=== PATIENT | male | born 1940 | race Caucasian/White ===

== ENCOUNTER → 2018-07-24 05:35 | Day surgery (SDC) | payer MEDICARE ==
[~2018-07-24 05:35] MED LIST: Atracurium* 10 MG/ML 10 ML VIAL ONE; Buffered Lidocaine 0.9% SYRIN* 5 ML/SYR SYRINGE INTRADERM ONE; Midazolam* 1 MG/ML 5 ML VIAL (5 MG) ONE; Morphine PCA ADULT* 5 MG/ML 30 ML ONE; Naloxone* 0.4 MG/ML 1 ML VIAL IV PRN; Succinylcholine* 20 MG/ML 10 ML VIAL ONE; fentaNYL* 50 MCG/ML 2 ML VIAL (100 MCG VIAL) ONE
[2018-07-24 08:17] VITALS: BP 107/61
== END | disposition home or self-care (01) ==
LOC: OR 05:35
PROVIDERS: ATTEND Family Medicine
DX: M48.07 Spinal stenosis, lumbosacral region (principal); M54.5 Low back pain; E11.9 Type 2 diabetes mellitus without complications; Z79.84 Long term (current) use of oral hypoglycemic drugs; I10 Essential (primary) hypertension; I25.10 Atherosclerotic heart disease of native coronary artery without angina pectoris; Z95.5 Presence of coronary angioplasty implant and graft; I35.0 Nonrheumatic aortic (valve) stenosis; F17.210 Nicotine dependence, cigarettes, uncomplicated
CPT/HCPCS: 72148; J0330; J2250; J2270; J3010

== ENCOUNTER 2019-02-11 20:49 | Inpatient (IN) | payer MEDICARE ==
--- OUTSIDE RECORDS SUMMARY | 2019-02-11 20:56 | XMS REPORT | Continuity of Care Document ---
:1940 External Reference #:[id number] Author Name Wesley Abdalla, DO Address [address] [place] [address] Care Team Providers Name Role Phone Amber Durham NP Care Team Information Tub Attendant Unavailable Delmar Boston MD Primary Care Physician Unavailable Payers Date Identification Numbers Payment Provider Subscriber Policy Number: [id number] Medicare Jalen Richey PayID: [id number] [facility] [address] [facility] [place] [address] Policy Number: [id number] [facility] Option Jalen Richey PayID: [id number] Claims, [address] [place] [address] Expires: 2018 Policy Number: [id number] [employer] Jalen Richey PayID: [id number] [address] [place] [address] Problems Active Problems Provider Date Cough Hallie Dalal PA-C Onset: 09/01/2018 Flatulence, eructation and gas pain Hallie Dalal PA-C Onset: 2018 Nausea Hallie Dalal PA-C Onset: 09/01/2018 Social History Type Date Description Comments Sex Unknown Tobacco Use Start: Unknown End: Unknown Patient is a former smoker Smoking Status Reviewed: 02/08/19 Patient is a former smoker Allergies, Adverse Reactions, Alerts Active Allergies Reaction Severity Comments Date Aripiprazole Lauroxil Free Text 08/19/2018 Medications Active Medications SIG Qnty Indications Ordering Provider Date Famotidine 60tabs K21.9 Amber Durham NP 08/17/2018 20mg Tablets Ipratropium [place] 90units R05 Delmar Boston MD 06/04/2016 0.03% Solution Gabapentin 90caps G89.4 Delmar Boston MD 06/04/2016 100mg Capsules Azelastine HCL (Nasal) 90units J30.89 Delmar Boston MD 03/18/2016 0.1% Solution Atorvastatin Calcium 90tabs Amber Durham,VALIDATION SOFTWARE FACILITATOR 12/01/2015 40mg Tablets Trazodone HCL 60tabs Delmar Boston MD 01/18/2015 50mg Tablets Nitroglycerin 1tabs Delmar Boston MD 09/23/2012 0.4mg Tablets Sub Omeprazole 180caps R11.0 Delmar Boston MD 06/10/[address] Losartan Potassium 90tabs Delmar Boston MD 11/15/2010 100mg Tablets Metoprolol Tartrate 180tabs Delmar Boston MD 12/18/2009 25mg Tablets Dapsone 60tabs Unknown 100mg Tablets Metformin HCL Unknown 1000mg Tablets Humulin R Unknown 100Unit/ML Solution Humulin N Unknown 100Unit/ML Suspension Lumigan Unknown 0.01% Solution Hydrochlorothiazide 90tabs Delmar Boston MD 25mg Tablets Doxycycline Hyclate Unknown 100mg Capsules History Medications Azathioprine 50mg Tablets Unknown - Vital Signs Date Vital Result Comment 02/08/2019 11:03am Height 70 inches 5'10" Weight 214.00 lb BP Systolic 103 mmHg BP Diastolic 65 mmHg Heart Rate 77 /min BMI (Body Mass Index) 30.7 kg/m2 09/01/2018 1:22pm Weight 224.00 lb BP Systolic 133 mmHg BP Diastolic 74 mmHg Heart Rate 64 /min Results Test Date Facility Test Result H/L Range Note Laboratory test finding 01/27/2018 N2N/[facility]D Import LDL, Direct 77 mg/dL 0 -130 Uric Acid 7.3 mg/dL 2.5-9.2 Vitamin B-12 433 pg/mL 230-1050 Comprehensive Metabolic Prof 01/27/2018 N2N/CCD Import A/G Ratio 1.9 CALC 0.6-2.3 Albumin 4.2 g/dL 3.8-5.5 Alk. Phosphatase 53 U/L 22-95 Alt (SGPT) 16 U/L 7-35 Ast (Sgot) 18 U/L 5-34 BUN 22 mg/dL 6-26 BUN/Creat Ratio 20.0 CALC 8.0-36.0 Calcium 8.7 mg/dL 8.6-10.2 Carbon Dioxide 27 mEq/L 21-32 Chloride 98 mEq/L 94-112 Creatinine 1.1 mg/dL 0.6-1.4 GFR >60 ml/min/1.73m^ >=60 GFR Non- >60 ml/min/1.73m^ >=60 Globulin 2.2 g/dL 2.0-4.8 Glucose 201 mg/dL High 70-105 Potassium 4.1 mEq/L 3.6-5.5 Sodium 140 mEq/L 134-149 Total Bilirubin 0.9 mg/dL 0.2-1.3 Total Protein 6.4 g/dL 6.4-8.3 Lipid Profile 01/27/2018 [facility] Import Cholesterol 163 mg/dL 120-200 HDL Cholesterol 37 mg/dL 30-70 HDL Risk Factor 4.4 CALC 0.0-4.4 LDL (Calculated) 62 CALC 0-129 Triglycerides 322 mg/dL High 30-200 VLDL Cholesterol 64 mg/dL High 0-50 Laboratory test 05/15/2017 [email or web address] Import Erythrocyte Sed Rate 25 mm/Hr 0-40 finding Erythropoietin 16.5 mIU/mL 2.6 - 18.5 1 Ferritin 64.1 ng/mL 24-336 Haptoglobin 161 mg/dL 30 - 200 2 LDH 216 U/L 140-271 Vitamin B12 381 pg/mL 180-914 3 CBC Auto Diff 05/15/2017 [email or web address] Import Abs Basophils 0 10^3/uL 0-0.2 Abs Eosinophils 0.2 10^3/uL 0-0.6 Abs Lymphocytes 0.9 10^3/uL Low 1.0-4.8 Abs Monocytes 0.8 10^3/uL 0-0.8 Abs Neutrophils 5.6 10^3/uL 1.5-7.7 Abs Nucleated RBC 0 10^3/uL Basophil % 0.6 % 0-2 Eosinophil % 2.6 % 0-6 Granulocyte % 74.3 % 38-83 Hematocrit 34 % Low 42-52 Hemoglobin 10.9 g/dL Low 14.0-18.0 Lymphocyte % 11.5 % Low 25-47 Mean Corpuscular HGB Conc 33 g/dL 31-36 Mean Corpuscular Hemoglobin 29 pg 27-31 Mean Corpuscular Volume 87 fL 80-94 Mean Platelet Volume 9 um3 7.4-10.4 Monocyte % 11.0 % High 1-9 Nucleated Red Blood Cells % 0 1 Platelet Count 167 10^3/uL 150-450 Red Blood Count 3.83 10^6/uL Low 4.0-5.4 Red Cell Distribution Width 16 % High 10.5-15 White Blood Count 7.6 10^3/uL 3.5-10.8 Comp Metabolic Panel 05/15/2017 N2N/CCD Import Albumin 4.0 g/dL 3.2-5.2 Albumin/Globulin Ratio 1.3 1 1-3 Alkaline Phosphatase 47 U/L 34-104 Alt 17 U/L 7-52 Anion Gap 12 mmol/L High 2-11 Ast 19 U/L 13-39 BUN/Creatinine Ratio 19.1 1 8-20 Blood Urea Nitrogen 29 mg/dL High 6-24 Calcium 8.8 mg/dL 8.6-10.3 Chloride 103 mmol/L 101-111 Co2 Carbon Dioxide 23 mmol/L 22-32 Creatinine 1.52 mg/dL High 0.67-1.17 Egfr 57.9 1 >60 4 Egfr Non- 45.1 1 >60 Globulin 3.0 g/dL 2-4 Glucose 144 mg/dL High 70-100 Potassium 3.8 mmol/L 3.5-5.0 Sodium 138 mmol/L 133-145 Total Bilirubin 0.60 mg/dL 0.2-1.0 Total Protein 7.0 g/dL 6.4-8.9 Iron & Iron Binding 05/15/2017 N2N/CCD Import % Iron Saturation 21 % 15- 55 Capacity Iron 68 g/dL 50-212 Total Iron Binding Capacity 323 g/dL 250-450 Unsaturated Iron Binding 255 g/dL Protein Electrophoresis 05/15/2017 N2N/CCD Import Albumin 3.4 g/dL 3.4- 4.7 Albumin/Globulin Ratio 0.97 1 Alpha-1 Globulin 0.3 g/dL 0.1-0.3 Alpha-2 Globulin 1.0 g/dL 0.6-1.0 Beta Globulin 1.0 g/dL 0.7-1.2 Gamma Globulin 1.3 g/dL 0.6-1.6 Impression See Comment 5 Total Protein(Pep) 7.0 g/dL 6.3 - 7.9 1 Test Performed by: [facility] [address] [place] [address] 2 Test Performed by: [facility] [address] [place] [address] 3 Normal Range 180 to 914 Indeterminate Range 145 to 180 Deficient Range <145 4 Because ethnic data is not always readily available, this report includes an eGFR for both -Americans and non- Americans. The National Kidney Disease Education Program (NKDEP) does not endorse the use of the MDRD equation for patients that are not between the ages of 18 and 70, are , have extremes of body size, muscle mass, or nutritional status, or are non- or non-. According to the National Kidney Foundation, irrespective of diagnosis, the stage of the disease is based on the level of kidney function: Stage Description GFR(mL/min/1.73 m(2)) 1 Kidney damage with normal or decreased GFR 90 2 Kidney damage with mild decrease in GFR 60-89 3 Moderate decrease in GFR 30-59 4 Severe decrease in GFR 15-29 5 Kidney failure <15 (or dialysis) 5 RESULT: No apparent monoclonal protein on serum electrophoresis. Test Performed by: [address] [address] Procedures Date Code Description Status 04/29/2006 47892 Colonoscopy Completed Encounters Type Date Location Provider Dx Diagnosis Office Visit 09/01/2018 Gastroenterology Hallie Logan R11.0 Nausea 1:[facility]p [facility] PA-C R14.0 Abdominal distension (gaseous) R05 Cough R14.2 Eructation Plan of Treatment Future Appointment(s):03/18/2019 12:15 pm - Wesley Abdalla DO at [facility]02/08/2019 - CRISTIN Lim14.0 Abdominal distension (gaseous)R13.14 Dysphagia, pharyngoesophageal nsklsK42.03 Drug induced awzdclpdyvgjI02.11 Encounter for screening for malignant neoplasm of cvwmbX84.9 Type 2 diabetes mellitus without pgbsqlngrsynlD61.81 Dependence on supplemental oxygen
[2019-02-11] MEDS ORDERED: NS 0.9% 1000 ML** 3,000 ML IV ONE (21:05)
--- NOTE | 2019-02-11 21:07 | ED ---
HPI Febrile Illness - HPI Summary HPI Summary: This pt is a 78 y/o male presenting to [facility] via EMS c/o fevers for the past 3 days. reports the pt was diagnosed by Dr. Boston with shingles 10 days ago and was given Valtrex. Per , over the past few days pt has been spiking a fever, sleeping more than usual, and has been getting disoriented. Pt also still has pain from shingles on his left lower back radiating down his left leg. Additionally pt reports headaches in the morning, some abd pain, dysuria. He notes he has had dysuria for the past 3 weeks. Denies chest pain, cough, nausea, vomiting. Pt was given Tylenol x2 TECHNICAL COORDINATOR, per . - History of Current Complaint Time Seen by Provider: 02/11/19 20:56 Hx Obtained From: Patient, Family/Residential Treatment Counselor Onset/Duration: Started Days Ago, Still Present Timing: Lasting Days Current Severity: Moderate Pain Intensity: 5 Pain Scale Used: 0-10 Numeric Aggravating Factors: Nothing Alleviating Factors: Nothing Associated Signs and Symptoms: Dysuria, Headache, Rash - diagnosed as shingles, Other: - POSITIVE: disorientation, sleeping more than usual, abd pain. NEGATIVE : chest pain, nausea, vomiting - Allergy/Home Medications Allergies/Adverse Reactions: Allergies Allergy/AdvReac Type Severity Reaction Status Date / Time aripiprazole [From Abilify] Allergy Shakes Verified 12/28/18 10:15 lisinopril [From Zestril] Allergy See Comment Verified 12/28/18 10:15 Home Medications: Home Medications Acetaminophen with Codeine [Acetaminophen/Codeine Jessica 300-30 mg] 1 - 2 tab PO Q6HR 02/12/19 [History Confirmed 02/12/19] Atorvastatin* [Lipitor*] 40 mg PO DAILY 02/12/19 [History Confirmed 02/12/19] Trazodone HCl 50 mg PO BEDTIME 02/12/19 [History Confirmed 02/12/19] ValACYclovir (*) [Valtrex 1 GM(*)] 1 gm PO TID 02/12/19 [History Confirmed 02/12] PMH/Surg Hx/FS Hx/Imm Hx Endocrine/Hematology History: Reports: Hx Anticoagulant Therapy - on Coumadin, Hx Diabetes - TYPE II- ORAL MEDICATION AND INSULIN FOR Cardiovascular History: Reports: Hx Coronary Artery Disease - STENT, Hx Deep Vein Thrombosis, Hx Hypercholesterolemia, Hx Hypertension - ON MEDICATION FOR, Other Cardiovascular Problems/Disorders - 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 Comment Only: Hx Asthma - interstital lung disease GI History: Reports: Hx Gastroesophageal Reflux Disease - ON MEDICATION FOR, Hx Hiatal Hernia History: Reports: Hx Kidney Stones Denies: Hx Renal Disease Musculoskeletal History: Reports: Hx Arthritis - "ALL OVER", Hx Back Problems - spinal stenosis, Hx Bursitis - right shoulder, Other Musculoskeletal History - gouty arthropathy Denies: Hx Rheumatoid Arthritis, Hx Osteoporosis Sensory History: Reports: Hx Cataracts, Hx Contacts or Glasses - GLASSES Denies: Hx Hearing Aid Opthamlomology History: Reports: Hx Cataracts, Hx Contacts or Glasses - GLASSES Neurological History: Reports: Hx Spinal Cord Injury - lumbar stenosis Denies: Hx Dementia, Hx Developmental Delay, Hx Headaches, Hx Migraine, Hx Seizures, Hx Transient Ischemic Attacks (TIA), Other Neuro Impairments/Disorders Comment Only: Hx Nerve Disease - diebetic neuropathy Psychiatric History: Reports: Hx Anxiety, Hx Depression - ON MEDICATION FOR Denies: Hx Panic Disorder - Surgical History Surgery Procedure, Year, and Place: cardiac Stent ( ENDEAVOR-ZOTAROLIMUS ELUTING - COND 5-PT HAS CARD- 1.5T MAX SPT 525 GAUSS) placed 2008 [place]. right knee meniscus repair. CATARACT W/ LENS - @ [facility] [place]. A TEEN- PROCEDURE FOR GINGIVITIS Hx Anesthesia Reactions: Yes - DIFFICULTY WITH INTUBATION IN YEARS PAST-NO PROBLEMS IN RECENT SURG. Infectious Disease History: Denies: Traveled Outside the [place] in Last 30 Days - Family History Known Family History: Positive: Cardiac Disease, Diabetes - Social History Alcohol Use: Occasionally Alcohol Amount: 2 per week Substance Use Type: Reports: None Substance Use Comment - Amount & Last Used: MEDICAL USE OF MARIJUANA Smoking Status (MU): Former Smoker Amount Used/How Often: 1 1/2 PPD+ X 40-50 YEARS Length of Time of Smoking/Using Tobacco: 40 YRS Have You Smoked in the Last Year: No Review of Systems Constitutional: Other - POSITIVE: sleeping more than usual Positive: Fever Negative: Chest Pain Negative: Cough Positive: Abdominal Pain. Negative: Vomiting, Nausea Positive: dysuria Positive: Rash Neurological: Other - POSITIVE: disorientation Positive: Headache All Other Systems Reviewed And Are Negative: Yes Physical Exam - Summary Physical Exam Summary: Appearance: Well-appearing, Well-nourished, Elderly male lying comfortably in the stretcher in no acute distress, Does not appear toxic Skin: Warm, dry, Skin lesions in dermatome pattern from the left side of the lower back across his buttocks and into the thigh. Does not appear to have a secondary infection. Eyes: sclera anicteric, no conjunctival pallor ENT: mucous membranes moist, pharynx appears normal Neck: Supple, nontender Respiratory: Clear to auscultation, no signs of respiratory distress Cardiovascular: Normal S1, S2. No murmurs. Normal distal pulses in tibial and radial bilaterally. Abdomen: abdomen is obese, umbilical hernia is soft and nontender, otherwise abdomen is soft, normal active bowel sounds present Musculoskeletal: Normal, Strength/ROM Intact. Extremities without swelling, no edema. Neurological: A&Ox3, awake and alert, mentation is normal, speech is fluent and appropriate Psychiatric: affect is normal, does not appear anxious or depressed Triage Information Reviewed: Yes Vital Signs Reviewed: Yes Diagnostics - Laboratory Result Diagrams: 02/11/19 21:31 02/11/19 21:31 Lab Statement: Any lab studies that have been ordered have been reviewed, and results considered in the medical decision making process. - Radiology Chest XR Radiology Interpretation Completed By: ED Physician Summary of Radiographic Findings: Patchy areas of atelectasis in the right lung , no focal consolidation. - EKG 21:24 Cardiac Rate: Tachycardia - at 97 bpm EKG Rhythm: Sinus Tachycardia Summary of EKG Findings: ST, unifocal PVCs Course/Dx - Course Assessment/Plan: Pt is a 78 y/o male presenting to [facility] via EMS c/o fevers for the past 3 days. reports the pt was diagnosed by Dr. Boston with shingles 10 days ago and was given Valtrex. Pt reports headaches in the morning, some abd pain, and dysuria. notes pt has been sleeping more than usual and has been getting disoriented. Test results remarkable for WBC of 1.9, hgb of 8.4, hct of 26, platelet count of 72, lactic acid of 3, AST of 62, troponin of 0.04. Chest XR shows patchy areas of atelectasis in the right lung, no focal consolidation. In the ED course the pt was given IV fluids, vancomycin, zosyn. Discussed the case with Dr. Bhakta, hospitalist, who accepted the pt for admission. - Diagnoses Provider Diagnoses: Fever, Sepsis, UTI (urinary tract infection) - Provider Notifications Discussed Care Of Patient With: Ted Bhakta - hospitalist Time Discussed With Above Provider: 23:42 Instructed by Provider To: Admit As Inpatient Discharge - Sign-Out/Discharge Documenting (check all that apply): Patient Departure - Admit to [facility] Patient Received Moderate/Deep Sedation with Procedure: No - Discharge Plan Condition: Stable Disposition: ADMITTED TO [facility] - Billing Disposition and Condition Condition: STABLE Disposition: Admitted to [facility] - Attestation Statements Document Initiated by Patricio: Yes Documenting Scribe: Padmini Flores Provider For Whom Shalae is Documenting (Include Credential): Chralie Leal MD Scribe Attestation: Padmini Hamlin scribed for Charlie Leal MD on 02/12/19 at 0640. Scribe Documentation Reviewed: Yes Provider Attestation: The documentation as recorded by the Padmini neumann accurately reflects the service I personally performed and the decisions made by me, Charlie Leal MD Status of Scribe Document: Viewed
[2019-02-11 21:56] LABS: ALT 37 U/L (7-52); AST 62 U/L (13-39); Albumin 3.1 g/dL (3.2-5.2); Alkaline Phosphatase 61 U/L (34-104); Anion Gap 11 mmol/L (2-11); BUN/Creatinine Ratio 19.3 (8-20); Blood Urea Nitrogen 32 mg/dL (6-24); CO2 Carbon Dioxide 21 mmol/L (22-32); Calcium 7.9 mg/dL (8.6-10.3); Chloride 104 mmol/L (101-111); EGFR Non-African American 40.5 (>60); Glucose 166 mg/dL (70-100); Potassium 4.3 mmol/L (3.5-5.0); Sodium 136 mmol/L (135-145); Total Protein 6.1 g/dL (6.4-8.9)
[2019-02-11 21:58] LABS: Activated Partial Thrombo Time 52.1 seconds (26.0-38.0); INR 1.21 (0.82-1.09)
[2019-02-11 22:04] LABS: Troponin I 0.04 ng/mL (<0.04)
[2019-02-11 22:11] LABS: ABS Lymphocytes 0.5 10^3/ul (1.0-4.8); ABS Monocytes 0.4 10^3/ul (0-0.8); Eosinophil % 0.3 %; Hematocrit 26 % (42-52); Hemoglobin 8.4 g/dL (14.0-18.0); Lymphocyte % 26.8 %; Mean Corpuscular HGB Conc 33 g/dL (31-36); Mean Corpuscular Hemoglobin 29 pg (27-31); Mean Corpuscular Volume 87 fL (80-94); Nucleated Red Blood Cells % 0.3; Red Blood Count 2.93 10^6 /uL (4.18-5.48); Red Cell Distribution Width 19 % (10-15); White Blood Count 1.9 10^3/uL (3.5-10.8)
[2019-02-11 22:40] LABS: Mean Platelet Volume 9.5 fL (7.4-10.4); Platelet Count 72 10^3/uL (150-450)
[2019-02-11 22:41] LABS: Polychromasia 1+
[2019-02-11] MEDS ORDERED: Vancomycin 1500 MG IV - x ONCE IVPB ONE ×2 (23:00)
[2019-02-11] MEDS ORDERED: Piperacillin/Tazobac ADVAN(*) 3.375 GM in NS 0.9% 100 ML* 100 ML IVPB ONE (23:24)
[2019-02-11] MEDS ORDERED: Vancomycin(*) 1,000 MG VIAL IVPB SCH (23:45)
[2019-02-11 23:57] LABS: Urine Appearance Cloudy; Urine Bacteria Absent (Absent); Urine Bilirubin Negative (Negative); Urine Blood 3+ (Negative); Urine Color Amber; Urine Glucose Negative (Negative); Urine Ketones Trace (Negative); Urine Nitrite Negative (Negative); Urine Protein 1+(30 mg/dL) (Negative); Urine Red Blood Cell 3+(>10/hpf) (Absent); Urine Specific Gravity 1.015 (1.010-1.030); Urine Urobilinogen Negative (Negative); Urine White Blood Cell 3+(>20/hpf) (Absent)
[2019-02-12] MEDS ORDERED: NS 0.9% 250 ML* 250 ML ONE (00:50)
[2019-02-12] MEDS ORDERED: Dextrose 50% Syringe 50 ML* 25 GM/50 ML SYRINGE IV PUSH PRN (01:07)
[2019-02-12] MEDS ORDERED: Morphine INJ* 2 MG/ML 1 ML SYRINGE (TWO MG - NEW SYRINGE VERSION) IV PRN (01:24)
[2019-02-12] MEDS ORDERED: Nitroglycerin TAB 0.4 MG* 0.4 MG TAB SL PRN (01:27)
[2019-02-12] MEDS ORDERED: Zosyn per Pharmacy* NOTE FOLLOW UP SCH (02:00)
--- NOTE | 2019-02-12 02:54 | HP ---
History of Present Illness - History of Present Illness Reason for Visit: fever, weakness History of Present Illness: PCP: Dr. Boston HPI: Patient is a 78 year old man with spinal stenosis and multiple medical problems who presented to the ER today with increasing overall weakness and a temperature of 100.9-101.2 at home. He was so weak he barely could get to bathroom, and his had difficulty supporting him. He denies any focal infectious symptoms, such as dysuria, frequency, sore throat, nausea, diarrhea, cough, or dyspnea. He has chronic low back pain that radiates to his legs. His became particularly concerned when his BP at home read 88/42, so she convinced him to come to ER and called an ambulance. Recent medical history includes a visit to urology about 10 days ago. There was discussion of urinary retention, BPH, but a UA was reported as negative for infection. He has seen Dr. Crisostomo many times regarding nephrolithiasis. He also has had low blood counts noted by his primary care office, and a referral to Dr. Ralph was canceled twice by the hematology office. About 12 days ago he was diagnosed with shingles on his LT low back and leg, and has been on 1 week of Valtrex since then. 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 Cueto, pulmonology, at [facility]. 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 Abdalla recently, EGD and colonoscopy planned in March Genital - Urinary: Negative: Hematuria Genitourinary - Male: Positive: Prostatism Musculoskeletal: Positive: Joint Pain, Low Back Pain Endocrinology: Positive: Diabetes Mellitus Hematologic/Lymphatic: Positive: Anemia Negative: Hx Leukemia, Use of Antiplatelet Drugs Neurology: Positive: Normal Psychiatry: Positive: Normal Objective Active Medications: Home Medications: Atorvastatin Calcium (Lipitor*) 40 mg PO 2100 [facility] Betaxolol HCl (Betoptic 0.05%*) 1 drop BOTH EYES BID FAYE Dapsone (Dapsone Tab*) 100 mg PO QAM [facility] Doxycycline Hyclate (Vibramycin Cap(*)) 100 mg PO BEDTIME [facility] Insulin NPH 30 units SUBCUT Q24H FAYE Insulin Regular 15-30 units SC pre-meal Latanoprost (Xalatan 0.005%*) 1 drop BOTH EYES BEDTIME [facility]; Protocol Nitroglycerin (Nitroglycerin Tab 0.4 Mg*) 0.4 mg SL Q5M PRN PRN Reason: CHEST PAIN Pantoprazole Sodium (Protonix Tab*) 40 mg PO BID FAYE Prednisone (Deltasone Tab*) 5 mg PO QAM FAYE Trazodone HCl (Desyrel Tab*) 100 mg PO BEDTIME [facility] Vital Signs - 8 hr 02/11/19 02/11/19 02/11/19 20:57 21:08 22:05 Temperature 38.2 C Pulse Rate 102 104 86 Respiratory 18 Rate Blood Pressure 91/55 91/55 (mmHg) O2 Sat by Pulse 91 91 95 Oximetry 02/12/19 02/12/19 02/12/19 02:00 02:15 02:42 Temperature 37.4 C Pulse Rate 87 87 Respiratory 22 20 26 Rate Blood Pressure 108/62 (mmHg) O2 Sat by Pulse 100 100 Oximetry Oxygen Devices in Use Now: Nasal Cannula Appearance: alert, no distress Eyes: No Scleral Icterus Ears/Nose/Mouth/Throat: NL Teeth, Lips, Gums, Clear Oropharnyx Neck: NL Appearance and Movements; NL JVP Respiratory: Symmetrical Chest Expansion and Respiratory Effort, Clear to Auscultation Cardiovascular: NL Sounds; No Murmurs; No JVD, RRR Abdominal: NL Sounds; No Tenderness; No Distention, No Hepatosplenomegaly Lymphatic: No Cervical Adenopathy Extremities: No Edema Skin: - - healing dermatomal vesicular rash LT L2 distribution Neurological: Alert and Oriented x 3 Lines/Tubes/Other Access: Clean, Dry and Intact Peripheral IV Nutrition: Taking PO's Result Diagrams: 02/11/19 21:31 02/11/19 21:31 Additional Lab and Data: Laboratory Tests 02/11/19 02/11/19 02/11/19 21:31 21:31 21:31 Absolute Neuts (auto) 1.0 L Absolute Lymphs (auto) 0.5 L INR (Anticoag Therapy) 1.21 H APTT 52.1 H Glucose 166 H Lactic Acid Calcium 7.9 L Total Bilirubin 1.10 H AST 62 H Troponin I 0.04 H* 02/11/19 21:31 Absolute Neuts (auto) Absolute Lymphs (auto) INR (Anticoag Therapy) APTT Glucose Lactic Acid 3.0 H* Calcium Total Bilirubin AST Troponin I Laboratory Tests 02/11/19 23:43 Urine pH 5.0 Ur Specific [place] 1.015 Urine Protein 1+(30 mg/dl) A Urine Ketones Trace A Urine Blood 3+ A Urine Nitrate Negative Ur Leukocyte Esterase 1+ A Urine WBC (Auto) 3+(>20/hpf) A Urine RBC (Auto) 3+(>10/hpf) A Diagnostic Imaging: CXR: PA/lat, no focal infiltrates, poor penetration EKG Data: sinus tachycardia, frequent PACs, PVCs. Assess/Plan/Problems-Billing Assessment: 78 year old man with sepsis, pancytopenia, source likely UTI - Patient Problems (1) Sepsis Current Visit: Yes Status: Acute Priority: High Comment: -Patient will be admitted to telemetry for monitoring -Source unclear, may have endocarditis, UTI, liver abscess, pneumonia -Has received 3000 ml IV saline in ER -Will continue Zosyn empirically, follow blood, urine cultures (2) Immunosuppression due to drug therapy Current Visit: Yes Status: Acute Priority: Medium Code(s): Z79.899 - OTHER MCC (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 THERAPY SNOMED Code(s): 58143586 Comment: -Immune suppression raises risk of severe infection -Will hold azothiaprine for now -Will continue dapsone and doxycycline, presumably for prophylaxis (3) Pancytopenia Current Visit: Yes Status: Acute Priority: Medium Code(s): D61.818 - OTHER PANCYTOPENIA SNOMED Code(s): 234794710 Comment: -Pancytopenia may be due to sepsis, azothioprine, or primary bone marrow process -Will discuss with hematology in the morning (4) Acute kidney injury Current Visit: Yes Status: Acute Priority: Medium Code(s): N17.9 - ACUTE KIDNEY FAILURE, UNSPECIFIED SNOMED Code(s): 28363622 Comment: -Creatinine is above baseline -Suspect pre-renal azotemia -Will continue aggressive rehydration and recheck in AM (5) Shingles Current Visit: Yes Status: Acute Priority: Medium Code(s): B02.9 - ZOSTER WITHOUT COMPLICATIONS SNOMED Code(s): 1139068 Comment: -Viremia can also cause sepsis syndrome -Will treat with acyclovir IV, IBW calculated at 73 kg -may need ID consultation. (6) DVT prophylaxis Current Visit: Yes Status: Acute Priority: Low Code(s): Z29.9 - ENCOUNTER FOR PROPHYLACTIC MEASURES, UNSPECIFIED SNOMED Code(s): 222661788 Comment: -Due to low platelets, risk of bleeding, will use SCDs only. (7) Type 2 diabetes mellitus Current Visit: Yes Status: Acute Priority: Medium Comment: -Patient may have poor PO intake in hospital -Will decrease long-acting insulin to 15 units/day -Use sliding scale Humalog pre-meal Status and Disposition: inpatient
[2019-02-12 03:20] LABS: Troponin I 0.05 ng/mL (<0.04)
[2019-02-12] MEDS: NS 0.9% IVPB SCH ×2 (03:53→16:07)
[2019-02-12] MEDS: ACYCLOVIR IVPB SCH ×2 (03:53→16:07)
[2019-02-12] MEDS ORDERED: ZOSYN 3.375 GM Q8H per EXTENDED INFUSION IVPB SCH ×2 (04:00)
[2019-02-12] MEDS: Morphine 4 MG/ML VIAL (1 ml) 4 MG/ML VIAL IV PRN ×4 (05:32→18:00)
[2019-02-12 07:05] LABS: Hematocrit 23 % (42-52); Hemoglobin 7.6 g/dL (14.0-18.0); Mean Corpuscular HGB Conc 34 g/dL (31-36); Mean Corpuscular Hemoglobin 29 pg (27-31); Mean Corpuscular Volume 87 fL (80-94); Red Blood Count 2.58 10^6 /uL (4.18-5.48); Red Cell Distribution Width 20 % (10-15); White Blood Count 2.1 10^3/uL (3.5-10.8)
[2019-02-12 07:15] LABS: BUN/Creatinine Ratio 19.6 (8-20); Calcium 7.3 mg/dL (8.6-10.3); EGFR African American 60.6 (>60); EGFR Non-African American 50.1 (>60); Potassium 4.2 mmol/L (3.5-5.0)
[2019-02-12 07:23] LABS: Troponin I 0.06 ng/mL (<0.04)
[2019-02-12] MEDS: ZOSYN 3.375 GM Q6H - Intermittant 30 min Infusion IVPB SCH ×8 (07:48→23:16)
[2019-02-12 07:50] LABS: ABS Lymphocytes 0.7 10^3/ul (1.0-4.8); ABS Monocytes 0.4 10^3/ul (0-0.8); ABS Neutrophils 1.1 10^3/ul (1.5-7.7); Eosinophil % 0.2 %; Large Platelets Present; Lymphocyte % 31.2 %; Mean Platelet Volume 8.6 fL (7.4-10.4); Nucleated Red Blood Cells % 0.5; Platelet Count 62 10^3/uL (150-450)
--- NOTE | 2019-02-12 07:57 | PN ---
Subjective Date of Service: 02/12/19 Interval History: Moaning in pain Difficult historian - reports pain in eyes which is long standing unchanged form baseline, cannot say what he uses at home for pain Also pain when moving leg (right) - indicates also long standing and unchanged. Denies headache Denies CP, SOB, LH, N/V Reports cough that is unchanged Reports dysuria x 1 month Objective Active Medications: Atorvastatin Calcium (Lipitor*) 40 mg PO 2100 [facility] Betaxolol HCl (Betoptic 0.05%*) 1 drop BOTH EYES BID [facility] Dapsone (Dapsone Tab*) 100 mg PO QAM [facility] Dextrose (D50w Syringe 50 Ml*) 12.5 gm IV PUSH .FOR FS < 60 - SS PRN PRN Reason: FS < 60 Doxycycline Hyclate (Vibramycin Cap(*)) 100 mg PO BEDTIME [facility] Sodium Chloride (Ns 0.9% 1000 Ml) 1,000 mls @ 150 mls/hr IV PER RATE [facility] Acyclovir Sodium 730 mg/ (Sodium Chloride) 264.6 mls @ 100 mls/hr IVPB Q12H [facility] Last Admin: 02/12/19 03:53 Dose: 100 mls/hr Piperacillin Sod/Tazobactam (Sod 3.375 gm/ Sodium Chloride) 100 mls @ 200 mls/ hr IVPB Q6H [facility] Insulin Glargine (Lantus(*)) 15 units SUBCUT Q24H [facility] Insulin Human Lispro (Humalog*) 0 units SUBCUT ACHS [facility]; Protocol Latanoprost (Xalatan 0.005%*) 1 drop BOTH EYES BEDTIME [facility]; Protocol Morphine Sulfate (Morphine 4 Mg/Ml Vial (1 Ml)) 4 mg IV Q3H PRN PRN Reason: PAIN - MODERATE TO SEVERE Last Admin: 02/12/19 05:32 Dose: 4 mg Nitroglycerin (Nitroglycerin Tab 0.4 Mg*) 0.4 mg SL Q5M PRN PRN Reason: CHEST PAIN Pantoprazole Sodium (Protonix Tab*) 40 mg PO BID [facility] Pharmacy Consult (Zosyn Per Pharmacy*) 1 note FOLLOW UP .ZOSYN PER PHARMACY [facility] Prednisone (Deltasone Tab*) 5 mg PO QAM [facility] Tamsulosin HCl (Flomax Cap*) 0.4 mg PO DAILY [facility] Trazodone HCl (Desyrel Tab*) 100 mg PO BEDTIME [facility] Vital Signs - 8 hr 02/12/19 02/12/19 02/12/19 00:00 00:05 00:08 Temperature Pulse Rate 80 81 83 Respiratory Rate Blood Pressure 93/52 95/51 (mmHg) O2 Sat by Pulse 97 97 96 Oximetry 02/12/19 02/12/19 02/12/19 00:38 01:00 01:17 Temperature Pulse Rate 86 83 85 Respiratory Rate Blood Pressure 95/53 97/58 (mmHg) O2 Sat by Pulse 96 96 99 Oximetry 02/12/19 02/12/19 02/12/19 01:38 01:52 02:00 Temperature Pulse Rate 117 87 Respiratory 22 Rate Blood Pressure 106/63 121/52 (mmHg) O2 Sat by Pulse 97 100 Oximetry 02/12/19 02/12/19 02/12/19 02:15 02:42 05:31 Temperature 99.4 F Pulse Rate 87 Respiratory 20 26 20 Rate Blood Pressure 108/62 (mmHg) O2 Sat by Pulse 100 Oximetry 02/12/19 05:32 Temperature Pulse Rate Respiratory 20 Rate Blood Pressure (mmHg) O2 Sat by Pulse Oximetry Oxygen Devices in Use Now: Nasal Cannula Appearance: older than stated age, agitated moving around in bed but not in CV distress, interactive Eyes: No Scleral Icterus, PERRLA Ears/Nose/Mouth/Throat: - - dry MM Neck: NL Appearance and Movements; NL JVP, Trachea Midline Respiratory: Symmetrical Chest Expansion and Respiratory Effort, Clear to Auscultation, - - limited by talking and moaning Cardiovascular: RRR, - - 2/6 ADORE Abdominal: NL Sounds; No Tenderness; No Distention, No Hepatosplenomegaly Lymphatic: No Cervical Adenopathy Extremities: No Edema, No Clubbing, Cyanosis Skin: - - faint macular rash on left upper thigh no vesicles Neurological: Alert and Oriented x 3 Result Diagrams: 02/12/19 06:46 02/12/19 06:46 Additional Lab and Data: Laboratory Tests 02/11/19 02/11/19 02/11/19 21:31 21:31 21:31 Absolute Neuts (auto) 1.0 L Absolute Lymphs (auto) 0.5 L INR (Anticoag Therapy) 1.21 H APTT 52.1 H Glucose 166 H Lactic Acid Calcium 7.9 L Total Bilirubin 1.10 H AST 62 H Troponin I 0.04 H* 02/11/19 21:31 Absolute Neuts (auto) Absolute Lymphs (auto) INR (Anticoag Therapy) APTT Glucose Lactic Acid 3.0 H* Calcium Total Bilirubin AST Troponin I Laboratory Tests 02/11/19 23:43 Urine pH 5.0 Ur Specific [place] 1.015 Urine Protein 1+(30 mg/dl) A Urine Ketones Trace A Urine Blood 3+ A Urine Nitrate Negative Ur Leukocyte Esterase 1+ A Urine WBC (Auto) 3+(>20/hpf) A Urine RBC (Auto) 3+(>10/hpf) A Diagnostic Imaging: CXR: PA/lat, no focal infiltrates, poor penetration EKG Data: sinus tachycardia, frequent PACs, PVCs. Assess/Plan/Problems-Billing Assessment: 78 year old man h/o reported idiopathic pulmonary fibrosis in azathioprine/ prednisone, recently diagnosed shingles per report p/w dysuria found with pancytopenia and sepsis - Patient Problems (1) Neutropenic fever Comment: ANC 1000 zosyn (2) Acute kidney injury Comment: -Suspect pre-renal azotemia -improved s/p 6L on admission (3) Pancytopenia Comment: -reportedly identified before this admission by PCP -requesting records from Dr. Boston -heme consult -without baseline unclear if worse from new baseline -smear review pending (4) Sepsis Comment: - urine vs lung vs other -underlying fibrosis may be hiding infection -zosyn -s/p 6 L IVF -cultures pending (5) Shingles Comment: -Viremia can also cause sepsis syndrome -Will treat with acyclovir IV, IBW calculated at 73 kg -may need ID consultation based on clinical course (6) Type 2 diabetes mellitus Comment: -currently poor intake -Will decrease long-acting insulin to 15 units/day -Use sliding scale Humalog pre-meal (7) DVT prophylaxis Current Visit: Yes Status: Acute Priority: Low Code(s): Z29.9 - ENCOUNTER FOR PROPHYLACTIC MEASURES, UNSPECIFIED SNOMED Code(s): 142652498 Comment: -Due to low platelets, risk of bleeding, will use SCDs only. -consider HSQ if plts increased today (labs are pending) Status and Disposition: inpatient
[2019-02-12] MEDS: NS 0.9% 1000 ML** 1,000 ML IV SCH ×2 (08:49→16:07)
[2019-02-12] MEDS: Insulin GLARGINE(*) 1 UNITS UNIT SUBCUT SCH (08:52)
[2019-02-12] MEDS: Insulin LISPRO* 1 UNITS UNIT SUBCUT SCH ×4 (08:53→23:43)
[2019-02-12] MEDS: methylPREDNISolone SOD 40 MG* 1 ML VIAL IV SCH ×4 (08:54→23:16)
[2019-02-12] MEDS: Dapsone TAB* 100 MG PO SCH (08:57)
[2019-02-12] MEDS: Tamsulosin CAP* 0.4 MG PO SCH (08:57)
[2019-02-12] MEDS: Pantoprazole TAB * 40 MG TAB PO SCH ×2 (08:57→23:15)
[2019-02-12] MEDS ORDERED: predniSONE TAB* 5 MG PO SCH (09:00)
[2019-02-12] MEDS: Betaxolol 0.5 %* OPHTH.SOLN 5 ML BOTH EYES SCH ×2 (09:01→23:14)
[2019-02-12] MEDS ORDERED: Lidocaine 2% PF * 5 ML VIAL INJ ONE (12:13)
[2019-02-12 12:33] LABS: Urine Appearance Cloudy; Urine Bacteria Absent (Absent); Urine Bilirubin Negative (Negative); Urine Blood 3+ (Negative); Urine Color Yellow; Urine Glucose Negative (Negative); Urine Ketones Trace (Negative); Urine Nitrite Negative (Negative); Urine Protein 1+(30 mg/dL) (Negative); Urine Red Blood Cell 3+(>10/hpf) (Absent); Urine Specific Gravity 1.012 (1.010-1.030); Urine Uric Acid Crystals Present (Absent); Urine Urobilinogen Negative (Negative); Urine White Blood Cell 1+(6-10/hpf) (Absent)
[2019-02-12 12:59] LABS: Troponin I 0.07 ng/mL (<0.04)
[2019-02-12 16:57] LABS: Troponin I 0.07 ng/mL (<0.04)
[2019-02-12] MEDS: Acetaminophen TAB* 325 MG PO PRN ×2 (17:59→23:16)
--- NOTE | 2019-02-12 21:19 | PROCNOTE ---
Hematology/Oncology Procedure Hematology/Oncology Procedure Note: Date of procedure: February 12, 2019 Procedure: Written, informed consent obtained. Time out completed. Patient place in R side lying position. L PSIS identified, prepped and draped in a sterile fashion. Local anesthesia with 2% lidocaine. Bone marrow aspiration was successfully completed. Bone marrow was very soft and brittle, a suboptimal sample was collected despite 2 passes. Patient tolerated procedure well.
[2019-02-12] MEDS: Atorvastatin* 40 MG TAB PO SCH (23:14)
[2019-02-12] MEDS: traZODone TAB* 100 MG PO SCH (23:15)
[2019-02-12] MEDS: DOXYcycline CAP(*) 100 MG PO SCH (23:15)
[2019-02-12] MEDS: Latanoprost 0.005%* 2.5 ml BTL BOTH EYES SCH (23:15)
[2019-02-13] MEDS: NS 0.9% IVPB SCH ×2 (03:37→14:58)
[2019-02-13] MEDS: ACYCLOVIR IVPB SCH ×2 (03:37→14:58)
[2019-02-13 05:30] LABS: Hematocrit 22 % (42-52); Hemoglobin 7.2 g/dL (14.0-18.0); Mean Corpuscular HGB Conc 33 g/dL (31-36); Mean Corpuscular Hemoglobin 29 pg (27-31); Mean Corpuscular Volume 87 fL (80-94); Mean Platelet Volume 9.3 fL (7.4-10.4); Platelet Count 45 10^3/uL (150-450); Red Cell Distribution Width 19 % (10-15); White Blood Count 2.3 10^3/uL (3.5-10.8)
[2019-02-13 05:46] LABS: BUN/Creatinine Ratio 19.7 (8-20); Calcium 7.2 mg/dL (8.6-10.3); EGFR African American 73.3 (>60); EGFR Non-African American 60.6 (>60); Magnesium 1.2 mg/dL (1.9-2.7); Potassium 4.4 mmol/L (3.5-5.0)
[2019-02-13] MEDS: Acetaminophen TAB* 325 MG PO PRN (05:49)
[2019-02-13] MEDS: ZOSYN 3.375 GM Q6H - Intermittant 30 min Infusion IVPB SCH ×6 (05:51→17:51)
[2019-02-13 06:36] LABS: ABS Lymphocytes 0.1 10^3/ul (1.0-4.8); ABS Monocytes 0.6 10^3/ul (0-0.8); ABS Neutrophils 1.6 10^3/ul (1.5-7.7); Lymphocyte % 3.6 %
[2019-02-13] MEDS: Insulin GLARGINE(*) 1 UNITS UNIT SUBCUT SCH (08:24)
[2019-02-13] MEDS: Insulin LISPRO* 1 UNITS UNIT SUBCUT SCH ×4 (08:25→21:10)
[2019-02-13] MEDS: Betaxolol 0.5 %* OPHTH.SOLN 5 ML BOTH EYES SCH ×2 (08:27→21:08)
[2019-02-13] MEDS: methylPREDNISolone SOD 40 MG* 1 ML VIAL IV SCH (08:27)
[2019-02-13] MEDS: Pantoprazole TAB * 40 MG TAB PO SCH ×2 (08:27→21:09)
[2019-02-13] MEDS: Tamsulosin CAP* 0.4 MG PO SCH (08:28)
[2019-02-13] MEDS: Dapsone TAB* 100 MG PO SCH (08:28)
--- NOTE | 2019-02-13 13:59 | PN ---
Subjective Date of Service: 02/13/19 Interval History: Reports that he does not like the food in the hospital.Anxious to go home however very weak.Unable to transfer. Objective Active Medications: Acetaminophen (Tylenol Tab*) 650 mg PO Q6H PRN PRN Reason: FEVER Last Admin: 02/13/19 05:49 Dose: 650 mg Atorvastatin Calcium (Lipitor*) 40 mg PO 2100 [facility] Last Admin: 02/12/19 23:14 Dose: 40 mg Betaxolol HCl (Betoptic 0.05%*) 1 drop BOTH EYES BID [facility] Last Admin: 02/13/19 08:27 Dose: 1 drop Dapsone (Dapsone Tab*) 100 mg PO QAM [facility] Last Admin: 02/13/19 08:28 Dose: 100 mg Dextrose (D50w Syringe 50 Ml*) 12.5 gm IV PUSH .FOR FS < 60 - SS PRN PRN Reason: FS < 60 Doxycycline Hyclate (Vibramycin Cap(*)) 100 mg PO BEDTIME [facility] Last Admin: 02/12/19 23:15 Dose: 100 mg Acyclovir Sodium 730 mg/ (Sodium Chloride) 264.6 mls @ 264.6 mls/hr IVPB Q12H [facility] Last Admin: 02/13/19 03:37 Dose: 100 mls/hr Piperacillin Sod/Tazobactam (Sod 3.375 gm/ Sodium Chloride) 100 mls @ 200 mls/ hr IVPB Q6H [facility] Last Admin: 02/13/19 12:12 Dose: 200 mls/hr Insulin Glargine (Lantus(*)) 15 units SUBCUT Q24H [facility] Last Admin: 02/13/19 08:24 Dose: 15 unit Insulin Human Lispro (Humalog*) 0 units SUBCUT ACHS [facility]; Protocol Last Admin: 02/13/19 12:10 Dose: 6 units Latanoprost (Xalatan 0.005%*) 1 drop BOTH EYES BEDTIME [facility]; Protocol Last Admin: 02/12/19 23:15 Dose: 1 drop Morphine Sulfate (Morphine 4 Mg/Ml Vial (1 Ml)) 4 mg IV Q3H PRN PRN Reason: PAIN - MODERATE TO SEVERE Last Admin: 02/12/19 18:00 Dose: 4 mg Nitroglycerin (Nitroglycerin Tab 0.4 Mg*) 0.4 mg SL Q5M PRN PRN Reason: CHEST PAIN Pantoprazole Sodium (Protonix Tab*) 40 mg PO BID [facility] Last Admin: 02/13/19 08:27 Dose: 40 mg Pharmacy Consult (Zosyn Per Pharmacy*) 1 note FOLLOW UP .ZOSYN PER PHARMACY [facility] Prednisone (Deltasone Tab*) 5 mg PO DAILY [facility] Tamsulosin HCl (Flomax Cap*) 0.4 mg PO DAILY [facility] Last Admin: 02/13/19 08:28 Dose: 0.4 mg Trazodone HCl (Desyrel Tab*) 100 mg PO BEDTIME [facility] Last Admin: 02/12/19 23:15 Dose: 100 mg Vital Signs - 8 hr 02/13/19 02/13/19 02/13/19 07:22 08:00 12:00 Temperature 97.6 F 97.9 F Pulse Rate 92 93 Respiratory 18 20 20 Rate Blood Pressure 115/49 111/58 (mmHg) O2 Sat by Pulse 99 97 Oximetry Oxygen Devices in Use Now: Nasal Cannula Eyes: No Scleral Icterus Ears/Nose/Mouth/Throat: NL Teeth, Lips, Gums Neck: NL Appearance and Movements; NL JVP Respiratory: Symmetrical Chest Expansion and Respiratory Effort Cardiovascular: NL Sounds; No Murmurs; No JVD Abdominal: NL Sounds; No Tenderness; No Distention Extremities: No Edema Neurological: Alert and Oriented x 3 Result Diagrams: 02/13/19 04:45 02/13/19 04:45 Additional Lab and Data: Laboratory Tests 02/11/19 02/11/19 02/11/19 21:31 21:31 21:31 Absolute Neuts (auto) 1.0 L Absolute Lymphs (auto) 0.5 L INR (Anticoag Therapy) 1.21 H APTT 52.1 H Glucose 166 H Lactic Acid Calcium 7.9 L Total Bilirubin 1.10 H AST 62 H Troponin I 0.04 H* 02/11/19 21:31 Absolute Neuts (auto) Absolute Lymphs (auto) INR (Anticoag Therapy) APTT Glucose Lactic Acid 3.0 H* Calcium Total Bilirubin AST Troponin I Laboratory Tests 02/11/19 23:43 Urine pH 5.0 Ur Specific [place] 1.015 Urine Protein 1+(30 mg/dl) A Urine Ketones Trace A Urine Blood 3+ A Urine Nitrate Negative Ur Leukocyte Esterase 1+ A Urine WBC (Auto) 3+(>20/hpf) A Urine RBC (Auto) 3+(>10/hpf) A Microbiology and Other Data: Microbiology 02/11/19 23:43 Urine Culture - Preliminary Urine Enterococcus Faecalis 02/11/19 21:31 Aerobic Blood Culture - Preliminary Blood Venous No Growth Day 1 Anaerobic Blood Culture - Preliminary No Growth Day 1 02/11/19 21:29 Aerobic Blood Culture - Preliminary Blood Venous No Growth Day 1 Anaerobic Blood Culture - Preliminary No Growth Day 1 Diagnostic Imaging: CXR: PA/lat, no focal infiltrates, poor penetration EKG Data: sinus tachycardia, frequent PACs, PVCs. Assess/Plan/Problems-Billing Assessment: 78 year old man h/o reported idiopathic pulmonary fibrosis in azathioprine/ prednisone, recently diagnosed shingles per report p/w dysuria found with pancytopenia and sepsis - Patient Problems (1) Neutropenic fever Current Visit: Yes Status: Acute Code(s): D70.9 - NEUTROPENIA, UNSPECIFIED; R50.81 - FEVER PRESENTING WITH CONDITIONS CLASSIFIED ELSEWHERE SNOMED Code(s) : 309459870 Comment: ANC 1000 zosyn likely from uti source (2) Pancytopenia Current Visit: Yes Status: Acute Priority: Medium Code(s): D61.818 - OTHER PANCYTOPENIA SNOMED Code(s): 328551977 Comment: -reportedly identified before this admission by PCP -requesting records from Dr. 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 Current Visit: Yes Status: Acute Priority: Medium Code(s): Z79.899 - 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 Reports sig nephrolithiasis and has been seeing urology.Had hematuria (5) Sepsis Current Visit: Yes Status: Acute Priority: High Comment: - urine cx enterococcus -underlying fibrosis may be hiding infection -zosyn -s/p 6 L IVF -sensitivity pending -if enterococcus amp resistant, then vanco if vre then linozolid -as pt cliniclaly improving and afebrile will continue zosyn and f/u sensitivity -will also watch for any zosyn induced thrombocytopenia which can be rarely seen (6) Shingles Current Visit: Yes Status: Acute Priority: Medium Code(s): B02.9 - ZOSTER WITHOUT COMPLICATIONS SNOMED Code(s): 7954273 Comment: -Viremia can also cause sepsis syndrome -Will treat with acyclovir IV, IBW calculated at 73 kg -may need ID consultation based on clinical course (7) Acute kidney injury Current Visit: Yes Status: Acute Priority: Medium Code(s): N17.9 - ACUTE KIDNEY FAILURE, UNSPECIFIED SNOMED Code(s): 99262417 Comment: -Sec pre-renal azotemia -improved s/p 6L on admission (8) Type 2 diabetes mellitus Current Visit: Yes Status: Acute Priority: Medium Comment: -currently poor intake -Will decrease long-acting insulin to 15 units/day -Use sliding scale Humalog pre-meal (9) DVT prophylaxis Current Visit: Yes Status: Acute Priority: Low Code(s): Z29.9 - ENCOUNTER FOR PROPHYLACTIC MEASURES, UNSPECIFIED SNOMED Code(s): 148404819 Comment: -Due to low platelets, risk of bleeding, will use SCDs only. -consider HSQ if plts increased today (labs are pending) Status and Disposition: inpatient
[2019-02-13 15:30] LABS: % Iron Saturation 39 % (15-55); Iron 71 ug/dL (50-212); LDH 476 U/L (140-271); Total Iron Binding Capacity 181 mcg/dL (250-450); Transferrin 129 mg/dL (203-362)
[2019-02-13 15:54] LABS: Ferritin 1332.6 ng/mL (24-336)
[2019-02-13 15:56] LABS: Folate 13.18 ng/mL (>3.99)
[2019-02-13 16:21] LABS: Uric Acid 6.7 mg/dL (4.4-7.6)
[2019-02-13] MEDS: Acetaminophen / Codeine* #3 (300 MG/30 MG) TAB PO PRN (17:56)
[2019-02-13] MEDS: traZODone TAB* 100 MG PO SCH (21:09)
[2019-02-13] MEDS: DOXYcycline CAP(*) 100 MG PO SCH (21:09)
[2019-02-13] MEDS: Atorvastatin* 40 MG TAB PO SCH (21:09)
[2019-02-13] MEDS: Latanoprost 0.005%* 2.5 ml BTL BOTH EYES SCH (21:10)
[2019-02-14] MEDS: ZOSYN 3.375 GM Q6H - Intermittant 30 min Infusion IVPB SCH ×8 (00:37→19:43)
[2019-02-14] MEDS: Acetaminophen / Codeine* #3 (300 MG/30 MG) TAB PO PRN ×2 (00:43→16:57)
[2019-02-14] MEDS: NS 0.9% IVPB SCH ×2 (03:49→16:51)
[2019-02-14] MEDS: ACYCLOVIR IVPB SCH ×2 (03:49→16:51)
[2019-02-14 07:32] LABS: ABS Lymphocytes 0.6 10^3/ul (1.0-4.8); ABS Monocytes 0.5 10^3/ul (0-0.8); Hematocrit 22 % (42-52); Hemoglobin 7.4 g/dL (14.0-18.0); Lymphocyte % 12.3 %; Mean Corpuscular HGB Conc 34 g/dL (31-36); Mean Corpuscular Hemoglobin 29 pg (27-31); Mean Corpuscular Volume 86 fL (80-94); Platelet Count 71 10^3/uL (150-450); Red Blood Count 2.56 10^6 /uL (4.18-5.48); Red Cell Distribution Width 20 % (10-15); White Blood Count 5.1 10^3/uL (3.5-10.8)
[2019-02-14 07:49] LABS: BUN/Creatinine Ratio 22.7 (8-20); Calcium 7.4 mg/dL (8.6-10.3); EGFR African American 91.1 (>60); EGFR Non-African American 75.2 (>60); Potassium 3.6 mmol/L (3.5-5.0)
[2019-02-14] MEDS: Tamsulosin CAP* 0.4 MG PO SCH (10:26)
[2019-02-14] MEDS: Acetaminophen TAB* 325 MG PO PRN ×2 (10:26→21:54)
[2019-02-14] MEDS: Pantoprazole TAB * 40 MG TAB PO SCH ×2 (10:26→19:58)
[2019-02-14] MEDS: Dapsone TAB* 100 MG PO SCH (10:26)
[2019-02-14] MEDS: predniSONE TAB* 5 MG PO SCH (10:26)
[2019-02-14] MEDS: Insulin LISPRO* 1 UNITS UNIT SUBCUT SCH ×4 (10:28→21:56)
[2019-02-14] MEDS: Insulin GLARGINE(*) 1 UNITS UNIT SUBCUT SCH (10:29)
[2019-02-14] MEDS: Betaxolol 0.5 %* OPHTH.SOLN 5 ML BOTH EYES SCH ×2 (10:31→19:57)
[2019-02-14] MEDS: LORazepam TAB(*) 0.5 MG PO PRN (11:43)
--- NOTE | 2019-02-14 12:51 | PN ---
Subjective Date of Service: 02/14/19 Interval History: Reports feeling significantly better than yesterday. Wants to go home.Reports that he is not able to sleep and hates the hospital food. Objective Active Medications: Acetaminophen (Tylenol Tab*) 650 mg PO Q6H PRN PRN Reason: FEVER Last Admin: 02/14/19 10:26 Dose: 650 mg Acetaminophen/Codeine Phosphate (Tylenol/Codeine 30 Mg Tab*) 1 tab PO Q6H PRN PRN Reason: cough/discomfort Last Admin: 02/14/19 00:43 Dose: 1 tab Atorvastatin Calcium (Lipitor*) 40 mg PO 2100 [facility] Last Admin: 02/13/19 21:09 Dose: 40 mg Betaxolol HCl (Betoptic 0.05%*) 1 drop BOTH EYES BID [facility] Last Admin: 02/14/19 10:31 Dose: 1 drop Dapsone (Dapsone Tab*) 100 mg PO QAM [facility] Last Admin: 02/14/19 10:26 Dose: 100 mg Dextrose (D50w Syringe 50 Ml*) 12.5 gm IV PUSH .FOR FS < 60 - SS PRN PRN Reason: FS < 60 Doxycycline Hyclate (Vibramycin Cap(*)) 100 mg PO BEDTIME [facility] Last Admin: 02/13/19 21:09 Dose: 100 mg Acyclovir Sodium 730 mg/ (Sodium Chloride) 264.6 mls @ 264.6 mls/hr IVPB Q12H [facility] Last Admin: 02/14/19 03:49 Dose: 264.6 mls/hr Piperacillin Sod/Tazobactam (Sod 3.375 gm/ Sodium Chloride) 100 mls @ 200 mls/ hr IVPB Q6H [facility] Last Admin: 02/14/19 12:21 Dose: 200 mls/hr Insulin Glargine (Lantus(*)) 15 units SUBCUT Q24H [facility] Last Admin: 02/14/19 10:29 Dose: 5 unit Insulin Human Lispro (Humalog*) 0 units SUBCUT ACHS [facility]; Protocol Last Admin: 02/14/19 10:28 Dose: 2 units Latanoprost (Xalatan 0.005%*) 1 drop BOTH EYES BEDTIME [facility]; Protocol Last Admin: 02/13/19 21:10 Dose: 1 drop Lorazepam (Ativan Tab(*)) 0.5 mg PO Q6H PRN PRN Reason: ANXIETY Last Admin: 02/14/19 11:43 Dose: 0.5 mg Morphine Sulfate (Morphine 4 Mg/Ml Vial (1 Ml)) 4 mg IV Q3H PRN PRN Reason: PAIN - MODERATE TO SEVERE Last Admin: 02/12/19 18:00 Dose: 4 mg Nitroglycerin (Nitroglycerin Tab 0.4 Mg*) 0.4 mg SL Q5M PRN PRN Reason: CHEST PAIN Pantoprazole Sodium (Protonix Tab*) 40 mg PO BID [facility] Last Admin: 02/14/19 10:26 Dose: 40 mg Pharmacy Consult (Zosyn Per Pharmacy*) 1 note FOLLOW UP .ZOSYN PER PHARMACY [facility] Prednisone (Deltasone Tab*) 5 mg PO DAILY [facility] Last Admin: 02/14/19 10:26 Dose: 5 mg Tamsulosin HCl (Flomax Cap*) 0.4 mg PO DAILY [facility] Last Admin: 02/14/19 10:26 Dose: 0.4 mg Trazodone HCl (Desyrel Tab*) 100 mg PO BEDTIME [facility] Last Admin: 02/13/19 21:09 Dose: 100 mg Vital Signs - 8 hr 02/14/19 02/14/19 02/14/19 07:00 08:00 11:20 Temperature 98.6 F 100.9 F Pulse Rate 94 95 Respiratory 20 20 20 Rate Blood Pressure 128/54 110/52 (mmHg) O2 Sat by Pulse 96 97 Oximetry 02/14/19 11:43 Temperature Pulse Rate Respiratory 18 Rate Blood Pressure (mmHg) O2 Sat by Pulse Oximetry Oxygen Devices in Use Now: Nasal Cannula Eyes: No Scleral Icterus Neck: NL Appearance and Movements; NL JVP Respiratory: Symmetrical Chest Expansion and Respiratory Effort, Clear to Auscultation Cardiovascular: NL Sounds; No Murmurs; No JVD Abdominal: NL Sounds; No Tenderness; No Distention Extremities: No Edema Neurological: Alert and Oriented x 3 Result Diagrams: 02/14/19 06:54 02/14/19 06:54 Additional Lab and Data: Laboratory Tests 02/11/19 02/11/19 02/11/19 21:31 21:31 21:31 Absolute Neuts (auto) 1.0 L Absolute Lymphs (auto) 0.5 L INR (Anticoag Therapy) 1.21 H APTT 52.1 H Glucose 166 H Lactic Acid Calcium 7.9 L Total Bilirubin 1.10 H AST 62 H Troponin I 0.04 H* 02/11/19 21:31 Absolute Neuts (auto) Absolute Lymphs (auto) INR (Anticoag Therapy) APTT Glucose Lactic Acid 3.0 H* Calcium Total Bilirubin AST Troponin I Laboratory Tests 02/11/19 23:43 Urine pH 5.0 Ur Specific [place] 1.015 Urine Protein 1+(30 mg/dl) A Urine Ketones Trace A Urine Blood 3+ A Urine Nitrate Negative Ur Leukocyte Esterase 1+ A Urine WBC (Auto) 3+(>20/hpf) A Urine RBC (Auto) 3+(>10/hpf) A Microbiology and Other Data: Microbiology 02/11/19 23:43 Urine Culture - Preliminary Urine Enterococcus Faecalis 02/11/19 21:31 Aerobic Blood Culture - Preliminary Blood Venous No Growth Day 1 Anaerobic Blood Culture - Preliminary No Growth Day 1 02/11/19 21:29 Aerobic Blood Culture - Preliminary Blood Venous No Growth Day 1 Anaerobic Blood Culture - Preliminary No Growth Day 1 Diagnostic Imaging: CXR: PA/lat, no focal infiltrates, poor penetration EKG Data: sinus tachycardia, frequent PACs, PVCs. Assess/Plan/Problems-Billing Assessment: 78 year old man h/o reported idiopathic pulmonary fibrosis in azathioprine/ prednisone, recently diagnosed shingles per report p/w dysuria found with pancytopenia and sepsis - Patient Problems (1) Neutropenic fever Current Visit: Yes Status: Acute Code(s): D70.9 - NEUTROPENIA, UNSPECIFIED; R50.81 - FEVER PRESENTING WITH CONDITIONS CLASSIFIED ELSEWHERE SNOMED Code(s) : 670145205 Comment: ANC 1000 initally zosyn likely from uti source ANC and counts improved Azathioprine held (2) Pancytopenia Current Visit: Yes Status: Acute Priority: Medium Code(s): D61.818 - OTHER PANCYTOPENIA SNOMED Code(s): 682271124 Comment: -reportedly identified before this admission by PCP -requesting records from Dr. Boston -heme consult and s/p bone marrow biopsy Friday.pending -Likely in setting of marrow suppression from azothioprine and evaluation for possible MDS -Will also check B12 level,parvo virus b19,folate ( pending) -Basophillic stiplinig on smear can be be megaloblastic anemia from azothioprine / b12 def.Can also be lead toxicity and other etiology.Will check Lead level.Will hold off on further testing as bone marrow already performed and will await results -Will hold Azathioprine for now -Will continue home dose Prednisone and stopped Solumedrol; -Continue dapsone and doxy propylaxis he gets at home (3) Immunosuppression due to drug therapy Current Visit: Yes Status: Acute Priority: Medium Code(s): Z79.899 - 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Follows with urology as outpatient. (5) Sepsis Current Visit: Yes Status: Acute Priority: High Comment: - urine cx enterococcus -zosyn -s/p 6 L IVF -sensitivity pending -if enterococcus amp resistant, then vanco if vre then linozolid -as pt cliniclaly improving and afebrile will continue zosyn and f/u sensitivity -will also watch for any zosyn induced thrombocytopenia which can be rarely seen (6) Shingles Current Visit: Yes Status: Acute Priority: Medium Code(s): B02.9 - ZOSTER WITHOUT COMPLICATIONS SNOMED Code(s): 1417035 Comment: -Viremia can also cause sepsis syndrome -Will treat with acyclovir IV, IBW calculated at 73 kg -may need ID consultation based on clinical course (7) Acute kidney injury Current Visit: Yes Status: Acute Priority: Medium Code(s): N17.9 - ACUTE KIDNEY FAILURE, UNSPECIFIED SNOMED Code(s): 92575064 Comment: -Sec pre-renal azotemia -improved s/p 6L on admission (8) Interstitial lung disease Current Visit: Yes Status: Acute Code(s): J84.9 - INTERSTITIAL PULMONARY DISEASE, UNSPECIFIED SNOMED Code(s): 178066816 Comment: follows with dr hess in [place] azathioprine on hold if marrow suppression sec to above as improving and biopsy does not show other pathology, will need to check if Aza can be stopped or other alternate agents need to be considered (9) Type 2 diabetes mellitus Current Visit: Yes Status: Acute Priority: Medium Comment: -currently poor intake -Will decrease long-acting insulin to 15 units/day -Use sliding scale Humalog pre-meal (10) DVT prophylaxis Current Visit: Yes Status: Acute Priority: Low Code(s): Z29.9 - ENCOUNTER FOR PROPHYLACTIC MEASURES, UNSPECIFIED SNOMED Code(s): 280833786 Comment: -Due to low platelets, risk of bleeding, will use SCDs only. -consider HSQ if plts increased today (labs are pending) Status and Disposition: inpatient
[2019-02-14] MEDS: Atorvastatin* 40 MG TAB PO SCH (19:57)
[2019-02-14] MEDS: DOXYcycline CAP(*) 100 MG PO SCH (19:58)
[2019-02-14] MEDS: traZODone TAB* 100 MG PO SCH (19:58)
[2019-02-14] MEDS: Latanoprost 0.005%* 2.5 ml BTL BOTH EYES SCH (19:59)
--- NOTE | 2019-02-14 22:31 | CONS ---
CC: Dr. Boston; Dr. Cueto, Pulmonary, [facility] * MEDICAL ONCOLOGY/HEMATOLOGY CONSULTATION NOTE: DATE OF CONSULT: 02/12/19 REASON FOR CONSULT: Anemia and thrombocytopenia. HISTORY OF PRESENT ILLNESS: Mr. Richey is a 78-year-old male, who developed a fever at home along with increasing weakness. His had difficulty getting him to stand and to move about at home and called regulatory law specialist to bring him to the hospital. About 2 weeks ago, the patient did have an episode of herpes zoster on his lower left back radiating down the left leg in a dermatomal pattern. He was treated with 1 week of Valtrex, was off for 2 days, and resumed Valtrex 2 days ago. The lesions at this time appeared better. None of these lesions are open. He has had some pain in the leg as well as some slight warmth without redness or swelling in that leg. He has been having low-grade fevers for 3 to 4 days per his at 99 to 100.8 at home intermittently, although he did have a fever to 101 three days ago. He was seen by Urology approximately 10 days ago and he has been seeing Dr. Crisostomo on a regular basis. He is known to have kidney stones, known to have them presently bilaterally, but they are not apparently blocking the urinary flow. He has been seen in the past in our office by Dr. Ralph. This was back in the fall of 2017 and he did have a referral for return recently, although has not been seen since 2017. When seen in the past, it was for anemia. At that point, his anemia was much less severe. It was felt that most likely the underlying pulmonary fibrosis along with his medications of azathioprine and dapsone along with his underlying kidney disease were the most likely reasons for his anemia. His hemoglobin at that point was over 10 and no further workup was recommended. His hemoglobin fell below 10 and Epogen level was less than 500 and there was consideration for erythropoietin. The was able to bring in laboratory studies for review. On 12/21/18, the patient had a white count of 8800, H and H of 32/10.2, and a platelet count of 211,000 with normal differential and a neutrophil count of 6300. At that time, renal function revealed a creatinine of 1.3. The patient has been chronically immunosuppressed and has been on azathioprine at a dose of 100 mg, dapsone 100 mg, and prednisone 5 mg for long periods of time for his underlying idiopathic inflammatory lung disease. He was seen for this by Dr. Cueto at Pulmonary at [facility]. There has been no change in the dose of azathioprine or the dapsone for at least 5 years and as noted above, his CBC had been relatively unremarkable other than mild anemia as recently as 6 or 7 weeks ago. At the present time, CBC on admission, white count was 1900, H and H of 26/8.4, a platelet count of 72,000, ANC of 1000. The following day, the day of his consultation, white count 2100, H and H 23/7.6, and a platelet count of 62,000 with an ANC of 1100. PAST MEDICAL HISTORY: Otherwise significant for idiopathic inflammatory lung disease as discussed above, reporting use of 3 L of oxygen at night and p.r.n. during the day; this has been increased recently. Coronary artery disease, status post LAD stent, 2008; history of hypertension; history of hyperlipidemia ; spinal stenosis with chronic low back pain; history of nephrolithiasis; type 2 diabetes; status post right knee arthroplasty; status post umbilical herniorrhaphy in 1996. Diabetes has been more controlled since 1999. Lithotripsy, 1999, unsuccessful, then requiring basketing of kidney stones. MEDICATIONS: Prior to admission: 1. Atorvastatin 40 mg daily. 2. Dapsone 100 mg daily. 3. Azathioprine 100 mg daily. 4. Prednisone 5 mg daily. 5. Insulin 30 units of NPH along with subcutaneous regular insulin a.c. 6. Protonix 40 mg daily. 7. Trazodone 100 mg h.s. FAMILY HISTORY: No family history of malignancy. SOCIAL HISTORY: Nonsmoker. Occasional alcohol in the past. 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 REVIEW OF SYSTEMS: Weight loss of approximately 8 pounds in the past month, none previously. No history of nausea or vomiting. No changes in bowel habits. Urinary symptoms as discussed above with some recent urinary urgency and frequency. He has had fevers without sweats or chills. Breathing has been requiring supplemental oxygen, but no major changes. No significant chest pain. Pain in the left leg and back, but may very well be related to recent herpes zoster. Recent increased heartburn and reflux, has seen GI and is scheduled for EGD in March along with colonoscopy. PHYSICAL EXAM: A 78-year-old male, in no acute distress. Vital Signs: Blood pressure 109/37, pulse 93, temperature 100.7. HEENT: PERRL, EOMI. No erythema or exudates. No palpable cervical, supraclavicular, or axillary adenopathy. Lungs: Clear. Heart: Regular rate and rhythm without murmurs, rubs, or gallops. Abdomen: Soft and nontender without masses or organomegaly. Extremities: No clubbing, cyanosis, or edema. Back: No CVA or spinal tenderness. He has a dermatomal rash in the left L2 distribution. No open areas. Neurologic Exam: Alert and oriented x3. Motor is at least 4+/5 throughout. IMPRESSION: Pancytopenia with an ANC of 1000. H and H markedly lower than previously with hemoglobin of 8.4, which is his baseline of over 10 and platelet count of 60 to 70. This is all occurring in the setting of a recent herpes zoster infection and likely urinary tract infection. He is immunocompromised being on azathioprine and prednisone long-term for at least a 6-year period. His doses have not changed; it is unlikely the azathioprine in suppressing his bone marrow significantly. Long-term complications of azathioprine and/or development of new underlying bone marrow process are possible. Because of these possibilities, bone marrow aspirate and biopsy will be obtained today. The patient and are both in agreement with proceeding with this plan. Given his pancytopenia, he certainly needs to be covered with broad-spectrum antibiotics until ANC rises or a source can be identified. There is no role for any platelet transfusions or red cell transfusions given these levels. As long as his platelets remain over 50,000, it is safe for him to remain on anticoagulation as required for his underlying medical problem and/or prophylactically. We will continue to follow his blood counts while in the hospital. Results of the bone marrow aspirate and biopsy should be available preliminarily on either 02/15/19 or 02/16/19. We will see him in the interim if his blood counts continue to rise or continue to fall. He has had significantly different blood counts from 6 to 7 weeks ago and could be related as noted above to underlying infection suppressing the bone marrow versus underlying marrow process. [id number]/[facility] #: [id number] [facility]
[2019-02-14] MEDS ORDERED: NS 0.9% 1000 ML** 1,000 ML IV ONE (23:24)
[2019-02-15] MEDS: ZOSYN 3.375 GM Q6H - Intermittant 30 min Infusion IVPB SCH ×6 (01:03→12:12)
[2019-02-15] MEDS: Morphine 4 MG/ML VIAL (1 ml) 4 MG/ML VIAL IV PRN (02:08)
[2019-02-15] MEDS ORDERED: NS 0.9% 1000 ML** 1,000 ML IV SCH (02:15)
[2019-02-15] MEDS: ACYCLOVIR IVPB SCH (03:39)
[2019-02-15] MEDS: NS 0.9% IVPB SCH (03:39)
--- NOTE | 2019-02-15 04:54 | PN ---
Sepsis Event Evaluation Date of Evaluation: 02/14/19 Time of Evaluation: 11:00 Current Stage of Sepsis: Sepsis Vital Signs - Last 12 Hours: Vital Signs - 12 hr Temp Pulse Resp BP Pulse Ox 02/15/19 03:44 38 02/15/19 02:08 36 02/15/19 00:00 90 02/14/19 23:00 101.9 F 115 23 110/60 90 02/14/19 20:00 23 90 02/14/19 19:34 99.8 F 98 20 112/58 94 02/14/19 19:30 18 02/14/19 19:24 19 02/14/19 16:57 20 Lactic Acid: 02/11/19 02/12/19 02/12/19 21:31 01:10 06:46 Lactic Acid 3.0 H* 1.7 1.3 - Cardiopulmonary Exam Capillary Refill: < or = to 5 seconds Respiratory: - - wet crackles b/l Cardiovascular: RRR - Peripheral Pulse Exam Radial Pulses: Bilateral Normal - Skin Exam Skin Exam: [place] Coma Scale Best Eye Response: 4 - Spontaneous Best Motor Response: 6 - Obeys Commands Best Verbal Response: 4 - Confused Coma Scale Total: 14 Assess/Plan/Problems-Billing Assessment: 78 year old man h/o reported idiopathic pulmonary fibrosis in azathioprine/ prednisone, recently diagnosed shingles per report p/w dysuria found with pancytopenia and sepsis Status and Disposition: inpatient
--- NOTE | 2019-02-15 04:56 | PN ---
Hospitalist Progress Note Date of Service: 02/15/19 I rounded on Mr. Richey early this evening and he was febrile, tachycardic, and confused. We bolused a liter of IVF, repeat blood cultures, and treated his pain. His HR, temperature, and confusion improved and he has been sleeping. I came back to see him now due to report of tachypnea. A stat CXR shows pulmonary edema. He is sleeping comfortably, but tachypneic. I am discontinuing his IVF. He is not in respiratory distress and is septic so I am not giving lasix but will need to follow closely. May require bipap if becomes hypoxic or work of breathing increases.
[2019-02-15] MEDS: Pantoprazole TAB * 40 MG TAB PO SCH ×2 (07:46→22:15)
[2019-02-15] MEDS: Acetaminophen TAB* 325 MG PO PRN ×2 (07:46→20:39)
[2019-02-15] MEDS: Tamsulosin CAP* 0.4 MG PO SCH (07:46)
[2019-02-15] MEDS: Dapsone TAB* 100 MG PO SCH (07:47)
[2019-02-15] MEDS: predniSONE TAB* 5 MG PO SCH (07:47)
[2019-02-15] MEDS: Betaxolol 0.5 %* OPHTH.SOLN 5 ML BOTH EYES SCH ×2 (07:48→23:08)
[2019-02-15] MEDS: Insulin LISPRO* 1 UNITS UNIT SUBCUT SCH ×4 (08:19→22:15)
[2019-02-15] MEDS: Insulin GLARGINE(*) 1 UNITS UNIT SUBCUT SCH (08:19)
--- NOTE | 2019-02-15 09:01 | PN ---
Subjective Date of Service: 02/15/19 Interval History: HOSPITALIST PROGRESS NOTE Patient seen and examined at bedside. Care reviewed and d/w Nehemias Diana RN. Last night events noted - had fever 103, more dyspnea. States his feeling better today, wants to go home. Family History: Unchanged from Admission Social History: Unchanged from Admission Past Medical History: Unchanged from Admission Objective Active Medications: Acetaminophen (Tylenol Tab*) 650 mg PO Q6H PRN PRN Reason: FEVER Last Admin: 02/15/19 07:46 Dose: 650 mg Acetaminophen/Codeine Phosphate (Tylenol/Codeine 30 Mg Tab*) 1 tab PO Q6H PRN PRN Reason: cough/discomfort Last Admin: 02/14/19 16:57 Dose: 1 tab Atorvastatin Calcium (Lipitor*) 40 mg PO 2100 [facility] Last Admin: 02/14/19 19:57 Dose: 40 mg Betaxolol HCl (Betoptic 0.05%*) 1 drop BOTH EYES BID [facility] Last Admin: 02/15/19 07:48 Dose: 1 drop Dapsone (Dapsone Tab*) 100 mg PO QAM [facility] Last Admin: 02/15/19 07:47 Dose: 100 mg Dextrose (D50w Syringe 50 Ml*) 12.5 gm IV PUSH .FOR FS < 60 - SS PRN PRN Reason: FS < 60 Doxycycline Hyclate (Vibramycin Cap(*)) 100 mg PO BEDTIME [facility] Last Admin: 02/14/19 19:58 Dose: 100 mg Acyclovir Sodium 730 mg/ (Sodium Chloride) 264.6 mls @ 264.6 mls/hr IVPB Q12H [facility] Last Admin: 02/15/19 03:39 Dose: 264.6 mls/hr Piperacillin Sod/Tazobactam (Sod 3.375 gm/ Sodium Chloride) 100 mls @ 200 mls/ hr IVPB Q6H [facility] Last Admin: 02/15/19 05:50 Dose: 200 mls/hr Sodium Chloride (Ns 0.9% 1000 Ml) 1,000 mls @ 100 mls/hr IV PER RATE [facility] Last Admin: 02/15/19 02:10 Dose: 100 mls/hr Insulin Glargine (Lantus(*)) 15 units SUBCUT Q24H [facility] Last Admin: 02/15/19 08:19 Dose: 15 unit Insulin Human Lispro (Humalog*) 0 units SUBCUT ACHS [facility]; Protocol Last Admin: 02/15/19 08:19 Dose: 1 units Latanoprost (Xalatan 0.005%*) 1 drop BOTH EYES BEDTIME [facility]; Protocol Last Admin: 02/14/19 19:59 Dose: 1 drop Lorazepam (Ativan Tab(*)) 0.5 mg PO Q6H PRN PRN Reason: ANXIETY Last Admin: 02/14/19 11:43 Dose: 0.5 mg Morphine Sulfate (Morphine 4 Mg/Ml Vial (1 Ml)) 4 mg IV Q3H PRN PRN Reason: PAIN - MODERATE TO SEVERE Last Admin: 02/15/19 02:08 Dose: 4 mg Nitroglycerin (Nitroglycerin Tab 0.4 Mg*) 0.4 mg SL Q5M PRN PRN Reason: CHEST PAIN Pantoprazole Sodium (Protonix Tab*) 40 mg PO BID [facility] Last Admin: 02/15/19 07:46 Dose: 40 mg Pharmacy Consult (Zosyn Per Pharmacy*) 1 note FOLLOW UP .ZOSYN PER PHARMACY [facility] Prednisone (Deltasone Tab*) 5 mg PO DAILY [facility] Last Admin: 02/15/19 07:47 Dose: 5 mg Tamsulosin HCl (Flomax Cap*) 0.4 mg PO DAILY [facility] Last Admin: 02/15/19 07:46 Dose: 0.4 mg Trazodone HCl (Desyrel Tab*) 100 mg PO BEDTIME [facility] Last Admin: 02/14/19 19:58 Dose: 100 mg Vital Signs - 8 hr 02/15/19 02/15/19 02/15/19 02:02 02:08 03:00 Temperature 99.6 F 99.5 F Pulse Rate 90 Respiratory 21 36 38 Rate Blood Pressure 137/75 92/60 (mmHg) O2 Sat by Pulse 91 93 Oximetry 02/15/19 02/15/19 02/15/19 03:44 07:42 07:55 Temperature 102.9 F Pulse Rate 94 Respiratory 38 24 24 Rate Blood Pressure 116/59 (mmHg) O2 Sat by Pulse 91 91 Oximetry Oxygen Devices in Use Now: Nasal Cannula Appearance: Pleasant elderly gentleman sitting up in a recliner in NAD. Eyes: No Scleral Icterus Ears/Nose/Mouth/Throat: Mucous Membranes Moist Neck: Trachea Midline Respiratory: Symmetrical Chest Expansion and Respiratory Effort, - - BS+ bilaterally coarse, diminished on the right Cardiovascular: RRR - Normal S1 and S2 Abdominal: NL Sounds; No Tenderness; No Distention Neurological: Alert and Oriented x 3, NL Muscle Strength and Tone Result Diagrams: 02/15/19 09:35 02/15/19 09:35 Assess/Plan/Problems-Billing Assessment: Mr Richey is a 78 year old man h/o reported idiopathic pulmonary fibrosis on azathioprine/prednisone, type 2 DM, CAD s/p PCI, HTN, HLD, spinal stenosis, nephrolithiasis, recently diagnosed shingles per report who presented with c/o dysuria found to be septice (likely urinary source) and pancytopenic. - Patient Problems (1) Sepsis Comment: - Presentation compatible with sepsis, with fever, tachycardia, and leukopenia. - Source seems to be urinary, but also respiratory symptoms and zoster. - Improving. (2) UTI (urinary tract infection) due to Enterococcus Comment: - CT abd pelvis showed Staghorn calculus, no obstruction. - Will continue Zosyn. (3) Mucus plugging of bronchi Comment: - Suspect worsening of respiratory status and fever last night is likely associated with pneumonia/mucus plugging. - Guaifenesin, Albuterol metanebs. - Pulm consult requested. - Continue Zosyn. (4) Pancytopenia Comment: - Could be secondary to infection, or bone marrow suppression from azathioprine. Hematology consult appreciated - awaiting BM biopsy result. - B12 and folate WNL. - Parvovirus B19 pending. - Basophillic stiplinig on smear can be be megaloblastic anemia from azothioprine, can also be lead toxicity and other etiology. - ID input appreciated - check malaria smear/PCR for babesiosis. - WBC and platelets trending up, but H/H trending down - d/w Hematology - will transfuse 1 PRBC. (5) Shingles Comment: - Continue acylovir. (6) Type 2 diabetes mellitus Current Visit: Yes Status: Acute Priority: Medium Comment: - Controlled. - Continue Lantus and Lispro SS. (7) DVT prophylaxis Comment: - As per Hematology, will start SQ heparin for DVT prophylaxis. (8) Full code status Status and Disposition: Inpatient. updated at bedside.
[2019-02-15 09:45] LABS: Hematocrit 20 % (42-52); Hemoglobin 6.7 g/dL (14.0-18.0); Mean Corpuscular HGB Conc 34 g/dL (31-36); Mean Corpuscular Hemoglobin 29 pg (27-31); Mean Corpuscular Volume 85 fL (80-94); Mean Platelet Volume 9.6 fL (7.4-10.4); Platelet Count 71 10^3/uL (150-450); Red Blood Count 2.34 10^6 /uL (4.18-5.48); Red Cell Distribution Width 20 % (10-15); White Blood Count 3.6 10^3/uL (3.5-10.8)
[2019-02-15] MEDS: Acetaminophen / Codeine* #3 (300 MG/30 MG) TAB PO PRN ×2 (09:46→16:58)
[2019-02-15 10:05] LABS: BUN/Creatinine Ratio 15.3 (8-20); Calcium 7.2 mg/dL (8.6-10.3); EGFR African American 77.9 (>60); EGFR Non-African American 64.4 (>60); Potassium 3.4 mmol/L (3.5-5.0)
[2019-02-15 10:18] LABS: ABS Lymphocytes 1.1 10^3/ul (1.0-4.8); ABS Monocytes 0.3 10^3/ul (0-0.8); ABS Neutrophils 2.2 10^3/ul (1.5-7.7)
[2019-02-15 10:23] LABS: Lymphocyte % 29.6 %
[2019-02-15] MEDS: Albuterol 2.5 MG/3 ML NEB.SOL* (0.083%) INH SCH ×4 (10:43→19:01)
[2019-02-15] MEDS: GuaiFENesin DM* 5 ML UDC PO SCH ×3 (11:24→22:42)
--- NOTE | 2019-02-15 13:13 | CONS ---
CONSULTATION REPORT: DATE OF CONSULT: 02/15/19 REQUESTING PHYSICIAN: Dr. Austin. CONSULTING SERVICE: Infectious Disease. REASON FOR CONSULT: Fever. IMPRESSION: 1. Fever since admission on 02/11/19 and for a couple of days beforehand with malaise, dysuria, recent left flank shingles and therapy for same. Pancytopenia here in the setting of sepsis, which is improving except for his hemoglobin, which is trending down. His platelets are stable. White count is back up little. He has barely had longstanding pancytopenia and had a bone marrow biopsy here. He does have enterococcus on a urine culture, which is also in the setting of urinalysis showing blood, leukocyte esterase, and white cells. I think he most likely does have urinary tract infection. 2. Pulmonary fibrosis, on azathioprine and low-dose corticosteroids. He does have worsening dyspnea. I think pneumocystis is less likely and is more likely due to mucous plugging seen on the chest x-ray with some volume loss on the right. 3. Nephrolithiasis with a staghorn calculi. 4. Coronary artery disease and PCI. 5. Low back pain, spinal stenosis and recent corticosteroid injection. No spine tenderness on exam. 6. Insulin dependent diabetes. RECOMMENDATION: Continue Zosyn, will have a malaria smear and PCR for babesia. He does spend a lot of time outdoors. He has a parvovirus serology pending and has had a bone marrow biopsy. HISTORY OF PRESENT ILLNESS: This is a 78-year-old man with pulmonary fibrosis, on azathioprine and 5 mg of prednisone a day, admitted with fevers, chills, malaise, worsening shortness of breath, and dysuria and about a week ago had been treated for shingles in the left flank. Here he has a positive urine culture, negative blood cultures, persistent fever, ongoing shortness of breath , longstanding back pain, which is a little bit worse. He has no other joint pain, not much in the way of productive cough. No abdominal pain or diarrhea. PAST MEDICAL HISTORY: 1. Pulmonary fibrosis. 2. Insulin-dependent diabetes. 3. Coronary artery disease and PCI in 2008. 4. Hypertension. 5. Hyperlipidemia. 6. Spinal stenosis. 7. Nephrolithiasis. 8. Status post right knee arthroscopy. 9. Status post umbilical hernia repair. MEDICATIONS: 1. Tylenol. 2. Lipitor. 3. Dapsone. 4. Doxycycline. 5. Guaifenesin. 6. Insulin glargine. 7. Lorazepam. 8. Morphine as needed. 9. Pantoprazole twice a day. 10. Zosyn 3.375 g every 6 hours. 11. Prednisone 5 mg a day. 12. Tamsulosin. 13. Trazodone. ALLERGIES: ARIPIPRAZOLE and LISINOPRIL. FAMILY HISTORY: No recurrent infections or TB. SOCIAL HISTORY: Lives in [place] with his . He does spend a lot of time outdoors where there are deer in the yard. He has lived in the [facility]. He is retired from the [employer] business. REVIEW OF SYSTEMS: All negative except as noted above to a 12-point review. PHYSICAL EXAM: Vital Signs: Temperature 39.4, heart rate 100, respiratory rate 20, blood pressure 116/59, oxygen saturation 91% on 3 L by nasal cannula. In general, he is awake, not in distress. Neurologic: He is oriented x3. Follows all commands. Moves all her extremities. HEENT: There is no conjunctival hemorrhage. Oropharynx without lesions. Neck: Supple without mass. Heart is regular and tachycardic without murmurs. Lungs with coarse rales at the base bilaterally without wheezes or rhonchi. Abdomen: Soft, mildly distended. There is an umbilical hernia, which is decompressible. There are bowel sounds present. There is no rebound tenderness. Skin: There is no rash or splinter hemorrhages. Musculoskeletal: There is no spine tenderness to palpation or joint synovitis. DIAGNOSTIC STUDIES/LAB DATA: White blood cell count 3.6, hemoglobin 6, MCV 85, platelets 71. Creatinine is 1.1. Urinalysis shows blood, ketones, white cells , red cells. Please see impressions and recommendations outlined above, which I discussed with Dr. Austin. Thank you for asking me to see Mr. Richey in consultation. [id number]/[facility] #: [id number] [place]
[2019-02-15] MEDS: ZOSYN 3.375 GM Q8H per EXTENDED INFUSION IVPB SCH ×2 (16:31)
[2019-02-15] MEDS ORDERED: Potassium Chlor TAB* 20 MEQ TAB.ER PO ONE (17:38)
--- NOTE | 2019-02-15 19:30 | CONS ---
PULMONARY CONSULTATION REPORT: DATE OF CONSULT: 02/15/19 CONSULTATION REQUESTED BY: Dr. Austin. REASON FOR CONSULT: Evaluation of abnormal chest x-ray and respiratory failure. HISTORY OF PRESENT ILLNESS: The patient is a 78-year-old obese male with a history of spinal stenosis and multiple other medical problems including pulmonary fibrosis, on chronic O2 at 3 L per minute. The patient presents for evaluation of worsening generalized malaise, altered mental status, and fevers with T-max of 101.2. The patient reports gradually increasing weakness over the past 2 to 3 days. He was recently treated for herpes zoster infection. He has been on azathioprine and 5 mg of prednisone chronically. He has been following up with Dr. Cueto, payroll administrator at [facility]. The patient and his were unable to tell me the actual diagnosis he has. They have been treated for idiopathic pulmonary fibrosis. I do not see any of those records from before. The patient was noted to have low blood pressure on arrival. He was also found to be febrile. His UA was positive for enterococcus. He has a history of urinary retention and BPH and has seen Urology 10 days prior, at which time the UA was negative. He has a history of nephrolithiasis that he follows up with Urology. He also has a history of anemia and follows up with Dr. Ralph whom he has not seen for about a month. He has been on Valtrex for zoster infection involving the left lower back and leg. The patient had an episode of altered mental status again this morning. He was also found to be significantly tachypneic at that time. He has chronic hypoxemic respiratory failure secondary to underlying pulmonary fibrosis and has been on O2 at 3 L at home, currently requiring O2 at 4 L. He was started on antibiotics. He has also been started on dapsone and prednisone is being continued. The patient reports feeling slightly better. He appears to be in no distress at this time. He has been satting 96% on 4 L O2. He was noted to have significant pancytopenia on admission. He underwent bone marrow biopsy for further evaluation. His leukopenia has improved; however, his hemoglobin has been trending down. His lactic acid levels were within normal limits. His CO2 levels are low on BMP; however, with normal anion gap. LDH was mildly elevated. Further evaluation included chest x-ray, abdominal/pelvic CT. I personally reviewed his chest x-ray. He is noted to have acute airspace opacities interspersed over chronic changes. He had followup CT given continued fevers this morning, which revealed slight progression of airspace opacities also with evidence of atelectatic changes. The patient had CT scan of the chest in September of 2018, which revealed evidence of basal fibrosis bilaterally, which has been stable in comparison with prior testing. The patient 's abdominal and pelvic CT scan showed no significant progression of the fibrotic changes. In the base, there is evidence of emphysematous changes. The patient was also seen by Infectious Disease today. PAST MEDICAL HISTORY: 1. CAD, status post stent. 2. Hypertension. 3. Dyslipidemia. 4. Idiopathic interstitial lung disease. 5. Chronic low back pain. 6. Spinal stenosis. 7. Nephrolithiasis. 8. Type 2 diabetes. PAST SURGICAL HISTORY: Arthroscopy of right knee, hernia repair in 1996. FAMILY HISTORY: Father of CAD, [place]. Mother of natural causes. SOCIAL HISTORY: Nonsmoker. 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 Denies alcohol or drug abuse. REVIEW OF SYSTEMS: All 14 systems reviewed and as per HPI. Other pertinent positives include history of snoring, gasping, also daytime fatigue, GERD. The patient also with a report of generalized weakness, facet hypertrophy, chronic joint pain, and low back pain. PHYSICAL EXAM: The patient is sitting up in chair, in no apparent distress. Vital Signs: Temperature 99.3 with a fever spike this morning of 102.9, heart rate 104 beats per minute, respiratory rate 18 per minute, O2 sat 96% on 4 L, blood pressure 125/67. HEENT: Pupils equal, reactive to light. Mucous membranes moist. Lungs: Diminished air entry bilaterally. No crackles or wheezes. Abdomen: Obese. Bowel sounds present. Extremities: Normal range of motion, mild 1+ pitting edema in the right lower extremity. Neuro: Alert, awake, oriented x3. No focal deficits. Skin: No rash or bruise. DIAGNOSTIC STUDIES/LAB DATA: WBC count 3.6, hemoglobin 6.7, hematocrit 20, platelet count 71. Sodium 139, potassium 3.4, chloride 113, bicarb 19, BUN 17, creatinine 1.19. LDH elevated at 476. Bone marrow biopsy results pending. Urine cultures: E. faecalis. Blood cultures: Negative to date. Chest x-ray and prior CT as described above in HPI. IMPRESSION AND RECOMMENDATIONS: 78-year-old male with a history of pulmonary fibrosis of unknown etiology, being treated with azathioprine and prednisone 5 mg with recent herpes zoster infection, admitted with signs of sepsis. The patient with high fevers, tachycardia, tachypnea, worsening hypoxemic respiratory failure. The patient with evidence of worsening airspace opacities and concern with possible mucus plugging of the right lung. Chest x-ray findings most likely secondary to infectious etiology. He is currently on broad-spectrum antibiotics. Bacterial infection more likely given his immunosuppressive status. Given recent herpes zoster, viral pneumonia is also in the differential. Less likely to be caused by pneumocystis as he is also on dapsone prophylaxis. His LDH is elevated; however, he is not significantly hypoxemic. Would continue with bronchodilators, MetaNeb to help mobilize the secretions. His hypoxemia is improving. If he continues to have chest x-ray findings which will be repeated tomorrow, then obtain CT scan for further evaluation. Will need to obtain records from prior payroll administrator about his pulmonary fibrosis. Thank you for allowing me to participate in the care of your patient. Will follow up with you. [id number]/[facility] #: [id number] [place]
[2019-02-15 21:45] LABS: Urine Creatinine Concentration 101.68 mg/dL
[2019-02-15] MEDS: traZODone TAB* 100 MG PO SCH (22:14)
[2019-02-15] MEDS: Atorvastatin* 40 MG TAB PO SCH (22:14)
[2019-02-15] MEDS: DOXYcycline CAP(*) 100 MG PO SCH (22:15)
[2019-02-15] MEDS: Heparin VIAL(*) 5000 UNITS/ML VIAL (FIVE THOUSAND) SUBCUT SCH (22:17)
[2019-02-15] MEDS: Latanoprost 0.005%* 2.5 ml BTL BOTH EYES SCH (22:42)
[2019-02-16] MEDS: ZOSYN 3.375 GM Q8H per EXTENDED INFUSION IVPB SCH ×6 (00:11→17:24)
[2019-02-16] MEDS: Albuterol 2.5 MG/3 ML NEB.SOL* (0.083%) INH SCH ×5 (00:36→19:33)
[2019-02-16] MEDS: Acetaminophen TAB* 325 MG PO PRN ×3 (01:47→20:03)
[2019-02-16] MEDS: GuaiFENesin DM* 5 ML UDC PO SCH ×4 (03:19→21:49)
[2019-02-16] MEDS: Heparin VIAL(*) 5000 UNITS/ML VIAL (FIVE THOUSAND) SUBCUT SCH ×3 (05:30→21:41)
[2019-02-16 06:17] LABS: Hematocrit 22 % (42-52); Hemoglobin 7.3 g/dL (14.0-18.0); Mean Corpuscular HGB Conc 33 g/dL (31-36); Mean Corpuscular Hemoglobin 28 pg (27-31); Mean Corpuscular Volume 85 fL (80-94); Mean Platelet Volume 9.2 fL (7.4-10.4); Platelet Count 56 10^3/uL (150-450); Red Blood Count 2.62 10^6 /uL (4.18-5.48); Red Cell Distribution Width 19 % (10-15); White Blood Count 3.2 10^3/uL (3.5-10.8)
[2019-02-16 06:30] LABS: Calcium 7.2 mg/dL (8.6-10.3); EGFR African American 94.4 (>60); Potassium 3.9 mmol/L (3.5-5.0)
[2019-02-16 06:44] LABS: ABS Lymphocytes 1.2 10^3/ul (1.0-4.8); ABS Monocytes 0.3 10^3/ul (0-0.8); ABS Neutrophils 1.7 10^3/ul (1.5-7.7); Eosinophil % 0.3 %; Lymphocyte % 38.1 %; Nucleated Red Blood Cells % 0.1
[2019-02-16] MEDS: Betaxolol 0.5 %* OPHTH.SOLN 5 ML BOTH EYES SCH ×2 (08:16→21:40)
[2019-02-16] MEDS: predniSONE TAB* 5 MG PO SCH (08:17)
[2019-02-16] MEDS: Dapsone TAB* 100 MG PO SCH (08:17)
[2019-02-16] MEDS: Acetaminophen / Codeine* #3 (300 MG/30 MG) TAB PO PRN ×2 (08:17→15:37)
[2019-02-16] MEDS: Tamsulosin CAP* 0.4 MG PO SCH (08:17)
[2019-02-16] MEDS: Pantoprazole TAB * 40 MG TAB PO SCH ×2 (08:17→21:38)
[2019-02-16] MEDS: Insulin LISPRO* 1 UNITS UNIT SUBCUT SCH ×4 (08:55→21:38)
[2019-02-16] MEDS: Insulin GLARGINE(*) 1 UNITS UNIT SUBCUT SCH (08:56)
[2019-02-16 11:49] LABS: FMDS Result Summary Normal; FMDS Source Left PIC
[2019-02-16 15:27] LABS: Submitting Laboratory Phone 6072744474; Venous/Capillary Venous
--- NOTE | 2019-02-16 16:28 | PN ---
Subjective Date of Service: 02/16/19 Interval History: HOSPITALIST PROGRESS NOTE Patient seen and examined at bedside. Care reviewed and d/w Nehemias Diana RN. He is anxious to be discharged. States his breathing is better and he doesn't want to be here anymore. Family History: Unchanged from Admission Social History: Unchanged from Admission Past Medical History: Unchanged from Admission Objective Active Medications: Acetaminophen (Tylenol Tab*) 650 mg PO Q4H PRN PRN Reason: FEVER Last Admin: 02/16/19 12:16 Dose: 650 mg Acetaminophen/Codeine Phosphate (Tylenol/Codeine 30 Mg Tab*) 1 tab PO Q5H PRN PRN Reason: cough/discomfort Last Admin: 02/16/19 15:37 Dose: 1 tab Albuterol (Ventolin 2.5 Mg/3 Ml Neb.Marlen*) 2.5 mg INH [id number] AWAKE [facility] Last Admin: 02/16/19 14:46 Dose: Not Given Atorvastatin Calcium (Lipitor*) 40 mg PO 2100 [facility] Last Admin: 02/15/19 22:14 Dose: 40 mg Betaxolol HCl (Betoptic 0.05%*) 1 drop BOTH EYES BID [facility] Last Admin: 02/16/19 08:16 Dose: 1 drop Dapsone (Dapsone Tab*) 100 mg PO QAM [facility] Last Admin: 02/16/19 08:17 Dose: 100 mg Dextrose (D50w Syringe 50 Ml*) 12.5 gm IV PUSH .FOR FS < 60 - SS PRN PRN Reason: FS < 60 Doxycycline Hyclate (Vibramycin Cap(*)) 100 mg PO BEDTIME [facility] Last Admin: 02/15/19 22:15 Dose: 100 mg Guaifenesin/Dextromethorphan (Robitussin Dm*) 10 ml PO Q6H [facility] Last Admin: 02/16/19 15:37 Dose: 10 ml Heparin Sodium (Porcine) (Heparin Vial(*)) 5,000 units SUBCUT Q8HR [facility] Last Admin: 02/16/19 13:35 Dose: 5,000 units Piperacillin Sod/Tazobactam (Sod 3.375 gm/ Sodium Chloride) 100 mls @ 25 mls/ hr IVPB Q8H [facility] Last Admin: 02/16/19 08:55 Dose: 25 mls/hr Insulin Glargine (Lantus(*)) 15 units SUBCUT Q24H [facility] Last Admin: 02/16/19 08:56 Dose: 15 unit Insulin Human Lispro (Humalog*) 0 units SUBCUT ACHS [facility]; Protocol Last Admin: 02/16/19 12:12 Dose: 2 units Latanoprost (Xalatan 0.005%*) 1 drop BOTH EYES BEDTIME [facility]; Protocol Last Admin: 02/15/19 22:42 Dose: 1 drop Lorazepam (Ativan Tab(*)) 0.5 mg PO Q6H PRN PRN Reason: ANXIETY Last Admin: 02/14/19 11:43 Dose: 0.5 mg Morphine Sulfate (Morphine 4 Mg/Ml Vial (1 Ml)) 4 mg IV Q3H PRN PRN Reason: PAIN - MODERATE TO SEVERE Last Admin: 02/15/19 02:08 Dose: 4 mg Nitroglycerin (Nitroglycerin Tab 0.4 Mg*) 0.4 mg SL Q5M PRN PRN Reason: CHEST PAIN Pantoprazole Sodium (Protonix Tab*) 40 mg PO BID [facility] Last Admin: 02/16/19 08:17 Dose: 40 mg Pharmacy Consult (Zosyn Per Pharmacy*) 1 note FOLLOW UP .ZOSYN PER PHARMACY [facility] Prednisone (Deltasone Tab*) 5 mg PO DAILY [facility] Last Admin: 02/16/19 08:17 Dose: 5 mg Tamsulosin HCl (Flomax Cap*) 0.4 mg PO DAILY [facility] Last Admin: 02/16/19 08:17 Dose: 0.4 mg Trazodone HCl (Desyrel Tab*) 100 mg PO BEDTIME [facility] Last Admin: 02/15/19 22:14 Dose: 100 mg Vital Signs - 8 hr 02/16/19 02/16/19 02/16/19 10:20 10:30 11:16 Temperature 99.6 F Pulse Rate 92 Respiratory 18 18 20 Rate Blood Pressure 125/57 (mmHg) O2 Sat by Pulse 97 Oximetry 02/16/19 15:37 Temperature Pulse Rate Respiratory 18 Rate Blood Pressure (mmHg) O2 Sat by Pulse Oximetry Oxygen Devices in Use Now: Nasal Cannula Appearance: Elderly gentleman sitting up in a chair in NAD. Eyes: No Scleral Icterus Ears/Nose/Mouth/Throat: Mucous Membranes Moist Neck: Trachea Midline Respiratory: Symmetrical Chest Expansion and Respiratory Effort, - - BS+ bilaterally, diminished on the right Cardiovascular: RRR - Normal S1 and S2 Neurological: Alert and Oriented x 3, NL Muscle Strength and Tone Result Diagrams: 02/16/19 05:40 02/16/19 05:40 Assess/Plan/Problems-Billing Assessment: Mr Richey is a 78 year old man h/o reported idiopathic pulmonary fibrosis on azathioprine/prednisone, type 2 DM, CAD s/p PCI, HTN, HLD, spinal stenosis, nephrolithiasis, recently diagnosed shingles per report who presented with c/o dysuria found to be septice (likely urinary source) and pancytopenic. - Patient Problems (1) Sepsis Comment: - Presentation compatible with sepsis, with fever, tachycardia, and leukopenia. - Source seems to be urinary, but also has respiratory symptoms and zoster. - Improving. (2) UTI (urinary tract infection) due to Enterococcus Comment: - CT abd pelvis showed Staghorn calculus, no obstruction. - Will continue Zosyn. (3) Mucus plugging of bronchi Comment: - Suspect worsening of respiratory status and fever last night is likely associated with pneumonia/mucus plugging. - Guaifenesin, Albuterol metanebs. - Pulm consult appreciated. - Continue Zosyn. - CxR shows persistent right atelectasis/mucus plugging - check CT chest. (4) Pancytopenia Comment: - Could be secondary to infection, or bone marrow suppression from azathioprine. Hematology consult appreciated - awaiting BM biopsy result. - B12 and folate WNL. - Parvovirus B19 pending. - Basophillic stiplinig on smear can be be megaloblastic anemia from azothioprine, can also be lead toxicity or other etiology. - ID input appreciated - check malaria smear/PCR for babesiosis. (5) Shingles Comment: - Continue acylovir. (6) Type 2 diabetes mellitus Current Visit: Yes Status: Acute Priority: Medium Comment: - Controlled. - Continue Lantus and Lispro SS. (7) DVT prophylaxis Comment: - As per Hematology, will start SQ heparin for DVT prophylaxis. (8) Full code status Status and Disposition: Inpatient. updated over the phone.
[2019-02-16] MEDS ORDERED: NS 0.9% 1000 ML** 1,000 ML IV ONE (19:53)
[2019-02-16] MEDS: Atorvastatin* 40 MG TAB PO SCH (21:38)
[2019-02-16] MEDS: DOXYcycline CAP(*) 100 MG PO SCH (21:38)
[2019-02-16] MEDS: traZODone TAB* 100 MG PO SCH (21:39)
[2019-02-16] MEDS: Latanoprost 0.005%* 2.5 ml BTL BOTH EYES SCH (21:40)
[2019-02-17] MEDS: ZOSYN 3.375 GM Q8H per EXTENDED INFUSION IVPB SCH ×4 (00:02→08:43)
[2019-02-17] MEDS: Albuterol 2.5 MG/3 ML NEB.SOL* (0.083%) INH SCH ×2 (01:13→07:10)
[2019-02-17] MEDS: Acetaminophen / Codeine* #3 (300 MG/30 MG) TAB PO PRN ×4 (04:28→22:05)
[2019-02-17] MEDS: GuaiFENesin DM* 5 ML UDC PO SCH ×4 (04:29→23:15)
[2019-02-17 06:38] LABS: Hematocrit 21 % (42-52); Hemoglobin 7.2 g/dL (14.0-18.0); Mean Corpuscular HGB Conc 34 g/dL (31-36); Mean Corpuscular Hemoglobin 29 pg (27-31); Mean Corpuscular Volume 85 fL (80-94); Mean Platelet Volume 9.8 fL (7.4-10.4); Platelet Count 66 10^3/uL (150-450); Red Blood Count 2.51 10^6 /uL (4.18-5.48); Red Cell Distribution Width 19 % (10-15); White Blood Count 2.8 10^3/uL (3.5-10.8)
[2019-02-17] MEDS ORDERED: Albuterol 2.5 MG/3 ML NEB.SOL* (0.083%) INH PRN (07:05)
[2019-02-17] MEDS: Heparin VIAL(*) 5000 UNITS/ML VIAL (FIVE THOUSAND) SUBCUT SCH ×3 (07:08→23:17)
[2019-02-17 07:23] LABS: ABS Lymphocytes 1.3 10^3/ul (1.0-4.8); ABS Monocytes 0.3 10^3/ul (0-0.8); ABS Neutrophils 1.3 10^3/ul (1.5-7.7); Eosinophil % 0.2 %; Lymphocyte % 44.6 %; Nucleated Red Blood Cells % 0.3
[2019-02-17] MEDS: Acetaminophen TAB* 325 MG PO PRN (07:50)
[2019-02-17] MEDS: predniSONE TAB* 5 MG PO SCH (07:50)
[2019-02-17] MEDS: Pantoprazole TAB * 40 MG TAB PO SCH ×2 (07:50→23:15)
[2019-02-17] MEDS: Tamsulosin CAP* 0.4 MG PO SCH (07:50)
[2019-02-17] MEDS: Insulin GLARGINE(*) 1 UNITS UNIT SUBCUT SCH (08:43)
[2019-02-17] MEDS: Azithromycin 500 mg/250 ml NS 500 MG/250 ML BAG IVPB SCH (08:43)
[2019-02-17] MEDS: Insulin LISPRO* 1 UNITS UNIT SUBCUT SCH ×4 (08:43→23:17)
--- NOTE | 2019-02-17 08:43 | PN ---
Subjective Date of Service: 02/17/19 Interval History: HOSPITALIST PROGRESS NOTE Patient seen and examined at bedside. Care reviewed and d/w Nehemias Diana RN. He is upset today because he knows he's not going to be discharged. Last night events noted - spike fever 102.3, desaturated to high 80s and required 5 liters of O2. He does not think his breathing is any different from usual, although his disagrees. Dry cough with no sputum. 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 Family History: Unchanged from Admission Social History: Unchanged from Admission Past Medical History: Unchanged from Admission Objective Active Medications: Acetaminophen (Tylenol Tab*) 650 mg PO Q4H PRN PRN Reason: FEVER Last Admin: 02/17/19 07:50 Dose: 650 mg Acetaminophen/Codeine Phosphate (Tylenol/Codeine 30 Mg Tab*) 1 tab PO Q5H PRN PRN Reason: cough/discomfort Last Admin: 02/17/19 04:28 Dose: 1 tab Albuterol (Ventolin 2.5 Mg/3 Ml Neb.Marlen*) 2.5 mg INH [id number] AWAKE PRN PRN Reason: SOB/WHEEZING Atorvastatin Calcium (Lipitor*) 40 mg PO 2100 [facility] Last Admin: 02/16/19 21:38 Dose: 40 mg Betaxolol HCl (Betoptic 0.05%*) 1 drop BOTH EYES BID [facility] Last Admin: 02/16/19 21:40 Dose: 1 drop Dextrose (D50w Syringe 50 Ml*) 12.5 gm IV PUSH .FOR FS < 60 - SS PRN PRN Reason: FS < 60 Guaifenesin/Dextromethorphan (Robitussin Dm*) 10 ml PO Q6H [facility] Last Admin: 02/17/19 07:49 Dose: 10 ml Heparin Sodium (Porcine) (Heparin Vial(*)) 5,000 units SUBCUT Q8HR [facility] Last Admin: 02/17/19 07:08 Dose: Not Given Piperacillin Sod/Tazobactam (Sod 3.375 gm/ Sodium Chloride) 100 mls @ 25 mls/ hr IVPB Q8H [facility] Last Admin: 02/17/19 00:02 Dose: 25 mls/hr Azithromycin (Zithromax 500 Mg/250 Ml) 500 mg in 250 mls @ 250 mls/hr IVPB Q24H [facility] Fluconazole/Sodium Chloride (Diflucan 400 Mg Ivpremix(*)) 400 mg in 200 mls @ 100 mls/hr IVPB Q24H [facility] Insulin Glargine (Lantus(*)) 15 units SUBCUT Q24H [facility] Last Admin: 02/16/19 08:56 Dose: 15 unit Insulin Human Lispro (Humalog*) 0 units SUBCUT ACHS [facility]; Protocol Last Admin: 02/16/19 21:38 Dose: 2 units Latanoprost (Xalatan 0.005%*) 1 drop BOTH EYES BEDTIME [facility]; Protocol Last Admin: 02/16/19 21:40 Dose: 1 drop Lorazepam (Ativan Tab(*)) 0.5 mg PO Q6H PRN PRN Reason: ANXIETY Last Admin: 02/14/19 11:43 Dose: 0.5 mg Morphine Sulfate (Morphine 4 Mg/Ml Vial (1 Ml)) 4 mg IV Q3H PRN PRN Reason: PAIN - MODERATE TO SEVERE Last Admin: 02/15/19 02:08 Dose: 4 mg Nitroglycerin (Nitroglycerin Tab 0.4 Mg*) 0.4 mg SL Q5M PRN PRN Reason: CHEST PAIN Pantoprazole Sodium (Protonix Tab*) 40 mg PO BID [facility] Last Admin: 02/17/19 07:50 Dose: 40 mg Pharmacy Consult (Zosyn Per Pharmacy*) 1 note FOLLOW UP .ZOSYN PER PHARMACY [facility] Prednisone (Deltasone Tab*) 5 mg PO DAILY [facility] Last Admin: 02/17/19 07:50 Dose: 5 mg Tamsulosin HCl (Flomax Cap*) 0.4 mg PO DAILY [facility] Last Admin: 02/17/19 07:50 Dose: 0.4 mg Trazodone HCl (Desyrel Tab*) 100 mg PO BEDTIME [facility] Last Admin: 02/16/19 21:39 Dose: 100 mg Vital Signs - 8 hr 02/17/19 02/17/19 02/17/19 03:26 04:28 04:35 Temperature 102.3 F 100.1 F Pulse Rate 104 Respiratory 20 20 Rate Blood Pressure 119/69 (mmHg) O2 Sat by Pulse 90 95 Oximetry 02/17/19 06:09 Temperature Pulse Rate Respiratory 20 Rate Blood Pressure (mmHg) O2 Sat by Pulse Oximetry Oxygen Devices in Use Now: OxyMask - 4 liters Appearance: Pleasant elderly gentleman sitting up in a chair in NAD. 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 Hospital course complicated by pneumonia and mucus plugging. - Patient Problems (1) Sepsis Comment: - Presentation compatible with sepsis, with fever, tachycardia, and leukopenia. - Source seems to be urinary, but also has respiratory symptoms and zoster. - Had fever again last night. (2) UTI (urinary tract infection) due to Enterococcus Comment: - CT abd pelvis showed Staghorn calculus, no obstruction. - Continue Zosyn. (3) Mucus plugging of bronchi Comment: - Suspect worsening of respiratory status and fever last night is likely associated with pneumonia/mucus plugging. - CxR didn't show significant improvement; CT chest shows ground glass opacification. D/w Pulm (Dr Evangelista) recommended continuation of guaifenesin, Albuterol metanebs; but if no significant improvement, plan for bronchoscopy 01/03. - Flutter valve. - Also d/w ID - recommended adding Azithromycin, Fluconazole, and check fungal cultures on the Bone marrow (called lab and ordered) as well sputum cultures if available. - As he'll be on Azithromycin, Fluconazole, and Trazodone, will need to monitor QT closely - RN aware and adjustments made to Tele; will order daily EKG as well. (4) Pancytopenia Comment: - Could be secondary to infection, or bone marrow process. Hematology consult appreciated - still awaiting BM biopsy result. - B12 and folate WNL. - Parvovirus B19 pending. - Basophillic stiplinig on smear can be be megaloblastic anemia from azathioprine; Lead was negative. - ID input appreciated - check malaria smear/PCR for babesiosis. (5) Shingles Comment: - Continue acylovir. (6) Type 2 diabetes mellitus Current Visit: Yes Status: Acute Priority: Medium Comment: - Controlled. - Continue Lantus and Lispro SS. (7) DVT prophylaxis Comment: - SQ heparin. (8) Full code status Status and Disposition: Inpatient. updated at bedside.
[2019-02-17] MEDS: Betaxolol 0.5 %* OPHTH.SOLN 5 ML BOTH EYES SCH ×2 (10:05→23:15)
[2019-02-17] MEDS: Fluconazole 400 MG IVPREMIX(*) 400 MG/200 ML BAG IVPB SCH (10:29)
[2019-02-17] MEDS: Lactated Ringers 1000 ML Bag* 1,000 ML IV SCH ×2 (15:56→21:57)
[2019-02-17] MEDS: ZOSYN 3.375 GM Q6H IVPB SCH ×4 (16:04→22:01)
[2019-02-17 16:08] LABS: BUN/Creatinine Ratio 16.1 (8-20); Calcium 7.8 mg/dL (8.6-10.3); EGFR African American 72.6 (>60); Potassium 4.1 mmol/L (3.5-5.0)
[2019-02-17 18:37] LABS: RBC Parasite Smear No Parasites Seen (No Parasite)
[2019-02-17] MEDS: Atorvastatin* 40 MG TAB PO SCH (23:15)
[2019-02-17] MEDS: traZODone TAB* 100 MG PO SCH (23:15)
[2019-02-17] MEDS: Latanoprost 0.005%* 2.5 ml BTL BOTH EYES SCH (23:16)
[2019-02-18] MEDS: ZOSYN 3.375 GM Q6H IVPB SCH ×8 (04:02→21:56)
[2019-02-18] MEDS: GuaiFENesin DM* 5 ML UDC PO SCH ×4 (04:03→20:45)
[2019-02-18] MEDS: Acetaminophen / Codeine* #3 (300 MG/30 MG) TAB PO PRN ×2 (04:04→20:57)
[2019-02-18] MEDS: Heparin VIAL(*) 5000 UNITS/ML VIAL (FIVE THOUSAND) SUBCUT SCH ×3 (05:51→20:50)
[2019-02-18 06:45] LABS: Hematocrit 21 % (42-52); Hemoglobin 7.1 g/dL (14.0-18.0); Mean Corpuscular HGB Conc 34 g/dL (31-36); Mean Corpuscular Hemoglobin 28 pg (27-31); Mean Corpuscular Volume 84 fL (80-94); Mean Platelet Volume 10.9 fL (7.4-10.4); Platelet Count 75 10^3/uL (150-450); Red Cell Distribution Width 19 % (10-15); White Blood Count 2.4 10^3/uL (3.5-10.8)
[2019-02-18 06:52] LABS: Albumin 2.4 g/dL (3.2-5.2); Albumin/Globulin Ratio 0.9 (1-3); BUN/Creatinine Ratio 17.1 (8-20); C Reactive Protein 210.42 mg/L (<8.01); Calcium 7.6 mg/dL (8.6-10.3); EGFR African American 73.3 (>60); EGFR Non-African American 60.6 (>60); Globulin 2.6 g/dL (2-4); Potassium 3.7 mmol/L (3.5-5.0)
[2019-02-18 07:40] LABS: ABS Monocytes 0.3 10^3/ul (0-0.8); ABS Neutrophils 1.1 10^3/ul (1.5-7.7); Eosinophil % 0.8 %; Lymphocyte % 40.3 %; Nucleated Red Blood Cells % 0.1
[2019-02-18] MEDS: Insulin GLARGINE(*) 1 UNITS UNIT SUBCUT SCH (08:34)
[2019-02-18] MEDS: Insulin LISPRO* 1 UNITS UNIT SUBCUT SCH ×4 (08:34→20:46)
[2019-02-18] MEDS: Pantoprazole TAB * 40 MG TAB PO SCH ×2 (08:35→20:50)
[2019-02-18] MEDS: predniSONE TAB* 5 MG PO SCH (08:35)
[2019-02-18] MEDS: Acetaminophen TAB* 325 MG PO PRN (08:35)
[2019-02-18] MEDS: Azithromycin 500 mg/250 ml NS 500 MG/250 ML BAG IVPB SCH (08:35)
[2019-02-18] MEDS: Fluconazole 400 MG IVPREMIX(*) 400 MG/200 ML BAG IVPB SCH (08:35)
[2019-02-18] MEDS: Betaxolol 0.5 %* OPHTH.SOLN 5 ML BOTH EYES SCH ×2 (08:35→20:46)
[2019-02-18] MEDS: Tamsulosin CAP* 0.4 MG PO SCH (08:35)
[2019-02-18] MEDS: Lactated Ringers 1000 ML Bag* 1,000 ML IV SCH ×2 (08:40→14:32)
--- NOTE | 2019-02-18 14:31 | PN ---
Subjective Date of Service: 02/18/19 Interval History: ? stronger today, still needs assist of 1 to walk. Appetite poor, everything smells bad. Denies SOB. No sputum. Family History: Unchanged from Admission Social History: Unchanged from Admission Past Medical History: Unchanged from Admission Objective Active Medications: Acetaminophen (Tylenol Tab*) 650 mg PO Q4H PRN PRN Reason: FEVER Last Admin: 02/18/19 08:35 Dose: 650 mg Acetaminophen/Codeine Phosphate (Tylenol/Codeine 30 Mg Tab*) 1 tab PO Q5H PRN PRN Reason: cough/discomfort Last Admin: 02/18/19 04:04 Dose: 1 tab Albuterol (Ventolin 2.5 Mg/3 Ml Neb.Marlen*) 2.5 mg INH [id number] AWAKE PRN PRN Reason: SOB/WHEEZING Atorvastatin Calcium (Lipitor*) 40 mg PO 2100 [facility] Last Admin: 02/17/19 23:15 Dose: 40 mg Betaxolol HCl (Betoptic 0.05%*) 1 drop BOTH EYES BID [facility] Last Admin: 02/18/19 08:35 Dose: 1 drop Dextrose (D50w Syringe 50 Ml*) 12.5 gm IV PUSH .FOR FS < 60 - SS PRN PRN Reason: FS < 60 Guaifenesin/Dextromethorphan (Robitussin Dm*) 10 ml PO Q6H [facility] Last Admin: 02/18/19 08:34 Dose: 10 ml Heparin Sodium (Porcine) (Heparin Vial(*)) 5,000 units SUBCUT Q8HR [facility] Last Admin: 02/18/19 13:45 Dose: Not Given Azithromycin (Zithromax 500 Mg/250 Ml) 500 mg in 250 mls @ 250 mls/hr IVPB Q24H [facility] Last Admin: 02/18/19 08:35 Dose: 250 mls/hr Fluconazole/Sodium Chloride (Diflucan 400 Mg Ivpremix(*)) 400 mg in 200 mls @ 100 mls/hr IVPB Q24H [facility] Last Admin: 02/18/19 08:35 Dose: 100 mls/hr Piperacillin Sod/Tazobactam (Sod 3.375 gm/ Sodium Chloride) 100 mls @ 200 mls/ hr IVPB 0400,1000,1600,2200 [facility] Last Admin: 07/04/19 10:18 Dose: 25 mls/hr Lactated Ringer's (Lactated Ringers 1000 Ml Bag*) 1,000 mls @ 60 mls/hr IV PER RATE [facility] Insulin Glargine (Lantus(*)) 15 units SUBCUT Q24H [facility] Last Admin: 02/18/19 08:34 Dose: 15 unit Insulin Human Lispro (Humalog*) 0 units SUBCUT ACHS [facility]; Protocol Last Admin: 02/18/19 12:34 Dose: 1 units Latanoprost (Xalatan 0.005%*) 1 drop BOTH EYES BEDTIME [facility]; Protocol Last Admin: 02/17/19 23:16 Dose: 1 drop Lorazepam (Ativan Tab(*)) 0.5 mg PO Q6H PRN PRN Reason: ANXIETY Last Admin: 02/14/19 11:43 Dose: 0.5 mg Morphine Sulfate (Morphine 4 Mg/Ml Vial (1 Ml)) 4 mg IV Q3H PRN PRN Reason: PAIN - MODERATE TO SEVERE Last Admin: 02/15/19 02:08 Dose: 4 mg Nitroglycerin (Nitroglycerin Tab 0.4 Mg*) 0.4 mg SL Q5M PRN PRN Reason: CHEST PAIN Pantoprazole Sodium (Protonix Tab*) 40 mg PO BID [facility] Last Admin: 02/18/19 08:35 Dose: 40 mg Pharmacy Consult (Zosyn Per Pharmacy*) 1 note FOLLOW UP .ZOSYN PER PHARMACY [facility] Prednisone (Deltasone Tab*) 5 mg PO DAILY [facility] Last Admin: 02/18/19 08:35 Dose: 5 mg Tamsulosin HCl (Flomax Cap*) 0.4 mg PO DAILY [facility] Last Admin: 02/18/19 08:35 Dose: 0.4 mg Trazodone HCl (Desyrel Tab*) 100 mg PO BEDTIME [facility] Last Admin: 02/17/19 23:15 Dose: 100 mg Vital Signs - 8 hr 02/18/19 02/18/19 02/18/19 08:00 08:04 11:46 Temperature 101.7 F 99.5 F Pulse Rate 112 85 Respiratory 26 28 16 Rate Blood Pressure 126/63 98/59 (mmHg) O2 Sat by Pulse 94 94 97 Oximetry Oxygen Devices in Use Now: Nasal Cannula Appearance: Alert, sitting up in bed. In fair spirits. Looks comfortable. Respiratory: Symmetrical Chest Expansion and Respiratory Effort, Clear to Auscultation, Clear to Percussion Cardiovascular: NL Sounds; No Murmurs; No JVD, RRR, No Edema, - Extremities: No Clubbing, Cyanosis, - - 12+ edema BL Skin: No Rash or Ulcers, No Nodules or Sclerosis, - - Slight scarring L thigh from shingles Neurological: Alert and Oriented x 3, NL Sensation Result Diagrams: 02/18/19 06:25 02/18/19 06:25 Additional Lab and Data: Laboratory Tests 02/11/19 02/11/19 02/11/19 21:31 21:31 21:31 Absolute Neuts (auto) 1.0 L Absolute Lymphs (auto) 0.5 L INR (Anticoag Therapy) 1.21 H APTT 52.1 H Glucose 166 H Lactic Acid Calcium 7.9 L Total Bilirubin 1.10 H AST 62 H Troponin I 0.04 H* 02/11/19 21:31 Absolute Neuts (auto) Absolute Lymphs (auto) INR (Anticoag Therapy) APTT Glucose Lactic Acid 3.0 H* Calcium Total Bilirubin AST Troponin I Laboratory Tests 02/11/19 23:43 Urine pH 5.0 Ur Specific [place] 1.015 Urine Protein 1+(30 mg/dl) A Urine Ketones Trace A Urine Blood 3+ A Urine Nitrate Negative Ur Leukocyte Esterase 1+ A Urine WBC (Auto) 3+(>20/hpf) A Urine RBC (Auto) 3+(>10/hpf) A Microbiology and Other Data: Microbiology 02/11/19 23:43 Urine Culture - Preliminary Urine Enterococcus Faecalis 02/11/19 21:31 Aerobic Blood Culture - Preliminary Blood Venous No Growth Day 1 Anaerobic Blood Culture - Preliminary No Growth Day 1 02/11/19 21:29 Aerobic Blood Culture - Preliminary Blood Venous No Growth Day 1 Anaerobic Blood Culture - Preliminary No Growth Day 1 Diagnostic Imaging: CXR: PA/lat, no focal infiltrates, poor penetration EKG Data: sinus tachycardia, frequent PACs, PVCs. 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 Hospital course complicated by pneumonia and mucus plugging. - Patient Problems (1) Sepsis Current Visit: Yes Status: Acute Priority: High Comment: - Source seems to be urinary (E. faecalis), but also has respiratory symptoms and zoster. - Had fever again 02/18. Continue azith, pip/roseann, fluconazole, - CT abd pelvis showed Staghorn calculus, no obstruction. Bronch planned for 02/19. Consider voiding trial 02/20. (2) Pancytopenia Current Visit: Yes Status: Acute Priority: Medium Code(s): D61.818 - OTHER PANCYTOPENIA SNOMED Code(s): 072814512 Comment: - Could be secondary to infection, or bone marrow process. Hematology consult appreciated - still awaiting BM biopsy result. - B12 and folate WNL. - Parvovirus B19 Ab's show past infection. - Basophillic stiplinig on smear can be be megaloblastic anemia from azathioprine; Lead was negative. - ID input appreciated - check malaria smear/PCR for babesiosis. (3) Shingles Current Visit: Yes Status: Acute Priority: Medium Code(s): B02.9 - ZOSTER WITHOUT COMPLICATIONS SNOMED Code(s): 5346399 Comment: - Completed acylovir. Resolved, asymptomatic. L leg. (4) Type 2 diabetes mellitus Current Visit: Yes Status: Acute Priority: Medium Comment: - Controlled. - Continue Lantus and Lispro SS. (5) Acute kidney injury Current Visit: Yes Status: Acute Priority: Medium Code(s): N17.9 - ACUTE KIDNEY FAILURE, UNSPECIFIED SNOMED Code(s): 72309162 Comment: -improved s/p 6L on admission Status and Disposition: Inpatient. updated at bedside.
[2019-02-18] MEDS: Latanoprost 0.005%* 2.5 ml BTL BOTH EYES SCH (20:46)
[2019-02-18] MEDS: Atorvastatin* 40 MG TAB PO SCH (20:50)
[2019-02-18] MEDS: traZODone TAB* 100 MG PO SCH (20:50)
[2019-02-19] MEDS: Lactated Ringers 1000 ML Bag* 1,000 ML IV SCH (02:23)
[2019-02-19] MEDS: GuaiFENesin DM* 5 ML UDC PO SCH ×4 (03:38→20:02)
[2019-02-19] MEDS: ZOSYN 3.375 GM Q6H IVPB SCH ×6 (03:38→18:51)
[2019-02-19] MEDS: Acetaminophen TAB* 325 MG PO PRN (03:38)
[2019-02-19] MEDS: Heparin VIAL(*) 5000 UNITS/ML VIAL (FIVE THOUSAND) SUBCUT SCH ×3 (05:13→21:03)
[2019-02-19] MEDS: Insulin LISPRO* 1 UNITS UNIT SUBCUT SCH ×4 (07:36→21:02)
[2019-02-19] MEDS: Azithromycin 500 mg/250 ml NS 500 MG/250 ML BAG IVPB SCH (07:45)
[2019-02-19] MEDS: Acetaminophen / Codeine* #3 (300 MG/30 MG) TAB PO PRN (10:31)
[2019-02-19] MEDS: Pantoprazole TAB * 40 MG TAB PO SCH ×2 (10:32→20:02)
[2019-02-19] MEDS: predniSONE TAB* 5 MG PO SCH (10:32)
[2019-02-19] MEDS: Tamsulosin CAP* 0.4 MG PO SCH (10:32)
[2019-02-19] MEDS: Fluconazole 400 MG IVPREMIX(*) 400 MG/200 ML BAG IVPB SCH (10:39)
[2019-02-19] MEDS: Betaxolol 0.5 %* OPHTH.SOLN 5 ML BOTH EYES SCH ×2 (10:44→20:03)
[2019-02-19] MEDS: Insulin GLARGINE(*) 1 UNITS UNIT SUBCUT SCH (10:45)
--- NOTE | 2019-02-19 11:13 | PN ---
Subjective Interval History: complaint of abdominal pain in band across stomach and right flank pain. 06/27. Refused IV morphine (made out of it previously) TMax 101.7 at 4am Abdominal bloating noticed by Wade, leg swelling. thick sputum with pink tinged this AM (new) wanting to leave hospital, AMA if necessary(this threat is not new). Family History: Unchanged from Admission Social History: Unchanged from Admission Past Medical History: Unchanged from Admission Objective Active Medications: Acetaminophen (Tylenol Tab*) 650 mg PO Q4H PRN PRN Reason: FEVER Last Admin: 02/19/19 03:38 Dose: 650 mg Acetaminophen/Codeine Phosphate (Tylenol/Codeine 30 Mg Tab*) 1 tab PO Q5H PRN PRN Reason: cough/discomfort Last Admin: 02/19/19 10:31 Dose: 1 tab Albuterol (Ventolin 2.5 Mg/3 Ml Neb.Marlen*) 2.5 mg INH [id number] AWAKE PRN PRN Reason: SOB/WHEEZING Last Admin: 02/18/19 14:28 Dose: 2.5 mg Atorvastatin Calcium (Lipitor*) 40 mg PO 2100 [facility] Last Admin: 02/18/19 20:50 Dose: 40 mg Betaxolol HCl (Betoptic 0.05%*) 1 drop BOTH EYES BID [facility] Last Admin: 02/19/19 10:44 Dose: 1 drop Dextrose (D50w Syringe 50 Ml*) 12.5 gm IV PUSH .FOR FS < 60 - SS PRN PRN Reason: FS < 60 Guaifenesin/Dextromethorphan (Robitussin Dm*) 10 ml PO Q6H [facility] Last Admin: 02/19/19 10:42 Dose: Not Given Heparin Sodium (Porcine) (Heparin Vial(*)) 5,000 units SUBCUT Q8HR [facility] Last Admin: 02/19/19 05:13 Dose: Not Given Hydromorphone HCl (Dilaudid Inj1s*) 0.5 mg IV SLOW PU Q4H PRN PRN Reason: PAIN Azithromycin (Zithromax 500 Mg/250 Ml) 500 mg in 250 mls @ 250 mls/hr IVPB Q24H [facility] Last Admin: 02/19/19 07:45 Dose: 250 mls/hr Fluconazole/Sodium Chloride (Diflucan 400 Mg Ivpremix(*)) 400 mg in 200 mls @ 100 mls/hr IVPB Q24H [facility] Last Admin: 02/19/19 10:39 Dose: 100 mls/hr Piperacillin Sod/Tazobactam (Sod 3.375 gm/ Sodium Chloride) 100 mls @ 200 mls/ hr IVPB 0400,1000,1600,2200 [facility] Last Admin: 02/19/19 03:38 Dose: 200 mls/hr Insulin Glargine (Lantus(*)) 15 units SUBCUT Q24H [facility] Last Admin: 02/19/19 10:45 Dose: Not Given Insulin Human Lispro (Humalog*) 0 units SUBCUT ACHS [facility]; Protocol Last Admin: 02/19/19 07:36 Dose: Not Given Latanoprost (Xalatan 0.005%*) 1 drop BOTH EYES BEDTIME [facility]; Protocol Last Admin: 02/18/19 20:46 Dose: 1 drop Lorazepam (Ativan Tab(*)) 0.5 mg PO Q6H PRN PRN Reason: ANXIETY Last Admin: 02/14/19 11:43 Dose: 0.5 mg Morphine Sulfate (Morphine 4 Mg/Ml Vial (1 Ml)) 4 mg IV Q3H PRN PRN Reason: PAIN - MODERATE TO SEVERE Last Admin: 02/15/19 02:08 Dose: 4 mg Nitroglycerin (Nitroglycerin Tab 0.4 Mg*) 0.4 mg SL Q5M PRN PRN Reason: CHEST PAIN Pantoprazole Sodium (Protonix Tab*) 40 mg PO BID [facility] Last Admin: 02/19/19 10:32 Dose: 40 mg Pharmacy Consult (Zosyn Per Pharmacy*) 1 note FOLLOW UP .ZOSYN PER PHARMACY [facility] Prednisone (Deltasone Tab*) 5 mg PO DAILY [facility] Last Admin: 02/19/19 10:32 Dose: 5 mg Tamsulosin HCl (Flomax Cap*) 0.4 mg PO DAILY [facility] Last Admin: 02/19/19 10:32 Dose: 0.4 mg Trazodone HCl (Desyrel Tab*) 100 mg PO BEDTIME [facility] Last Admin: 02/18/19 20:50 Dose: 100 mg Vital Signs - 8 hr 02/19/19 02/19/19 02/19/19 04:26 07:31 07:54 Temperature 101.7 F 98.5 F Pulse Rate 103 98 Respiratory 18 18 16 Rate Blood Pressure 142/77 126/83 (mmHg) O2 Sat by Pulse 94 94 Oximetry 02/19/19 10:31 Temperature Pulse Rate Respiratory 16 Rate Blood Pressure (mmHg) O2 Sat by Pulse Oximetry Oxygen Devices in Use Now: Nasal Cannula Appearance: moderate distress and chronically ill appearing. Eyes: No Scleral Icterus Neck: NL Appearance and Movements; NL JVP, Trachea Midline Respiratory: - - fine rales b/l lung hagan. Cardiovascular: - - tachycardic, regular. Abdominal: - - distention, mildely tender to palpation in lower band. no rebound or guarding. Extremities: - - 1-2+ edema in legs/feet/ankles Skin: - - no rash on visible surfaces but unable to see lower back or buttocks. Neurological: Alert and Oriented x 3 Nutrition: Taking PO's Result Diagrams: 02/18/19 06:25 02/18/19 06:25 Additional Lab and Data: Laboratory Results - last 24 hr 02/17/19 02/18/19 02/18/19 15:41 06:25 16:53 Smear Path Review Hem Pathologist Commnt POC Glucose (mg/dL) 172 H Blood Parasite Screen No parasites seen 02/18/19 02/19/19 02/19/19 20:11 07:36 12:25 Smear Path Review Hem Pathologist Commnt POC Glucose (mg/dL) 155 H 118 H 147 H Blood Parasite Screen Microbiology and Other Data: Microbiology 02/19/19 11:22 Nasal Nasal Screen MRSA (PCR) - Final Mrsa Not Detected 02/18/19 12:32 Blood Venous Aerobic Blood Culture - Preliminary No Growth Day 1 02/18/19 12:32 Blood Venous Anaerobic Blood Culture - Preliminary No Growth Day 1 02/18/19 11:30 Blood Venous Aerobic Blood Culture - Preliminary No Growth Day 1 02/18/19 11:30 Blood Venous Anaerobic Blood Culture - Preliminary No Growth Day 1 02/14/19 23:37 Blood Venous Aerobic Blood Culture - Preliminary No Growth Day 4 02/14/19 23:37 Blood Venous Anaerobic Blood Culture - Preliminary No Growth Day 4 02/14/19 23:37 Blood Venous Blood Culture - Preliminary No Growth Day 4 02/18/19 13:47 Sputum Gram Stain - Final 02/11/19 21:31 Blood Venous Aerobic Blood Culture - Final No Growth Day 5 02/11/19 21:31 Blood Venous Anaerobic Blood Culture - Final No Growth Day 5 02/11/19 21:29 Blood Venous Aerobic Blood Culture - Final No Growth Day 5 02/11/19 21:29 Blood Venous Anaerobic Blood Culture - Final No Growth Day 5 02/11/19 23:43 Urine Urine Culture - Final Enterococcus Faecalis Diagnostic Imaging: CXR: PA/lat, no focal infiltrates, poor penetration EKG Data: sinus tachycardia, frequent PACs, PVCs. Assess/Plan/Problems-Billing Assessment: Mr Richey is a 78 yo M with PMH of steroid-responsive chronic interstitial lung disease (chronic hypersensitivity pneumonitis vs nonspecific interstitial pneumonia) on azathioprine/prednisone, IDDMT2, CAD s/p PCI, HTN, HLD, spinal stenosis, nephrolithiasis, recently diagnosed shingles, who presented with c/o dysuria found to be septic (likely urinary source) and pancytopenic. Hospital course complicated by pneumonia and mucus plugging. - Patient Problems (1) Sepsis Current Visit: Yes Status: Acute Priority: High Comment: - Initial source seemed to be urinary (E. faecalis), but also has progress respiratory symptoms ( and e/o acute infection on CT chest noncontrast 02/16 in RUL, LLL, RLL) and zoster. With new productive sputum cough 7/5am. s/p bronch with AFB, fungal cx, gs/culture. Continued fevers and worsened tachycardia. - MRSA nares 02/19 negative - Continue azithromycin, pip/roseann, fluconazole, - CT abd pelvis showed Staghorn calculus, no obstruction. Consider voiding trial 02/20. - Pt with fevers (w/o improvment on antibtiotics/antifungals), pancytopenia, hyperlipidemia, spenomegaly, ferritin 1330. HLH is in the differential as already meeting numerous criteria. f/u final bone marrow biopsy results (no initial report of macrophagosytosis. Adding fibrinogen (HLH would be consistent with low), NK cell function, soluble IL-2 receptor alpha which would be send- outs. - appreciate ID, pulm recs. (2) Immunosuppression due to drug therapy Current Visit: Yes Status: Acute Priority: Medium Code(s): Z79.899 - OTHER DETENTION (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 THERAPY SNOMED Code(s): 27469207 Comment: -Immune suppression raises risk of severe infection -Will hold azothiaprine for now - had been on dapsone as outpatient. -f/u AFB, fungal cx. - appreciate heme/onc, id recs. (3) Interstitial lung disease Current Visit: Yes Status: Acute Code(s): J84.9 - INTERSTITIAL PULMONARY DISEASE, UNSPECIFIED SNOMED Code(s): 610407696 Comment: follows with dr hess in [place] - steroid responsive chronic hypersensitivity pneumonitis vs nonspecific interstitial pneumonia. azathioprine on hold (4) Neutropenic fever Current Visit: Yes Status: Acute Code(s): D70.9 - NEUTROPENIA, UNSPECIFIED; R50.81 - FEVER PRESENTING WITH CONDITIONS CLASSIFIED ELSEWHERE SNOMED Code(s) : 508301736 Comment: ANC 1000 initally, improved but back down to 1100 yesterday, repeat CBC zosyn differential as above. Azathioprine held (5) Pancytopenia Current Visit: Yes Status: Acute Priority: Medium Code(s): D61.818 - OTHER PANCYTOPENIA SNOMED Code(s): 429870341 Comment: - Could be secondary to infection, or bone marrow process. Hematology consult appreciated - B12 and folate WNL. - Parvovirus B19 Ab's show past infection. - Basophillic stiplinig on smear can be be megaloblastic anemia from azathioprine; Lead was negative. - ID input appreciated - -malaria smear (no intercellular seen) - f/u PCR for babesiosis. - HLH in differential, studies as above. (6) UTI (urinary tract infection) due to Enterococcus Current Visit: Yes Status: Acute Code(s): N39.0 - URINARY TRACT INFECTION, SITE NOT SPECIFIED; B95.2 - ENTEROCOCCUS THE CAUSE OF DISEASES CLASSIFIED ELSEWHERE SNOMED Code(s): 450968928227588 Comment: - Continue Zosyn. (7) Full code status Current Visit: Yes Status: Acute Code(s): Z78.9 - OTHER SPECIFIED HEALTH STATUS SNOMED Code(s): 917793542 (8) IDDM (insulin dependent diabetes mellitus) Current Visit: Yes Status: Acute Code(s): E11.9 - TYPE 2 DIABETES MELLITUS WITHOUT COMPLICATIONS; Z79.4 - PSYCHOLOGY FELLOW (CURRENT) USE OF INSULIN SNOMED Code( s): 37071123 Comment: lantus 15U (but held this AM), SSI (9) Edema Current Visit: Yes Status: Acute Code(s): R60.9 - EDEMA, UNSPECIFIED SNOMED Code(s): 670417775 Comment: add BNP, IVF stopped. (10) Abdominal distension Current Visit: Yes Status: Acute Code(s): R14.0 - ABDOMINAL DISTENSION ( GASEOUS) SNOMED Code(s): 13609548 Comment: ELSY (11) Former smoker Current Visit: Yes Status: Acute Code(s): Z87.891 - PERSONAL HISTORY OF NICOTINE DEPENDENCE SNOMED Code(s): 1553105 Comment: mild restriction on last PFTs which have been stable. no inhalers at home as many as two ppd, age 17 start. Status and Disposition: Inpatient. updated at bedside.
[2019-02-19] MEDS: HYDROmorphone INJ1* 1 MG/ML SYRINGE IV SLOW PU PRN ×2 (11:16→20:01)
[2019-02-19] MEDS ORDERED: Buffered Lidocaine 1% SYRIN* 1 ML/SYRINGE INTRADERM ONE (12:53)
[2019-02-19] MEDS ORDERED: Benzocaine/Butamben/Tetracain (CETACAINE - SINGLE USE) 5 gm TOPICAL ONE (13:52)
[2019-02-19] MEDS ORDERED: Lidocaine 1% INJ* 10 MG/ML 30 ML SDV ONE (13:52)
[2019-02-19] MEDS ORDERED: Lidocaine 2% JELLY* 20 ML (for OR use) ONE (13:53)
[2019-02-19] MEDS ORDERED: Midazolam* 1 MG/ML 2 ML VIAL (2 MG) ONE (14:02)
[2019-02-19] MEDS ORDERED: Lidocaine 2% PF * 5 ML VIAL ONE (14:03)
[2019-02-19] MEDS ORDERED: Propofol* 10 MG/ML 20 ML BTL ONE (14:03)
[2019-02-19] MEDS ORDERED: Lidocaine 4% TOPICAL* 50 ML TOP.SOLN ONE (14:03)
[2019-02-19] MEDS: NS 0.9% 1000 ML** 1,000 ML IV SCH ×2 (14:13→20:46)
[2019-02-19] MEDS ORDERED: KETAMINE HCL* 50 MG/ML 10 ML VIAL ONE (14:24)
[2019-02-19] MEDS ORDERED: Famotidine IV* 10 MG/ML 2 ML (20 mg) ONE (14:34)
--- NOTE | 2019-02-19 14:40 | PN ---
Progress Note - Progress Note Date of Service: 02/19/19 - Pulm f/u note Note: Pt seen and examined at bedside. Interim events noted. Pt c/o pain in hips and back this am. His also reports dark stools. Pt with cough with streaks of blood. Continues to remain febrile. He is abck to 3L O2-baseline at home Active Medications Generic Name Dose Route Start Last Admin Trade Name Freq PRN Reason Stop Dose Admin Acetaminophen 650 mg 02/15/19 20:26 02/19/19 03:38 Tylenol Tab* PO 650 mg Q4H PRN Administration FEVER Acetaminophen/Codeine Phosphate 1 tab 02/16/19 14:47 02/19/19 10:31 Tylenol/Codeine 30 Mg Tab* PO 1 tab Q5H PRN Administration cough/discomfort Albuterol 2.5 mg 02/17/19 07:05 02/18/19 14:28 Ventolin 2.5 Mg/3 Ml Neb.Marlen* INH 2.5 mg [id number] AWAKE PRN Administration SOB/WHEEZING Atorvastatin Calcium 40 mg 02/12/19 21:00 02/18/19 20:50 Lipitor* PO 40 mg 2100 [facility] Administration Betaxolol HCl 1 drop 02/12/19 09:00 02/19/19 10:44 Betoptic 0.05%* BOTH EYES 1 drop BID [facility] Administration Dextrose 12.5 gm 02/12/19 01:07 D50w Syringe 50 Ml* IV PUSH .FOR FS < 60 - SS PRN FS < 60 Gabapentin 100 mg 02/19/19 21:00 Neurontin Cap(*) PO TID [facility] Guaifenesin/Dextromethorphan 10 ml 02/15/19 09:03 02/19/19 10:42 Robitussin Dm* PO Not Given Q6H [facility] Heparin Sodium (Porcine) 5,000 units 02/15/19 22:00 02/19/19 13:52 Heparin Vial(*) SUBCUT Not Given Q8HR [facility] Hydromorphone HCl 0.5 mg 02/19/19 10:52 02/19/19 11:16 Dilaudid Inj1s* IV SLOW PU 0.5 mg Q4H PRN Administration PAIN Azithromycin 500 mg in 250 mls @ 250 mls/hr 02/17/19 08:00 02/19/19 07:45 Zithromax 500 Mg/250 Ml IVPB 250 mls/hr Q24H [facility] Administration Fluconazole/Sodium Chloride 400 mg in 200 mls @ 100 mls/hr 02/17/19 09:00 01/03 10:39 Diflucan 400 Mg Ivpremix(*) IVPB 100 mls/hr Q24H [facility] Administration Piperacillin Sod/Tazobactam 100 mls @ 200 mls/hr 02/17/19 16:00 02/19/19 12: 42 Sod 3.375 gm/ Sodium Chloride IVPB 200 mls/hr 0400,1000,1600,2200 [facility] Administration Sodium Chloride 1,000 mls @ 25 mls/hr 02/19/19 13:00 02/19/19 14:13 Ns 0.9% 1000 Ml IV 25 mls/hr PER RATE [facility] Administration Insulin Glargine 15 units 02/12/19 08:00 02/19/19 10:45 Lantus(*) SUBCUT Not Given Q24H [facility] Insulin Human Lispro 0 units 02/12/19 07:30 02/19/19 12:44 Humalog* SUBCUT Not Given ACHS [facility] Protocol Latanoprost 1 drop 02/12/19 21:00 02/18/19 20:46 Xalatan 0.005%* BOTH EYES 1 drop BEDTIME [facility] Administration Protocol Lorazepam 0.5 mg 02/14/19 11:09 02/14/19 11:43 Ativan Tab(*) PO 0.5 mg Q6H PRN Administration ANXIETY Morphine Sulfate 4 mg 02/12/19 05:14 02/15/19 02:08 Morphine 4 Mg/Ml Vial (1 Ml) IV 4 mg Q3H PRN Administration PAIN - MODERATE TO SEVERE Nitroglycerin 0.4 mg 02/12/19 01:27 Nitroglycerin Tab 0.4 Mg* SL Q5M PRN CHEST PAIN Pantoprazole Sodium 40 mg 02/12/19 09:00 02/19/19 10:32 Protonix Tab* PO 40 mg BID [facility] Administration Pharmacy Consult 1 note 02/12/19 02:00 Zosyn Per Pharmacy* FOLLOW UP .ZOSYN PER PHARMACY [facility] Prednisone 5 mg 02/14/19 09:00 02/19/19 10:32 Deltasone Tab* PO 5 mg DAILY [facility] Administration Tamsulosin HCl 0.4 mg 02/12/19 09:00 02/19/19 10:32 Flomax Cap* PO 0.4 mg DAILY [facility] Administration Trazodone HCl 100 mg 02/12/19 21:00 02/18/19 20:50 Desyrel Tab* PO 100 mg BEDTIME [facility] Administration Vital Signs Temp Pulse Resp BP Pulse Ox 99.3 F 101 16 127/75 91 02/19/19 11:35 02/19/19 11:35 02/19/19 12:43 02/19/19 11:35 02/19/19 11:35 O/E: Pt in distress sec to pain this am, feeling better when seen shortly before in OR HEENT: PERRLA, no JVD Lungs: Diminished air entry, insp squeaks+ CVS: S1, S2+, irregular Abd: Obese, BS+ Ext: Edema+ Skin: NO rash Neuro: Alert, awake, no focal deficits Laboratory Results - last 24 hr 02/17/19 02/18/19 02/18/19 15:41 06:25 16:53 Smear Path Review Hem Pathologist Commnt POC Glucose (mg/dL) 172 H Blood Parasite Screen No parasites seen 02/18/19 02/19/19 02/19/19 20:11 07:36 12:25 Smear Path Review Hem Pathologist Commnt POC Glucose (mg/dL) 155 H 118 H 147 H Blood Parasite Screen I/R: 78 yo M with PMH of steroid-responsive chronic interstitial lung disease ( 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 Hospital course complicated by pneumonia and mucus plugging, worsening of resp status. CT chest showed air space opacities with GGO b/l- infectious, inflammatory, fluid overload versus ILD exacerbation versus ANH Pt with ongoing fever while on abx Scheduled for bronchoscopy and washings to also r/o PCP Will send for bacterial, fungal and mycobacterial cx Procedure was discussed in detail Associated risks and benefits were thoroughly explained Pt agreeable to procedure Further recommendations pending procedure D/w Dr Russo, Victor Hugo Norris NP
[2019-02-19] MEDS ORDERED: Lidocaine 2% JELLY* 6 ML JELLY TOPICAL ONE (15:07)
[2019-02-19] MEDS ORDERED: Esmolol* 10 MG/ML 10 ML (100 mg) ONE (15:25)
[2019-02-19] MEDS ORDERED: Metoprolol Tartrate IV* 1 MG/ML 5 ML VIAL ONE ×2 (16:08→17:33)
[2019-02-19] MEDS ORDERED: Ondansetron INJ* 2 MG/ML VIAL IV PRN (16:09)
[2019-02-19] MEDS ORDERED: Levalbuterol 0.63MG/3ML NEB* UNIT OF USE INH PRN (16:09)
[2019-02-19] MEDS ORDERED: Naloxone* 0.4 MG/ML 1 ML VIAL IV PRN (16:09)
[2019-02-19] MEDS ORDERED: diPHENhydraMINE IV* 50 MG/ML 1 ml VIAL (BENADRYL) IV PRN (16:09)
[2019-02-19] MEDS ORDERED: Metoprolol Tartrate IV* 1 MG/ML 5 ML VIAL IV ONE ×2 (16:11→17:34)
--- NOTE | 2019-02-19 16:19 | PRO ---
BRONCHOSCOPY REPORT: DATE OF PROCEDURE: 02/19/19 PREPROCEDURAL DIAGNOSES: Ground-glass opacities, fever. PROCEDURE PERFORMED: Bronchoscopy with bronchoalveolar lavage. ANESTHESIA: Conscious sedation. ANESTHESIOLOGIST: Dr. Yancey. DESCRIPTION OF PROCEDURE: Informed consent was obtained from the patient and his prior to the procedure after all the risks and benefits were thoroughly explained. The patient with pneumonia, sepsis, with hypoxemic respiratory failure. A flexible Ambu scope was utilized for the procedure. The patient was placed in slightly sitting up position on the OR table. Sophia hugger was placed. SCDs were placed. Appropriate time-out was performed, agreed on by attending staff prior to the procedure. Nose, nasopharynx, and oropharynx were anesthetized with lidocaine. The patient has received propofol during the procedure for conscious sedation. The patient was placed on 100% FiO2. A disposable Ambu scope was utilized. Scope was inserted through the left naris. Scope was inserted without any difficulty in the nasopharynx area. The scope was then advanced through the vocal cords into the trachea. Thin secretions in trachea and subsequent thick secretions were noted to be emanating from the right and left side. Bronchial lavage was obtained from right lower lobe. The patient tolerated the procedure well. Specimen was sent for cytological and microbiological testing. The patient was seen in Recovery in optimal condition. [id number]/CPS #: [id number] [facility]
[2019-02-19 16:57] LABS: ABS Lymphocytes 1.2 10^3/ul (1.0-4.8); ABS Monocytes 0.3 10^3/ul (0-0.8); ABS Neutrophils 1.7 10^3/ul (1.5-7.7); Hematocrit 22 % (42-52); Hemoglobin 7.3 g/dL (14.0-18.0); Lymphocyte % 36.1 %; Mean Corpuscular HGB Conc 33 g/dL (31-36); Mean Corpuscular Hemoglobin 28 pg (27-31); Mean Corpuscular Volume 85 fL (80-94); Mean Platelet Volume 10.4 fL (7.4-10.4); Nucleated Red Blood Cells % 0.2; Platelet Count 104 10^3/uL (150-450); Red Blood Count 2.57 10^6 /uL (4.18-5.48); Red Cell Distribution Width 19 % (10-15); White Blood Count 3.2 10^3/uL (3.5-10.8)
[2019-02-19 17:12] LABS: Albumin 2.4 g/dL (3.2-5.2); Albumin/Globulin Ratio 0.9 (1-3); BUN/Creatinine Ratio 18.1 (8-20); Calcium 7.7 mg/dL (8.6-10.3); EGFR African American 74.1 (>60); EGFR Non-African American 61.2 (>60); Globulin 2.7 g/dL (2-4); Magnesium 1.6 mg/dL (1.9-2.7); Total Bilirubin 0.8 mg/dL (0.2-1.0); Total Protein 5.1 g/dL (6.4-8.9)
[2019-02-19 17:13] LABS: Potassium 4.5 mmol/L (3.5-5.0)
[2019-02-19] MEDS ORDERED: Magnesium Sulfate IV* 3 GM in NS 0.9% 100 ML* 100 ML IVPB ONE (17:20)
[2019-02-19] MEDS ORDERED: Magnesium Sulfate IV* 0.5 GM/ML 2 ML VIAL (1 GM) ONE (17:28)
[2019-02-19] MEDS ORDERED: Furosemide IV* 10 MG/ML 2 ML VIAL (20 MG) IV ONE (17:33)
[2019-02-19] MEDS ORDERED: Furosemide IV* 10 MG/ML 2 ML VIAL (20 MG) ONE (17:33)
[2019-02-19 17:47] LABS: Activated Partial Thrombo Time 46.3 seconds (26.0-38.0); INR 1.32 (0.82-1.09)
[2019-02-19] MEDS: Latanoprost 0.005%* 2.5 ml BTL BOTH EYES SCH (20:02)
[2019-02-19] MEDS: traZODone TAB* 100 MG PO SCH (20:02)
[2019-02-19] MEDS: Gabapentin CAP(*) 100 MG PO SCH (20:02)
[2019-02-19] MEDS: Atorvastatin* 40 MG TAB PO SCH (20:02)
[2019-02-19] MEDS: Metoprolol Tartrate TAB* 25 MG PO SCH (20:46)
[2019-02-19] MEDS: Meropenem 1 GM PREMIX(*) 1 GM/50 ML BAG IV SCH (21:03)
[2019-02-20] MEDS: GuaiFENesin DM* 5 ML UDC PO SCH ×4 (03:14→21:58)
[2019-02-20] MEDS: Meropenem 1 GM PREMIX(*) 1 GM/50 ML BAG IV SCH ×3 (05:01→21:57)
[2019-02-20] MEDS: LORazepam TAB(*) 0.5 MG PO PRN (05:17)
[2019-02-20] MEDS ORDERED: Furosemide IV* 10 MG/ML VIAL (40 MG) IV ONE (05:23)
[2019-02-20] MEDS ORDERED: Furosemide IV* 10 MG/ML VIAL (40 MG) ONE (05:25)
[2019-02-20 05:28] LABS: BUN/Creatinine Ratio 18.2 (8-20); Calcium 7.8 mg/dL (8.6-10.3); EGFR African American 63.8 (>60); EGFR Non-African American 52.7 (>60)
[2019-02-20] MEDS: Heparin VIAL(*) 5000 UNITS/ML VIAL (FIVE THOUSAND) SUBCUT SCH ×3 (05:51→21:58)
[2019-02-20] MEDS ORDERED: Furosemide IV* 10 MG/ML 2 ML VIAL (20 MG) IV ONE (08:00)
[2019-02-20] MEDS: Morphine 4 MG/ML VIAL (1 ml) 4 MG/ML VIAL IV PRN (08:26)
[2019-02-20] MEDS: Azithromycin 500 mg/250 ml NS 500 MG/250 ML BAG IVPB SCH (08:29)
[2019-02-20] MEDS: Gabapentin CAP(*) 100 MG PO SCH ×3 (08:34→21:57)
[2019-02-20] MEDS: Metoprolol Tartrate TAB* 25 MG PO SCH ×2 (08:34→21:58)
[2019-02-20] MEDS: Tamsulosin CAP* 0.4 MG PO SCH (08:34)
[2019-02-20] MEDS: predniSONE TAB* 5 MG PO SCH (08:34)
[2019-02-20] MEDS: Pantoprazole TAB * 40 MG TAB PO SCH ×2 (08:35→21:58)
--- NOTE | 2019-02-20 08:59 | PN ---
Subjective Date of Service: 02/20/19 Interval History: Resp function deteriorated after bronch, pt feels a little better this AM. No sputum or hemoptysis. Tolerated Ensure. Family History: Unchanged from Admission Social History: Unchanged from Admission Past Medical History: Unchanged from Admission Objective Active Medications: Acetaminophen (Tylenol Tab*) 650 mg PO Q4H PRN PRN Reason: FEVER Last Admin: 02/19/19 03:38 Dose: 650 mg Acetaminophen/Codeine Phosphate (Tylenol/Codeine 30 Mg Tab*) 1 tab PO Q5H PRN PRN Reason: cough/discomfort Last Admin: 02/19/19 10:31 Dose: 1 tab Albuterol (Ventolin 2.5 Mg/3 Ml Neb.Marlen*) 2.5 mg INH RT.[id number] AWAKE PRN PRN Reason: SOB/WHEEZING Last Admin: 02/18/19 14:28 Dose: 2.5 mg Atorvastatin Calcium (Lipitor*) 40 mg PO 2100 [facility] Last Admin: 02/19/19 20:02 Dose: 40 mg Betaxolol HCl (Betoptic 0.05%*) 1 drop BOTH EYES BID [facility] Last Admin: 02/19/19 20:03 Dose: 1 drop Dextrose (D50w Syringe 50 Ml*) 12.5 gm IV PUSH .FOR FS < 60 - SS PRN PRN Reason: FS < 60 Gabapentin (Neurontin Cap(*)) 100 mg PO TID [facility] Last Admin: 02/20/19 08:34 Dose: 100 mg Guaifenesin/Dextromethorphan (Robitussin Dm*) 10 ml PO Q6H [facility] Last Admin: 02/20/19 03:14 Dose: 10 ml Heparin Sodium (Porcine) (Heparin Vial(*)) 5,000 units SUBCUT Q8HR [facility] Last Admin: 02/20/19 05:51 Dose: 5,000 units Hydrocortisone Sodium Succinate (Solu-Cortef*) 50 mg IV Q8H [facility] Hydromorphone HCl (Dilaudid Inj1s*) 0.5 mg IV SLOW PU Q4H PRN PRN Reason: PAIN Last Admin: 02/19/19 20:01 Dose: 0.5 mg Azithromycin (Zithromax 500 Mg/250 Ml) 500 mg in 250 mls @ 250 mls/hr IVPB Q24H [facility] Last Admin: 02/20/19 08:29 Dose: 250 mls/hr Fluconazole/Sodium Chloride (Diflucan 400 Mg Ivpremix(*)) 400 mg in 200 mls @ 100 mls/hr IVPB Q24H [facility] Last Admin: 02/19/19 10:39 Dose: 100 mls/hr Sodium Chloride (Ns 0.9% 1000 Ml) 1,000 mls @ 25 mls/hr IV PER RATE [facility] Last Admin: 02/19/19 20:46 Dose: 25 mls/hr Meropenem (Merrem 1 Gm Premix(*)) 1 gm in 50 mls @ 100 mls/hr IV Q8H [facility]; Protocol Last Admin: 02/20/19 05:01 Dose: 100 mls/hr Insulin Glargine (Lantus(*)) 15 units SUBCUT Q24H [facility] Last Admin: 02/19/19 10:45 Dose: Not Given Insulin Human Lispro (Humalog*) 0 units SUBCUT ACHS [facility]; Protocol Last Admin: 02/19/19 21:02 Dose: 4 units Latanoprost (Xalatan 0.005%*) 1 drop BOTH EYES BEDTIME [facility]; Protocol Last Admin: 02/19/19 20:02 Dose: 1 drop Lorazepam (Ativan Tab(*)) 0.5 mg PO Q6H PRN PRN Reason: ANXIETY Last Admin: 02/20/19 05:17 Dose: 0.5 mg Metoprolol Tartrate (Lopressor Tab*) 25 mg PO BID [facility] Last Admin: 02/20/19 08:34 Dose: 25 mg Morphine Sulfate (Morphine 4 Mg/Ml Vial (1 Ml)) 4 mg IV Q3H PRN PRN Reason: PAIN - MODERATE TO SEVERE Last Admin: 02/20/19 08:26 Dose: 4 mg Nitroglycerin (Nitroglycerin Tab 0.4 Mg*) 0.4 mg SL Q5M PRN PRN Reason: CHEST PAIN Pantoprazole Sodium (Protonix Tab*) 40 mg PO BID [facility] Last Admin: 02/20/19 08:35 Dose: 40 mg Prednisone (Deltasone Tab*) 5 mg PO DAILY [facility] Last Admin: 02/20/19 08:34 Dose: 5 mg Tamsulosin HCl (Flomax Cap*) 0.4 mg PO DAILY [facility] Last Admin: 02/20/19 08:34 Dose: 0.4 mg Trazodone HCl (Desyrel Tab*) 100 mg PO BEDTIME [facility] Last Admin: 02/19/19 20:02 Dose: 100 mg Vital Signs - 8 hr 02/20/19 02/20/19 02/20/19 01:00 02:00 03:00 Temperature Pulse Rate 105 110 121 Respiratory 27 10 39 Rate Blood Pressure 122/67 129/90 111/87 (mmHg) O2 Sat by Pulse 91 92 94 Oximetry 02/20/19 02/20/19 02/20/19 04:00 04:01 05:00 Temperature 99.5 F Pulse Rate 116 113 131 Respiratory 29 32 22 Rate Blood Pressure 143/73 (mmHg) O2 Sat by Pulse 91 91 90 Oximetry 02/20/19 02/20/19 02/20/19 05:01 05:17 05:53 Temperature Pulse Rate 127 Respiratory 25 41 43 Rate Blood Pressure 108/80 (mmHg) O2 Sat by Pulse 91 Oximetry 02/20/19 02/20/19 02/20/19 06:00 06:01 07:00 Temperature Pulse Rate 147 140 130 Respiratory 29 42 32 Rate Blood Pressure 133/84 129/62 (mmHg) O2 Sat by Pulse 92 92 92 Oximetry 02/20/19 02/20/19 02/20/19 07:34 08:00 08:01 Temperature 99.9 F Pulse Rate 131 151 Respiratory 45 26 Rate Blood Pressure 131/76 (mmHg) O2 Sat by Pulse 92 93 Oximetry 02/20/19 08:26 Temperature Pulse Rate Respiratory 46 Rate Blood Pressure (mmHg) O2 Sat by Pulse Oximetry Oxygen Devices in Use Now: High Flow Heated Nasal Cannula Appearance: Alert, partly up in ICU bed. In fair spirits. Somewhat tachypneic. Eyes: No Scleral Icterus Respiratory: Symmetrical Chest Expansion and Respiratory Effort, Clear to Auscultation, Clear to Percussion Cardiovascular: NL Sounds; No Murmurs; No JVD, No Edema, - - irreg, rapid Extremities: No Edema, No Clubbing, Cyanosis, - Skin: No Rash or Ulcers, No Nodules or Sclerosis, - Neurological: Alert and Oriented x 3, NL Sensation Result Diagrams: 02/19/19 16:35 02/20/19 05:05 Additional Lab and Data: Laboratory Results - last 24 hr 02/17/19 02/18/19 02/18/19 15:41 06:25 16:53 Smear Path Review Hem Pathologist Commnt POC Glucose (mg/dL) 172 H Blood Parasite Screen No parasites seen 02/18/19 02/19/19 02/19/19 20:11 07:36 12:25 Smear Path Review Hem Pathologist Commnt POC Glucose (mg/dL) 155 H 118 H 147 H Blood Parasite Screen Microbiology and Other Data: Microbiology 02/19/19 11:22 Nasal Nasal Screen MRSA (PCR) - Final Mrsa Not Detected 02/18/19 12:32 Blood Venous Aerobic Blood Culture - Preliminary No Growth Day 1 02/18/19 12:32 Blood Venous Anaerobic Blood Culture - Preliminary No Growth Day 1 02/18/19 11:30 Blood Venous Aerobic Blood Culture - Preliminary No Growth Day 1 02/18/19 11:30 Blood Venous Anaerobic Blood Culture - Preliminary No Growth Day 1 02/14/19 23:37 Blood Venous Aerobic Blood Culture - Preliminary No Growth Day 4 02/14/19 23:37 Blood Venous Anaerobic Blood Culture - Preliminary No Growth Day 4 02/14/19 23:37 Blood Venous Blood Culture - Preliminary No Growth Day 4 02/18/19 13:47 Sputum Gram Stain - Final 02/11/19 21:31 Blood Venous Aerobic Blood Culture - Final No Growth Day 5 02/11/19 21:31 Blood Venous Anaerobic Blood Culture - Final No Growth Day 5 02/11/19 21:29 Blood Venous Aerobic Blood Culture - Final No Growth Day 5 02/11/19 21:29 Blood Venous Anaerobic Blood Culture - Final No Growth Day 5 02/11/19 23:43 Urine Urine Culture - Final Enterococcus Faecalis Diagnostic Imaging: CXR: PA/lat, no focal infiltrates, poor penetration EKG Data: sinus tachycardia, frequent PACs, PVCs. Assess/Plan/Problems-Billing Assessment: Mr Richey is a 78 yo M with PMH of steroid-responsive chronic interstitial lung disease (chronic hypersensitivity pneumonitis vs nonspecific interstitial pneumonia) on azathioprine/prednisone, IDDMT2, CAD s/p PCI, HTN, HLD, spinal stenosis, nephrolithiasis, recently diagnosed shingles, who presented with c/o dysuria found to be septic (likely urinary source) and pancytopenic. Hospital course complicated by pneumonia and mucus plugging. - Patient Problems (1) Sepsis Current Visit: Yes Status: Acute Priority: High Comment: - Initial source seemed to be urinary (E. faecalis), but also has progress respiratory symptoms ( and e/o acute infection on CT chest noncontrast 02/16 in RUL, LLL, RLL) and zoster. With new productive sputum cough 7/5am. s/p bronch with AFB, fungal cx, gs/culture. Continued fevers and worsened tachycardia. - MRSA nares 02/19 negative - Continue azithromycin, meropenem (started 02/19/19), fluconazole. - CT abd pelvis showed Staghorn calculus, no obstruction. Consider voiding trial 02/20. - Pt with fevers (w/o improvment on antibtiotics/antifungals), pancytopenia, hyperlipidemia, spenomegaly, ferritin 1330. HLH is in the differential as already meeting numerous criteria. f/u final bone marrow biopsy results (no initial report of macrophagosytosis. Adding fibrinogen (HLH would be consistent with low), NK cell function, soluble IL-2 receptor alpha which would be send- outs. - appreciate ID, pulm recs. (2) Pancytopenia Current Visit: Yes Status: Acute Priority: Medium Code(s): D61.818 - OTHER PANCYTOPENIA SNOMED Code(s): 852772444 Comment: - Could be secondary to infection, or bone marrow process. Hematology consult appreciated - B12 and folate WNL. - Parvovirus B19 Ab's show past infection. - Basophillic stiplinig on smear can be be megaloblastic anemia from azathioprine; Lead was negative. - ID input appreciated - -malaria smear (no intercellular seen) - f/u PCR for babesiosis. - HLH in differential, studies as above. (3) Shingles Current Visit: Yes Status: Acute Priority: Medium Code(s): B02.9 - ZOSTER WITHOUT COMPLICATIONS SNOMED Code(s): 6706858 Comment: - Completed acylovir. Resolved, asymptomatic. L leg. (4) Type 2 diabetes mellitus Current Visit: Yes Status: Acute Priority: Medium Comment: - Controlled. - Continue Lantus and Lispro SS. (5) Acute kidney injury Current Visit: Yes Status: Acute Priority: Medium Code(s): N17.9 - ACUTE KIDNEY FAILURE, UNSPECIFIED SNOMED Code(s): 36127269 Comment: -improved s/p 6L on admission (6) Immunosuppression due to drug therapy Current Visit: Yes Status: Acute Priority: Medium Code(s): Z79.899 - OTHER TAXI DANCER (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 THERAPY SNOMED Code(s): 85640021 Comment: -Immune suppression raises risk of severe infection -Holding azothiaprine. - had been on dapsone as outpatient. -f/u AFB, fungal cx. Stress dose IV hydrocortisone started 02/20/19. Status and Disposition: Inpatient. updated at bedside.
[2019-02-20] MEDS ORDERED: Hydrocortisone INJ* 100 MG VIAL IV SCH (09:00)
[2019-02-20] MEDS: Insulin LISPRO* 1 UNITS UNIT SUBCUT SCH ×3 (09:05→16:54)
[2019-02-20] MEDS: Insulin GLARGINE(*) 1 UNITS UNIT SUBCUT SCH (09:05)
[2019-02-20] MEDS: Betaxolol 0.5 %* OPHTH.SOLN 5 ML BOTH EYES SCH ×2 (10:31→22:10)
[2019-02-20] MEDS: Fluconazole 400 MG IVPREMIX(*) 400 MG/200 ML BAG IVPB SCH (10:32)
[2019-02-20] MEDS ORDERED: Propofol* 100 ML ONE (10:55)
[2019-02-20] MEDS ORDERED: Vancomycin(*) 1,000 MG VIAL IVPB SCH (11:00)
[2019-02-20] MEDS ORDERED: methylPREDNISolone 125 MG* 2 ML VIAL IV SCH (11:00)
[2019-02-20] MEDS ORDERED: Propofol* 10 MG/ML 20 ML BTL IV PUSH ONE ×2 (11:04→11:09)
[2019-02-20] MEDS ORDERED: Rocuronium* 10 MG/ML VIAL IV ONE (11:04)
[2019-02-20] MEDS ORDERED: KETAMINE HCL* 50 MG/ML 10 ML VIAL ONE (11:30)
[2019-02-20] MEDS ORDERED: Propofol* 10 MG/ML 20 ML BTL ONE (11:30)
[2019-02-20] MEDS: Propofol* 100 ML IV SCH ×2 (11:36→21:00)
--- NOTE | 2019-02-20 11:47 | OP ---
Operative Report - Blank - Operative Report Date of Operation: 02/20/19 - ENDOTRACHEAL INTUBATION-PROCEDURE NOTE Note: Indication: Respiratory Distress Attending: Zoya Hannah. Emergent intubation. Discussed and obtained verbal consent from the . Verified correct patient, procedure, site, positioning, and special equipment if applicable. The patient was placed in a flat position. Sedation was obtained using Ketamine 100 mg, propofol 100 mg and Rocuronium 100 mg. The patient was easily ventilated using an ambu bag with supplemental HFNC in the nasal nares. The [employer]/ MAC 4 BLADE was used and inserted into the oropharynx at which time there was a Grade 1 view of the vocal cords. A 7.5- thai endotracheal tube was inserted and visualized going through the vocal cords. The stylette was removed. Colorimetric change was visualized on the CO2 meter. Breath sounds were heard in both lung hagan equally. The endotracheal tube was placed at 24 cm, measured at the teeth. I performed the the entire procedure. A chest x-ray was ordered to assess for pneumothorax and verify endotrachealtube placement. Estimated Blood Loss: minimal The patient tolerated the procedure well and there were no complications.
[2019-02-20] MEDS ORDERED: NS 0.9% 1000 ML** 1,000 ML IV ONE (11:49)
[2019-02-20] MEDS ORDERED: Vancomycin(*) 1,500 MG in NS 0.9% 250 ML* 250 ML IVPB ONE (12:00)
[2019-02-20] MEDS ORDERED: Famotidine IV* 10 MG/ML 2 ML (20 mg) IV SCH (12:00)
[2019-02-20] MEDS ORDERED: Propofol* 100 ML IV SCH (12:00)
--- NOTE | 2019-02-20 12:04 | HP ---
History of Present Illness - History of Present Illness Reason for Visit: CRITICAL CARE CONSULTATION- ACUTE RESPIRATORY FAILURE REQUIRING INTUBATION History of Present Illness: 78 M with PMH/o morbid obesity, spinal stenosis, pulmonary fibrosis, on home O2 3 LPM(baseline), nephrolithiasis, pancytopenia with recent HZV infection s/p treatment admitted with progressive worsening generalized malaise, altered mental status, and fevers with T-max of 101.2 on 02/11/19. He was recently treated for herpes zoster infection. His regimen for pulmonary fibrosis has consisted of azathioprine and 5 mg of prednisone chronically and he has been following up with Dr. Cueto, product design specialist at [facility]. He follows up with urology and hematology for his underlying nephrolithiasis and anemia, respectively. I was unable to locate any records from pulmonary in our system. His hospital course has consisted of treatment for E faecalis UTI with radiographic evidence of staghorn calculi, increasing O2 requirements with transfer to ICU for progressive respiratory distress. He underwent and bronchoscopy on 02/19 with findings of copious secretions. His CT chest compared to 2013, shows increased GGO bilaterally. 02/20: patient transferred to the ICU overnight. He was placed on HFNC 40LPM/70 % with notable increased WOB and AMS. Patient was endotracheally intubated with 's consent for concerns with progressive deterioration in the patient' s status. Patient become hypotensive post-procedure likely due to propofol responsive to IVF bolus - Past Medical History Cardiac: CAD - stent to LAD 2008, HTN, Hyperlipidemia Pulmonary: Other - chronic interstitial lung disease Musculoskeletal: Chronic low back pain, Other - spinal stenosis Renal/: Benign prostatic enlarg., Other - nephrolithiasis Endocrine: Diabetes - Past Surgical History Past Surgical History: Arthroscopy - right knee, Hernia Repair Review of Systems - Review of Systems Constitutional: Positive: Fever, Weakness Eyes: Negative: Pain, Vision Change ENT: Negative: Ear Pain, Mouth Swelling, Throat Swelling Respiratory: Positive: Cough, Shortness of Breath, SOB with Excertion, Pleuritic Pain. Negative: Hemoptysis Cardiovascular: Negative: Chest Pain, Palpitations Gastrointestinal: Negative: Nausea, Vomiting, Abdominal Pain Genitourinary: Positive: Dysuria Musculoskeletal: Negative: Neck Pain, Shoulder Pain Skin: Negative: Rash, Lesions Neurological: Positive: Weakness, Confusion. Negative: Change in Speech - Medications/Allergies Allergies/Adverse Reactions: Allergies Allergy/AdvReac Type Severity Reaction Status Date / Time aripiprazole [From Abilify] Allergy Shakes Verified 12/28/18 10:15 lisinopril [From Zestril] Allergy See Comment Verified 12/28/18 10:15 Medications: Current Medications Acetaminophen (Tylenol Tab*) 650 mg PO Q4H PRN PRN Reason: FEVER Last Admin: 02/19/19 03:38 Dose: 650 mg Acetaminophen/Codeine Phosphate (Tylenol/Codeine 30 Mg Tab*) 1 tab PO Q5H PRN PRN Reason: cough/discomfort Last Admin: 02/19/19 10:31 Dose: 1 tab Albuterol (Ventolin 2.5 Mg/3 Ml Neb.Marlen*) 2.5 mg INH [id number] AWAKE PRN PRN Reason: SOB/WHEEZING Last Admin: 02/18/19 14:28 Dose: 2.5 mg Atorvastatin Calcium (Lipitor*) 40 mg PO 2100 [facility] Last Admin: 02/19/19 20:02 Dose: 40 mg Betaxolol HCl (Betoptic 0.05%*) 1 drop BOTH EYES BID [facility] Last Admin: 02/20/19 10:31 Dose: 1 drop Dextrose (D50w Syringe 50 Ml*) 12.5 gm IV PUSH .FOR FS < 60 - SS PRN PRN Reason: FS < 60 Gabapentin (Neurontin Cap(*)) 100 mg PO TID [facility] Last Admin: 02/20/19 08:34 Dose: 100 mg Guaifenesin/Dextromethorphan (Robitussin Dm*) 10 ml PO Q6H [facility] Last Admin: 02/20/19 10:23 Dose: 10 ml Heparin Sodium (Porcine) (Heparin Vial(*)) 5,000 units SUBCUT Q8HR [facility] Last Admin: 02/20/19 05:51 Dose: 5,000 units Hydrocortisone Sodium Succinate (Solu-Cortef*) 50 mg IV Q8H [facility] Last Admin: 02/20/19 10:29 Dose: 50 mg Hydromorphone HCl (Dilaudid Inj1s*) 0.5 mg IV SLOW PU Q4H PRN PRN Reason: PAIN Last Admin: 02/19/19 20:01 Dose: 0.5 mg Azithromycin (Zithromax 500 Mg/250 Ml) 500 mg in 250 mls @ 250 mls/hr IVPB Q24H [facility] Last Admin: 02/20/19 08:29 Dose: 250 mls/hr Fluconazole/Sodium Chloride (Diflucan 400 Mg Ivpremix(*)) 400 mg in 200 mls @ 100 mls/hr IVPB Q24H [facility] Last Admin: 02/20/19 10:32 Dose: 100 mls/hr Sodium Chloride (Ns 0.9% 1000 Ml) 1,000 mls @ 25 mls/hr IV PER RATE [facility] Last Admin: 02/19/19 20:46 Dose: 25 mls/hr Meropenem (Merrem 1 Gm Premix(*)) 1 gm in 50 mls @ 100 mls/hr IV Q8H [facility]; Protocol Last Admin: 02/20/19 05:01 Dose: 100 mls/hr Fentanyl Citrate (Fentanyl Infusion Bag 50 Mcg/Ml 50 Ml) 2,500 mcg in 50 mls @ 0 mls/hr IV Q72H [facility]; Protocol Propofol (Diprivan*) 100 mls @ 3.204 mls/hr IV .(Initial Rate) [facility]; Protocol Last Admin: 02/20/19 11:36 Dose: 3.204 mls/hr Propofol (Diprivan*) 100 mls @ 0 mls/hr IV .(Initial Rate) [facility]; Protocol Vancomycin HCl 1,500 mg/ (Sodium Chloride) 250 mls @ 166.667 mls/hr IVPB ONCE ONE Stop: 02/20/19 13:29 Insulin Glargine (Lantus(*)) 15 units SUBCUT Q24H [facility] Last Admin: 02/20/19 09:05 Dose: 15 unit Insulin Human Lispro (Humalog*) 0 units SUBCUT ACHS [facility]; Protocol Last Admin: 02/20/19 09:05 Dose: 4 units Latanoprost (Xalatan 0.005%*) 1 drop BOTH EYES BEDTIME [facility]; Protocol Last Admin: 02/19/19 20:02 Dose: 1 drop Lorazepam (Ativan Tab(*)) 0.5 mg PO Q6H PRN PRN Reason: ANXIETY Last Admin: 02/20/19 05:17 Dose: 0.5 mg Methylprednisolone Sodium Succinate (Solu-Medrol 125mg *) 500 mg IV DAILY [facility] Stop: 07/11/19 10:59 Metoprolol Tartrate (Lopressor Tab*) 25 mg PO BID [facility] Last Admin: 02/20/19 08:34 Dose: 25 mg Morphine Sulfate (Morphine 4 Mg/Ml Vial (1 Ml)) 4 mg IV Q3H PRN PRN Reason: PAIN - MODERATE TO SEVERE Last Admin: 02/20/19 08:26 Dose: 4 mg Nitroglycerin (Nitroglycerin Tab 0.4 Mg*) 0.4 mg SL Q5M PRN PRN Reason: CHEST PAIN Pantoprazole Sodium (Protonix Tab*) 40 mg PO BID [facility] Last Admin: 02/20/19 08:35 Dose: 40 mg Prednisone (Deltasone Tab*) 5 mg PO DAILY [facility] Last Admin: 02/20/19 08:34 Dose: 5 mg Tamsulosin HCl (Flomax Cap*) 0.4 mg PO DAILY [facility] Last Admin: 02/20/19 08:34 Dose: 0.4 mg Trazodone HCl (Desyrel Tab*) 100 mg PO BEDTIME [facility] Last Admin: 02/19/19 20:02 Dose: 100 mg Exam - Exam Vital Signs: Vital Signs (72 hours) 02/17/19 02/17/19 02/17/19 12:04 15:31 15:59 Temperature 98.7 F Pulse Rate 67 Respiratory 20 20 20 Rate Blood Pressure 118/62 (mmHg) O2 Sat by Pulse 97 Oximetry 02/17/19 02/17/19 02/17/19 20:00 20:01 20:38 Temperature 98.2 F Pulse Rate 63 Respiratory 16 16 Rate Blood Pressure 117/65 (mmHg) O2 Sat by Pulse 99 95 Oximetry 02/17/19 02/17/19 02/18/19 20:51 22:05 00:00 Temperature 100.6 F Pulse Rate 92 Respiratory 16 16 16 Rate Blood Pressure 130/56 (mmHg) O2 Sat by Pulse 95 Oximetry 02/18/19 02/18/19 02/18/19 01:50 02:05 03:45 Temperature 99.2 F 98.7 F Pulse Rate 124 Respiratory 20 20 Rate Blood Pressure 150/65 (mmHg) O2 Sat by Pulse 92 Oximetry 02/18/19 02/18/19 02/18/19 04:04 05:50 08:00 Temperature Pulse Rate Respiratory 16 16 26 Rate Blood Pressure (mmHg) O2 Sat by Pulse 94 Oximetry 02/18/19 02/18/19 02/18/19 08:04 11:46 15:36 Temperature 101.7 F 99.5 F 98.4 F Pulse Rate 112 85 87 Respiratory 28 16 16 Rate Blood Pressure 126/63 98/59 142/62 (mmHg) O2 Sat by Pulse 94 97 96 Oximetry 02/18/19 02/18/19 02/18/19 16:00 19:15 20:00 Temperature 98.5 F Pulse Rate 74 Respiratory 16 16 Rate Blood Pressure 134/51 (mmHg) O2 Sat by Pulse 96 97 Oximetry 02/18/19 02/18/19 02/18/19 20:57 23:10 23:20 Temperature 99.4 F Pulse Rate 94 Respiratory 16 18 20 Rate Blood Pressure 113/55 (mmHg) O2 Sat by Pulse 94 Oximetry 02/19/19 02/19/19 02/19/19 00:00 04:26 07:31 Temperature 101.7 F 98.5 F Pulse Rate 103 98 Respiratory 18 18 Rate Blood Pressure 142/77 126/83 (mmHg) O2 Sat by Pulse 94 94 94 Oximetry 02/19/19 02/19/19 02/19/19 07:54 10:31 11:16 Temperature Pulse Rate Respiratory 16 16 16 Rate Blood Pressure (mmHg) O2 Sat by Pulse Oximetry 02/19/19 02/19/19 02/19/19 11:35 12:26 12:43 Temperature 99.3 F Pulse Rate 101 Respiratory 20 16 16 Rate Blood Pressure 127/75 (mmHg) O2 Sat by Pulse 91 Oximetry 02/19/19 02/19/19 02/19/19 15:45 15:50 15:51 Temperature 100.0 F Pulse Rate 150 141 Respiratory 39 30 36 Rate Blood Pressure 124/76 136/77 (mmHg) O2 Sat by Pulse 90 96 Oximetry 02/19/19 02/19/19 02/19/19 15:55 15:56 16:00 Temperature Pulse Rate 139 139 Respiratory 32 45 45 Rate Blood Pressure 134/97 (mmHg) O2 Sat by Pulse 94 94 Oximetry 02/19/19 02/19/19 02/19/19 16:01 16:15 16:17 Temperature Pulse Rate 142 111 Respiratory 40 40 44 Rate Blood Pressure 111/80 157/129 (mmHg) O2 Sat by Pulse 91 92 Oximetry 02/19/19 02/19/19 02/19/19 16:30 16:31 16:45 Temperature Pulse Rate 111 Respiratory 40 49 40 Rate Blood Pressure 155/88 (mmHg) O2 Sat by Pulse 82 Oximetry 02/19/19 02/19/19 02/19/19 16:46 17:00 17:02 Temperature Pulse Rate 114 113 Respiratory 42 47 42 Rate Blood Pressure 148/87 139/111 (mmHg) O2 Sat by Pulse 88 90 Oximetry 02/19/19 02/19/19 02/19/19 17:15 17:30 17:31 Temperature Pulse Rate 120 Respiratory 38 40 28 Rate Blood Pressure 170/79 (mmHg) O2 Sat by Pulse 91 Oximetry 02/19/19 02/19/19 02/19/19 17:58 18:00 18:12 Temperature 99.9 F Pulse Rate 101 102 112 Respiratory 42 36 Rate Blood Pressure 125/86 121/74 121/74 (mmHg) O2 Sat by Pulse 95 96 97 Oximetry 02/19/19 02/19/19 02/19/19 18:15 18:30 18:46 Temperature Pulse Rate 105 104 109 Respiratory 35 31 28 Rate Blood Pressure 121/73 120/69 148/72 (mmHg) O2 Sat by Pulse 94 95 91 Oximetry 02/19/19 02/19/19 02/19/19 19:00 19:03 19:13 Temperature 101.7 F Pulse Rate 100 106 Respiratory 38 19 Rate Blood Pressure 136/85 136/85 (mmHg) O2 Sat by Pulse 90 86 Oximetry 02/19/19 02/19/19 02/19/19 19:16 19:30 19:46 Temperature Pulse Rate 114 118 127 Respiratory 27 39 28 Rate Blood Pressure 140/94 131/81 (mmHg) O2 Sat by Pulse 89 86 82 Oximetry 02/19/19 02/19/19 02/19/19 20:00 20:01 21:00 Temperature Pulse Rate 111 107 117 Respiratory 32 29 34 Rate Blood Pressure 124/74 103/73 (mmHg) O2 Sat by Pulse 89 91 90 Oximetry 02/19/19 02/19/19 02/19/19 22:00 22:04 23:00 Temperature Pulse Rate 87 85 82 Respiratory 29 11 33 Rate Blood Pressure 101/61 116/55 (mmHg) O2 Sat by Pulse 93 94 94 Oximetry 02/19/19 02/19/19 02/20/19 23:14 23:24 00:00 Temperature 101.0 F Pulse Rate 87 Respiratory 30 Rate Blood Pressure 118/60 (mmHg) O2 Sat by Pulse 94 94 Oximetry 02/20/19 02/20/19 02/20/19 00:15 01:00 02:00 Temperature Pulse Rate 94 105 110 Respiratory 30 27 10 Rate Blood Pressure 122/67 129/90 (mmHg) O2 Sat by Pulse 92 91 92 Oximetry 02/20/19 02/20/19 02/20/19 03:00 04:00 04:01 Temperature 99.5 F Pulse Rate 121 116 113 Respiratory 39 29 32 Rate Blood Pressure 111/87 143/73 (mmHg) O2 Sat by Pulse 94 91 91 Oximetry 02/20/19 02/20/19 02/20/19 05:00 05:01 05:17 Temperature Pulse Rate 131 127 Respiratory 22 25 41 Rate Blood Pressure 108/80 (mmHg) O2 Sat by Pulse 90 91 Oximetry 02/20/19 02/20/19 02/20/19 05:53 06:00 06:01 Temperature Pulse Rate 147 140 Respiratory 43 29 42 Rate Blood Pressure 133/84 (mmHg) O2 Sat by Pulse 92 92 Oximetry 02/20/19 02/20/19 02/20/19 07:00 07:34 08:00 Temperature 99.9 F Pulse Rate 130 131 Respiratory 32 45 Rate Blood Pressure 129/62 (mmHg) O2 Sat by Pulse 92 92 Oximetry 02/20/19 02/20/19 02/20/19 08:01 08:26 09:00 Temperature Pulse Rate 151 108 Respiratory 26 46 32 Rate Blood Pressure 131/76 (mmHg) O2 Sat by Pulse 93 92 Oximetry 02/20/19 02/20/19 09:01 10:00 Temperature Pulse Rate 96 99 Respiratory 27 37 Rate Blood Pressure 107/55 97/64 (mmHg) O2 Sat by Pulse 92 92 Oximetry General: Cooperative, Mild distress, Other - now intubated and sedated and NAD HEENT: Atraumatic, PERRLA, EOMI, Mucous membr. moist/pink Lungs: Clear to auscultation, Normal air movement Cardiovascular: Regular rate, Normal S1, Normal S2 Abdomen: Normal bowel sounds, Soft, No tenderness, No masses Extremities: No clubbing, No cyanosis, No edema Skin: No rashes, No breakdown Neurological: Other - No focal deficits, confused Assessment/Plan - Assessment/Plan Assessment: 78 yo M with hx/o chronic intersitial lung disease, chronic hypoxemic respiratory failure admitted with weakness and malaise in the setting of UTI, anemia and became progressive hypoxemic during his hospital course requiring intubation and mechanical ventilation Plan: # Acute on chronic hypoxemic respiratory failure # Acute ventilator dependance # Interstitial lung disease with acute exacerbation -2013 CT chest shows mild peripheral fibrosis vs current CT showing more GGO bilaterally which could be early UIP, fibrotic NSIP, Chronic pneumonitis with superimposed infection, worsening inflammation, progressive NSIP, fluid # Pancytopenia - likely due to acute illness, medications(azathioprine, dapsone, valtrex) - no source of active/acute bleed appreciated - B12 and folate WNL, parvovirus B19 ab +, basophillic stipling - malaria smear shows no intercellular inclusions # JUAN -in the setting of staghorn calculi (R) - +UOP in esqueda - baseline Cr 1. # Right renal exophytic cysts # Malnutrition # DM # Frailty - bronch/BAL 02/19- micro grossly negative - continue with bryce, vanc, azithromycin and fluconazole for now - Solumedrol 500 mg IV x 5 days - fentanyl and propofol gtt to maintain RASS and CPOT - daily SBT/SWT - keep esqueda in place. I/O daily - pending PCR for babesiosis - Exophytic renal cysts need outpatient follow imaging and workup - start TF promote at 20cc/h to goal 40cc/h due NGT being proximal and pre- pyloric. Will follow up with AM CXR to eval the position of NGT tomorrow as well - continue with lantus and SSI. Suspect will need to transition to insulin gtt in setting of high dose steroids - PT/OT once extubated PPX: -DVT- SQH -GI- PPI Code status: Full code Prognosis: guarded Critical care issues: acute hypoxemic respiratory failure, Acute ventilator dependance, Interstitial lung disease with acute exacerbation Dispo: monitor in ICU
[2019-02-20] MEDS: fentaNYL INFUSION 50 MCG/ML* 2,500 MCG/50 ML BAG IV SCH (12:15)
[2019-02-20] MEDS ORDERED: Vancomycin per Pharmacy* NOTE FOLLOW UP PRN (12:35)
[2019-02-20] MEDS ORDERED: Amiodarone 150 MG IVPREMIX* 150 MG/100 ML BAG IV ONE (12:41)
[2019-02-20] MEDS ORDERED: Amiodarone 360 MG IVPREMIX* 360 MG/200 ML BAG IV ONE (12:41)
[2019-02-20] MEDS: methylPREDNISolone SOD SUCC* 500 MG in NS 0.9% 100 ML* 100 ML IVPB SCH (14:46)
[2019-02-20] MEDS: NS 0.9% 1000 ML** 1,000 ML IV SCH (16:44)
[2019-02-20] MEDS ORDERED: NS 0.9% 500 ML* 500 ML IV ONE (17:00)
[2019-02-20] MEDS: traZODone TAB* 100 MG PO SCH (20:51)
[2019-02-20] MEDS: Atorvastatin* 40 MG TAB PO SCH (21:57)
[2019-02-20] MEDS ORDERED: NS 0.9% 1000 ML/HR X 1 BAG (TOTAL 1000 ML) IV ONE (22:00)
[2019-02-20] MEDS: Latanoprost 0.005%* 2.5 ml BTL BOTH EYES SCH (22:10)
[2019-02-20] MEDS: Vancomycin(*) 1,250 MG in NS 0.9% 250 ML* 250 ML IVPB SCH (22:18)
[2019-02-21 00:34] LABS: Anaplasma phagocytophilum Negative (Negative); B. miyamotoi PCR, B Negative (Negative); Babesia divergens/MO-1 Negative (Negative); Babesia ducani Negative (Negative); Ehrlichia chaffeensis Negative (Negative); Ehrlichia ewingii/canis Negative (Negative); Ehrlichia muris eauclairensis Negative (Negative)
[2019-02-21] MEDS: Insulin LISPRO* 1 UNITS UNIT SUBCUT SCH ×3 (01:32→07:41)
[2019-02-21] MEDS: GuaiFENesin DM* 5 ML UDC PO SCH ×4 (01:34→22:27)
[2019-02-21] MEDS: Heparin VIAL(*) 5000 UNITS/ML VIAL (FIVE THOUSAND) SUBCUT SCH (05:06)
[2019-02-21] MEDS: Meropenem 1 GM PREMIX(*) 1 GM/50 ML BAG IV SCH (05:06)
[2019-02-21 05:32] LABS: INR 1.41 (0.82-1.09)
[2019-02-21 05:34] LABS: ABS Lymphocytes 0.5 10^3/ul (1.0-4.8); ABS Monocytes 0.1 10^3/ul (0-0.8); ABS Neutrophils 1.5 10^3/ul (1.5-7.7); Hematocrit 18 % (42-52); Lymphocyte % 22.1 %; Mean Corpuscular HGB Conc 34 g/dL (31-36); Mean Corpuscular Hemoglobin 28 pg (27-31); Mean Corpuscular Volume 84 fL (80-94); Mean Platelet Volume 10.2 fL (7.4-10.4); Nucleated Red Blood Cells % 0.1; Platelet Count 57 10^3/uL (150-450); Red Blood Count 2.12 10^6 /uL (4.18-5.48); Red Cell Distribution Width 20 % (10-15); White Blood Count 2.1 10^3/uL (3.5-10.8)
[2019-02-21 05:48] LABS: Magnesium 1.9 mg/dL (1.9-2.7); Phosphorus 4.2 mg/dL (2.5-5.0)
[2019-02-21 06:35] LABS: Hematocrit 18 % (42-52); Hemoglobin 6.1 g/dL (14.0-18.0)
[2019-02-21 06:45] LABS: Albumin/Globulin Ratio 0.8 (1-3); BUN/Creatinine Ratio 25.6 (8-20); Calcium 7.4 mg/dL (8.6-10.3); EGFR African American 52.6 (>60); EGFR Non-African American 43.5 (>60); Globulin 2.4 g/dL (2-4); Potassium 3.9 mmol/L (3.5-5.0); Total Bilirubin 0.7 mg/dL (0.2-1.0); Total Protein 4.4 g/dL (6.4-8.9)
[2019-02-21] MEDS: Insulin GLARGINE(*) 1 UNITS UNIT SUBCUT SCH (08:20)
[2019-02-21] MEDS: Azithromycin 500 mg/250 ml NS 500 MG/250 ML BAG IVPB SCH (08:30)
[2019-02-21] MEDS: Betaxolol 0.5 %* OPHTH.SOLN 5 ML BOTH EYES SCH ×2 (08:32→22:36)
[2019-02-21] MEDS: Gabapentin CAP(*) 100 MG PO SCH ×3 (08:37→22:28)
[2019-02-21] MEDS: Tamsulosin CAP* 0.4 MG PO SCH (08:37)
[2019-02-21] MEDS: Pantoprazole TAB * 40 MG TAB PO SCH ×2 (08:37→22:28)
[2019-02-21] MEDS: Metoprolol Tartrate TAB* 25 MG PO SCH (08:37)
[2019-02-21] MEDS: methylPREDNISolone SOD SUCC* 500 MG in NS 0.9% 100 ML* 100 ML IVPB SCH (08:53)
[2019-02-21] MEDS: Fluconazole 400 MG IVPREMIX(*) 400 MG/200 ML BAG IVPB SCH (09:44)
[2019-02-21] MEDS ORDERED: Furosemide IV* 10 MG/ML VIAL (40 MG) IV ONE ×2 (10:10→12:23)
--- NOTE | 2019-02-21 10:52 | PN ---
Date of Service: 02/21/19 Critical Care Services: 78 M with PMH/o morbid obesity, spinal stenosis, pulmonary fibrosis, on home O2 3 LPM(baseline), nephrolithiasis, pancytopenia with recent HZV infection s/p treatment admitted with progressive worsening generalized malaise, altered mental status, and fevers with T-max of 101.2 on 02/11/19. He was recently treated for herpes zoster infection. His regimen for pulmonary fibrosis has consisted of azathioprine and 5 mg of prednisone chronically and he has been following up with Dr. Cueto (financial management consultant) at [facility]. He follows up with urology and hematology for his underlying nephrolithiasis/BPH and anemia, respectively. I was unable to locate any records from pulmonary in our system. His hospital course has consisted of treatment for E faecalis UTI with radiographic evidence of staghorn calculi, increasing O2 requirements with transfer to ICU for progressive respiratory distress. He underwent and bronchoscopy on 02/19 with findings of copious secretions. His CT chest compared to 09/2018, shows increased GGO bilaterally in the setting of chronic fibrosis. 02/20: patient transferred to the ICU overnight. He was placed on HFNC 40LPM/70 % with notable increased WOB and AMS. Patient was endotracheally intubated with 's consent for concerns with progressive deterioration in the patient' s status. Patient become hypotensive post-procedure likely due to propofol responsive to IVF bolus 02/21: Patient remains intubated and mechanically ventilated. He follows commands, appropriately. He denies any chest pain, difficulty breathing on the ventilator. UOP remains submarginal. He is receiving blood for drop in Hgb overnight. No active bleed identified. Afebrile and hemodynamically stable. Vital Signs: Temp Pulse Resp BP SpO2 FiO2 97 F 81 29 121/79 97 50 02/21/19 07:16 02/21/19 10:00 02/21/19 05:56 02/21/19 10:00 02/21/19 10:02/21 08:00 Physical Exam: General: Cooperative, intubated/mechanically ventilated, NAD HEENT: Atraumatic, PERRLA, EOMI, Mucous membr. moist/pink Lungs: Distant but clear breath sounds bilaterally, no wheezes Cardiovascular: Afib rate controlled. Abdomen: Normal bowel sounds, Soft, No tenderness, No masses Extremities: No clubbing, No cyanosis, No edema Skin: No rashes, No breakdown Neurological: No focal deficits, awake, alert, and oriented Fluid Balance (Past 24 Hours): I= O= Net Intake & Output 02/19/19 02/20/19 02/21/19 02/22/19 06:59 06:59 06:59 06:59 Intake Total 3063 2048 4151 528 Output Total 1045 2605 1650 173 Balance 2017 2501 355 Weight 235 lb 7.259 oz 235 lb 7.259 oz Intake: IV Fluids 2063 1402 2487 7 ANTIFUNGAL - FLUCONAZOLE 201 LR 1913 609 NS (0.9%) 215 2232 azithromycin 270 meropenem 255 7 piperacillin 150 107 IVPB 232 585 214 ANTIFUNGAL - FLUCONAZOLE 200 Methylprednisone 24 NS (0.9%) 86 azithromycin 250 meropenem 121 25 214 piperacillin 111 Medicated IV 114 439 CC - Amiodarone 98 CC - Propofol/Diprivan 81 VANCO 260 mag sulfate 114 Oral 1000 300 Tube Feeding 480 Tube Feeding Flush Amount 160 Packed Cells 307 Output: [place] 1045 2505 1650 173 Liquid Stool 100 Other: Date of Last Bowel 02/20/19 Movement # Bowel Movements 1 Estimated Stool Amount Medium Small ADLs: Meal Record Start: 02/12/19 01: 45 Freq: DAILY@0900,1400,1800 Status: Complete Protocol: Created 02/12/19 01:45 System (Rec: 02/12/19 01:45 System TELE-C07) Document 02/12/19 09:00 [id number] (Rec: 02/12/19 13:33 UHK7078 TELE-C10) Document 02/12/19 14:00 WCL7820 (Rec: 02/12/19 15:08 VOP2136 TELE-C10) Document 02/13/19 09:00 JPN5384 (Rec: 02/13/19 14:22 GFY7706 TELE-C10) Document 02/13/19 14:00 OVN0647 (Rec: 02/13/19 14:21 UEP6560 TELE-C10) Document 02/13/19 18:00 DKE5687 (Rec: 02/13/19 18:48 EQG3471 TELE-C10) Document 02/14/19 14:00 ETG5606 (Rec: 02/14/19 14:53 ARX5787 TELE-C11) Document 02/15/19 09:00 AWK6656 (Rec: 02/15/19 13:11 RNZ3391 TELE-C11) Document 02/15/19 13:55 BIF0697 (Rec: 02/15/19 13:58 TEE6250 TELE-C11) Document 02/15/19 18:00 EBT7388 (Rec: 02/15/19 18:16 AOZ4305 TELE-C01) Document 02/16/19 09:00 WXT9584 (Rec: 02/16/19 14:05 WNA6560 TELE-C11) Document 02/16/19 14:00 IAW7569 (Rec: 02/16/19 14:31 MWJ1958 TELE-C11) Document 02/16/19 18:00 ZKB6048 (Rec: 02/16/19 18:44 ABC6172 TELE-C11) Document 02/17/19 09:00 RPG7960 (Rec: 02/17/19 14:27 TUN4388 TELE-C11) Document 02/17/19 14:00 YNQ9701 (Rec: 02/17/19 14:27 RWT9303 TELE-C11) Document 02/17/19 18:00 HDC9219 (Rec: 02/17/19 22:29 GJP4017 TELE-C07) Document 02/18/19 09:00 EXC6250 (Rec: 02/18/19 14:13 HNS0914 TELE-C11) Document 02/18/19 14:00 MKS5654 (Rec: 02/18/19 14:14 HZU2931 TELE-C11) Document 02/18/19 18:00 MRR3225 (Rec: 02/18/19 18:39 GRE8105 TELE-C05) Document 02/19/19 09:00 OTG9249 (Rec: 02/19/19 10:54 ZTE4930 MED-M28) Document 02/19/19 13:00 SIW2871 (Rec: 02/19/19 13:00 VUQ8226 MED-M28) ADLs: Meal Record Start: 02/19/19 18: 19 Freq: 09,13,18 Status: Active Protocol: Created 02/19/19 18:19 FDH2457 (Rec: 02/19/19 18:19 ZKQ6269 ICU-C10) Document 02/20/19 13:00 XFY2745 (Rec: 02/20/19 15:59 UQB6792 ICU-C10) Document 02/20/19 17:53 QAO1288 (Rec: 02/20/19 17:53 GZP7043 ICU-C10) Document 02/21/19 09:00 SYX2673 (Rec: 02/21/19 09:46 NYS3709 ICU-L03) Intake and Output Start: 02/11/19 21: 07 Freq: Status: Active Protocol: Created 02/11/19 21:07 System (Rec: 02/11/19 21:07 System ED-C22) Intake and Output Start: 02/12/19 01: 45 Freq: DAILY@0600,1400,2200 Status: Complete Protocol: Created 02/12/19 01:45 System (Rec: 02/12/19 01:45 System TELE-C07) Document 02/12/19 06:00 BAR3848 (Rec: 02/12/19 06:14 UGY4961 TELE-C01) Document 02/12/19 14:00 ZOT0848 (Rec: 02/12/19 15:08 OGW6070 TELE-C10) Document 02/12/19 22:00 OOH2112 (Rec: 02/13/19 00:32 JET2776 TELE-C03) Document 02/13/19 06:00 YQB7423 (Rec: 02/13/19 06:50 CIJ3959 TELE-C03) Document 02/13/19 14:00 ZNC2360 (Rec: 02/13/19 14:23 GTD8624 TELE-C10) Document 02/13/19 22:00 AFP1655 (Rec: 02/13/19 22:07 TUE3017 TELE-C10) Document 02/14/19 00:47 ISX3833 (Rec: 02/14/19 00:48 DJG5558 TELE-M20) Document 02/14/19 06:00 NYR6055 (Rec: 02/14/19 06:33 KWR5640 TELE-C11) Document 02/14/19 14:00 KHT3916 (Rec: 02/14/19 14:59 OFS3692 TELE-C11) Document 02/14/19 22:00 ZFW0013 (Rec: 02/15/19 00:53 VRA1589 TELE-C01) Document 02/15/19 05:37 XAW8324 (Rec: 02/15/19 05:39 CVY5346 TELE-C01) Document 02/15/19 13:59 KOL9374 (Rec: 02/15/19 14:01 ZUH6238 TELE-C11) Document 02/15/19 22:00 VOM6797 (Rec: 02/15/19 22:02 PFE1395 TELE-C03) Document 02/16/19 04:54 VSN0565 (Rec: 02/16/19 05:00 YTH2434 TELE-C13) Document 02/16/19 06:00 APY4527 (Rec: 02/16/19 06:29 COF4186 TELE-C13) Document 02/16/19 14:00 LJD0715 (Rec: 02/16/19 14:31 APK1129 TELE-C11) Document 02/16/19 21:12 ROW1835 (Rec: 02/16/19 21:12 BQI4120 TELE-C11) Document 02/17/19 06:00 NBO7669 (Rec: 02/17/19 06:52 RMC1139 HOSP-C11) Document 02/17/19 14:00 GYS3487 (Rec: 02/17/19 14:35 QWA2627 TELE-C11) Document 02/17/19 16:12 AHR1756 (Rec: 02/17/19 16:13 KFK8908 TELE-C11) Document 02/17/19 22:00 ABO0594 (Rec: 02/17/19 22:31 YOV3494 TELE-C07) Document 02/18/19 06:00 QRQ6500 (Rec: 02/18/19 06:50 QOI0844 TELE-C08) Document 02/18/19 14:00 ZDH3461 (Rec: 02/18/19 14:17 SJG3241 TELE-C11) Document 02/18/19 22:00 CMO3253 (Rec: 02/18/19 22:22 EGQ5372 TELE-C08) Document 02/19/19 06:00 UYC6544 (Rec: 02/19/19 06:39 GPF5704 TELE-C08) Document 02/19/19 08:34 VSU7189 (Rec: 02/19/19 08:34 GZY4025 TELE-M20) Intake and Output Start: 02/19/19 18: 19 Freq: Q1HR Status: Active Protocol: Created 02/19/19 18:19 MXZ7246 (Rec: 02/19/19 18:19 NDG3145 ICU-C10) Document 02/19/19 18:33 CHZ3288 (Rec: 02/19/19 18:33 SZS8200 ICU-C25) Document 02/19/19 20:00 HON7095 (Rec: 02/19/19 20:25 FGK9782 ICU-M31) Document 02/19/19 22:00 ABP3662 (Rec: 02/19/19 22:08 WDH1232 ICU-C10) Document 02/19/19 22:56 OCD9442 (Rec: 02/19/19 22:56 JFZ8059 ICU-C10) Document 02/20/19 00:00 YDL3296 (Rec: 02/20/19 00:15 TCA4492 ICU-C10) Document 02/20/19 01:00 IMG8157 (Rec: 02/20/19 01:41 VSN8883 ICU-C10) Document 02/20/19 03:00 QGU9584 (Rec: 02/20/19 03:04 DUE0878 ICU-C10) Document 02/20/19 04:00 DZU8207 (Rec: 02/20/19 04:03 YRF3063 ICU-C10) Document 02/20/19 05:00 TGN1904 (Rec: 02/20/19 05:06 PFV6005 ICU-M31) Document 02/20/19 05:48 XYQ6990 (Rec: 02/20/19 05:48 OHP2454 ICU-M31) Document 02/20/19 05:48 QHR4594 (Rec: 02/20/19 05:49 TDG2251 ICU-M31) Document 02/20/19 06:10 EXN5470 (Rec: 02/20/19 06:10 FHM1752 ICU-C10) Document 02/20/19 06:30 DQD2538 (Rec: 02/20/19 07:10 DRC0353 ICU-C10) Document 02/20/19 07:59 LVQ6384 (Rec: 02/20/19 07:59 XIC6969 ICU-C10) Document 02/20/19 08:31 GWQ8776 (Rec: 02/20/19 08:31 BAV9819 ICU-M31) Document 02/20/19 09:00 RNK1751 (Rec: 02/20/19 09:09 PIX2263 ICU-C10) Document 02/20/19 10:00 BZW0312 (Rec: 02/20/19 10:23 ZWL4609 ICU-M31) Document 02/20/19 11:00 DAJ8013 (Rec: 02/20/19 11:58 PLD7332 ICU-M31) Document 02/20/19 12:00 DBD4445 (Rec: 02/20/19 15:11 XXI1977 ICU-M31) Document 02/20/19 13:00 XJI0119 (Rec: 02/20/19 15:11 NPW0244 ICU-M31) Document 02/20/19 14:00 HXL2716 (Rec: 02/20/19 15:11 DRQ9353 ICU-M31) Document 02/20/19 15:00 IBM0975 (Rec: 02/20/19 15:11 VMJ6267 ICU-M31) Document 02/20/19 16:00 STS5740 (Rec: 02/20/19 17:05 ZLO4547 ICU-C10) Document 02/20/19 17:00 WRM3911 (Rec: 02/20/19 17:05 THA2866 ICU-C10) Document 02/20/19 18:00 MOH3783 (Rec: 02/20/19 18:15 SVA4136 ICU-C10) Document 02/20/19 19:00 GFI3532 (Rec: 02/20/19 19:06 YJZ6547 ICU-C10) Document 02/20/19 20:00 XMT4081 (Rec: 02/20/19 20:45 SYQ3979 ICU-M31) Document 02/20/19 20:47 UYV6425 (Rec: 02/20/19 20:48 HKB3033 ICU-M31) Document 02/20/19 22:00 OPR0694 (Rec: 02/20/19 22:11 HMV4732 ICU-M31) Document 02/20/19 23:00 DGW8651 (Rec: 02/21/19 01:11 RAT2714 ICU-M31) Document 02/21/19 00:00 WBZ4202 (Rec: 02/21/19 01:11 SOA5743 ICU-M31) Document 02/21/19 01:00 ELF2397 (Rec: 02/21/19 01:11 DRD7998 ICU-M31) Document 02/21/19 01:58 QWF5405 (Rec: 02/21/19 01:58 TIQ0932 ICU-C16) Document 02/21/19 03:00 RRJ9154 (Rec: 02/21/19 03:24 UBI0093 ICU-C16) Document 02/21/19 04:00 GWW4309 (Rec: 02/21/19 04:08 QUK3407 ICU-C16) Document 02/21/19 05:00 SLP7249 (Rec: 02/21/19 05:04 LSA5642 ICU-C16) Document 02/21/19 05:56 TIN6619 (Rec: 02/21/19 06:00 IJF5467 ICU-C16) Document 02/21/19 08:00 YDI6751 (Rec: 02/21/19 10:45 WHW2309 ICU-C15) Document 02/21/19 09:00 FQE0633 (Rec: 02/21/19 10:45 JUO6139 ICU-C15) Document 02/21/19 10:00 MDX5332 (Rec: 02/21/19 10:45 SEV0389 ICU-C15) Labs: Laboratory Results - last 24 hr 02/16/19 02/20/19 02/20/19 18:04 12:45 13:37 WBC RBC Hgb Hct MCV MCH MCHC RDW Plt Count MPV Neut % (Auto) Lymph % (Auto) Shannon % (Auto) Eos % (Auto) Baso % (Auto) Absolute Neuts (auto) Absolute Lymphs (auto) Absolute Monos (auto) Absolute Eos (auto) Absolute Basos (auto) Absolute Nucleated RBC Nucleated RBC % INR (Anticoag Therapy) Patient Temperature Not Reportable ABG pH 7.21 L ABG pH (Temp Correct) Not Reportable ABG pCO2 57 H ABG pCO2 (Temp Corrct Not Reportable ABG pO2 200 H ABG pO2 (Temp Correct Not Reportable ABG HCO3 20.4 ABG O2 Saturation 99.4 H ABG Base Excess -5.8 L Respiration Rate 12 O2 Delivery Device vent Ventilator Type 500 Vent Mode Cmv FiO2 100 Inspiratory Time 1.0 PEEP 8 Pressure Support Not Reportable Pressure Control Not Reportable EPAP Not Reportable IPAP Not Reportable BiPAP Not Reportable Sodium Potassium Chloride Carbon Dioxide Anion Gap BUN Creatinine Est GFR ( Amer) Est GFR (Non-Af Amer) BUN/Creatinine Ratio Glucose POC Glucose (mg/dL) 209 H Lactic Acid Calcium Phosphorus Magnesium Total Bilirubin AST ALT Alkaline Phosphatase Total Protein Albumin Globulin Albumin/Globulin Ratio Anaplasma DNA (PCR) Negative B. divergens/MO-1 PCR Negative Babesia duncani DNA PCR Negative Babesia microti DNA PCR Negative Borrelia miyamotoi (PCR) Negative E.chaffeensis DNA (PCR) Negative E. ewingii/canis (PCR) Negative E. muris-like DNA (PCR) Negative Blood Type Antibody Screen Crossmatch 02/20/19 02/20/19 02/20/19 14:41 15:55 16:16 WBC RBC Hgb Hct MCV MCH MCHC RDW Plt Count MPV Neut % (Auto) Lymph % (Auto) Shannon % (Auto) Eos % (Auto) Baso % (Auto) Absolute Neuts (auto) Absolute Lymphs (auto) Absolute Monos (auto) Absolute Eos (auto) Absolute Basos (auto) Absolute Nucleated RBC Nucleated RBC % INR (Anticoag Therapy) Patient Temperature Not Reportable ABG pH 7.36 ABG pH (Temp Correct) Not Reportable ABG pCO2 36 ABG pCO2 (Temp Corrct Not Reportable ABG pO2 157 H ABG pO2 (Temp Correct Not Reportable ABG HCO3 21.4 ABG O2 Saturation 99.4 H ABG Base Excess -4.5 L Respiration Rate 20 O2 Delivery Device vent Ventilator Type 500 Vent Mode Cmv FiO2 60 Inspiratory Time 1.0 PEEP 8 Pressure Support Not Reportable Pressure Control Not Reportable EPAP Not Reportable IPAP Not Reportable BiPAP Not Reportable Sodium Potassium Chloride Carbon Dioxide Anion Gap BUN 26 H Creatinine Est GFR ( Amer) Est GFR (Non-Af Amer) BUN/Creatinine Ratio Glucose POC Glucose (mg/dL) Lactic Acid 0.8 Calcium Phosphorus Magnesium Total Bilirubin AST ALT Alkaline Phosphatase Total Protein Albumin Globulin Albumin/Globulin Ratio Anaplasma DNA (PCR) B. divergens/MO-1 PCR Babesia duncani DNA PCR Babesia microti DNA PCR Borrelia miyamotoi (PCR) E.chaffeensis DNA (PCR) E. ewingii/canis (PCR) E. muris-like DNA (PCR) Blood Type Antibody Screen Crossmatch 02/20/19 02/21/19 02/21/19 16:42 01:28 05:15 WBC 2.1 L RBC 2.12 L Hgb 6.0 L* Hct 18 L MCV 84 MCH 28 MCHC 34 RDW 20 H Plt Count 57 L MPV 10.2 Neut % (Auto) 71.6 Lymph % (Auto) 22.1 Shannon % (Auto) 4.1 Eos % (Auto) 0.0 Baso % (Auto) 2.2 Absolute Neuts (auto) 1.5 Absolute Lymphs (auto) 0.5 L Absolute Monos (auto) 0.1 Absolute Eos (auto) 0.0 Absolute Basos (auto) 0.0 Absolute Nucleated RBC 0.0 Nucleated RBC % 0.1 INR (Anticoag Therapy) Patient Temperature ABG pH ABG pH (Temp Correct) ABG pCO2 ABG pCO2 (Temp Corrct ABG pO2 ABG pO2 (Temp Correct ABG HCO3 ABG O2 Saturation ABG Base Excess Respiration Rate O2 Delivery Device Ventilator Type Vent Mode FiO2 Inspiratory Time PEEP Pressure Support Pressure Control EPAP IPAP BiPAP Sodium Potassium Chloride Carbon Dioxide Anion Gap BUN Creatinine Est GFR ( Amer) Est GFR (Non-Af Amer) BUN/Creatinine Ratio Glucose POC Glucose (mg/dL) 229 H 290 H Lactic Acid Calcium Phosphorus Magnesium Total Bilirubin AST ALT Alkaline Phosphatase Total Protein Albumin Globulin Albumin/Globulin Ratio Anaplasma DNA (PCR) B. divergens/MO-1 PCR Babesia duncani DNA PCR Babesia microti DNA PCR Borrelia miyamotoi (PCR) E.chaffeensis DNA (PCR) E. ewingii/canis (PCR) E. muris-like DNA (PCR) Blood Type Antibody Screen Crossmatch 02/21/19 02/21/19 02/21/19 05:15 05:15 05:52 WBC RBC Hgb Hct MCV MCH MCHC RDW Plt Count MPV Neut % (Auto) Lymph % (Auto) Shannon % (Auto) Eos % (Auto) Baso % (Auto) Absolute Neuts (auto) Absolute Lymphs (auto) Absolute Monos (auto) Absolute Eos (auto) Absolute Basos (auto) Absolute Nucleated RBC Nucleated RBC % INR (Anticoag Therapy) 1.41 H Patient Temperature ABG pH ABG pH (Temp Correct) ABG pCO2 ABG pCO2 (Temp Corrct ABG pO2 ABG pO2 (Temp Correct ABG HCO3 ABG O2 Saturation ABG Base Excess Respiration Rate O2 Delivery Device Ventilator Type Vent Mode FiO2 Inspiratory Time PEEP Pressure Support Pressure Control EPAP IPAP BiPAP Sodium 139 Potassium 3.9 Chloride 112 H Carbon Dioxide 20 L Anion Gap 7 BUN 40 H Creatinine 1.56 H Est GFR ( Amer) 52.6 Est GFR (Non-Af Amer) 43.5 BUN/Creatinine Ratio 25.6 H Glucose 305 H POC Glucose (mg/dL) Lactic Acid Calcium 7.4 L Phosphorus 4.2 Magnesium 1.9 Total Bilirubin 0.70 AST 87 H ALT 45 Alkaline Phosphatase 87 Total Protein 4.4 L Albumin 2.0 L Globulin 2.4 Albumin/Globulin Ratio 0.8 L Anaplasma DNA (PCR) B. divergens/MO-1 PCR Babesia duncani DNA PCR Babesia microti DNA PCR Borrelia miyamotoi (PCR) E.chaffeensis DNA (PCR) E. ewingii/canis (PCR) E. muris-like DNA (PCR) Blood Type A Positive Antibody Screen Negative Crossmatch See Detail 02/21/19 05:52 WBC RBC Hgb 6.1 L* Hct 18 L MCV MCH MCHC RDW Plt Count MPV Neut % (Auto) Lymph % (Auto) Shannon % (Auto) Eos % (Auto) Baso % (Auto) Absolute Neuts (auto) Absolute Lymphs (auto) Absolute Monos (auto) Absolute Eos (auto) Absolute Basos (auto) Absolute Nucleated RBC Nucleated RBC % INR (Anticoag Therapy) Patient Temperature ABG pH ABG pH (Temp Correct) ABG pCO2 ABG pCO2 (Temp Corrct ABG pO2 ABG pO2 (Temp Correct ABG HCO3 ABG O2 Saturation ABG Base Excess Respiration Rate O2 Delivery Device Ventilator Type Vent Mode FiO2 Inspiratory Time PEEP Pressure Support Pressure Control EPAP IPAP BiPAP Sodium Potassium Chloride Carbon Dioxide Anion Gap BUN Creatinine Est GFR ( Amer) Est GFR (Non-Af Amer) BUN/Creatinine Ratio Glucose POC Glucose (mg/dL) Lactic Acid Calcium Phosphorus Magnesium Total Bilirubin AST ALT Alkaline Phosphatase Total Protein Albumin Globulin Albumin/Globulin Ratio Anaplasma DNA (PCR) B. divergens/MO-1 PCR Babesia duncani DNA PCR Babesia microti DNA PCR Borrelia miyamotoi (PCR) E.chaffeensis DNA (PCR) E. ewingii/canis (PCR) E. muris-like DNA (PCR) Blood Type Antibody Screen Crossmatch Studies: EKG INTERPRETATION ECG Report Patient Name LESA HORN Birthdate 1940 Sex M Order Number [id number] Date of ECG 02/21/2019 05:35:15 Interpretation Sinus rhythm.normal P axis, V-rate 60- 99 Atrial premature complexes.SV complexes w/ short R-R intvls Borderline low voltage, extremity leads.all extremity leads <0.6mV Abnormal R-wave progression, early transition.QRS area>0 in V2 Prolonged QT interval.QTc >500mS - ABNORMAL ECG - ECG NEEDS E-SIGNING This report is only to be considered final once signed by the Provider(s) as displayed in the "<Electronically Signed by >" field (s). Absence of a signature indicates the report is in a draft status and still needs to be finalized. In the event this document was created by someone other than the signing Provider, the individual initiating the document will be listed in the "Entered by:" or "Dictated by:" hagan. Please go to [facility] [place] website to view the EKG image Nutrition: TF- glucerna at 40cc/h. Goal 75cc/h Impression: 78 yo M with hx/o chronic interstitial lung disease on chronic steroids, chronic hypoxemic respiratory failure with nocturnal home O2, pancytopenia, VZV infection treated with valtrex, CAD s/p PCI, BPH/nephrolithiasis admitted with weakness and malaise in the setting of UTI, anemia requiring PRBC transfusion progressing to worsening hypoxemic and increased WOB intubation and mechanical ventilation Plan: # Altered mental status -likely due to delirium +/- septic encephalopathy -improved mental status # Acute on chronic hypoxemic respiratory failure -improved O2 status on ventilator # Acute ventilator dependance # b/l pulmonary opacities -increased compared to 02/11 with improved compared to 02/20 -multifactorial- ILD +/-infection/inflammation/pulmonary edema # Interstitial lung disease with acute exacerbation -09/2013 CT chest shows peripheral fibrosis/septal thickening/GGO with new and increased GGO bilaterally which could be early UIP, fibrotic NSIP, Chronic hypersensitivity pneumonitis with superimposed infection, worsening inflammation , progressive NSIP, fluid # PNA # Pancytopenia with acute anemia - likely due to acute illness, medications(azathioprine, dapsone, valtrex) - no source of active/acute bleed appreciated - B12 and folate WNL, basophillic stipling - infectious workup grossly negative, except for parvovirus B19 ab +, # JUAN with oliguria - Cr 1.3-->1.5 -in the setting of staghorn calculi (R) - +UOP in esqueda - baseline Cr 1. # Right renal exophytic cysts # Malnutrition # DM with steroid induced hyperglycemia # Frailty - bronch/BAL 02/19- micro grossly negative - Pleural fluid + Staph Epidermidis Sn to Vanc and Strep parasanguinis - UCx + E faecalis Sn to Vanc - Currently on vanc, azithromycin and fluconazole for now. S/p 8 days of Zosyn , Meropenem started on 02/19, Vanco started 02/20. Will stop Meropenem and fluconazole today (02/21) - Solumedrol 500 mg IV x 3 days, then prednisone 1mg/kg x with a slow taper in the next 3 months which can be managed by his outpatient financial management consultant - Transition fentanyl and propofol gtt to precedex if hemodynamics and patient tolerates - daily SBT/SWT. Failed SBT today due to tachypnea - keep esqueda in place. I/O daily - s/p 2 units PRBC today - GI consult pending - lasix after each unit of PRBC planned for today. - Pending TTE - Exophytic renal cysts need outpatient follow imaging and workup - Will advance TF (Glucerna) to goal 75cc/h. Will follow up with AM CXR to eval the position of NGT tomorrow as well - start insulin gtt. Hold lantus and SSI for now - PT/OT once extubated PPX: -DVT- SCD. SQH-Held due to drop in platelet and need for transfusion (02/21) -GI- PPI Code status: Full code Prognosis: guarded Critical care issues: acute hypoxemic respiratory failure, Acute ventilator dependance, Interstitial lung disease with acute exacerbation Dispo: monitor in ICU
[2019-02-21] MEDS: Insulin REGULAR(*) Infusion Protocol (IIP), non-DKA Adult Hyperglycemia (2017) IV SCH (11:23)
[2019-02-21] MEDS: Vancomycin(*) 1,250 MG in NS 0.9% 250 ML* 250 ML IVPB SCH ×2 (11:24→23:08)
[2019-02-21] MEDS ORDERED: Insulin REGULAR(*) 1 UNITS UNIT IV ONE (12:00)
[2019-02-21] MEDS: Dexmedetomidine* 1,000 MCG in NS 0.9% 250 ML* 240 ML IV SCH (12:52)
[2019-02-21] MEDS ORDERED: Atropine SYRINGE* 0.1 MG/ML 10 ML SYRINGE (1 MG) ONE (14:29)
[2019-02-21] MEDS ORDERED: EPINEPHrine SYR 0.1MG/ML* SYRINGE ONE (14:42)
[2019-02-21] MEDS ORDERED: Amiodarone 150 MG IVPREMIX* 150 MG/100 ML BAG IV ONE ×2 (14:53→15:00)
[2019-02-21] MEDS ORDERED: Norepinephrine 16MCG/ML IVPRE* 4,000 MCG/250 ML BAG IV SCH (15:00)
[2019-02-21] MEDS ORDERED: Amiodarone 360 MG IVPREMIX* 360 MG/200 ML BAG IV ONE (15:02)
[2019-02-21] MEDS ORDERED: Amiodarone 150 MG IVPREMIX* 150 MG/100 ML BAG IV PRN (15:05)
[2019-02-21] MEDS ORDERED: Amiodarone 360 MG IVPREMIX* 360 MG/200 ML BAG IV SCH (15:30)
[2019-02-21] MEDS ORDERED: Filgrastim* 480 MCG VIAL (AUTOSUB = ZARXIO*) SUBCUT ONE (16:00)
[2019-02-21] MEDS ORDERED: NS 0.9% 250 ML* 250 ML IV ONE (16:03)
[2019-02-21] MEDS ORDERED: Atropine 0.4 MG/ML 1 ML VIAL IV ONE (16:03)
[2019-02-21] MEDS ORDERED: NS 0.9% 1000 ML** 1,000 ML IV SCH (16:16)
[2019-02-21] MEDS ORDERED: fentaNYL* 50 MCG/ML 2 ML VIAL (100 MCG VIAL) ONE (16:22)
[2019-02-21] MEDS: NS 0.9% 500 ML* 492 ML with Norepinephrine VIAL* 8 MG IV SCH ×2 (19:50)
[2019-02-21] MEDS ORDERED: traZODone TAB* 50 MG TAB PO SCH (21:00)
[2019-02-21 21:49] LABS: ABS Lymphocytes 0.5 10^3/ul (1.0-4.8); ABS Monocytes 0.3 10^3/ul (0-0.8); ABS Neutrophils 5.9 10^3/ul (1.5-7.7); Hematocrit 28 % (42-52); Hemoglobin 9.2 g/dL (14.0-18.0); Mean Corpuscular HGB Conc 33 g/dL (31-36); Mean Corpuscular Hemoglobin 28 pg (27-31); Mean Corpuscular Volume 85 fL (80-94); Mean Platelet Volume 10.9 fL (7.4-10.4); Nucleated Red Blood Cells % 0.2; Platelet Count 93 10^3/uL (150-450); Red Blood Count 3.27 10^6 /uL (4.18-5.48); Red Cell Distribution Width 18 % (10-15); White Blood Count 6.8 10^3/uL (3.5-10.8)
[2019-02-21 21:58] LABS: BUN/Creatinine Ratio 26.6 (8-20); Calcium 7.5 mg/dL (8.6-10.3); EGFR African American 45.5 (>60); EGFR Non-African American 37.6 (>60); Magnesium 2.1 mg/dL (1.9-2.7); Phosphorus 4.4 mg/dL (2.5-5.0); Potassium 3.4 mmol/L (3.5-5.0)
[2019-02-21] MEDS: Atorvastatin* 40 MG TAB PO SCH (22:28)
[2019-02-21] MEDS: Chlorhexidine MOUTHWASH 0.12%* 15 ML UDC SWISH SPIT SCH (22:36)
[2019-02-21] MEDS: Latanoprost 0.005%* 2.5 ml BTL BOTH EYES SCH (22:36)
[2019-02-21] MEDS: Propofol* 100 ML IV SCH (22:45)
--- NOTE | 2019-02-21 23:13 | CONSULT ---
Consult Consult: GI Consult (Rm) Requesting Dr. Hannah Reason: anemia HPI: 78 year old male known to me [place] [facility] and fever. He has slowly been recovering form a difficult zoster infection. He has known interstitial lung disease on immunosuppresive therapy. His oxygen requirements increased and he was intubated and now in ICU. He does respond to direct questions and at bedside supplements additional information. He denies any saleem black or blood in stool. He has new onset constipation over the last 2-3 months. With straining and incomplete evacuation. He had a bone marrow bx during admission for his pancytopenia with depleted iron stores and plasma cells, full results pending. He admits to dysphagia which is the reason for my office consultation along with colonoscopy evaluation. He had been scheduled for EGD/colon with anesthesia later in February. Dysphagia was pills and solids. No odynophagia. His anemia has significantly worsened but without overt signs of bleeding. Remainder of 14 point ROS negative PMHX: Interstitial lung disease, recent zoster infection, DM, spinal stenosis, CKD SurgHX: colonoscopy 2005 FamHx: No GI cancer or IBD Social: former smoker, denies Etoh Home meds: Famotidine 20 mg , Ipratropium [place] 0.03 % , Gabapentin 100 mg , Azelastine HCL (Nasal) 0.1 % , Atorvastatin Calcium 40 mg , Trazodone HCL 50 mg , Nitroglycerin 0.4 mg , Omeprazole 40 mg , Losartan Potassium 100 mg , Metoprolol Tartrate 25 mg , Dapsone 100 mg , Metformin HCL 1000 mg , Humulin R 100 Unit/ML , Humulin N 100 Unit/ML , Lumigan 0.01 % , Hydrochlorothiazide 25 mg , Doxycycline Hyclate 100 mg, Azathioprine. Allergies: aripiprazole, lisinopril ROS: remainder of 14 point ROS negative VS: 111/57, P 91, R 33, 95% Gen: intubated, alert, nods yes or no to questions, follows commands HEENT: at, nc, perrla, eomi, sclera anicteric, conjuctiva pink CVS: irregular s1s2 Resp: dry rales b/l Abd: soft, mild distention, bs+, +splenomegly, no guarding or rebound Ext: 1+ edema b/l. Neuro: follows commands Lab: Hgb 6.0 Plt:57 WBC: 2.1 MCV 84 INR 1.41 Cr 1.77 BUN 47 AST 87, ALT 45, AlkP 87, Bili 0.7 CT on admit: staghorn calculi on R, splenomegaly. Impression Pancytopenia Dysphagia Constipation Rec: Had bone marrow bx, results pending but iron stores depleted. Coupled with dysphagia he would benefit from EGD. Will tentatively plan on 02/22 pending hemodynamics and pulmonary condition. Discussed with patient and at bedside risks, alternatives and would like to proceed. He will eventually need a colonoscopy, especially with Hgb and his change in bowel habits. Recommend aggressive bowel regimen. Wesley Abdalla DO 02/21/19 1126PM (seen at 1700)
[2019-02-21] MEDS: Pantoprazole IV* 40 MG IV SCH (23:29)
[2019-02-22] MEDS ORDERED: KCL 20 MEQ/100 ML IVPREMIX* 20 MEQ/100 ML BAG IV ONE (00:15)
[2019-02-22] MEDS ORDERED: KCL 20 MEQ/100 ML IVPREMIX* 20 MEQ/100 ML BAG ONE (00:16)
[2019-02-22 00:23] LABS: Hepatitis B Surface Antigen Negative (Negative)
[2019-02-22 00:40] LABS: Hepatitis B Surface Ab Not Immune (Immune)
[2019-02-22 00:41] LABS: Hepatitis C Antibody Negative (Negative)
[2019-02-22] MEDS: Dexmedetomidine* 1,000 MCG in NS 0.9% 250 ML* 240 ML IV SCH (02:59)
[2019-02-22] MEDS: NS 0.9% 500 ML* 492 ML with Norepinephrine VIAL* 8 MG IV SCH ×2 (03:01)
[2019-02-22] MEDS: GuaiFENesin DM* 5 ML UDC PO SCH (03:01)
[2019-02-22] MEDS: Chlorhexidine MOUTHWASH 0.12%* 15 ML UDC SWISH SPIT SCH ×6 (03:05→21:50)
[2019-02-22] MEDS: Insulin REGULAR(*) Infusion Protocol (IIP), non-DKA Adult Hyperglycemia (2017) IV SCH (04:39)
[2019-02-22 05:32] LABS: ABS Lymphocytes 0.6 10^3/ul (1.0-4.8); ABS Monocytes 0.5 10^3/ul (0-0.8); ABS Neutrophils 7.5 10^3/ul (1.5-7.7); Eosinophil % 0.1 %; Hematocrit 26 % (42-52); Hemoglobin 8.6 g/dL (14.0-18.0); Lymphocyte % 6.5 %; Mean Corpuscular HGB Conc 34 g/dL (31-36); Mean Corpuscular Hemoglobin 29 pg (27-31); Mean Corpuscular Volume 85 fL (80-94); Nucleated Red Blood Cells % 0.1; Platelet Count 92 10^3/uL (150-450); Red Blood Count 3.01 10^6 /uL (4.18-5.48); Red Cell Distribution Width 18 % (10-15); White Blood Count 8.5 10^3/uL (3.5-10.8)
[2019-02-22 05:35] LABS: Albumin 2.2 g/dL (3.2-5.2); Albumin/Globulin Ratio 0.9 (1-3); BUN/Creatinine Ratio 29.9 (8-20); Calcium 7.7 mg/dL (8.6-10.3); EGFR African American 46.4 (>60); EGFR Non-African American 38.3 (>60); Globulin 2.5 g/dL (2-4); Potassium 3.6 mmol/L (3.5-5.0); Total Bilirubin 0.7 mg/dL (0.2-1.0); Total Protein 4.7 g/dL (6.4-8.9)
[2019-02-22 05:44] LABS: Magnesium 2.1 mg/dL (1.9-2.7); Phosphorus 4.1 mg/dL (2.5-5.0)
[2019-02-22] MEDS ORDERED: Perflutren Lipid Microsphere* 3 ML VIAL ONE (08:46)
[2019-02-22] MEDS: Gabapentin CAP(*) 100 MG PO SCH ×3 (08:53→21:42)
[2019-02-22] MEDS ORDERED: Azithromycin TAB* 250 MG PO SCH (09:00)
[2019-02-22] MEDS ORDERED: Furosemide IV* 10 MG/ML VIAL (40 MG) IV SCH (09:00)
[2019-02-22] MEDS ORDERED: METHYLPREDNISOLONE SOD SUCC IVPB SCH (09:00)
[2019-02-22] MEDS ORDERED: NS 0.9% IVPB SCH (09:00)
[2019-02-22] MEDS ORDERED: methylPREDNISolone SOD SUCC* 500 MG in NS 0.9% 100 ML* 100 ML IVPB SCH (09:00)
[2019-02-22] MEDS: Azithromycin SUSP* ORALSYR 20 MG/ML (100 MG/5 ML) PO SCH (09:19)
[2019-02-22] MEDS: Insulin GLARGINE(*) 1 UNITS UNIT SUBCUT SCH ×2 (09:21→21:49)
[2019-02-22] MEDS: Betaxolol 0.5 %* OPHTH.SOLN 5 ML BOTH EYES SCH ×2 (09:29→21:50)
[2019-02-22] MEDS: Pantoprazole IV* 40 MG IV SCH ×2 (09:29→21:50)
[2019-02-22] MEDS ORDERED: Vancomycin Trough Check NOTE FOLLOW UP ONE (10:30)
--- NOTE | 2019-02-22 10:36 | PN ---
Progress Note - Progress Note Date of Service: 02/22/19 SOAP: Subjective: CC: respiratory failure HPI: 78 year old man with ILD, admitted with fever, mucus plugging, has had bronchoscopy. Intubated now, vent stable, no diarrhea per RN. Objective: Vital Signs Temp 36.4 C 02/22/19 03:20 Pulse 95 02/22/19 09:45 Resp 34 02/22/19 09:00 BP 113/72 02/22/19 09:30 Pulse Ox 95 02/22/19 09:45 Intake & Output 02/21/19 02/22/19 02/22/19 18:59 06:59 18:59 Intake Total 1814 609 Output Total 632 495 155 Balance 1182 114 -155 Weight 242 lb 8.136 oz Intake: IV Fluids 1004 609 ANTIFUNGAL - FLUCONAZOLE 213 Methylprednisone 183 104 NS (0.9%) 328 505 azithromycin 273 meropenem 7 IVPB 214 meropenem 214 Medicated IV 289 VANCO 289 Oral 0 Packed Cells 307 Output: [place] 632 495 155 Gen:awake, no distress HEENT: ET tube present Heart:RRR no murmur Lungs:CTA BL Abd:+BS NTND soft Skin: no rash Laboratory Results - last 24 hr 02/17/19 02/21/19 02/21/19 15:41 05:52 10:56 WBC RBC Hgb Hct MCV MCH MCHC RDW Plt Count MPV Neut % (Auto) Lymph % (Auto) Door % (Auto) Eos % (Auto) Baso % (Auto) Absolute Neuts (auto) Absolute Lymphs (auto) Absolute Monos (auto) Absolute Eos (auto) Absolute Basos (auto) Absolute Nucleated RBC Nucleated RBC % Sodium Potassium Chloride Carbon Dioxide Anion Gap BUN Creatinine Est GFR ( Amer) Est GFR (Non-Af Amer) BUN/Creatinine Ratio Glucose POC Glucose (mg/dL) 347 H Calcium Phosphorus Magnesium Total Bilirubin AST ALT Alkaline Phosphatase Total Protein Albumin Globulin Albumin/Globulin Ratio Hepatitis A IgM Ab Hepatitis B Antibody Hep Bs Antigen Hep B Core IgM Ab Hepatitis C Antibody Hepatitis C Ab Index Urine Histoplasma Ag TNP U Histoplasma Ag Index TNP HIV 1&2 Ab/P24 Ag 4thGn Blood Type A Positive Antibody Screen Negative Crossmatch See Detail Transfusion React Rpt Donor Unit # Post-Trans Blood Type Post-Trans CAROL 02/21/19 02/21/1919 12:48 13:33 14:36 WBC RBC Hgb Hct MCV MCH MCHC RDW Plt Count MPV Neut % (Auto) Lymph % (Auto) Door % (Auto) Eos % (Auto) Baso % (Auto) Absolute Neuts (auto) Absolute Lymphs (auto) Absolute Monos (auto) Absolute Eos (auto) Absolute Basos (auto) Absolute Nucleated RBC Nucleated RBC % Sodium Potassium Chloride Carbon Dioxide Anion Gap BUN Creatinine Est GFR ( Amer) Est GFR (Non-Af Amer) BUN/Creatinine Ratio Glucose POC Glucose (mg/dL) 329 H 349 H Calcium Phosphorus Magnesium Total Bilirubin AST ALT Alkaline Phosphatase Total Protein Albumin Globulin Albumin/Globulin Ratio Hepatitis A IgM Ab Hepatitis B Antibody Hep Bs Antigen Hep B Core IgM Ab Hepatitis C Antibody Hepatitis C Ab Index Urine Histoplasma Ag U Histoplasma Ag Index HIV 1&2 Ab/P24 Ag 4thGn Blood Type Antibody Screen Crossmatch Transfusion React Rpt Donor Unit # [id number] Post-Trans Blood Type A Positive Post-Trans CAROL Negative 02/21/19 02/21/19 02/21/19 14:39 15:26 16:10 WBC RBC Hgb Hct MCV MCH MCHC RDW Plt Count MPV Neut % (Auto) Lymph % (Auto) Door % (Auto) Eos % (Auto) Baso % (Auto) Absolute Neuts (auto) Absolute Lymphs (auto) Absolute Monos (auto) Absolute Eos (auto) Absolute Basos (auto) Absolute Nucleated RBC Nucleated RBC % Sodium Potassium Chloride Carbon Dioxide Anion Gap BUN Creatinine Est GFR ( Amer) Est GFR (Non-Af Amer) BUN/Creatinine Ratio Glucose POC Glucose (mg/dL) 310 H 301 H 292 H Calcium Phosphorus Magnesium Total Bilirubin AST ALT Alkaline Phosphatase Total Protein Albumin Globulin Albumin/Globulin Ratio Hepatitis A IgM Ab Hepatitis B Antibody Hep Bs Antigen Hep B Core IgM Ab Hepatitis C Antibody Hepatitis C Ab Index Urine Histoplasma Ag U Histoplasma Ag Index HIV 1&2 Ab/P24 Ag 4thGn Blood Type Antibody Screen Crossmatch Transfusion React Rpt Donor Unit # Post-Trans Blood Type Post-Trans CAROL 02/21/19 02/21/19 02/21/19 17:37 18:23 19:43 WBC RBC Hgb Hct MCV MCH MCHC RDW Plt Count MPV Neut % (Auto) Lymph % (Auto) Door % (Auto) Eos % (Auto) Baso % (Auto) Absolute Neuts (auto) Absolute Lymphs (auto) Absolute Monos (auto) Absolute Eos (auto) Absolute Basos (auto) Absolute Nucleated RBC Nucleated RBC % Sodium Potassium Chloride Carbon Dioxide Anion Gap BUN Creatinine Est GFR ( Amer) Est GFR (Non-Af Amer) BUN/Creatinine Ratio Glucose POC Glucose (mg/dL) 276 H 280 H 219 H Calcium Phosphorus Magnesium Total Bilirubin AST ALT Alkaline Phosphatase Total Protein Albumin Globulin Albumin/Globulin Ratio Hepatitis A IgM Ab Hepatitis B Antibody Hep Bs Antigen Hep B Core IgM Ab Hepatitis C Antibody Hepatitis C Ab Index Urine Histoplasma Ag U Histoplasma Ag Index HIV 1&2 Ab/P24 Ag 4thGn Blood Type Antibody Screen Crossmatch Transfusion React Rpt Donor Unit # Post-Trans Blood Type Post-Trans CAROL 02/21/19 02/21/19 02/21/19 21:05 21:05 22:54 WBC 6.8 RBC 3.27 L Hgb 9.2 L Hct 28 L MCV 85 MCH 28 MCHC 33 RDW 18 H Plt Count 93 L D MPV 10.9 H Neut % (Auto) 87.3 Lymph % (Auto) 7.0 Door % (Auto) 5.0 Eos % (Auto) 0.0 Baso % (Auto) 0.7 Absolute Neuts (auto) 5.9 Absolute Lymphs (auto) 0.5 L Absolute Monos (auto) 0.3 Absolute Eos (auto) 0.0 Absolute Basos (auto) 0.0 Absolute Nucleated RBC 0.0 Nucleated RBC % 0.2 Sodium 143 Potassium 3.4 L Chloride 114 H Carbon Dioxide 21 L Anion Gap 8 BUN 47 H Creatinine 1.77 H Est GFR ( Amer) 45.5 Est GFR (Non-Af Amer) 37.6 BUN/Creatinine Ratio 26.6 H Glucose 196 H POC Glucose (mg/dL) 165 H Calcium 7.5 L Phosphorus 4.4 Magnesium 2.1 Total Bilirubin AST ALT Alkaline Phosphatase Total Protein Albumin Globulin Albumin/Globulin Ratio Hepatitis A IgM Ab Hepatitis B Antibody Hep Bs Antigen Hep B Core IgM Ab Hepatitis C Antibody Hepatitis C Ab Index Urine Histoplasma Ag U Histoplasma Ag Index HIV 1&2 Ab/P24 Ag 4thGn Blood Type Antibody Screen Crossmatch Transfusion React Rpt Donor Unit # Post-Trans Blood Type Post-Trans CAROL 07/07/19 07/08/19 07/08/19 23:10 01:07 02:12 WBC RBC Hgb Hct MCV MCH MCHC RDW Plt Count MPV Neut % (Auto) Lymph % (Auto) Door % (Auto) Eos % (Auto) Baso % (Auto) Absolute Neuts (auto) Absolute Lymphs (auto) Absolute Monos (auto) Absolute Eos (auto) Absolute Basos (auto) Absolute Nucleated RBC Nucleated RBC % Sodium Potassium Chloride Carbon Dioxide Anion Gap BUN Creatinine Est GFR ( Amer) Est GFR (Non-Af Amer) BUN/Creatinine Ratio Glucose POC Glucose (mg/dL) 155 H 143 H Calcium Phosphorus Magnesium Total Bilirubin AST ALT Alkaline Phosphatase Total Protein Albumin Globulin Albumin/Globulin Ratio Hepatitis A IgM Ab Negative Hepatitis B Antibody Not immune A Hep Bs Antigen Negative Hep B Core IgM Ab Nonreactive Hepatitis C Antibody Negative Hepatitis C Ab Index 0.04 Urine Histoplasma Ag U Histoplasma Ag Index HIV 1&2 Ab/P24 Ag 4thGn Negative Blood Type Antibody Screen Crossmatch Transfusion React Rpt Donor Unit # Post-Trans Blood Type Post-Trans CAROL 02/22/19 02/22/19 02/22/19 03:11 04:23 05:00 WBC RBC Hgb Hct MCV MCH MCHC RDW Plt Count MPV Neut % (Auto) Lymph % (Auto) Door % (Auto) Eos % (Auto) Baso % (Auto) Absolute Neuts (auto) Absolute Lymphs (auto) Absolute Monos (auto) Absolute Eos (auto) Absolute Basos (auto) Absolute Nucleated RBC Nucleated RBC % Sodium 143 Potassium 3.6 Chloride 115 H Carbon Dioxide 22 Anion Gap 6 BUN 52 H Creatinine 1.74 H Est GFR ( Amer) 46.4 Est GFR (Non-Af Amer) 38.3 BUN/Creatinine Ratio 29.9 H Glucose 102 H POC Glucose (mg/dL) 127 H 107 H Calcium 7.7 L Phosphorus 4.1 Magnesium 2.1 Total Bilirubin 0.70 AST 64 H ALT 45 Alkaline Phosphatase 93 Total Protein 4.7 L Albumin 2.2 L Globulin 2.5 Albumin/Globulin Ratio 0.9 L Hepatitis A IgM Ab Hepatitis B Antibody Hep Bs Antigen Hep B Core IgM Ab Hepatitis C Antibody Hepatitis C Ab Index Urine Histoplasma Ag U Histoplasma Ag Index HIV 1&2 Ab/P24 Ag 4thGn Blood Type Antibody Screen Crossmatch Transfusion React Rpt Donor Unit # Post-Trans Blood Type Post-Trans CAROL 02/22/19 02/22/1919 05:00 06:00 07:15 WBC 8.5 RBC 3.01 L Hgb 8.6 L Hct 26 L MCV 85 MCH 29 MCHC 34 RDW 18 H Plt Count 92 L MPV 11.0 H Neut % (Auto) 87.6 Lymph % (Auto) 6.5 Door % (Auto) 5.6 Eos % (Auto) 0.1 Baso % (Auto) 0.2 Absolute Neuts (auto) 7.5 Absolute Lymphs (auto) 0.6 L Absolute Monos (auto) 0.5 Absolute Eos (auto) 0.0 Absolute Basos (auto) 0.0 Absolute Nucleated RBC 0.0 Nucleated RBC % 0.1 Sodium Potassium Chloride Carbon Dioxide Anion Gap BUN Creatinine Est GFR ( Amer) Est GFR (Non-Af Amer) BUN/Creatinine Ratio Glucose POC Glucose (mg/dL) 135 H 153 H Calcium Phosphorus Magnesium Total Bilirubin AST ALT Alkaline Phosphatase Total Protein Albumin Globulin Albumin/Globulin Ratio Hepatitis A IgM Ab Hepatitis B Antibody Hep Bs Antigen Hep B Core IgM Ab Hepatitis C Antibody Hepatitis C Ab Index Urine Histoplasma Ag U Histoplasma Ag Index HIV 1&2 Ab/P24 Ag 4thGn Blood Type Antibody Screen Crossmatch Transfusion React Rpt Donor Unit # Post-Trans Blood Type Post-Trans CAROL 02/22/19 08:37 WBC RBC Hgb Hct MCV MCH MCHC RDW Plt Count MPV Neut % (Auto) Lymph % (Auto) Door % (Auto) Eos % (Auto) Baso % (Auto) Absolute Neuts (auto) Absolute Lymphs (auto) Absolute Monos (auto) Absolute Eos (auto) Absolute Basos (auto) Absolute Nucleated RBC Nucleated RBC % Sodium Potassium Chloride Carbon Dioxide Anion Gap BUN Creatinine Est GFR ( Amer) Est GFR (Non-Af Amer) BUN/Creatinine Ratio Glucose POC Glucose (mg/dL) 153 H Calcium Phosphorus Magnesium Total Bilirubin AST ALT Alkaline Phosphatase Total Protein Albumin Globulin Albumin/Globulin Ratio Hepatitis A IgM Ab Hepatitis B Antibody Hep Bs Antigen Hep B Core IgM Ab Hepatitis C Antibody Hepatitis C Ab Index Urine Histoplasma Ag U Histoplasma Ag Index HIV 1&2 Ab/P24 Ag 4thGn Blood Type Antibody Screen Crossmatch Transfusion React Rpt Donor Unit # Post-Trans Blood Type Post-Trans CAROL Microbiology 02/19/19 15:30 Gram Stain - Final Pleural Fluid Body Fluid Culture - Preliminary Staphylococcus Epidermidis Streptococcus Parasanguinis Skin and Soft Tissue MRSA/MSSA (PCR - Final Mrsa Negative S.aureus Negative 02/21/19 15:13 Transfusion Reaction Gram Stain - Final Blood Bag 02/19/19 22:03 Aerobic Blood Culture - Preliminary Blood Venous No Growth Day 2 Anaerobic Blood Culture - Preliminary No Growth Day 2 02/18/19 12:32 Aerobic Blood Culture - Preliminary Blood Venous No Growth Day 3 Anaerobic Blood Culture - Preliminary No Growth Day 3 02/18/19 11:30 Aerobic Blood Culture - Preliminary Blood Venous No Growth Day 3 Anaerobic Blood Culture - Preliminary No Growth Day 3 Assessment: 1. Acute hypoxemic respiratory failure in setting of ILD 2. fever; stain for pneumocystis negative, CoNS and Strep in BAL, resolved since corticosteroids 3. initial pancytopenia, now anemia and thrombocytopenia 4. ILD on azathioprine and low dose corticosteroid Plan: 1. continue vancomycin goal tr 10-15, day 3/7 2.vent mgmt per ICU
[2019-02-22] MEDS ORDERED: Morphine 4 MG/ML VIAL (1 ml) 4 MG/ML VIAL IV ONE (11:29)
[2019-02-22] MEDS: Vancomycin(*) 1,250 MG in NS 0.9% 250 ML* 250 ML IVPB SCH (11:33)
[2019-02-22] MEDS: Propofol* 100 ML IV SCH (11:34)
--- NOTE | 2019-02-22 11:41 | OP ---
Operative Report - Blank - Operative Report Date of Operation: 02/21/19 - Central line placement- Procedure Note Note: Indication: Hemodynamic monitoring/Intravenous access Attending: Zoya Hannah MD A time-out was completed verifying correct patient, procedure, site, positioning , and special equipment if applicable. The patient was placed in a dependent position appropriate for central line placement based on the vein to be cannulated. The patients left groin was prepped and draped in sterile fashion. 1% Lidocaine was used to anesthetize the surrounding skin area. A triple lumen 9 -[place] Cordis catheter was introduced into the the common femoral vein using the Seldinger technique and under ultrasound guidance. The catheter was threaded over the guide wire and appropriate blood return was obtained. Each lumen of the catheter was evacuated of air and flushed with sterile saline. The catheter was then sutured in place to the skin and a sterile dressing applied. Perfusion to the extremity distal to the point of catheter insertion was checked and found to be adequate. I preformed the entire procedure. Estimated Blood Loss: 10 cc The patient tolerated the procedure well and there were no immediate complications.
[2019-02-22] MEDS ORDERED: Heparin 2 UNITS/ML IVPREMIX* 1,000 ML IV ONE (12:32)
[2019-02-22] MEDS: Insulin REGULAR(*) 1 UNITS UNIT SUBCUT SCH ×3 (12:43→20:15)
--- NOTE | 2019-02-22 13:11 | PN ---
Date of Service: 02/22/19 - 12 Critical Care Services: 78 yo M with PMH including pancytopenia, immune suppression from drug therapy, DM presented to the ED on 02/11 with fevers, lethargy and disorientation x 3 days. He had recently developed shingles and was treated outpatient with Valtrex. Also reports headaches in AM, abdominal pain, dysuria, and shingles pain in left leg. On evaluation he was noted to have shingles lesions across lower back, left buttock and leg. Otherwise exam unremarkable. Labs notable for WBC 1.9, Hgb 8.4 and Plt 72. Creatinine mildly eelvateda t 1.66. CXR shows patchy areas of atelectasis in the right lung, no focal consolidation. Started on IVF, Vancomycin and ZOsyn for presumed infectious etiology. Admitted to hospitalist service. 02/12: Bone marrow bx completed by hematology group. ANC 1000. IV acyclovir added to cover for possible viremia 02/13: continues to be very weak. unable to transfer. Switched fro Solumedrol to home Prednisone dose. UA positive; continued on Zosyn. 02/14: ANC improved. ct abd pelvis showed Staghorn calculus no obstruction. Follows with urology as outpatient. 02/15: febrile, tachycardic and confused. Bolused IVF and recultured. HR, temp (103) and confusion improved after. CXR subsequently developed pulmonary edema. Started on Guaifenesin for mucus plugging. Pulm consulted. ID consulted 02/17: Continuing to spike fevers (102.3). Desaturated to high 80s requiring 5L NC. Dry cough with no sputum. CT chest shows ground glass opacification. d/w ID - recommended adding Azithromycin, Fluconazole, and check fungal cultures on the Bone marrow 02/18: Bronch planned for 02/19 02/19: He underwent and bronchoscopy on 02/19 with findings of copious secretions. Afib with HR 120s. Transferred to ICU after bronchoscopy for tenuous respiratory status (desats to low 80s under 8L oxymask). Febrile to 101.7 overnight. Now with thick pink tinged sputum. Started on Meropenem 02/20: On vapotherm. On azithromycin, meropenem (started 02/19/19), fluconazole. Stress dose IV hydrocortisone started 02/20/19. Developed worsened respiratory function and emergently intubated for respiratory distress. Patient become hypotensive post-procedure likely due to propofol responsive to IVF bolus. Started on TF 02/21: Patient remains intubated and mechanically ventilated. He is receiving blood for drop in Hgb overnight. No active bleed identified. Bronch/BAL cultures normal julia. Pleural fluid Staphy and strep. Completed 8 days of Zosyn, 3 days of Meropenem. Stopping Meropenem and Fluconazole. Attempted Precedex however developed hemodynamic instability and switched back to Propofol. Failed SBT due to tachypnea. Seen by GI for anemia. Tentative plans for EGD 02/22. 02/22: Seen by ID, recommending continuing Vancomycin x 7 days. Seen by GI, EGD pushed back to Friday with plans to include colonoscopy. Seen by hematology ; bone marrow bx negative for marrow dysfunction. Recommending starting heparin gtt. IVC filter placed Vital Signs: Temp Pulse Resp BP SpO2 FiO2 97.5 F 96 34 125/72 94 60 02/22/19 03:20 02/22/19 11:30 02/22/19 11:45 02/22/19 11:30 02/22/19 11:30 02/22 12:15 Physical Exam: Gen: alert, resting comfortably in bed HEENT: ETT in place Lungs: nonlabored breathing Cardiac: RRR Abdomen: nondistended Extremities: warm, dry, mild edema Neuro: nodding to questions Fluid Balance (Past 24 Hours): I= O= Net Intake & Output 02/20/19 02/21/19 02/22/19 02/23/19 06:59 06:59 06:59 06:59 Intake Total 2048 4151 2423 Output Total 2605 1650 1127 555 Balance -557 2501 1296 -555 Weight 235 lb 7.259 oz 235 lb 7.259 oz 242 lb 8.136 oz Intake: IV Fluids 1402 2487 1613 ANTIFUNGAL - FLUCONAZOLE 201 213 LR 609 Methylprednisone 287 NS (0.9%) 215 2232 833 azithromycin 270 273 meropenem 255 7 piperacillin 107 IVPB 232 585 214 ANTIFUNGAL - FLUCONAZOLE 200 Methylprednisone 24 NS (0.9%) 86 azithromycin 250 meropenem 121 25 214 piperacillin 111 Medicated IV 114 439 289 CC - Amiodarone 98 CC - Propofol/Diprivan 81 VANCO 260 289 mag sulfate 114 Oral 300 0 Tube Feeding 480 Tube Feeding Flush Amount 160 Packed Cells 307 Output: [place] 2505 1650 1127 555 Liquid Stool 100 Other: Date of Last Bowel 02/20/19 Movement # Bowel Movements 1 Estimated Stool Amount Small Labs: Laboratory Results - last 24 hr 02/17/19 02/21/19 02/21/19 15:41 05:52 13:33 WBC RBC Hgb Hct MCV MCH MCHC RDW Plt Count MPV Neut % (Auto) Lymph % (Auto) [place] % (Auto) Eos % (Auto) Baso % (Auto) Absolute Neuts (auto) Absolute Lymphs (auto) Absolute Monos (auto) Absolute Eos (auto) Absolute Basos (auto) Absolute Nucleated RBC Nucleated RBC % Sodium Potassium Chloride Carbon Dioxide Anion Gap BUN Creatinine Est GFR ( Amer) Est GFR (Non-Af Amer) BUN/Creatinine Ratio Glucose POC Glucose (mg/dL) 349 H Calcium Phosphorus Magnesium Total Bilirubin AST ALT Alkaline Phosphatase Total Protein Albumin Globulin Albumin/Globulin Ratio Vancomycin Trough Hepatitis A IgM Ab Hepatitis B Antibody Hep Bs Antigen Hep B Core IgM Ab Hepatitis C Antibody Hepatitis C Ab Index Urine Histoplasma Ag TNP U Histoplasma Ag Index TNP HIV 1&2 Ab/P24 Ag 4thGn Blood Type A Positive Antibody Screen Negative Crossmatch See Detail Transfusion React Rpt Donor Unit # Post-Trans Blood Type Post-Trans CAROL 02/21/19 02/21/19 02/21/19 14:36 14:39 15:26 WBC RBC Hgb Hct MCV MCH MCHC RDW Plt Count MPV Neut % (Auto) Lymph % (Auto) [place] % (Auto) Eos % (Auto) Baso % (Auto) Absolute Neuts (auto) Absolute Lymphs (auto) Absolute Monos (auto) Absolute Eos (auto) Absolute Basos (auto) Absolute Nucleated RBC Nucleated RBC % Sodium Potassium Chloride Carbon Dioxide Anion Gap BUN Creatinine Est GFR ( Amer) Est GFR (Non-Af Amer) BUN/Creatinine Ratio Glucose POC Glucose (mg/dL) 310 H 301 H Calcium Phosphorus Magnesium Total Bilirubin AST ALT Alkaline Phosphatase Total Protein Albumin Globulin Albumin/Globulin Ratio Vancomycin Trough Hepatitis A IgM Ab Hepatitis B Antibody Hep Bs Antigen Hep B Core IgM Ab Hepatitis C Antibody Hepatitis C Ab Index Urine Histoplasma Ag U Histoplasma Ag Index HIV 1&2 Ab/P24 Ag 4thGn Blood Type Antibody Screen Crossmatch Transfusion React Rpt Donor Unit # [id number] Post-Trans Blood Type A Positive Post-Trans CAROL Negative 02/21/19 02/21/19 02/21/19 16:10 17:37 18:23 WBC RBC Hgb Hct MCV MCH MCHC RDW Plt Count MPV Neut % (Auto) Lymph % (Auto) [place] % (Auto) Eos % (Auto) Baso % (Auto) Absolute Neuts (auto) Absolute Lymphs (auto) Absolute Monos (auto) Absolute Eos (auto) Absolute Basos (auto) Absolute Nucleated RBC Nucleated RBC % Sodium Potassium Chloride Carbon Dioxide Anion Gap BUN Creatinine Est GFR ( Amer) Est GFR (Non-Af Amer) BUN/Creatinine Ratio Glucose POC Glucose (mg/dL) 292 H 276 H 280 H Calcium Phosphorus Magnesium Total Bilirubin AST ALT Alkaline Phosphatase Total Protein Albumin Globulin Albumin/Globulin Ratio Vancomycin Trough Hepatitis A IgM Ab Hepatitis B Antibody Hep Bs Antigen Hep B Core IgM Ab Hepatitis C Antibody Hepatitis C Ab Index Urine Histoplasma Ag U Histoplasma Ag Index HIV 1&2 Ab/P24 Ag 4thGn Blood Type Antibody Screen Crossmatch Transfusion React Rpt Donor Unit # Post-Trans Blood Type Post-Trans CAROL 02/21/19 02/21/19 02/21/19 19:43 21:05 21:05 WBC 6.8 RBC 3.27 L Hgb 9.2 L Hct 28 L MCV 85 MCH 28 MCHC 33 RDW 18 H Plt Count 93 L D MPV 10.9 H Neut % (Auto) 87.3 Lymph % (Auto) 7.0 [place] % (Auto) 5.0 Eos % (Auto) 0.0 Baso % (Auto) 0.7 Absolute Neuts (auto) 5.9 Absolute Lymphs (auto) 0.5 L Absolute Monos (auto) 0.3 Absolute Eos (auto) 0.0 Absolute Basos (auto) 0.0 Absolute Nucleated RBC 0.0 Nucleated RBC % 0.2 Sodium 143 Potassium 3.4 L Chloride 114 H Carbon Dioxide 21 L Anion Gap 8 BUN 47 H Creatinine 1.77 H Est GFR ( Amer) 45.5 Est GFR (Non-Af Amer) 37.6 BUN/Creatinine Ratio 26.6 H Glucose 196 H POC Glucose (mg/dL) 219 H Calcium 7.5 L Phosphorus 4.4 Magnesium 2.1 Total Bilirubin AST ALT Alkaline Phosphatase Total Protein Albumin Globulin Albumin/Globulin Ratio Vancomycin Trough Hepatitis A IgM Ab Hepatitis B Antibody Hep Bs Antigen Hep B Core IgM Ab Hepatitis C Antibody Hepatitis C Ab Index Urine Histoplasma Ag U Histoplasma Ag Index HIV 1&2 Ab/P24 Ag 4thGn Blood Type Antibody Screen Crossmatch Transfusion React Rpt Donor Unit # Post-Trans Blood Type Post-Trans CAROL 02/21/19 02/21/19 02/22/19 22:54 23:10 00:16 WBC RBC Hgb Hct MCV MCH MCHC RDW Plt Count MPV Neut % (Auto) Lymph % (Auto) [place] % (Auto) Eos % (Auto) Baso % (Auto) Absolute Neuts (auto) Absolute Lymphs (auto) Absolute Monos (auto) Absolute Eos (auto) Absolute Basos (auto) Absolute Nucleated RBC Nucleated RBC % Sodium Potassium Chloride Carbon Dioxide Anion Gap BUN Creatinine Est GFR ( Amer) Est GFR (Non-Af Amer) BUN/Creatinine Ratio Glucose POC Glucose (mg/dL) 165 H 159 H Calcium Phosphorus Magnesium Total Bilirubin AST ALT Alkaline Phosphatase Total Protein Albumin Globulin Albumin/Globulin Ratio Vancomycin Trough Hepatitis A IgM Ab Negative Hepatitis B Antibody Not immune A Hep Bs Antigen Negative Hep B Core IgM Ab Nonreactive Hepatitis C Antibody Negative Hepatitis C Ab Index 0.04 Urine Histoplasma Ag U Histoplasma Ag Index HIV 1&2 Ab/P24 Ag 4thGn Negative Blood Type Antibody Screen Crossmatch Transfusion React Rpt Donor Unit # Post-Trans Blood Type Post-Trans CAROL 02/22/19 02/22/19 02/22/19 01:07 02:12 03:11 WBC RBC Hgb Hct MCV MCH MCHC RDW Plt Count MPV Neut % (Auto) Lymph % (Auto) [place] % (Auto) Eos % (Auto) Baso % (Auto) Absolute Neuts (auto) Absolute Lymphs (auto) Absolute Monos (auto) Absolute Eos (auto) Absolute Basos (auto) Absolute Nucleated RBC Nucleated RBC % Sodium Potassium Chloride Carbon Dioxide Anion Gap BUN Creatinine Est GFR ( Amer) Est GFR (Non-Af Amer) BUN/Creatinine Ratio Glucose POC Glucose (mg/dL) 155 H 143 H 127 H Calcium Phosphorus Magnesium Total Bilirubin AST ALT Alkaline Phosphatase Total Protein Albumin Globulin Albumin/Globulin Ratio Vancomycin Trough Hepatitis A IgM Ab Hepatitis B Antibody Hep Bs Antigen Hep B Core IgM Ab Hepatitis C Antibody Hepatitis C Ab Index Urine Histoplasma Ag U Histoplasma Ag Index HIV 1&2 Ab/P24 Ag 4thGn Blood Type Antibody Screen Crossmatch Transfusion React Rpt Donor Unit # Post-Trans Blood Type Post-Trans CAROL 02/22/19 02/22/19 02/22/19 04:23 05:00 05:00 WBC 8.5 RBC 3.01 L Hgb 8.6 L Hct 26 L MCV 85 MCH 29 MCHC 34 RDW 18 H Plt Count 92 L MPV 11.0 H Neut % (Auto) 87.6 Lymph % (Auto) 6.5 [place] % (Auto) 5.6 Eos % (Auto) 0.1 Baso % (Auto) 0.2 Absolute Neuts (auto) 7.5 Absolute Lymphs (auto) 0.6 L Absolute Monos (auto) 0.5 Absolute Eos (auto) 0.0 Absolute Basos (auto) 0.0 Absolute Nucleated RBC 0.0 Nucleated RBC % 0.1 Sodium 143 Potassium 3.6 Chloride 115 H Carbon Dioxide 22 Anion Gap 6 BUN 52 H Creatinine 1.74 H Est GFR ( Amer) 46.4 Est GFR (Non-Af Amer) 38.3 BUN/Creatinine Ratio 29.9 H Glucose 102 H POC Glucose (mg/dL) 107 H Calcium 7.7 L Phosphorus 4.1 Magnesium 2.1 Total Bilirubin 0.70 AST 64 H ALT 45 Alkaline Phosphatase 93 Total Protein 4.7 L Albumin 2.2 L Globulin 2.5 Albumin/Globulin Ratio 0.9 L Vancomycin Trough Hepatitis A IgM Ab Hepatitis B Antibody Hep Bs Antigen Hep B Core IgM Ab Hepatitis C Antibody Hepatitis C Ab Index Urine Histoplasma Ag U Histoplasma Ag Index HIV 1&2 Ab/P24 Ag 4thGn Blood Type Antibody Screen Crossmatch Transfusion React Rpt Donor Unit # Post-Trans Blood Type Post-Trans CAROL 02/22/19 02/22/19 02/22/19 06:00 07:15 08:37 WBC RBC Hgb Hct MCV MCH MCHC RDW Plt Count MPV Neut % (Auto) Lymph % (Auto) [place] % (Auto) Eos % (Auto) Baso % (Auto) Absolute Neuts (auto) Absolute Lymphs (auto) Absolute Monos (auto) Absolute Eos (auto) Absolute Basos (auto) Absolute Nucleated RBC Nucleated RBC % Sodium Potassium Chloride Carbon Dioxide Anion Gap BUN Creatinine Est GFR ( Amer) Est GFR (Non-Af Amer) BUN/Creatinine Ratio Glucose POC Glucose (mg/dL) 135 H 153 H 153 H Calcium Phosphorus Magnesium Total Bilirubin AST ALT Alkaline Phosphatase Total Protein Albumin Globulin Albumin/Globulin Ratio Vancomycin Trough Hepatitis A IgM Ab Hepatitis B Antibody Hep Bs Antigen Hep B Core IgM Ab Hepatitis C Antibody Hepatitis C Ab Index Urine Histoplasma Ag U Histoplasma Ag Index HIV 1&2 Ab/P24 Ag 4thGn Blood Type Antibody Screen Crossmatch Transfusion React Rpt Donor Unit # Post-Trans Blood Type Post-Trans CAROL 02/22/19 10:38 WBC RBC Hgb Hct MCV MCH MCHC RDW Plt Count MPV Neut % (Auto) Lymph % (Auto) [place] % (Auto) Eos % (Auto) Baso % (Auto) Absolute Neuts (auto) Absolute Lymphs (auto) Absolute Monos (auto) Absolute Eos (auto) Absolute Basos (auto) Absolute Nucleated RBC Nucleated RBC % Sodium Potassium Chloride Carbon Dioxide Anion Gap BUN Creatinine Est GFR ( Amer) Est GFR (Non-Af Amer) BUN/Creatinine Ratio Glucose POC Glucose (mg/dL) Calcium Phosphorus Magnesium Total Bilirubin AST ALT Alkaline Phosphatase Total Protein Albumin Globulin Albumin/Globulin Ratio Vancomycin Trough 23.5 Hepatitis A IgM Ab Hepatitis B Antibody Hep Bs Antigen Hep B Core IgM Ab Hepatitis C Antibody Hepatitis C Ab Index Urine Histoplasma Ag U Histoplasma Ag Index HIV 1&2 Ab/P24 Ag 4thGn Blood Type Antibody Screen Crossmatch Transfusion React Rpt Donor Unit # Post-Trans Blood Type Post-Trans CAROL Studies: 02/22 CXR - Progression of diffuse interstitial and airspace disease 02/21 CXR - Diffuse interstitial opacification with superimposed consolidation of right upper lung and left mid lung 02/21 Duplex BLE - DVT in RIGHT posterior tibial and peroneal veins and LEFT posterior tibial vein 02/21 CXR - persistent patchy densities overlying the bilateral lungs most consistent with pulmonary edema. 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 He remained febrile and weak throughout the weak despite broadspectrum abx. Cultures demonstrate Enterococcus UTI. CT abdomen with staghorn calculi. Developed respiratory failure requiring intubation on 02/20 secondary to progressive bilateral pulmonary infiltrates. Plan: Cardiovascular: (1) Atrial fibrillation with RVR;(2) CAD with hx of LAD stenting 2008; (3) HTN; (4) HLD; (5) NSTEMI, type 2 02/12/2019 -- HR 62-148 -- SBP 85-162 -- Telemetry -- Cardiac markers CK 18 MB 2.1 Trop 0.06 -- EKG: sinus tachycardia -- Amiodarone gtt; transition to Metoprolol -- Atorvastatin -- Lasix, change to BID Home meds: Atorvastatin, Nitro, Coumadin, Losartan, HCTZ, Metoprolol Pulmonary: (1) Acute on chronic hypoxic respiratory failure; (2) Bilateral pneumonia; (3) Pulmonary edema; (4) Chronic idiopathic inflammatory lung disease ; (5) hx of sleep apnea -- RR 12-37 -- sats 90-99 -- vent: APRV -- CXR: worsening bilateral infiltrates -- ABG: pH 7.36; pCO2 36; pO2 157; HCO3 21.4; BE -4.5; %O2 Sat 99.4. -- PRN Albuterol -- Home Azothioprine & Prednisone -- daily SBT (held today for worsened CXR) Home meds: Azothioprine, prednisone Gastrointestinal: (1) Ileus;(2) minimal elevation in AST; (3) Chronic GERD; (4 ) hx of hiatal hernia -- LFTs Tbili 0.7 ALK 93 AST 64, follow trend ALT 45 -- diet: NPO -- bowel regimen: start Relistor to minimize narcotic contribution to ileus -- ulcer prophylaxis: Protonix Home meds: Protonix Endocrine: (1) Type 2 diabetes mellitus -- monitor BGs -- insulin gtt at steady rate; converted to Lantus and SSI -- Prednisone Home meds: prednisone, insulin NPH, insulin regular, Metformin Renal: (1) JUAN; (2) BPH; (3) hx of kidney stones; (4) right renal exophytic cysts -- UOP: 47 ml/hr -- 13.5L positive from admission -- Cr 1.74 from 1.77 (1.66 on admission) [baseline Creatinine 1.0] -- Lytes Na 143 K 3.6 Ca 7.7 Mag 2.1 Phos 4.1 -- IVF: KVO -- Lasix, change to BID - Exophytic renal cysts need outpatient follow imaging and workup Home meds: None Infectious disease: (1) Sepsis with neutropenic fever; (2) Enterococcus UTI: (3 ) 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; (4) Resolving shingles infection; (5) Staghorn calculi -- Tmax 97.9 -- WBC 8.5 from 6.8 -- Micro 02/19 blood [employer] negative Pleural Staph Epidermidis and Strep Parasanguinis MRSA screen negative 02/18 BAL normal julia blood NGTD 02/14 blood negative 02/11 urine Enterococcus faecalis blood negative -- ABX Vancomycin -- Received Neupogen 02/21 -- ID following Home meds: Azothioprine, Dapsone, Doxycycline, Valtrex Neurologic: (1) Acute delirium; (2) Chronic low back pain; (3) Spinal stenosis ; (4) Diabetic neuropathy; (5) chronic anxiety and depression -- PRN Tylenol -- Propofol gtt for sedation -- Fentanyl gtt for pain control; wean as able given ileus -- PRN Morphine for pain control -- Gabapentin Home meds: Trazodone, Gabapentin, T#3 Hematological: (1) Acute bilateral DVTs in posterior tibial veins; () Pancytopenia; () hx of prior DVT -- Hgb 8.6 from 9.2 from 6.1, received 2 U PRBC on 02/21 -- Plt 92 from 93 from 57, goal > 50 -- Coags INR 1.41 -- DVT prophylaxis: starting therapeutic heparin -- bone marrow bx done -- hematology following Home meds: Coumadin Metabolic: No acute issues Home meds: None Other: (1) Cataracts -- Betaxolol eye gtt -- Latanoprost eye gtt Home meds: Betaxolol eye gtt, Latanoprost eye gtt Deep vein thrombosis prophylaxis:starting therapeutic heparin Dietary: Protonix Condition: Critical Prognosis:Guarded Code status: Full Disposition: continue ICU care Family ( and sons) updated at bedside regarding interval events and plan of care Cumulative time spent in the care of this patient (excluding any procedure time) : at least 90 minutes. Patient care included clinical interview (with patient and/or family), bedside exam of the patient, review of labs, x-rays, and other ancillary data, coordination of (respiratory, nursing care, review of patient's records, discussion regarding patients management with involved consultants, primary physician, pharmacists, and other healthcare personnel (dietary, case management , physical/occupational therapy etc.) Critical Care Time: 90 min
[2019-02-22] MEDS ORDERED: Amiodarone 360 MG IVPREMIX* 360 MG/200 ML BAG IV ONE (13:15)
[2019-02-22] MEDS ORDERED: Amiodarone 150 MG IVPREMIX* 150 MG/100 ML BAG IV ONE ×2 (13:15→13:19)
--- NOTE | 2019-02-22 13:50 | PN ---
Progress Note - Progress Note Date of Service: 02/22/19 Note: pt seen and examined; long d/w ; pt was dx with DVT last night, scheduled for IVC filter this afternoon; awaiting placment, in the meantime, his sons are coming in from [place] to see Dad before anything done; EGD scheduled at 12:30 today for anemia and dysphagia; long h/o anemia that has worsened in past month ; pt was scheduled for EGD/Colon in near future, but recently hospitalized and intubated; VSS, 137/70 nad, intubated +BS, soft, obese anemia, pt will need EGD/colonoscopy at some point; planned for EGD this afternoon, but now going for IVC filter; also awaiting family members to come before any major interventions planned; will hold on EGD today as going for IVC; will arrange for EGD +/- likely in next few days,] GI will follow Dustin Garza MD
[2019-02-22 14:12] LABS: Creatine Kinase 18 U/L (10-223)
[2019-02-22 14:18] LABS: CKMB ng/mL 2.1 ng/mL (0.6-6.3)
[2019-02-22 14:19] LABS: Troponin I 0.06 ng/mL (<0.04)
--- NOTE | 2019-02-22 14:31 | ECHO ---
*[facility]* [place] [address] Fax #: [phone] Patient: Jalen Richey : 1940 Study Date: 02/22/2019 Age: 78 Gender: M HR: 110 bpm Height: 70 in /177.8 cm BSA: 2.33 m^2 Weight: 235 lb /106.8 kg BMI: 33.8 kg/m^2 *Head Bellhop Captain: * Madyson Burns RDCS RN *Referring Physician: * Zoya Hannah *Reading Physician: * Lukas Verde MD Indications: Congestive Heart Failure. History: Coronary artery disease. Interstitial lung disease. Risk factors: Former tobacco use. Hypertension. Diabetes mellitus. Obese. Dyslipidemia. Conclusions Summary: 1. Left ventricle: The cavity size is normal. Wall thickness is mildly increased. Systolic function is normal. The estimated ejection fraction is 60-65%. Wall motion is normal to hyperdynamic. There are no regional wall motion abnormalities. 2. Right ventricle: Systolic function is normal. 3. Mitral valve: There is mild regurgitation. 4. Aortic valve: The leaflets are mildly thickened. The findings are consistent with mild stenosis. The mean systolic gradient is 13.0 mm Hg. The valve area by the peak velocity method is 1.80 cm^2. 5. Tricuspid valve: There is mild-moderate regurgitation. 6. Pulmonary arteries: Systolic pressure is severely increased, estimated to be 60 mm Hg. 7. Compared to study of 04/17/09, the left ventricle function is the same. The mild and Pulm hypertension are new. Study data: Procedure: Transthoracic echocardiography was performed. The study was technically limited due to poor acoustic window availability, Patient on ventilator, and smoking history. Definity 3 ml IV was given. Image enhancement administered by Cinthya Mcknight RN. Complete 2D, spectral Doppler, and color flow Doppler. Location: Bedside. Patient status: Inpatient. Patient room number: ICU 2. Rhythm: Atrial fibrillation. Findings Left ventricle: The cavity size is normal. Wall thickness is mildly increased. Systolic function is normal. The estimated ejection fraction is 60-65%. Wall motion is normal to hyperdynamic. There are no regional wall motion abnormalities. There is no consistent Doppler evidence of clinically significant diastolic dysfunction. Right ventricle: The cavity size is normal. Systolic function is normal. Left atrium: The atrium is mildly dilated. Right atrium: The atrium is normal in size. Mitral valve: The annulus is calcified. The leaflets are mildly thickened. There is no evidence of stenosis. There is mild regurgitation. Aortic valve: Not well visualized. The leaflets are mildly thickened. The findings are consistent with mild stenosis. There is no regurgitation. Tricuspid valve: Not well visualized. There is no evidence of stenosis. There is mild-moderate regurgitation. Pulmonic valve: Not well visualized. There is no evidence of stenosis. There is no significant regurgitation. Aorta: Aortic root: The aortic root is not dilated. Ascending aorta: The ascending aorta is not visualized. Aortic arch: The aortic arch is not visualized. Pericardium: There is no pericardial effusion. Pulmonary arteries: Not well visualized. Systolic pressure is severely increased, estimated to be 60 mm Hg. Systemic veins: Inferior vena cava: The patient is on a ventilator so inferior vena cava cannot be evaluated. Measurements Left ventricle Value Ref Right atrium continued Value Ref JAIME, LAX 4.6 cm 4.2 - SI dim, ES, A4C 5.1 cm 3.4 - 5.3 5.8 Estimated RAP 8 mm Hg --------- ESD, LAX 3.3 cm 2.5 - 4.0 Aortic valve Value Ref FS, LAX 28 % 25 - 43 Fred diam, ED 2.0 cm --------- PW, ED, LAX (H) 1.2 cm 0.6 - Peak v, S 2.5 m/sec --------- 1.0 VTI, S 40.5 cm --------- PW, ED (H) 1.2 cm 0.6 - Mean grad, S 13.0 mm Hg --------- 1.0 Peak grad, S 25.0 mm Hg --------- IVS/PW, ED 1.02 -------- LVOT/AV, VTI ratio 0.63 --------- PW/ID, ED 0.27 -------- STACIE, VTI 2.00 cm^2 --------- E', lat fred, TDI 10.0 cm/sec >=10.0 STACIE, Vmax 1.80 cm^2 -- ------- E/e', lat fred, TDI 18 -------- E', med fred, TDI 9.1 cm/sec >=7.0 Mitral valve Value Re f E/e', med fred, TDI 20 -------- Peak E 1.79 m/sec ----- ---- E', avg, TDI 9.6 cm/sec -------- Decel time 151 ms ----- ---- E/e', avg, TDI (H) 19 <=14 PHT 98 ms -- ------- Peak grad, D 12.8 mm Hg --------- LVOT Value Ref MVA, PHT 2.4 cm^2 --------- Diam, S 2.00 cm -------- Area 3.1 cm^2 -------- Pulmonic valve Value Ref Peak katelynn, S 1.41 m/sec -------- Peak v, S 1.06 m/sec --------- VTI, S 25.7 cm -------- Peak grad, S 4.0 mm Hg --------- Peak grad, S 8 mm Hg -------- Mean grad, S 5 mm Hg -------- Tricuspid valve Value Ref SV 81 ml -------- TR peak v (H) 3.61 m/sec <=2.8 SV/bsa 35 ml/m^2 -------- Peak RV-RA grad, S 52 mm Hg --------- Max TR katelynn 3.64 m/sec --------- Ventricular septum Value Ref IVS, ED (H) 1.3 cm 0.6 - Aortic root Value Ref 1.0 Root diam 3.2 cm <4.4 Right ventricle Value Ref Pulmonary artery Value Ref JAIME minor ax, A4C (H) 4.2 cm 1.9 - Pressure, S 56.0 mm Hg --------- mid 3.5 Pressure, S 60 mm Hg -------- Inferior vena cava Value Ref Diam 2.0 cm --------- Left atrium Value Ref ML dim, A4C 4.2 cm -------- SI dim, A4C 6.1 cm -------- Vol/bsa, ES, 1-p 25 ml/m^2 12 - 37 A4C Right atrium Value Ref ML dim, ES, A4C 4.0 cm 2.6 - 4.4 Legend: (L) and (H) barby values outside specified reference range. Prepared and electronically signed by Lukas Verde MD 02/22/2019 14:31
--- NOTE | 2019-02-22 14:36 | PN ---
Progress Note - Progress Note Date of Service: 02/22/19 SOAP: Subjective: []Ventilator, responsive Interview with . Tolerated transfusion yesterday. Events: - Emergency intubation post bronchoscope 02/20/19 - Hgb from 7.1 to 6.0, Tx 2 U PRBC with Hgb to 9.2 Acetaminophen (Tylenol Tab*) 650 mg PO Q4H PRN PRN Reason: FEVER Last Admin: 02/19/19 03:38 Dose: 650 mg Albuterol (Ventolin 2.5 Mg/3 Ml Neb.Marlen*) 2.5 mg INH [id number] AWAKE PRN PRN Reason: SOB/WHEEZING Last Admin: 02/18/19 14:28 Dose: 2.5 mg Atorvastatin Calcium (Lipitor*) 40 mg PO 2100 [facility] Last Admin: 02/21/19 22:28 Dose: Not Given Azithromycin (Zithromax Susp*) 250 mg PO [id number] [facility] Last Admin: 02/22/19 09:19 Dose: 250 mg Betaxolol HCl (Betoptic 0.05%*) 1 drop BOTH EYES BID [facility] Last Admin: 02/22/19 09:29 Dose: 1 drop Chlorhexidine Gluconate (Peridex Mouth Wash 0.12%*) 15 ml SWISH SPIT Q4HR [facility] Last Admin: 02/22/19 11:33 Dose: 15 ml Dextrose (D50w Syringe 50 Ml*) 12.5 gm IV PUSH .FOR FS < 60 - SS PRN PRN Reason: FS < 60 Furosemide (Lasix Iv*) 40 mg IV DAILY [facility] Last Admin: 02/22/19 09:19 Dose: 40 mg Gabapentin (Neurontin Cap(*)) 100 mg PO TID [facility] Last Admin: 02/22/19 08:53 Dose: Not Given Fentanyl Citrate (Fentanyl Infusion Bag 50 Mcg/Ml 50 Ml) 2,500 mcg in 50 mls @ 0 mls/hr IV Q72H [facility]; Protocol Last Admin: 02/20/19 12:15 Dose: 10 mls/hr Norepinephrine Bitartrate 8 mg (/ Sodium Chloride) 500 mls @ 0 mls/hr IV Q12H [facility]; Protocol Last Admin: 02/22/19 03:01 Dose: Not Given Sodium Chloride (Ns 0.9% 1000 Ml) 1,000 mls @ 10 mls/hr IV PER RATE [facility] Propofol (Diprivan*) 100 mls @ 3.204 mls/hr IV .(Initial Rate) [facility]; Protocol Last Admin: 02/22/19 11:34 Dose: 6.4 mls/hr Amiodarone HCl (Nexterone 360 Mg/200 Ml Ivpremix*) 360 mg in 200 mls @ 33.333 mls/hr IV ONCE ONE Stop: 02/22/19 19:14 Last Admin: 02/22/19 13:54 Dose: 33.333 mls/hr Amiodarone HCl (Nexterone 360 Mg/200 Ml Ivpremix*) 360 mg in 200 mls @ 16.667 mls/hr IV .SEE PROTOCOL [facility] Stop: 02/23/19 13:15 Insulin Glargine (Lantus(*)) 18 units SUBCUT Q12H [facility] Last Admin: 02/22/19 09:21 Dose: 18 unit Insulin Human Regular (Insulin Regular(*)) 0 units SUBCUT FS Q4 ICU [facility]; Protocol Last Admin: 02/22/19 12:43 Dose: 6 unit Latanoprost (Xalatan 0.005%*) 1 drop BOTH EYES BEDTIME [facility]; Protocol Last Admin: 02/21/19 22:36 Dose: 1 drop Morphine Sulfate (Morphine 4 Mg/Ml Vial (1 Ml)) 4 mg IV Q3H PRN PRN Reason: PAIN - MODERATE TO SEVERE Last Admin: 02/20/19 08:26 Dose: 4 mg Pantoprazole Sodium (Protonix Iv*) 40 mg IV BID [facility] Last Admin: 02/22/19 09:29 Dose: 40 mg Pharmacy Consult (Vancomycin Per Pharmacy*) 1 note FOLLOW UP . PRN PRN Reason: PER PROTOCOL Pharmacy Consult (Vancomycin Random Level*) 1 note FOLLOW UP ONCE ONE Stop: 02/23/19 06:01 Prednisone (Deltasone Tab*) 100 mg PO DAILY [facility] Stop: 03/01/19 09:01 Objective: [] Vital Signs Temp Pulse Resp BP Pulse Ox 97.5 F 124 34 137/70 94 02/22/19 03:20 02/22/19 13:15 02/22/19 11:45 02/22/19 13:00 02/22/19 13:15 On Ventilator No pressers inulin drip HEENT: conjunctiva pale, no blood in ET tube, no LAD Lungs w/ ventilator sounds RRR tachy 2/6 ADORE +BS, distended and cannot feel liver or spleen. US 02/21 with BL DVTs BMBx 02/12/19: Hypercellular for age, reactive, no dysplasia, non specific increase in plasma cells. MDS FISH panel negative Blood film 02/22/19: Left shift, some metamyelocytes, normal RBC, occ helmet cell , plts large, no clumping. Glaucomatous disease of unclear significance. CT A/P 02/13/19 mild splenomegally FOBT negative 02/19/19 CBC 02/21 am Hgb 6.0, repeat 6.1, plts 54, WBC 2.1 w/ ANC 1500 CBC 02/21 21:00 Hgb 9.2, Plts 94, WBC 6.1 Cr 1.74, increased. Assessment: []78 year old with pulmonary fibrosis and on emt intermediate immunosuppression who presented with pancytopenia. Evaluation including bone marrow biopsy without evidence of marrow dysfunction. WBC and platelets have improved, though remains with mild thrombocytopenia, anemia progressive. I suspect low WBC second to prior immunosuppression and acute infection/consumption now improved. Thrombocytopenia appears consumptive as well, either immune, mild DIC but platelets have been stable. Anemia appear low production and second to inflammatory disease, CRI but I do not see significant hemolysis, acute blood loss is possible. Case discussed with freight team associate. Plan: []1. DVT and possible PE. - Agree with IVC filter - Start anti coagulation, Heparin drip 2. Anemia. - Check Epo level and will check Claire, Retic count tomorrow - EGD and bronchoscopy for bleeding. - Transfuse as needed per ICU team 3. Thrombocytopenia. Will see if improves with steroids, follow. - Full anti-coagulation unless Plts < 50K or active bleeding.
[2019-02-22] MEDS ORDERED: Heparin VIAL(*) 5000 UNITS/ML VIAL (FIVE THOUSAND) IV SCH (16:00)
[2019-02-22] MEDS ORDERED: Iodixanol* (CONTRAST) 320 MG/ML 100 ML SDV IV ONE (16:06)
--- NOTE | 2019-02-22 18:02 | OP ---
Operative Report - Blank - Operative Report Date of Operation: 02/22/19 - Bronchoscopy Note: Procedure: Bronchoscopy with BAL Consent obtained: Verbal, from Time out performed: Yes Indications: Question of pulmonary hemorrhage, pneumonia Anesthesia: on Propofol gtt, continued at current rate Findings: large thick mucus identified and suctioned from right lower lobe bronchus. Small quantity of blood noted to be staining right and left lower lobe bronchi. no pooling. Specimen: BAL Complications: None Description of procedure: The patient was positioned supine. He is already intubated and sedated secondary to his acute respiratory failure. The AMBU bronchoscope was advanced via the ETT and a bronchoscopy was performed with the following findings: Trachea: no secretions, no inflammation or other lesion identified Right main bronchus:no secretions, no inflammation or other lesion identified Right upper lobe bronchus:no secretions, no inflammation or other lesion identified Right middle lobe bronchus:no secretions, no inflammation or other lesion identified Right lower lobe bronchus: large mucus plug with blood component. thin bloody secretions staining bronchus Left main bronchus:no secretions, no inflammation or other lesion identified Left upper lobe bronchus:no secretions, no inflammation or other lesion identified Left lower lobe bronchus: thin bloody secretions staining bronchus After secrections were suctioned a BAL was performed with 20 ml of sterile saline from LLL. Returned fluid send for culture The patient tolerated the procedure well without immediate complications
[2019-02-22] MEDS: Norepinephrine VIAL* 8 MG in NS 0.9% 500 ML* 492 ML IV SCH (18:06)
[2019-02-22] MEDS: Furosemide IV* 10 MG/ML VIAL (40 MG) IV SCH (18:07)
[2019-02-22] MEDS: Metoprolol Tartrate IV* 1 MG/ML 5 ML VIAL IV SCH (18:08)
[2019-02-22] MEDS: CMCS:Methylnaltrexone SQ (NF) 12 MG/0.6 ML VIAL SUBCUT SCH (18:35)
[2019-02-22 18:40] LABS: ABS Lymphocytes 0.3 10^3/ul (1.0-4.8); ABS Monocytes 0.7 10^3/ul (0-0.8); ABS Neutrophils 13.8 10^3/ul (1.5-7.7); Eosinophil % 0.2 %; Hematocrit 28 % (42-52); Hemoglobin 8.7 g/dL (14.0-18.0); Lymphocyte % 2.1 %; Mean Corpuscular HGB Conc 32 g/dL (31-36); Mean Corpuscular Hemoglobin 28 pg (27-31); Mean Corpuscular Volume 87 fL (80-94); Mean Platelet Volume 10.7 fL (7.4-10.4); Nucleated Red Blood Cells % 0.1; Platelet Count 125 10^3/uL (150-450); Red Blood Count 3.17 10^6 /uL (4.18-5.48); Red Cell Distribution Width 19 % (10-15); White Blood Count 14.8 10^3/uL (3.5-10.8)
[2019-02-22 18:55] LABS: EGFR African American 37.1 (>60); EGFR Non-African American 30.7 (>60)
[2019-02-22] MEDS ORDERED: Amiodarone 360 MG IVPREMIX* 360 MG/200 ML BAG IV SCH (19:15)
[2019-02-22] MEDS: Heparin DRIP 25,000 UNITS(*) 25,000 UNITS/500 ML BAG IV SCH (19:48)
[2019-02-22 20:25] LABS: Troponin I 0.08 ng/mL (<0.04)
[2019-02-22] MEDS: Atorvastatin* 40 MG TAB PO SCH (21:42)
[2019-02-22] MEDS: Latanoprost 0.005%* 2.5 ml BTL BOTH EYES SCH (21:50)
[2019-02-22 23:45] LABS: Varicella Zoster Result Negative (Negative); Varicella Zoster Source BRONCH WASHINGS
[2019-02-23] MEDS: Insulin REGULAR(*) 1 UNITS UNIT SUBCUT SCH ×6 (00:51→20:21)
[2019-02-23] MEDS: Morphine 4 MG/ML VIAL (1 ml) 4 MG/ML VIAL IV PRN (00:52)
[2019-02-23] MEDS: Metoprolol Tartrate IV* 1 MG/ML 5 ML VIAL IV SCH ×4 (00:52→18:27)
[2019-02-23] MEDS: Propofol* 100 ML IV SCH ×3 (00:53→21:16)
[2019-02-23] MEDS: NS 0.9% 1000 ML** 1,000 ML IV SCH ×3 (01:20→19:02)
[2019-02-23] MEDS ORDERED: NS 0.9% IV ONE (01:20)
[2019-02-23] MEDS: Norepinephrine VIAL* 8 MG in NS 0.9% 500 ML* 492 ML IV SCH ×5 (02:35→21:15)
[2019-02-23] MEDS: Chlorhexidine MOUTHWASH 0.12%* 15 ML UDC SWISH SPIT SCH ×5 (04:22→20:21)
[2019-02-23 04:31] LABS: Corrected Retic Count 1.4 % (0.5-1.5); Hematocrit for Retic CNT 26 % (42-52); Immature Retic Fraction 0.32; RBC Retic Count 2.97 10^6/uL (4.18-5.48)
[2019-02-23 04:32] LABS: ABS Basophils 0.1 10^3/ul (0-0.2); ABS Lymphocytes 0.5 10^3/ul (1.0-4.8); ABS Monocytes 0.5 10^3/ul (0-0.8); ABS Neutrophils 12.6 10^3/ul (1.5-7.7); Eosinophil % 0.2 %; Hematocrit 26 % (42-52); Hemoglobin 8.3 g/dL (14.0-18.0); Lymphocyte % 3.6 %; Mean Corpuscular HGB Conc 32 g/dL (31-36); Mean Corpuscular Hemoglobin 28 pg (27-31); Mean Corpuscular Volume 87 fL (80-94); Mean Platelet Volume 10.8 fL (7.4-10.4); Nucleated Red Blood Cells % 0.1; Platelet Count 146 10^3/uL (150-450); Red Blood Count 2.97 10^6 /uL (4.18-5.48); Red Cell Distribution Width 19 % (10-15); White Blood Count 13.7 10^3/uL (3.5-10.8)
[2019-02-23 04:48] LABS: Albumin 2.1 g/dL (3.2-5.2); Albumin/Globulin Ratio 0.8 (1-3); BUN/Creatinine Ratio 31.9 (8-20); Calcium 7.2 mg/dL (8.6-10.3); EGFR African American 34.3 (>60); EGFR Non-African American 28.4 (>60); Globulin 2.5 g/dL (2-4); Potassium 4.7 mmol/L (3.5-5.0); Total Bilirubin 0.7 mg/dL (0.2-1.0); Total Protein 4.6 g/dL (6.4-8.9)
[2019-02-23 05:46] LABS: Vancomycin Random 21.1 mcg/mL
[2019-02-23] MEDS ORDERED: Vancomycin Random Level* NOTE FOLLOW UP ONE (06:00)
[2019-02-23 07:50] LABS: Troponin I 0.07 ng/mL (<0.04)
[2019-02-23] MEDS: Betaxolol 0.5 %* OPHTH.SOLN 5 ML BOTH EYES SCH ×2 (08:12→21:49)
[2019-02-23] MEDS: Gabapentin CAP(*) 100 MG PO SCH ×3 (08:19→21:39)
[2019-02-23] MEDS: predniSONE TAB* 50 MG PO SCH (08:20)
[2019-02-23] MEDS: Pantoprazole IV* 40 MG IV SCH ×2 (08:22→21:39)
[2019-02-23] MEDS: Furosemide IV* 10 MG/ML VIAL (40 MG) IV SCH ×2 (08:22→18:31)
[2019-02-23] MEDS: CMCS:Methylnaltrexone SQ (NF) 12 MG/0.6 ML VIAL SUBCUT SCH (08:51)
[2019-02-23] MEDS ORDERED: predniSONE TAB* 50 MG PO SCH (09:00)
[2019-02-23] MEDS: Insulin GLARGINE(*) 1 UNITS UNIT SUBCUT SCH ×2 (09:01→21:39)
[2019-02-23] MEDS ORDERED: Calcium Gluconate INJ* 1 GM in NS 0.9% 50 ML* 50 ML IVPB ONE (09:01)
--- NOTE | 2019-02-23 09:06 | PN ---
Date of Service: 02/23/19 - HD 13 Critical Care Services: 78 yo M with PMH including pancytopenia, immune suppression from drug therapy, DM presented to the ED on 02/11 with fevers, lethargy and disorientation x 3 days. He had recently developed shingles and was treated outpatient with Valtrex. Also reports headaches in AM, abdominal pain, dysuria, and shingles pain in left leg. On evaluation he was noted to have shingles lesions across lower back, left buttock and leg. Otherwise exam unremarkable. Labs notable for WBC 1.9, Hgb 8.4 and Plt 72. Creatinine mildly eelvateda t 1.66. CXR shows patchy areas of atelectasis in the right lung, no focal consolidation. Started on IVF, Vancomycin and ZOsyn for presumed infectious etiology. Admitted to hospitalist service. 02/12: Bone marrow bx completed by hematology group. ANC 1000. IV acyclovir added to cover for possible viremia 02/13: continues to be very weak. unable to transfer. Switched fro Solumedrol to home Prednisone dose. UA positive; continued on Zosyn. 02/14: ANC improved. ct abd pelvis showed Staghorn calculus no obstruction. Follows with urology as outpatient. 02/15: febrile, tachycardic and confused. Bolused IVF and recultured. HR, temp (103) and confusion improved after. CXR subsequently developed pulmonary edema. Started on Guaifenesin for mucus plugging. Pulm consulted. ID consulted 02/17: Continuing to spike fevers (102.3). Desaturated to high 80s requiring 5L NC. Dry cough with no sputum. CT chest shows ground glass opacification. d/w ID - recommended adding Azithromycin, Fluconazole, and check fungal cultures on the Bone marrow 02/18: Bronch planned for 02/19 02/19: He underwent and bronchoscopy on 02/19 with findings of copious secretions. Afib with HR 120s. Transferred to ICU after bronchoscopy for tenuous respiratory status (desats to low 80s under 8L oxymask). Febrile to 101.7 overnight. Now with thick pink tinged sputum. Started on Meropenem 02/20: On vapotherm. On azithromycin, meropenem (started 02/19/19), fluconazole. Stress dose IV hydrocortisone started 02/20/19. Developed worsened respiratory function and emergently intubated for respiratory distress. Patient become hypotensive post-procedure likely due to propofol responsive to IVF bolus. Started on TF 02/21: Patient remains intubated and mechanically ventilated. He is receiving blood for drop in Hgb overnight. No active bleed identified. Bronch/BAL cultures normal julia. Pleural fluid Staphy and strep. Completed 8 days of Zosyn, 3 days of Meropenem. Stopping Meropenem and Fluconazole. Attempted Precedex however developed hemodynamic instability and switched back to Propofol. Failed SBT due to tachypnea. Seen by GI for anemia. Tentative plans for EGD 02/22. 02/22: Seen by ID, recommending continuing Vancomycin x 7 days. Seen by GI, EGD pushed back to Friday with plans to include colonoscopy. Seen by hematology ; bone marrow bx negative for marrow dysfunction. Recommending starting heparin gtt. IVC filter placed. CTA chest negative for PE, unable to rule out pulmonary hemorrhage. Bronch with scant blood staining of bilateral lower lobes and large plug in right lower lobe. 02/23: No overnight events. Vital Signs: Temp Pulse Resp BP SpO2 FiO2 98.1 F 66 25 109/64 90 65 02/23/19 04:00 02/23/19 07:15 02/23/19 06:00 02/23/19 07:15 02/23/19 07:15 02/23 07:38 Physical Exam: Gen: intubated, sedated HEENT: ETT in place Lungs: CTAB. good air movement bilaterally Cardiac: irregularly irregular, not tachycardic Abdomen: soft, nondistended Extremities: warm, dry, edematous Neuro: sedated Fluid Balance (Past 24 Hours): I= O= Net Intake & Output 02/21/19 02/22/19 02/23/19 02/24/19 06:59 06:59 06:59 06:59 Intake Total 4151 2423 2182 Output Total 1650 1127 1192 40 Balance 2501 1296 990 -40 Weight 235 lb 7.259 oz 242 lb 8.136 oz 240 lb 11.916 oz Intake: IV Fluids 2487 1613 1026 ANTIFUNGAL - FLUCONAZOLE 213 Methylprednisone 287 100 NS (0.9%) 2232 833 926 azithromycin 273 meropenem 255 7 IVPB 585 214 ANTIFUNGAL - FLUCONAZOLE 200 Methylprednisone 24 NS (0.9%) 86 azithromycin 250 meropenem 25 214 Medicated IV 475 920 9148 CC - Amiodarone 98 400 CC - Propofol/Diprivan 81 198 Heparin 289 Levophed 269 VANCO 260 289 Oral 0 Tube Feeding 480 Tube Feeding Flush Amount 160 Packed Cells 307 Output: [place]cl[place] 1650 1127 1192 40 Labs: Laboratory Results - last 24 hr 02/17/19 02/19/19 02/21/19 15:41 15:30 14:36 WBC RBC RBC (Retic) Hgb Hct HCT (Retic) MCV MCH MCHC RDW Plt Count MPV Neut % (Auto) Lymph % (Auto) [place] % (Auto) Eos % (Auto) Baso % (Auto) Absolute Neuts (auto) Absolute Lymphs (auto) Absolute Monos (auto) Absolute Eos (auto) Absolute Basos (auto) Absolute Nucleated RBC Nucleated RBC % Retic Count, Calc Corrected Retic Count Retic Shift Factor Retic Production Index Immature Retic Fraction Mean Retic Volume APTT Sodium Potassium Chloride Carbon Dioxide Anion Gap BUN Creatinine Est GFR ( Amer) Est GFR (Non-Af Amer) BUN/Creatinine Ratio Glucose POC Glucose (mg/dL) Calcium Total Bilirubin AST ALT Alkaline Phosphatase Total Creatine Kinase CK-MB (CK-2) Troponin I Total Protein Albumin Globulin Albumin/Globulin Ratio Vancomycin Trough Random Vancomycin Urine Histoplasma Ag TNP U Histoplasma Ag Index TNP VZV DNA (PCR) Negative Direct Antiglob Test Reaction Interpretation 02/22/19 02/22/19 02/22/19 00:16 08:37 10:38 WBC RBC RBC (Retic) Hgb Hct HCT (Retic) MCV MCH MCHC RDW Plt Count MPV Neut % (Auto) Lymph % (Auto) [place] % (Auto) Eos % (Auto) Baso % (Auto) Absolute Neuts (auto) Absolute Lymphs (auto) Absolute Monos (auto) Absolute Eos (auto) Absolute Basos (auto) Absolute Nucleated RBC Nucleated RBC % Retic Count, Calc Corrected Retic Count Retic Shift Factor Retic Production Index Immature Retic Fraction Mean Retic Volume APTT Sodium Potassium Chloride Carbon Dioxide Anion Gap BUN Creatinine Est GFR ( Amer) Est GFR (Non-Af Amer) BUN/Creatinine Ratio Glucose POC Glucose (mg/dL) 159 H 153 H Calcium Total Bilirubin AST ALT Alkaline Phosphatase Total Creatine Kinase CK-MB (CK-2) Troponin I Total Protein Albumin Globulin Albumin/Globulin Ratio Vancomycin Trough 23.5 Random Vancomycin Urine Histoplasma Ag U Histoplasma Ag Index VZV DNA (PCR) Direct Antiglob Test Reaction Interpretation 02/22/19 02/22/19 02/22/19 12:34 13:45 18:30 WBC RBC RBC (Retic) Hgb Hct HCT (Retic) MCV MCH MCHC RDW Plt Count MPV Neut % (Auto) Lymph % (Auto) [place] % (Auto) Eos % (Auto) Baso % (Auto) Absolute Neuts (auto) Absolute Lymphs (auto) Absolute Monos (auto) Absolute Eos (auto) Absolute Basos (auto) Absolute Nucleated RBC Nucleated RBC % Retic Count, Calc Corrected Retic Count Retic Shift Factor Retic Production Index Immature Retic Fraction Mean Retic Volume APTT Sodium Potassium Chloride Carbon Dioxide Anion Gap BUN Creatinine Est GFR ( Amer) Est GFR (Non-Af Amer) BUN/Creatinine Ratio Glucose POC Glucose (mg/dL) 249 H 123 H Calcium Total Bilirubin AST ALT Alkaline Phosphatase Total Creatine Kinase 18 CK-MB (CK-2) 2.1 Troponin I 0.06 H* Total Protein Albumin Globulin Albumin/Globulin Ratio Vancomycin Trough Random Vancomycin Urine Histoplasma Ag U Histoplasma Ag Index VZV DNA (PCR) Direct Antiglob Test Reaction Interpretation 02/22/19 02/22/19 02/22/19 18:32 18:32 18:32 WBC 14.8 H RBC 3.17 L RBC (Retic) Hgb 8.7 L Hct 28 L HCT (Retic) MCV 87 MCH 28 MCHC 32 RDW 19 H Plt Count 125 L MPV 10.7 H Neut % (Auto) 92.8 Lymph % (Auto) 2.1 [place] % (Auto) 4.8 Eos % (Auto) 0.2 Baso % (Auto) 0.1 Absolute Neuts (auto) 13.8 H Absolute Lymphs (auto) 0.3 L Absolute Monos (auto) 0.7 Absolute Eos (auto) 0.0 Absolute Basos (auto) 0.0 Absolute Nucleated RBC 0.0 Nucleated RBC % 0.1 Retic Count, Calc Corrected Retic Count Retic Shift Factor Retic Production Index Immature Retic Fraction Mean Retic Volume APTT 43.4 H Sodium Potassium Chloride Carbon Dioxide Anion Gap BUN 63 H Creatinine 2.11 H Est GFR ( Amer) 37.1 Est GFR (Non-Af Amer) 30.7 BUN/Creatinine Ratio Glucose POC Glucose (mg/dL) Calcium Total Bilirubin AST ALT Alkaline Phosphatase Total Creatine Kinase CK-MB (CK-2) Troponin I Total Protein Albumin Globulin Albumin/Globulin Ratio Vancomycin Trough Random Vancomycin Urine Histoplasma Ag U Histoplasma Ag Index VZV DNA (PCR) Direct Antiglob Test Reaction Interpretation 02/22/19 02/22/19 02/23/19 19:45 19:46 00:40 WBC RBC RBC (Retic) Hgb Hct HCT (Retic) MCV MCH MCHC RDW Plt Count MPV Neut % (Auto) Lymph % (Auto) [place] % (Auto) Eos % (Auto) Baso % (Auto) Absolute Neuts (auto) Absolute Lymphs (auto) Absolute Monos (auto) Absolute Eos (auto) Absolute Basos (auto) Absolute Nucleated RBC Nucleated RBC % Retic Count, Calc Corrected Retic Count Retic Shift Factor Retic Production Index Immature Retic Fraction Mean Retic Volume APTT Sodium Potassium Chloride Carbon Dioxide Anion Gap BUN Creatinine Est GFR ( Amer) Est GFR (Non-Af Amer) BUN/Creatinine Ratio Glucose POC Glucose (mg/dL) 363 H 333 H Calcium Total Bilirubin AST ALT Alkaline Phosphatase Total Creatine Kinase CK-MB (CK-2) Troponin I 0.08 H* Total Protein Albumin Globulin Albumin/Globulin Ratio Vancomycin Trough Random Vancomycin Urine Histoplasma Ag U Histoplasma Ag Index VZV DNA (PCR) Direct Antiglob Test Reaction Interpretation 02/23/19 02/23/19 02/23/19 02:45 04:12 04:12 WBC 13.7 H RBC 2.97 L RBC (Retic) Hgb 8.3 L Hct 26 L HCT (Retic) MCV 87 MCH 28 MCHC 32 RDW 19 H Plt Count 146 L MPV 10.8 H Neut % (Auto) 91.5 Lymph % (Auto) 3.6 [place] % (Auto) 3.7 Eos % (Auto) 0.2 Baso % (Auto) 1.0 Absolute Neuts (auto) 12.6 H Absolute Lymphs (auto) 0.5 L Absolute Monos (auto) 0.5 Absolute Eos (auto) 0.0 Absolute Basos (auto) 0.1 Absolute Nucleated RBC 0.0 Nucleated RBC % 0.1 Retic Count, Calc Corrected Retic Count Retic Shift Factor Retic Production Index Immature Retic Fraction Mean Retic Volume APTT >240.0 H* Sodium 142 Potassium 4.7 Chloride 113 H Carbon Dioxide 20 L Anion Gap 9 BUN 72 H Creatinine 2.26 H Est GFR ( Amer) 34.3 Est GFR (Non-Af Amer) 28.4 BUN/Creatinine Ratio 31.9 H Glucose 320 H POC Glucose (mg/dL) Calcium 7.2 L Total Bilirubin 0.70 AST 43 H ALT 40 Alkaline Phosphatase 101 Total Creatine Kinase CK-MB (CK-2) Troponin I 0.07 H* Total Protein 4.6 L Albumin 2.1 L Globulin 2.5 Albumin/Globulin Ratio 0.8 L Vancomycin Trough Random Vancomycin 21.1 Urine Histoplasma Ag U Histoplasma Ag Index VZV DNA (PCR) Direct Antiglob Test Reaction Interpretation 02/23/19 02/23/19 04:12 04:12 WBC RBC RBC (Retic) 2.97 L Hgb Hct HCT (Retic) 26 L MCV MCH MCHC RDW Plt Count MPV Neut % (Auto) Lymph % (Auto) [place] % (Auto) Eos % (Auto) Baso % (Auto) Absolute Neuts (auto) Absolute Lymphs (auto) Absolute Monos (auto) Absolute Eos (auto) Absolute Basos (auto) Absolute Nucleated RBC Nucleated RBC % Retic Count, Calc 2.4 H Corrected Retic Count 1.4 Retic Shift Factor 2.0 Retic Production Index 0.70 Immature Retic Fraction 0.32 Mean Retic Volume 110.1 APTT Sodium Potassium Chloride Carbon Dioxide Anion Gap BUN Creatinine Est GFR ( Amer) Est GFR (Non-Af Amer) BUN/Creatinine Ratio Glucose POC Glucose (mg/dL) Calcium Total Bilirubin AST ALT Alkaline Phosphatase Total Creatine Kinase CK-MB (CK-2) Troponin I Total Protein Albumin Globulin Albumin/Globulin Ratio Vancomycin Trough Random Vancomycin Urine Histoplasma Ag U Histoplasma Ag Index VZV DNA (PCR) Direct Antiglob Test Negative Reaction Interpretation Studies: 02/22 CXR - Progression of diffuse interstitial and airspace disease 02/21 CXR - Diffuse interstitial opacification with superimposed consolidation of right upper lung and left mid lung 02/21 Duplex BLE - DVT in RIGHT posterior tibial and peroneal veins and LEFT posterior tibial vein 02/21 CXR - persistent patchy densities overlying the bilateral lungs most consistent with pulmonary edema. 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 He remained febrile and weak throughout the weak despite broadspectrum abx. Cultures demonstrate Enterococcus UTI. CT abdomen with staghorn calculi. Developed respiratory failure requiring intubation on 02/20 secondary to progressive bilateral pulmonary infiltrates. Plan: Plan: Cardiovascular: (1) Atrial fibrillation with RVR;(2) Septic shock; (3) CAD with hx of LAD stenting 2008; (4) HTN; (5) HLD; (6) NSTEMI, type 2 02/12/2019 -- HR 51-126 -- SBP 71-144 -- Telemetry -- Cardiac markers CK 18 MB 2.1 Trop 0.07 from 0.08 from 0.06 -- BNP ordered -- TTE ordered -- Vasopressors Levophed @ 18 mcg/min, titrate to MAP > 65 -- Metoprolol with hold parameters -- Atorvastatin -- Lasix Home meds: Atorvastatin, Nitro, Coumadin, Losartan, HCTZ, Metoprolol Pulmonary: (1) Acute on chronic hypoxic respiratory failure; (2) Bilateral pneumonia; (3) Pulmonary edema; (4) Chronic idiopathic inflammatory lung disease ; (5) hx of sleep apnea -- RR 8-37 -- sats 90-100 -- vent: CMV TV 500, PEEP 5, FiO2 100 -- CXR: pending -- PRN Albuterol -- Home Azothioprine & Prednisone -- daily SBT Home meds: Azothioprine, prednisone Gastrointestinal: (1) Ileus;(2) minimal elevation in AST; (3) Chronic GERD; (4 ) hx of hiatal hernia -- LFTs Tbili 0.7 ALK 101 AST 43 from 64, follow trend ALT 40 -- diet: NPO -- bowel regimen: Relistor to minimize narcotic contribution to ileus -- ulcer prophylaxis: Protonix Home meds: Protonix Endocrine: (1) Type 2 diabetes mellitus -- monitor BGs -- Lantus and SSI -- Prednisone Home meds: prednisone, insulin NPH, insulin regular, Metformin Renal: (1) JUAN; (2) BPH; (3) hx of kidney stones; (4) right renal exophytic cysts; (5) Hypocalcemia -- UOP: 450 ml/hr -- 14.5L positive from admission -- Cr 2.26 from 2.11 (1.66 on admission) [baseline Creatinine 1.0] -- Lytes Na 142 from 143 K 4.7 Ca 7.2, replace -- IVF: 100 ml/hr -- Lasix, change to BID - Exophytic renal cysts need outpatient follow imaging and workup Home meds: None Infectious disease: (1) Sepsis with neutropenic fever; (2) Enterococcus UTI: (3 ) 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; (4) Resolving shingles infection; (5) Staghorn calculi -- Tmax 99.4 -- WBC 13.7 from 8.5, likely reactive given procedures yesterday -- Micro 02/22 BAL in progress 02/19 blood NGTD [employer]B negative Pleural Staph Epidermidis and Strep Parasanguinis MRSA screen negative 02/18 BAL normal julia blood NGTD 02/14 blood negative 02/11 urine Enterococcus faecalis blood negative -- ABX Vancomycin Azithromycin -- Received Neupogen 02/21 -- ID following Home meds: Azothioprine, Dapsone, Doxycycline, Valtrex Neurologic: (1) Acute delirium; (2) Chronic low back pain; (3) Spinal stenosis ; (4) Diabetic neuropathy; (5) chronic anxiety and depression -- PRN Tylenol -- Propofol gtt for sedation -- Fentanyl gtt for pain control; wean as able given ileus -- PRN Morphine for pain control -- Gabapentin Home meds: Trazodone, Gabapentin, T#3 Hematological: (1) Acute bilateral DVTs in posterior tibial veins; () Pancytopenia; () hx of prior DVT -- Hgb 8.3 from 8.7 -- Plt 146 from 125 from 92, goal > 50 -- Coags PTT >240, heparin on hold -- DVT prophylaxis: therapeutic heparin -- bone marrow bx done -- hematology following Home meds: Coumadin Metabolic: No acute issues Home meds: None Other: (1) Cataracts -- Betaxolol eye gtt -- Latanoprost eye gtt Home meds: Betaxolol eye gtt, Latanoprost eye gtt Deep vein thrombosis prophylaxis:therapeutic heparin Dietary: Protonix Condition: Critical Prognosis:Guarded Code status: Full Disposition: continue ICU care Family ( and sons) updated at bedside regarding interval events and plan of care Cumulative time spent in the care of this patient (excluding any procedure time) : at least 40 minutes. Patient care included clinical interview (with patient and/or family), bedside exam of the patient, review of labs, x-rays, and other ancillary data, coordination of (respiratory, nursing care, review of patient's records, discussion regarding patients management with involved consultants, primary physician, pharmacists, and other healthcare personnel (dietary, case management , physical/occupational therapy etc.) Critical Care Time: 40 min
--- NOTE | 2019-02-23 09:40 | PN ---
Progress Note - Progress Note Date of Service: 02/23/19 - update Note: TTE completed 02/22 whos LVEF 60-65% with hyperdynamic wall motion. This suggests he is intravascularly depleted despite peripheral edema. Of note, severe pulmonary hypertension also visualized. Albumin ordered
[2019-02-23] MEDS: Albumin Human 25%* 12.5 GM/50 ML BTL IV SCH ×3 (11:11→21:34)
[2019-02-23] MEDS: fentaNYL INFUSION 50 MCG/ML* 2,500 MCG/50 ML BAG IV SCH (12:39)
[2019-02-23 13:21] LABS: Urine Appearance Cloudy; Urine Bacteria Absent (Absent); Urine Bilirubin Negative (Negative); Urine Blood 1+ (Negative); Urine Color Yellow; Urine Glucose Negative (Negative); Urine Ketones Negative (Negative); Urine Nitrite Negative (Negative); Urine Protein Negative (Negative); Urine Red Blood Cell Absent (Absent); Urine Specific Gravity 1.025 (1.010-1.030); Urine Urobilinogen Negative (Negative); Urine White Blood Cell Absent (Absent)
[2019-02-23 14:35] LABS: Hepatitis Be Antigen Negative (Negative)
[2019-02-23 15:09] LABS: Hepatitis Be Antibody Negative (Negative)
[2019-02-23] MEDS ORDERED: Norepinephrine VIAL* 8 MG in NS 0.9% 500 ML* 492 ML IV SCH (15:30)
[2019-02-23] MEDS ORDERED: fentaNYL INFUSION 50 MCG/ML* 2,500 MCG/50 ML BAG IV SCH (15:30)
--- NOTE | 2019-02-23 18:01 | CONSULT ---
Subjective Date of Service: 02/23/19 Interval History: Mr. Richey is a 78 yo male with PMH significant for CAD, idiopathic lung disease, immunosuppressed secondary to medications, chronic low back pain, and DM2; who presented to the emergency room with complaints of weakness, fever, and hypotension. He was recently treated for shingles as an outpatient with Valtrex. He was found to have sepsis, pancytopenia, and acute kidney injury. He underwent a bronchoscopy and afterwards developed acute respiratory failure, requiring vapotherm. His respiratory status continued to deteriorate, and he was intubated and mechanically ventilated. Patient seen and examined at bedside. Family History: Unchanged from Admission Social History: Unchanged from Admission Past Medical History: Unchanged from Admission Review of Systems - Measurements Intake and Output: Intake and Output Last 24 Hours 02/21/19 02/22/19 02/23/19 02/24/19 06:59 06:59 06:59 06:59 Intake Total 4151 2423 2182 1550.8 Output Total 1650 1127 1192 503 Balance 2501 7047 188 4806.8 Weight 235 lb 7.259 oz 242 lb 8.136 oz 240 lb 11.916 oz Intake: IV Fluids 2487 1613 1026 901.3 ANTIFUNGAL - FLUCONAZOLE 213 Calcium Gluconate 74 Methylprednisone 287 100 NS (0.9%) 2232 833 926 827.3 azithromycin 273 meropenem 255 7 IVPB 585 214 ANTIFUNGAL - FLUCONAZOLE 200 Methylprednisone 24 NS (0.9%) 86 azithromycin 250 meropenem 25 214 Medicated IV 345 553 3039 649.5 CC - Amiodarone 98 400 CC - Propofol/Diprivan 81 198 42.5 Heparin 289 137 Levophed 269 470 VANCO 260 289 Oral 0 Tube Feeding 480 Tube Feeding Flush Amount 160 Packed Cells 307 Output: [place] 1650 1127 1192 503 - Review of Systems General Comments: Unable to perform review of systems as the patient is mechanically intubated and sedated at this time. Objective Active Medications: Acetaminophen (Tylenol Tab*) 650 mg PO Q4H PRN Reason: FEVER Albuterol (Ventolin 2.5 Mg/3 Ml Neb.Marlen*) 2.5 mg INH [id number] AWAKE PRN Reason: SOB/WHEEZING Atorvastatin Calcium (Lipitor*) 40 mg PO 2100 [facility] Azithromycin (Zithromax Susp*) 250 mg PO MoWeFr@0900 [facility] Betaxolol HCl (Betoptic 0.05%*) 1 drop BOTH EYES BID [facility] Chlorhexidine Gluconate (Peridex Mouth Wash 0.12%*) 15 ml SWISH SPIT Q4H [facility] Dextrose (D50w Syringe 50 Ml*) 12.5 gm IV PUSH .FOR FS < 60 - SS PRN Reason: FS < 60 Furosemide (Lasix Iv*) 40 mg IV 0800,1700 [facility] Gabapentin (Neurontin Cap(*)) 100 mg PO TID [facility] Heparin Sodium (Porcine) (Heparin Vial(*)) 0 units IV .PER PROTOCOL [facility] Heparin Sodium/Dextrose (Heparin Drip 25,000 Units(*)) 25,000 units in 500 mls @ 0 mls/hr IV PER RATE [facility]; Protocol Sodium Chloride (Ns 0.9% 1000 Ml) 1,000 mls @ 100 mls/hr IV PER RATE [facility] Albumin Human (Albumin Human 25%*) 12.5 gm in 50 mls @ 25 mls/hr IV Q6H [facility] Stop: 02/24/19 05:59 Fentanyl Citrate (Fentanyl Infusion Bag 50 Mcg/Ml 50 Ml) 2,500 mcg in 50 mls @ 0 mls/hr IV Q72H [facility]; Protocol Propofol (Diprivan*) 100 mls @ 3.204 mls/hr IV .(Initial Rate) [facility]; Protocol Norepinephrine Bitartrate 8 mg (/ Sodium Chloride) 500 mls @ 0 mls/hr IV Q12H [facility]; Protocol Insulin Glargine (Lantus(*)) 18 units SUBCUT Q12H [facility] Insulin Human Regular (Insulin Regular(*)) 0 units SUBCUT FS Q4 ICU [facility]; Protocol Latanoprost (Xalatan 0.005%*) 1 drop BOTH EYES BEDTIME [facility]; Protocol Methylnaltrexone Saline (Relistor Sq (Nf)) 3 mg SUBCUT DAILY [facility] Metoprolol Tartrate (Lopressor Iv*) 5 mg IV Q8H [facility] Morphine Sulfate (Morphine 4 Mg/Ml Vial (1 Ml)) 4 mg IV Q3H PRN Reason: PAIN - MODERATE TO SEVERE Pantoprazole Sodium (Protonix Iv*) 40 mg IV BID [facility] Pharmacy Consult (Vancomycin Per Pharmacy*) 1 note FOLLOW UP . PRN Pharmacy Consult (Vancomycin Random Level*) 1 note FOLLOW UP 0500 ONE Stop: 02/24/19 05:01 Prednisone (Deltasone Tab*) 100 mg PO DAILY [facility] Stop: 03/01/19 09:01 Vital Signs 02/23/19 02/23/19 16:00 16:01 Temperature Pulse Rate 83 77 Respiratory 26 Rate Blood Pressure 115/66 (mmHg) O2 Sat by Pulse 93 100 Oximetry Oxygen Devices in Use Now: Endotracheal Tube, Mechanical Ventilator Appearance: NAD, laying in bed Ears/Nose/Mouth/Throat: Mucous Membranes Moist Respiratory: Symmetrical Chest Expansion and Respiratory Effort Skin: - - See skin note below Neurological: - - Sedated Result Diagrams: 02/26/19 04:18 02/26/19 04:18 Additional Lab and Data: Above labs were pulled into the note when the note was edited prior to signing , see labs from day of consult below Laboratory Tests 02/18/19 02/23/19 02/23/19 06:25 04:12 04:12 WBC 13.7 H Hgb 8.3 L Hct 26 L Plt Count 146 L Sodium 142 Potassium 4.7 Chloride 113 H Carbon Dioxide 20 L BUN 72 H Creatinine 2.26 H Glucose 320 H C-Reactive Protein 210.42 H Total Protein 4.6 L Albumin 2.1 L Skin Deviation Note - Skin Deviation Findings Right heel - There is a small area of purplish discoloration on the posterior aspect of the right heel, the area measures 0.7 cm x 1 cm. The area is nonblanchable and the skin is intact. Assessment/Plan: Mr. Richey is a 78 yo male with PMH significant for CAD, idiopathic lung disease, immunosuppressed secondary to medications, chronic low back pain, and DM2; who presented to the emergency room with complaints of weakness, fever, and hypotension. He was recently treated for shingles as an outpatient with Valtrex. He was found to have sepsis, pancytopenia, and acute kidney injury. He underwent a bronchoscopy and afterwards developed acute respiratory failure, requiring vapotherm. His respiratory status continued to deteriorate, and he was intubated and mechanically ventilated. He was noted to have a deep tissue injury to the right heel during his hospitalization. 1. Deep tissue injury to the right heel. Suspect this is a medical records supervisor related deep tissue injury, as it is the shape of the urinary catheter tubing. Recommend keeping the heels off the bed. Ensure that medical devices are not underneath limbs. Use Z slider or slide sheet to move patient to prevent shearing injury. Frequent Turning and repositioning. 2. DM2. Last HgA1C was 5.3 in 07/2016. Consider rechecking a HgA1C. Maintain good glycemic control to allow wound healing. 3. Diet. NPO 4. Code Status. Full Code Status. 5. Disposition. Inpatient, disposition per primary medicine team. TIME SPENT: Time for this wound consultation was 20 minutes and 10 minutes was spent at the bedside assessing the skin; assessing, measuring, and photographing the skin concern. Wound Problem/Plan Is Patient a Wound Clinic Patient: No Attending: Genesis Branham
[2019-02-23] MEDS: Atorvastatin* 40 MG TAB PO SCH (21:39)
[2019-02-23] MEDS: Latanoprost 0.005%* 2.5 ml BTL BOTH EYES SCH (21:43)
[2019-02-24] MEDS: Insulin REGULAR(*) 1 UNITS UNIT SUBCUT SCH ×6 (00:02→21:07)
[2019-02-24] MEDS: Chlorhexidine MOUTHWASH 0.12%* 15 ML UDC SWISH SPIT SCH ×6 (00:02→21:06)
[2019-02-24] MEDS: Propofol* 100 ML IV SCH ×5 (00:02→21:06)
[2019-02-24] MEDS: Metoprolol Tartrate IV* 1 MG/ML 5 ML VIAL IV SCH ×3 (01:21→16:31)
[2019-02-24] MEDS: Heparin DRIP 25,000 UNITS(*) 25,000 UNITS/500 ML BAG IV SCH (02:33)
[2019-02-24] MEDS: Albumin Human 25%* 12.5 GM/50 ML BTL IV SCH (03:57)
[2019-02-24] MEDS ORDERED: Vancomycin Random Level* NOTE FOLLOW UP ONE (05:00)
[2019-02-24] MEDS: NS 0.9% 1000 ML** 1,000 ML IV SCH ×2 (05:03→12:47)
[2019-02-24 05:17] LABS: Hematocrit 24 % (42-52); Hemoglobin 8.1 g/dL (14.0-18.0); Mean Corpuscular HGB Conc 33 g/dL (31-36); Mean Corpuscular Hemoglobin 29 pg (27-31); Mean Corpuscular Volume 86 fL (80-94); Mean Platelet Volume 10.3 fL (7.4-10.4); Platelet Count 109 10^3/uL (150-450); Red Blood Count 2.82 10^6 /uL (4.18-5.48); Red Cell Distribution Width 19 % (10-15); White Blood Count 10.1 10^3/uL (3.5-10.8)
[2019-02-24] MEDS: Norepinephrine VIAL* 8 MG in NS 0.9% 500 ML* 492 ML IV SCH ×3 (05:40→16:59)
[2019-02-24 05:53] LABS: Albumin 2.5 g/dL (3.2-5.2); Albumin/Globulin Ratio 1.1 (1-3); BUN/Creatinine Ratio 33.1 (8-20); Calcium 7.3 mg/dL (8.6-10.3); EGFR African American 32.6 (>60); Globulin 2.3 g/dL (2-4); Magnesium 2.3 mg/dL (1.9-2.7); Phosphorus 7.4 mg/dL (2.5-5.0); Total Protein 4.8 g/dL (6.4-8.9); Vancomycin Random 15.3 mcg/mL
[2019-02-24 06:19] LABS: ABS Basophils 0.1 10^3/ul (0-0.2); ABS Lymphocytes 0.4 10^3/ul (1.0-4.8); ABS Monocytes 0.4 10^3/ul (0-0.8); ABS Neutrophils 9.2 10^3/ul (1.5-7.7); Eosinophil % 0.1 %; Lymphocyte % 4.3 %; Nucleated Red Blood Cells % 0.2
--- NOTE | 2019-02-24 08:51 | PN ---
Progress Note - Progress Note Date of Service: 02/24/19 SOAP: Subjective: CC: Respiratory failure HPI: Mr. 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 Admitted with fever, mucus plugging, s/p bronchoscopy. Now intubated, vent stable, no diarrhea per RN. Unable to perform a ROS. No diarrhea per NSG documentation. Objective: Vital Signs 02/24/19 02/24/19 02/24/19 07:55 08:00 08:15 Temperature 96.8 F Pulse Rate 73 78 Respiratory Rate Blood Pressure 114/59 116/63 (mmHg) O2 Sat by Pulse 97 97 Oximetry Physical Exam: General: NAD, laying in bed Neurological: Sedated HEENT: ET tube in place Cardiovascular: Heart rate regular Respiratory: Lung sound clear Abdominal: Bowel sounds present; ABD soft, large, and non tender Skin: No rash seen Laboratory Last Values WBC 10.1 10^3/uL (3.5-10.8) 02/24/19 04:50 RBC 2.82 10^6 /uL (4.18-5.48) L 02/24/19 04:50 RBC (Retic) 2.97 10^6/uL (4.18-5.48) L 02/23/19 04:12 Hgb 8.1 g/dL (14.0-18.0) L 02/24/19 04:50 Hct 24 % (42-52) L 02/24/19 04:50 HCT (Retic) 26 % (42-52) L 02/23/19 04:12 MCV 86 fL (80-94) 02/24/19 04:50 MCH 29 pg (27-31) 02/24/19 04:50 MCHC 33 g/dL (31-36) 02/24/19 04:50 RDW 19 % (10-15) H 02/24/19 04:50 Plt Count 109 10^3/uL (150-450) L 02/24/19 04:50 MPV 10.3 fL (7.4-10.4) 02/24/19 04:50 Neut % (Auto) 91.1 % 02/24/19 04:50 Lymph % (Auto) 4.3 % 02/24/19 04:50 [place] % (Auto) 3.8 % 02/24/19 04:50 Eos % (Auto) 0.1 % 02/24/19 04:50 Baso % (Auto) 0.7 % 02/24/19 04:50 Absolute Neuts (auto) 9.2 10^3/ul (1.5-7.7) H 02/24/19 04:50 Absolute Lymphs (auto) 0.4 10^3/ul (1.0-4.8) L 02/24/19 04:50 Absolute Monos (auto) 0.4 10^3/ul (0-0.8) 02/24/19 04:50 Absolute Eos (auto) 0.0 10^3/ul (0-0.6) 02/24/19 04:50 Absolute Basos (auto) 0.1 10^3/ul (0-0.2) 02/24/19 04:50 Absolute Nucleated RBC 0.0 10^3/ul 02/24/19 04:50 Immature Gran % 2.0 % (0-9) 02/12/19 06:46 Neutrophils % 50.0 % 02/18/19 06:25 Band Neutrophils % 1.0 % (0-8) 02/12/19 06:46 Lymphocytes % 41.0 % 02/18/19 06:25 Reactive Lymphs % 1.0 % (0-6) 02/17/19 05:31 Monocytes % 6.0 % 02/18/19 06:25 Eosinophils % 3.0 % 02/18/19 06:25 Metamyelocytes % 1.0 % (0-2) 02/12/19 06:46 Nucleated RBC % 0.2 02/24/19 04:50 Large Platelets Present 02/12/19 06:46 Normal RBC Morphology Normal (Normal) 02/18/19 06:25 Polychromasia 1+ 02/11/19 21:31 Hypochromasia 2+ 02/18/19 06:25 Basophilic Stippling 1+ 02/11/19 21:31 Anisocytosis 2+ 02/11/19 21:31 Smear Path Review 02/17/19 15:41 Retic Count, Calc 2.4 % (0.5-1.5) H 02/23/19 04:12 Corrected Retic Count 1.4 % (0.5-1.5) 02/23/19 04:12 Retic Shift Factor 2.0 02/23/19 04:12 Retic Production Index 0.70 02/23/19 04:12 Immature Retic Fraction 0.32 02/23/19 04:12 Mean Retic Volume 110.1 02/23/19 04:12 Hem Pathologist Commnt 02/18/19 06:25 INR (Anticoag Therapy) 1.41 (0.82-1.09) H 02/21/19 05:15 APTT 95.6 seconds (26.0-38.0) H 02/24/19 04:50 Fibrinogen 336.0 mg/dL (110.8-404.3) 02/19/19 16:35 Patient Temperature Not Reportable 02/20/19 15:55 ABG pH 7.36 (7.35-7.45) 02/20/19 15:55 ABG pH (Temp Correct) Not Reportable 02/20/19 15:55 ABG pCO2 36 mmHg (35-45) 02/20/19 15:55 ABG pCO2 (Temp Corrct Not Reportable 02/20/19 15:55 ABG pO2 157 mmHg (80-100) H 02/20/19 15:55 ABG pO2 (Temp Correct Not Reportable 02/20/19 15:55 ABG HCO3 21.4 mmol/L (19-31) 02/20/19 15:55 ABG O2 Saturation 99.4 % (94.0-98.0) H 02/20/19 15:55 ABG Base Excess -4.5 mmol/L (-2.0-2.0) L 02/20/19 15:55 Respiration Rate 20 02/20/19 15:55 O2 Delivery Device vent 02/20/19 15:55 Ventilator Type 500 02/20/19 15:55 Vent Mode Cmv 02/20/19 15:55 FiO2 60 02/20/19 15:55 Inspiratory Time 1.0 02/20/19 15:55 PEEP 8 02/20/19 15:55 Pressure Support Not Reportable 02/20/19 15:55 Pressure Control Not Reportable 02/20/19 15:55 EPAP Not Reportable 02/20/19 15:55 IPAP Not Reportable 02/20/19 15:55 BiPAP Not Reportable 02/20/19 15:55 Sodium 142 mmol/L (135-145) 02/24/19 04:50 Potassium 5.0 mmol/L (3.5-5.0) 02/24/19 04:50 Chloride 115 mmol/L (101-111) H 02/24/19 04:50 Carbon Dioxide 20 mmol/L (22-32) L 02/24/19 04:50 Anion Gap 7 mmol/L (2-11) 02/24/19 04:50 BUN 78 mg/dL (6-24) H 02/24/19 04:50 Creatinine 2.36 mg/dL (0.67-1.17) H 02/24/19 04:50 Est GFR ( Amer) 32.6 (>60) 02/24/19 04:50 Est GFR (Non-Af Amer) 27.0 (>60) 02/24/19 04:50 BUN/Creatinine Ratio 33.1 (8-20) H 02/24/19 04:50 Glucose 205 mg/dL (70-100) H 02/24/19 04:50 POC Glucose (mg/dL) 219 mg/dL (70-100) H 02/24/19 03:57 Lactic Acid 0.8 mmol/L (0.5-2.0) 02/20/19 16:16 Uric Acid 6.7 mg/dL (4.4-7.6) 02/13/19 14:52 Calcium 7.3 mg/dL (8.6-10.3) L 02/24/19 04:50 Ionized Calcium 1.06 mmol/L (1.16-1.32) L 02/24/19 04:50 Phosphorus 7.4 mg/dL (2.5-5.0) H 02/24/19 04:50 Magnesium 2.3 mg/dL (1.9-2.7) 02/24/19 04:50 Iron 71 ug/dL (50-212) 02/13/19 14:52 TIBC 181 mcg/dL (250-450) L 02/13/19 14:52 % Saturation 39 % (15-55) 02/13/19 14:52 Unsat Iron Binding < 166 ug/dL 02/13/19 14:52 Transferrin 129 mg/dL (203-362) L 02/13/19 14:52 Ferritin 1332.6 ng/mL (24-336) H 02/13/19 14:52 Total Bilirubin 1.00 mg/dL (0.2-1.0) 02/24/19 04:50 AST 37 U/L (13-39) 02/24/19 04:50 ALT 38 U/L (7-52) 02/24/19 04:50 Alkaline Phosphatase 89 U/L (34-104) 02/24/19 04:50 Lactate Dehydrogenase 476 U/L (140-271) H 02/13/19 14:52 Total Creatine Kinase 18 U/L (10-223) 02/22/19 13:45 CK-MB (CK-2) 2.1 ng/mL (0.6-6.3) 02/22/19 13:45 Troponin I 0.07 ng/mL (<0.04) H* 02/23/19 04:12 C-Reactive Protein 210.42 mg/L (<8.01) H 02/18/19 06:25 B-Natriuretic Peptide 311 pg/mL (<=100) H 02/24/19 04:50 Total Protein 4.8 g/dL (6.4-8.9) L 02/24/19 04:50 Albumin 2.5 g/dL (3.2-5.2) L 02/24/19 04:50 Globulin 2.3 g/dL (2-4) 02/24/19 04:50 Albumin/Globulin Ratio 1.1 (1-3) 02/24/19 04:50 Lipase 23 U/L (11.0-82.0) 02/19/19 16:35 Vitamin B12 679 pg/mL (180-914) 02/13/19 14:52 Folate 13.18 ng/mL (>3.99) 02/13/19 14:52 Urine Color Yellow 02/23/19 13:00 Urine Appearance Cloudy 02/23/19 13:00 Urine pH 5.0 (5-9) 02/23/19 13:00 Ur Specific [place] 1.025 (1.010-1.030) 02/23/19 13:00 Urine Protein Negative (Negative) 02/23/19 13:00 Urine Ketones Negative (Negative) 02/23/19 13:00 Urine Blood 1+ (Negative) A 02/23/19 13:00 Urine Nitrate Negative (Negative) 02/23/19 13:00 Urine Bilirubin Negative (Negative) 02/23/19 13:00 Urine Urobilinogen Negative (Negative) 02/23/19 13:00 Ur Leukocyte Esterase Negative (Negative) 02/23/19 13:00 Urine WBC (Auto) Absent (Absent) 02/23/19 13:00 Urine RBC (Auto) Absent (Absent) 02/23/19 13:00 Uric Acid Crystals Present (Absent) A 02/12/19 11:10 Urine Bacteria Absent (Absent) 02/23/19 13:00 Urine Collection Time 24 hr 02/15/19 19:00 Urine Total Volume 1500 mL 02/15/19 19:00 Ur Creatinine 24 Hour 1525.20 mg/24Hr (600-1800) 02/15/19 19:00 Ur Creatinine Concen 101.68 mg/dL 02/15/19 19:00 Ur Total Protein Conc 117 mg/dL 02/14/19 22:05 Urine Glucose Negative (Negative) 02/23/19 13:00 Vancomycin Trough 23.5 mcg/mL 02/22/19 10:38 Random Vancomycin 15.3 mcg/mL 02/24/19 04:50 Venous Lead (ICP-MS) < 1.0 mcg/dL (0.0-4.9) 02/13/19 14:52 Anti-Platelet Antibody TNP 02/22/19 05:00 Anti-Plt HLA Class I Ab TNP 02/22/19 05:00 Anti-Plt GP Ia/IIa Cell1 TNP 02/22/19 05:00 Anti-Plt GP Ia/IIa Cell2 TNP 02/22/19 05:00 Anti-Plt GP Ib/IX TNP 02/22/19 05:00 Anti-Plt GP IIb/IIIa Cell1 TNP 02/22/19 05:00 Anti-Plt GP IIb/IIIa Cell2 TNP 02/22/19 05:00 Anti-Plt GP IV TNP 02/22/19 05:00 Anti-Plt Prov Pt Diag TNP 02/22/19 05:00 Anti-Platelet IVIg TNP 02/22/19 05:00 Anti-Plt Plt Tx 72hrs TNP 02/22/19 05:00 Anti-Plt Plt x10(9)/L TNP 02/22/19 05:00 Platelet Ab Comment TNP 02/22/19 05:00 Anaplasma DNA (PCR) Negative (Negative) 02/16/19 18:04 B. divergens/MO-1 PCR Negative (Negative) 02/16/19 18:04 Babesia duncani DNA PCR Negative (Negative) 02/16/19 18:04 Babesia microti DNA PCR Negative (Negative) 02/16/19 18:04 Borrelia miyamotoi (PCR) Negative (Negative) 02/16/19 18:04 Cryptococcus Ag Negative (Negative) 02/17/19 05:27 E.chaffeensis DNA (PCR) Negative (Negative) 02/16/19 18:04 E. ewingii/canis (PCR) Negative (Negative) 02/16/19 18:04 E. muris-like DNA (PCR) Negative (Negative) 02/16/19 18:04 Hepatitis A IgM Ab Negative (Negative) 02/21/19 23:10 Hepatitis B Antibody Not immune (Immune) A 02/21/19 23:10 Hep Bs Antigen Negative (Negative) 02/21/19 23:10 Hep B Core IgM Ab Nonreactive (Nonreactive) 02/21/19 23:10 Hepatitis Be Antibody Negative (Negative) 02/21/19 23:10 Hepatitis Be Antigen Negative (Negative) 02/21/19 23:10 Hepatitis C Antibody Negative (Negative) 02/21/19 23:10 Hepatitis C Ab Index 0.04 s/c 02/21/19 23:10 Hepatitis C RNA Quant Undetected IU/mL (Undetected) 02/21/19 23:10 Urine Histoplasma Ag TNP 02/17/19 15:41 U Histoplasma Ag Index TNP 02/17/19 15:41 HIV 1&2 Ab/P24 Ag 4thGn Negative (Negative) 02/21/19 23:10 Parvovirus B19 IgG Ab Positive (Negative) A 02/13/19 14:52 Parvovirus B19 IgM Ab Negative (Negative) 02/13/19 14:52 Parvovirus Interpret See comment 02/13/19 14:52 VZV DNA (PCR) Negative (Negative) 02/19/19 15:30 Blood Parasite Screen No parasites seen (No Parasite) 02/17/19 15:41 MDS Specimen Bone marrow 02/12/19 12:15 MDS Source Left pic 02/12/19 12:15 MDS Refer Reason See comment 02/12/19 12:15 MDS (FISH) Method See comment 02/12/19 12:15 MDS Result Table See comment 02/12/19 12:15 MDS Result Summary Normal 02/12/19 12:15 MDS (FISH) Interpret See comment 02/12/19 12:15 MDS Add Info Not Reportable 02/12/19 12:15 MDS Disclaimer See comment 02/12/19 12:15 MDS Released By See comment 02/12/19 12:15 MDS (FISH) See comment 02/12/19 12:15 Flow Intrp 2-8 Markers Not Reportable 02/12/19 12:15 Flow Intrp 9-15 Marker Not Reportable 02/12/19 12:15 Flow Intrp 16+ Markers 02/12/19 12:15 Blood Type A Positive 02/21/19 05:52 Antibody Screen Negative 02/21/19 05:52 Direct Antiglob Test Negative 02/23/19 04:12 Crossmatch See Detail 02/21/19 05:52 Transfusion React Rpt 02/21/19 14:36 Donor Unit # [id number] 02/21/19 14:36 Post-Trans Blood Type A Positive 02/21/19 14:36 Post-Trans CAROL Negative 02/21/19 14:36 Reaction Interpretation 02/21/19 14:36 Microbiology 02/19/19 22:03 Aerobic Blood Culture - Preliminary Blood Venous No Growth Day 4 Anaerobic Blood Culture - Preliminary No Growth Day 4 02/18/19 12:32 Aerobic Blood Culture - Final Blood Venous No Growth Day 5 Anaerobic Blood Culture - Final No Growth Day 5 02/18/19 11:30 Aerobic Blood Culture - Final Blood Venous No Growth Day 5 Anaerobic Blood Culture - Final No Growth Day 5 02/22/19 17:55 Gram Stain - Final Sputum Sputum Culture - Preliminary No Growth Day 1 02/21/19 15:13 Transfusion Reaction Culture - Preliminary Blood Bag No Growth Day 2 Transfusion Reaction Gram Stain - Final 02/19/19 15:30 Gram Stain - Final Pleural Fluid Body Fluid Culture - Final Staphylococcus Epidermidis Streptococcus Parasanguinis Skin and Soft Tissue MRSA/MSSA (PCR - Final Mrsa Negative S.aureus Negative 02/18/19 13:47 Gram Stain - Final Sputum Sputum Culture - Final Normal Jessica 02/14/19 23:37 Aerobic Blood Culture - Final Blood Venous No Growth Day 5 Anaerobic Blood Culture - Final No Growth Day 5 02/14/19 23:37 Blood Culture - Final Blood Venous No Growth Day 5 02/19/19 19:27 Stool Occult Blood (NAWAF) - Final Stool 02/19/19 15:30 Acid Fast Bacilli Smear - Final Respiratory 02/19/19 11:22 Nasal Screen MRSA (PCR) - Final Nasal Mrsa Not Detected 02/11/19 21:31 Aerobic Blood Culture - Final Blood Venous No Growth Day 5 Anaerobic Blood Culture - Final No Growth Day 5 02/11/19 21:29 Aerobic Blood Culture - Final Blood Venous No Growth Day 5 Anaerobic Blood Culture - Final No Growth Day 5 02/11/19 23:43 Urine Culture - Final Urine Enterococcus Faecalis Assessment: 1. Acute hypoxemic respiratory failure in setting of idiopathic lung disease. 2. Fever. Resolved, no fevers since 02/19. Negative for pneumocystis. CoNS and Strep in BAL, resolved since corticosteroids were started. Blood cultures with no growth. 3. Pancytopenia. Present on admission, resolving. Continues to have anemia and thrombocytopenia. 4. Idiopathic lung disease. On azathioprine and low dose corticosteroid. Plan: Continue vancomycin (goal trough 10-15), day 12/22.
[2019-02-24] MEDS: Furosemide IV* 10 MG/ML VIAL (40 MG) IV SCH ×2 (08:52→16:32)
[2019-02-24] MEDS: Gabapentin CAP(*) 100 MG PO SCH ×3 (08:55→21:07)
[2019-02-24] MEDS: Pantoprazole IV* 40 MG IV SCH ×2 (08:57→21:07)
[2019-02-24] MEDS: Insulin GLARGINE(*) 1 UNITS UNIT SUBCUT SCH ×2 (09:09→21:07)
[2019-02-24] MEDS: predniSONE TAB* 50 MG PO SCH (09:09)
[2019-02-24] MEDS: Azithromycin SUSP* ORALSYR 20 MG/ML (100 MG/5 ML) PO SCH (09:09)
[2019-02-24] MEDS: Betaxolol 0.5 %* OPHTH.SOLN 5 ML BOTH EYES SCH ×2 (09:10→21:00)
[2019-02-24] MEDS: CMCS:Methylnaltrexone SQ (NF) 12 MG/0.6 ML VIAL SUBCUT SCH (09:14)
[2019-02-24] MEDS ORDERED: Magnesium CITRATE* 300 ML BTL PO ONE (10:42)
--- NOTE | 2019-02-24 11:54 | PN ---
Date of Service: 02/24/19 - HD 14 Critical Care Services: 78 yo M with PMH including pancytopenia, immune suppression from drug therapy, DM presented to the ED on 02/11 with fevers, lethargy and disorientation x 3 days. He had recently developed shingles and was treated outpatient with Valtrex. Also reports headaches in AM, abdominal pain, dysuria, and shingles pain in left leg. On evaluation he was noted to have shingles lesions across lower back, left buttock and leg. Otherwise exam unremarkable. Labs notable for WBC 1.9, Hgb 8.4 and Plt 72. Creatinine mildly eelvateda t 1.66. CXR shows patchy areas of atelectasis in the right lung, no focal consolidation. Started on IVF, Vancomycin and ZOsyn for presumed infectious etiology. Admitted to hospitalist service. 02/12: Bone marrow bx completed by hematology group. ANC 1000. IV acyclovir added to cover for possible viremia 02/13: continues to be very weak. unable to transfer. Switched fro Solumedrol to home Prednisone dose. UA positive; continued on Zosyn. 02/14: ANC improved. ct abd pelvis showed Staghorn calculus no obstruction. Follows with urology as outpatient. 02/15: febrile, tachycardic and confused. Bolused IVF and recultured. HR, temp (103) and confusion improved after. CXR subsequently developed pulmonary edema. Started on Guaifenesin for mucus plugging. Pulm consulted. ID consulted 02/17: Continuing to spike fevers (102.3). Desaturated to high 80s requiring 5L NC. Dry cough with no sputum. CT chest shows ground glass opacification. d/w ID - recommended adding Azithromycin, Fluconazole, and check fungal cultures on the Bone marrow 02/18: Bronch planned for 02/19 02/19: He underwent and bronchoscopy on 02/19 with findings of copious secretions. Afib with HR 120s. Transferred to ICU after bronchoscopy for tenuous respiratory status (desats to low 80s under 8L oxymask). Febrile to 101.7 overnight. Now with thick pink tinged sputum. Started on Meropenem 02/20: On vapotherm. On azithromycin, meropenem (started 02/19/19), fluconazole. Stress dose IV hydrocortisone started 02/20/19. Developed worsened respiratory function and emergently intubated for respiratory distress. Patient become hypotensive post-procedure likely due to propofol responsive to IVF bolus. Started on TF 02/21: Patient remains intubated and mechanically ventilated. He is receiving blood for drop in Hgb overnight. No active bleed identified. Bronch/BAL cultures normal julia. Pleural fluid Staphy and strep. Completed 8 days of Zosyn, 3 days of Meropenem. Stopping Meropenem and Fluconazole. Attempted Precedex however developed hemodynamic instability and switched back to Propofol. Failed SBT due to tachypnea. Seen by GI for anemia. Tentative plans for EGD 02/22. 02/22: Seen by ID, recommending continuing Vancomycin x 7 days. Seen by GI, EGD pushed back to Friday with plans to include colonoscopy. Seen by hematology ; bone marrow bx negative for marrow dysfunction. Recommending starting heparin gtt. IVC filter placed. CTA chest negative for PE, unable to rule out pulmonary hemorrhage. Bronch with scant blood staining of bilateral lower lobes and large plug in right lower lobe. 02/23: CXR mildly improved 02/24: No overnight events. Vital Signs: Temp Pulse Resp BP SpO2 FiO2 96.7 F 77 10 124/62 99 45 02/24/19 11:29 02/24/19 11:15 02/24/19 11:00 02/24/19 11:15 02/24/19 11:15 02/24 08:00 Physical Exam: Gen: resting comfortably HEENT: intact. ETT in place Lungs: Coarse bilaterally Cardiac: RRR Abdomen: soft, mildly distended Extremities: warm, dry, edematous Neuro: sedated Fluid Balance (Past 24 Hours): I= O= Net Intake & Output 02/22/19 02/23/19 02/24/19 02/25/19 06:59 06:59 06:59 06:59 Intake Total 2423 2182 4577.8 Output Total 1127 1192 1003 235 Balance 5152 618 5983.8 -235 Weight 242 lb 8.136 oz 240 lb 11.916 oz 252 lb 3.341 oz Intake: IV Fluids 1613 1026 2639.3 ANTIFUNGAL - FLUCONAZOLE 213 Calcium Gluconate 74 Methylprednisone 287 100 NS (0.9%) 424 006 6802.3 azithromycin 273 meropenem 7 IVPB 214 meropenem 214 Medicated IV 289 1156 1888.5 CC - Amiodarone 400 CC - Propofol/Diprivan 198 356.5 Heparin 289 203 Levophed 269 1329 VANCO 289 Oral 0 Packed Cells 307 Albumin 50 Output: [place] 1127 1192 1003 235 Labs: Laboratory Results - last 24 hr 02/21/19 02/21/19 02/23/19 23:10 23:10 10:34 WBC RBC Hgb Hct MCV MCH MCHC RDW Plt Count MPV Neut % (Auto) Lymph % (Auto) Story % (Auto) Eos % (Auto) Baso % (Auto) Absolute Neuts (auto) Absolute Lymphs (auto) Absolute Monos (auto) Absolute Eos (auto) Absolute Basos (auto) Absolute Nucleated RBC Nucleated RBC % APTT Sodium Potassium Chloride Carbon Dioxide Anion Gap BUN Creatinine Est GFR ( Amer) Est GFR (Non-Af Amer) BUN/Creatinine Ratio Glucose POC Glucose (mg/dL) Calcium Ionized Calcium Phosphorus Magnesium Total Bilirubin AST ALT Alkaline Phosphatase B-Natriuretic Peptide 179 H Total Protein Albumin Globulin Albumin/Globulin Ratio Urine Color Urine Appearance Urine pH Ur Specific [place] Urine Protein Urine Ketones Urine Blood Urine Nitrate Urine Bilirubin Urine Urobilinogen Ur Leukocyte Esterase Urine WBC (Auto) Urine RBC (Auto) Urine Bacteria Urine Glucose Random Vancomycin Hepatitis Be Antibody Negative Hepatitis Be Antigen Negative Hepatitis C RNA Quant Undetected 02/23/19 02/23/19 02/23/19 12:22 13:00 15:52 WBC RBC Hgb Hct MCV MCH MCHC RDW Plt Count MPV Neut % (Auto) Lymph % (Auto) Story % (Auto) Eos % (Auto) Baso % (Auto) Absolute Neuts (auto) Absolute Lymphs (auto) Absolute Monos (auto) Absolute Eos (auto) Absolute Basos (auto) Absolute Nucleated RBC Nucleated RBC % APTT >240.0 H* Sodium Potassium Chloride Carbon Dioxide Anion Gap BUN Creatinine Est GFR ( Amer) Est GFR (Non-Af Amer) BUN/Creatinine Ratio Glucose POC Glucose (mg/dL) 248 H Calcium Ionized Calcium Phosphorus Magnesium Total Bilirubin AST ALT Alkaline Phosphatase B-Natriuretic Peptide Total Protein Albumin Globulin Albumin/Globulin Ratio Urine Color Yellow Urine Appearance Cloudy Urine pH 5.0 Ur Specific [place] 1.025 Urine Protein Negative Urine Ketones Negative Urine Blood 1+ A Urine Nitrate Negative Urine Bilirubin Negative Urine Urobilinogen Negative Ur Leukocyte Esterase Negative Urine WBC (Auto) Absent Urine RBC (Auto) Absent Urine Bacteria Absent Urine Glucose Negative Random Vancomycin Hepatitis Be Antibody Hepatitis Be Antigen Hepatitis C RNA Quant 02/23/19 02/23/19 02/23/19 16:10 20:11 22:05 WBC RBC Hgb Hct MCV MCH MCHC RDW Plt Count MPV Neut % (Auto) Lymph % (Auto) Story % (Auto) Eos % (Auto) Baso % (Auto) Absolute Neuts (auto) Absolute Lymphs (auto) Absolute Monos (auto) Absolute Eos (auto) Absolute Basos (auto) Absolute Nucleated RBC Nucleated RBC % APTT 56.5 H Sodium Potassium Chloride Carbon Dioxide Anion Gap BUN Creatinine Est GFR ( Amer) Est GFR (Non-Af Amer) BUN/Creatinine Ratio Glucose POC Glucose (mg/dL) 192 H 194 H Calcium Ionized Calcium Phosphorus Magnesium Total Bilirubin AST ALT Alkaline Phosphatase B-Natriuretic Peptide Total Protein Albumin Globulin Albumin/Globulin Ratio Urine Color Urine Appearance Urine pH Ur Specific [place] Urine Protein Urine Ketones Urine Blood Urine Nitrate Urine Bilirubin Urine Urobilinogen Ur Leukocyte Esterase Urine WBC (Auto) Urine RBC (Auto) Urine Bacteria Urine Glucose Random Vancomycin Hepatitis Be Antibody Hepatitis Be Antigen Hepatitis C RNA Quant 02/23/19 02/24/19 02/24/19 23:53 01:15 03:57 WBC RBC Hgb Hct MCV MCH MCHC RDW Plt Count MPV Neut % (Auto) Lymph % (Auto) Story % (Auto) Eos % (Auto) Baso % (Auto) Absolute Neuts (auto) Absolute Lymphs (auto) Absolute Monos (auto) Absolute Eos (auto) Absolute Basos (auto) Absolute Nucleated RBC Nucleated RBC % APTT 110.0 H* Sodium Potassium Chloride Carbon Dioxide Anion Gap BUN Creatinine Est GFR ( Amer) Est GFR (Non-Af Amer) BUN/Creatinine Ratio Glucose POC Glucose (mg/dL) 192 H 219 H Calcium Ionized Calcium Phosphorus Magnesium Total Bilirubin AST ALT Alkaline Phosphatase B-Natriuretic Peptide Total Protein Albumin Globulin Albumin/Globulin Ratio Urine Color Urine Appearance Urine pH Ur Specific [place] Urine Protein Urine Ketones Urine Blood Urine Nitrate Urine Bilirubin Urine Urobilinogen Ur Leukocyte Esterase Urine WBC (Auto) Urine RBC (Auto) Urine Bacteria Urine Glucose Random Vancomycin Hepatitis Be Antibody Hepatitis Be Antigen Hepatitis C RNA Quant 02/24/19 02/24/19 02/24/19 04:50 04:50 04:50 WBC RBC Hgb Hct MCV MCH MCHC RDW Plt Count MPV Neut % (Auto) Lymph % (Auto) Story % (Auto) Eos % (Auto) Baso % (Auto) Absolute Neuts (auto) Absolute Lymphs (auto) Absolute Monos (auto) Absolute Eos (auto) Absolute Basos (auto) Absolute Nucleated RBC Nucleated RBC % APTT 95.6 H Sodium 142 Potassium 5.0 Chloride 115 H Carbon Dioxide 20 L Anion Gap 7 BUN 78 H Creatinine 2.36 H Est GFR ( Amer) 32.6 Est GFR (Non-Af Amer) 27.0 BUN/Creatinine Ratio 33.1 H Glucose 205 H POC Glucose (mg/dL) Calcium 7.3 L Ionized Calcium Phosphorus 7.4 H Magnesium 2.3 Total Bilirubin 1.00 AST 37 ALT 38 Alkaline Phosphatase 89 B-Natriuretic Peptide 311 H Total Protein 4.8 L Albumin 2.5 L Globulin 2.3 Albumin/Globulin Ratio 1.1 Urine Color Urine Appearance Urine pH Ur Specific [place] Urine Protein Urine Ketones Urine Blood Urine Nitrate Urine Bilirubin Urine Urobilinogen Ur Leukocyte Esterase Urine WBC (Auto) Urine RBC (Auto) Urine Bacteria Urine Glucose Random Vancomycin 15.3 Hepatitis Be Antibody Hepatitis Be Antigen Hepatitis C RNA Quant 02/24/19 02/24/19 02/24/19 04:50 04:50 08:37 WBC 10.1 RBC 2.82 L Hgb 8.1 L Hct 24 L MCV 86 MCH 29 MCHC 33 RDW 19 H Plt Count 109 L MPV 10.3 Neut % (Auto) 91.1 Lymph % (Auto) 4.3 Story % (Auto) 3.8 Eos % (Auto) 0.1 Baso % (Auto) 0.7 Absolute Neuts (auto) 9.2 H Absolute Lymphs (auto) 0.4 L Absolute Monos (auto) 0.4 Absolute Eos (auto) 0.0 Absolute Basos (auto) 0.1 Absolute Nucleated RBC 0.0 Nucleated RBC % 0.2 APTT Sodium Potassium Chloride Carbon Dioxide Anion Gap BUN Creatinine Est GFR ( Amer) Est GFR (Non-Af Amer) BUN/Creatinine Ratio Glucose POC Glucose (mg/dL) 226 H Calcium Ionized Calcium 1.06 L Phosphorus Magnesium Total Bilirubin AST ALT Alkaline Phosphatase B-Natriuretic Peptide Total Protein Albumin Globulin Albumin/Globulin Ratio Urine Color Urine Appearance Urine pH Ur Specific [place] Urine Protein Urine Ketones Urine Blood Urine Nitrate Urine Bilirubin Urine Urobilinogen Ur Leukocyte Esterase Urine WBC (Auto) Urine RBC (Auto) Urine Bacteria Urine Glucose Random Vancomycin Hepatitis Be Antibody Hepatitis Be Antigen Hepatitis C RNA Quant 02/24/19 08:50 WBC RBC Hgb Hct MCV MCH MCHC RDW Plt Count MPV Neut % (Auto) Lymph % (Auto) Story % (Auto) Eos % (Auto) Baso % (Auto) Absolute Neuts (auto) Absolute Lymphs (auto) Absolute Monos (auto) Absolute Eos (auto) Absolute Basos (auto) Absolute Nucleated RBC Nucleated RBC % APTT 68.2 H Sodium Potassium Chloride Carbon Dioxide Anion Gap BUN Creatinine Est GFR ( Amer) Est GFR (Non-Af Amer) BUN/Creatinine Ratio Glucose POC Glucose (mg/dL) Calcium Ionized Calcium Phosphorus Magnesium Total Bilirubin AST ALT Alkaline Phosphatase B-Natriuretic Peptide Total Protein Albumin Globulin Albumin/Globulin Ratio Urine Color Urine Appearance Urine pH Ur Specific [place] Urine Protein Urine Ketones Urine Blood Urine Nitrate Urine Bilirubin Urine Urobilinogen Ur Leukocyte Esterase Urine WBC (Auto) Urine RBC (Auto) Urine Bacteria Urine Glucose Random Vancomycin Hepatitis Be Antibody Hepatitis Be Antigen Hepatitis C RNA Quant Studies: 02/24 CXR - patchy alveolar and interstitial opacities are unchanged to slightly increased in left midlung zone 02/23 CXR - persistent mixed interstitial and airspace disease, with improved aeration compared to earlier 02/22 CTA chest - no PE. unable to determine if pulmonary hemorrhage present. 02/22 CXR - Progression of diffuse interstitial and airspace disease 02/21 CXR - Diffuse interstitial opacification with superimposed consolidation of right upper lung and left mid lung 02/21 Duplex BLE - DVT in RIGHT posterior tibial and peroneal veins and LEFT posterior tibial vein 02/21 CXR - persistent patchy densities overlying the bilateral lungs most consistent with pulmonary edema. 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 He remained febrile and weak throughout the weak despite broadspectrum abx. Cultures demonstrate Enterococcus UTI. CT abdomen with staghorn calculi. Developed respiratory failure requiring intubation on 02/20 secondary to progressive bilateral pulmonary infiltrates. Plan: Cardiovascular: (1) Atrial fibrillation with RVR;(2) Septic shock; (3) CAD with hx of LAD stenting 2008; (4) HTN; (5) HLD; (6) NSTEMI, type 2 02/12/2019 -- HR 57-126, <80 since midnight -- SBP 87-138 -- Telemetry -- BNP 179 -- TTE,02/22: LVEF 60-65% with hyperdynamic wall motion. -- Vasopressors Levophed @ 18 mcg/min, titrate to MAP > 65 -- Metoprolol with hold parameters -- Atorvastatin -- Lasix Home meds: Atorvastatin, Nitro, Coumadin, Losartan, HCTZ, Metoprolol Pulmonary: (1) Acute on chronic hypoxic respiratory failure; (2) Bilateral pneumonia; (3) Pulmonary edema; (4) Chronic idiopathic inflammatory lung disease ; (5) hx of sleep apnea -- RR 10-28 -- sats 91-100 -- vent: APRV -- CXR: essentially unchanged -- PRN Albuterol -- Home Azothioprine & Prednisone -- daily SBT Home meds: Azothioprine, prednisone Gastrointestinal: (1) Ileus;(2) minimal elevation in AST; (3) Chronic GERD; (4 ) hx of hiatal hernia -- LFTs Tbili 0.7 ALK 101 AST 43 from 64, follow trend ALT 40 -- diet: NPO -- bowel regimen: Relistor to minimize narcotic contribution to ileus. Mag citrate x 1 -- ulcer prophylaxis: Protonix Home meds: Protonix Endocrine: (1) Type 2 diabetes mellitus -- monitor BGs -- Lantus and SSI -- Prednisone Home meds: prednisone, insulin NPH, insulin regular, Metformin Renal: (1) JUAN; (2) BPH; (3) hx of kidney stones; (4) right renal exophytic cysts; (5) Hypocalcemia -- UOP: 42 ml/hr -- 18L positive from admission -- Cr 2.26 from 2.11 (1.66 on admission) [baseline Creatinine 1.0] -- Lytes Na 142 from 143 K 4.7 Ca 7.2, replace -- IVF: 100 ml/hr, decrease to 50 ml/hr -- Lasix - Exophytic renal cysts need outpatient follow imaging and workup Home meds: None Infectious disease: (1) Sepsis with neutropenic fever; (2) Enterococcus UTI, resolved: (3) 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 02/13 parvovirus past infection 02/11 urine Enterococcus faecalis blood negative -- ABX Vancomycin Azithromycin -- Received Neupogen 02/21 -- ID following Home meds: Azothioprine, Dapsone, Doxycycline, Valtrex Neurologic: (1) Acute delirium; (2) Chronic low back pain; (3) Spinal stenosis ; (4) Diabetic neuropathy; (5) chronic anxiety and depression -- PRN Tylenol -- Propofol gtt for sedation -- Fentanyl gtt for pain control; wean as able given ileus -- PRN Morphine for pain control -- Gabapentin Home meds: Trazodone, Gabapentin, T#3 Hematological: (1) Acute bilateral DVTs in posterior tibial veins; (2) Pancytopenia; (3) hx of prior DVT -- Hgb 8.1 from 8.3 -- Plt 109 from 146 from 125 -- Coags PTT 68.2 -- DVT prophylaxis: therapeutic heparin -- bone marrow bx done - FISH normal for all loci, flow cytometry without immunophenotypic abnormality. -- lead levels negative -- hematology following Home meds: Coumadin Metabolic: No acute issues Home meds: None Other: (1) Cataracts -- Betaxolol eye gtt -- Latanoprost eye gtt Home meds: Betaxolol eye gtt, Latanoprost eye gtt Deep vein thrombosis prophylaxis:therapeutic heparin Dietary: Protonix Condition: Critical Prognosis:Guarded Code status: Full Disposition: continue ICU care Family ( and sons) updated at bedside regarding interval events and plan of care Cumulative time spent in the care of this patient (excluding any procedure time) : at least 60 minutes. Patient care included clinical interview (with patient and/or family), bedside exam of the patient, review of labs, x-rays, and other ancillary data, coordination of (respiratory, nursing care, review of patient's records, discussion regarding patients management with involved consultants, primary physician, pharmacists, and other healthcare personnel (dietary, case management , physical/occupational therapy etc.) Critical Care Time: 60 min
[2019-02-24] MEDS ORDERED: Acetaminophen TAB* 325 MG PO PRN (12:29)
[2019-02-24] MEDS: Albumin Human 25%* 25 GM/100 ML BTL IV SCH ×2 (15:15→21:45)
--- NOTE | 2019-02-24 16:25 | PN ---
Progress Note - Progress Note Date of Service: 02/24/19 Note: BRIEF GI NOTE Reviewed chart. Met with patient's and ICU MD (Roman). Patient stable today, although he remains on pressors, ventilator support, and antibiotics. Presumed septic shock, although no culture growth. Received transfusion on 02/21. H/H relatively stable (Hgb 8.3 -->8.1 in 24 hours) . No overt bleeding. impression/recommendations 78yM w/ interstitial lung disease on immunosuppression, CAD, DM2, GERD, CKD, with recent zoster infection and now admitted with fevers, panyctopenia, acute on chronic respiratory failure requiring intubation and ventilator support, and presumed septic shock requiring pressor support. GI following previously to admission and during admission for anemia. Plan had been for outpatient EGD/colonoscopy. This has been deferred since hospitalization. Hgb dropped on 02/21 requiring transfusion, although no overt bleeding appreciated. Now stable H/H for several days. Remains critically ill. - IV PPI BID - Tube feeding per primary team - No plan for EGD at this time given stable H/H with ongoing critical illness ( pressors + vent). Consider urgent EGD if H/H dropping and/or overt bleeding. - No plan for colonoscopy while acutely ill, particularly as mild ileus not suspected. GI will continue to follow along. Please contact GI if acute clinical change. Norma Morris MD Gastroenterology
[2019-02-24] MEDS: Vancomycin(*) 750 MG in NS 0.9% 250 ML* 250 ML IVPB SCH (16:29)
[2019-02-24 16:30] LABS: Influenza A Molecular NEGATIVE (Negative); Influenza B Molecular NEGATIVE (Negative)
[2019-02-24] MEDS: Metoclopramide IV* 5 MG/ML 2 ML VIAL IV SCH (17:40)
[2019-02-24] MEDS: Latanoprost 0.005%* 2.5 ml BTL BOTH EYES SCH (21:00)
[2019-02-24] MEDS: Atorvastatin* 40 MG TAB PO SCH (21:07)
[2019-02-25] MEDS: Propofol* 100 ML IV SCH ×3 (01:16→14:02)
[2019-02-25] MEDS: Chlorhexidine MOUTHWASH 0.12%* 15 ML UDC SWISH SPIT SCH ×6 (01:16→20:30)
[2019-02-25] MEDS: Metoclopramide IV* 5 MG/ML 2 ML VIAL IV SCH ×3 (01:16→18:06)
[2019-02-25] MEDS: Metoprolol Tartrate IV* 1 MG/ML 5 ML VIAL IV SCH ×4 (01:17→18:06)
[2019-02-25] MEDS: Insulin REGULAR(*) 1 UNITS UNIT SUBCUT SCH ×6 (01:17→20:47)
[2019-02-25] MEDS: Albumin Human 25%* 25 GM/100 ML BTL IV SCH ×4 (03:57→20:48)
[2019-02-25 05:06] LABS: ABS Lymphocytes 0.3 10^3/ul (1.0-4.8); ABS Monocytes 0.2 10^3/ul (0-0.8); ABS Neutrophils 3.6 10^3/ul (1.5-7.7); Eosinophil % 0.7 %; Hematocrit 21 % (42-52); Lymphocyte % 6.5 %; Mean Corpuscular HGB Conc 33 g/dL (31-36); Mean Corpuscular Hemoglobin 28 pg (27-31); Mean Corpuscular Volume 87 fL (80-94); Nucleated Red Blood Cells % 0.2; Platelet Count 59 10^3/uL (150-450); Red Blood Count 2.47 10^6 /uL (4.18-5.48); Red Cell Distribution Width 19 % (10-15); White Blood Count 4.1 10^3/uL (3.5-10.8)
[2019-02-25 05:14] LABS: Albumin 3.8 g/dL (3.2-5.2); Albumin/Globulin Ratio 1.9 (1-3); Calcium 7.7 mg/dL (8.6-10.3); EGFR African American 32.2 (>60); EGFR Non-African American 26.6 (>60); Magnesium 2.8 mg/dL (1.9-2.7); Phosphorus 7.4 mg/dL (2.5-5.0); Potassium 4.7 mmol/L (3.5-5.0); Total Bilirubin 1.1 mg/dL (0.2-1.0); Total Protein 5.8 g/dL (6.4-8.9)
[2019-02-25] MEDS: NS 0.9% 1000 ML** 1,000 ML IV SCH (06:26)
[2019-02-25] MEDS: Heparin DRIP 25,000 UNITS(*) 25,000 UNITS/500 ML BAG IV SCH (06:26)
--- NOTE | 2019-02-25 08:37 | PN ---
Date of Service: 02/25/19 - HD 15 Critical Care Services: 78 yo M with PMH including pancytopenia, immune suppression from drug therapy, DM presented to the ED on 02/11 with fevers, lethargy and disorientation x 3 days. He had recently developed shingles and was treated outpatient with Valtrex. Also reports headaches in AM, abdominal pain, dysuria, and shingles pain in left leg. On evaluation he was noted to have shingles lesions across lower back, left buttock and leg. Otherwise exam unremarkable. Labs notable for WBC 1.9, Hgb 8.4 and Plt 72. Creatinine mildly eelvateda t 1.66. CXR shows patchy areas of atelectasis in the right lung, no focal consolidation. Started on IVF, Vancomycin and ZOsyn for presumed infectious etiology. Admitted to hospitalist service. 02/12: Bone marrow bx completed by hematology group. ANC 1000. IV acyclovir added to cover for possible viremia 02/13: continues to be very weak. unable to transfer. Switched fro Solumedrol to home Prednisone dose. UA positive; continued on Zosyn. 02/14: ANC improved. ct abd pelvis showed Staghorn calculus no obstruction. Follows with urology as outpatient. 02/15: febrile, tachycardic and confused. Bolused IVF and recultured. HR, temp (103) and confusion improved after. CXR subsequently developed pulmonary edema. Started on Guaifenesin for mucus plugging. Pulm consulted. ID consulted 02/17: Continuing to spike fevers (102.3). Desaturated to high 80s requiring 5L NC. Dry cough with no sputum. CT chest shows ground glass opacification. d/w ID - recommended adding Azithromycin, Fluconazole, and check fungal cultures on the Bone marrow 02/19: He underwent and bronchoscopy on 02/19 with findings of copious secretions. Afib with HR 120s. Transferred to ICU after bronchoscopy for tenuous respiratory status (desats to low 80s under 8L oxymask). Febrile to 101.7 overnight. Now with thick pink tinged sputum. Started on Meropenem 02/20: On vapotherm. On azithromycin, meropenem (started 02/19/19), fluconazole. Stress dose IV hydrocortisone started 02/20/19. Developed worsened respiratory function and emergently intubated for respiratory distress. Patient become hypotensive post-procedure likely due to propofol responsive to IVF bolus. Started on TF 02/21: Patient remains intubated and mechanically ventilated. He is receiving blood for drop in Hgb overnight. No active bleed identified. Bronch/BAL cultures normal julia. Pleural fluid Staphy and strep. Completed 8 days of Zosyn, 3 days of Meropenem. Stopping Meropenem and Fluconazole. Attempted Precedex however developed hemodynamic instability and switched back to Propofol. Failed SBT due to tachypnea. Seen by GI for anemia. Tentative plans for EGD 02/22. 02/22: Seen by ID, recommending continuing Vancomycin x 7 days. Seen by GI, EGD pushed back to Friday with plans to include colonoscopy. Seen by hematology ; bone marrow bx negative for marrow dysfunction. Recommending starting heparin gtt. IVC filter placed. CTA chest negative for PE, unable to rule out pulmonary hemorrhage. Bronch with scant blood staining of bilateral lower lobes and large plug in right lower lobe. 02/23: CXR mildly improved 02/25: Weaned off vasopressors overnight. UOP picked up to 50 ml/hr. Hgb drifted to 7.0, 1U PRBC ordered. Vital Signs: Temp Pulse Resp BP SpO2 FiO2 97 F 87 13 119/58 93 30 02/25/19 07:43 02/25/19 08:00 02/25/19 07:00 02/25/19 08:00 02/25/19 08:00 02/25 08:00 Physical Exam: Gen: sedated, resting comfortably HEENT: ETT in place Lungs: clear bilaterally. Cardiac: RRR Abdomen: soft, distended, nontender Extremities: warm, dry, edematous Neuro: sedated Fluid Balance (Past 24 Hours): I= O= Net Intake & Output 02/23/19 02/24/19 02/25/19 02/26/19 06:59 06:59 06:59 06:59 Intake Total 2182 4577.8 3280.5 Output Total 1192 1003 1221 100 Balance 990 3574.8 2059.5 -100 Weight 240 lb 11.916 oz 252 lb 3.341 oz 255 lb 15.307 oz Intake: IV Fluids 1026 2639.3 1860.5 Albumin 25% 276.5 Calcium Gluconate 74 0 Methylprednisone 100 NS (0.9%) 926 2565.3 1584.0 Vancomycin 0 IVPB 390 Albumin 25% 116 Vancomycin 274 Medicated IV 1156 1888.5 920.0 CC - Amiodarone 400 CC - Propofol/Diprivan 198 356.5 352 Heparin 289 203 93.0 Levophed 269 1329 475 Oral 0 Tube Feeding Flush Amount 60 Albumin 50 50 Output: [place]cl[place] 1192 1003 1221 100 Other: Date of Last Bowel 02/25/19 Movement # Bowel Movements 1 Estimated Stool Amount Small Labs: Laboratory Results - last 24 hr 02/23/19 02/23/19 02/23/19 04:12 04:12 10:34 WBC RBC Hgb Hct MCV MCH MCHC RDW Plt Count MPV Neut % (Auto) Lymph % (Auto) [place] % (Auto) Eos % (Auto) Baso % (Auto) Absolute Neuts (auto) Absolute Lymphs (auto) Absolute Monos (auto) Absolute Eos (auto) Absolute Basos (auto) Absolute Nucleated RBC Nucleated RBC % APTT Sodium Potassium Chloride Carbon Dioxide Anion Gap BUN Creatinine Est GFR ( Amer) Est GFR (Non-Af Amer) BUN/Creatinine Ratio Glucose POC Glucose (mg/dL) Calcium Ionized Calcium Phosphorus Magnesium Erythropoietin 39.3 H Total Bilirubin AST ALT Alkaline Phosphatase B-Natriuretic Peptide Total Protein Albumin Globulin Albumin/Globulin Ratio Procalcitonin 2.5 H Influenza A (Rapid) Influenza B (Rapid) Miscellaneous Test See comment Blood Type Antibody Screen Crossmatch 02/24/19 02/24/19 02/24/19 08:37 08:50 11:42 WBC RBC Hgb Hct MCV MCH MCHC RDW Plt Count MPV Neut % (Auto) Lymph % (Auto) [place] % (Auto) Eos % (Auto) Baso % (Auto) Absolute Neuts (auto) Absolute Lymphs (auto) Absolute Monos (auto) Absolute Eos (auto) Absolute Basos (auto) Absolute Nucleated RBC Nucleated RBC % APTT 68.2 H Sodium Potassium Chloride Carbon Dioxide Anion Gap BUN Creatinine Est GFR ( Amer) Est GFR (Non-Af Amer) BUN/Creatinine Ratio Glucose POC Glucose (mg/dL) 226 H 220 H Calcium Ionized Calcium Phosphorus Magnesium Erythropoietin Total Bilirubin AST ALT Alkaline Phosphatase B-Natriuretic Peptide Total Protein Albumin Globulin Albumin/Globulin Ratio Procalcitonin Influenza A (Rapid) Influenza B (Rapid) Miscellaneous Test Blood Type Antibody Screen Crossmatch 02/24/19 02/24/19 02/24/19 15:46 15:46 16:24 WBC RBC Hgb Hct MCV MCH MCHC RDW Plt Count MPV Neut % (Auto) Lymph % (Auto) [place] % (Auto) Eos % (Auto) Baso % (Auto) Absolute Neuts (auto) Absolute Lymphs (auto) Absolute Monos (auto) Absolute Eos (auto) Absolute Basos (auto) Absolute Nucleated RBC Nucleated RBC % APTT 60.9 H Sodium Potassium Chloride Carbon Dioxide Anion Gap BUN Creatinine Est GFR ( Amer) Est GFR (Non-Af Amer) BUN/Creatinine Ratio Glucose POC Glucose (mg/dL) 213 H Calcium Ionized Calcium Phosphorus Magnesium Erythropoietin Total Bilirubin AST ALT Alkaline Phosphatase B-Natriuretic Peptide Total Protein Albumin Globulin Albumin/Globulin Ratio Procalcitonin Influenza A (Rapid) Negative Influenza B (Rapid) Negative Miscellaneous Test Blood Type Antibody Screen Crossmatch 02/24/19 02/25/19 02/25/19 20:24 00:53 04:40 WBC RBC Hgb Hct MCV MCH MCHC RDW Plt Count MPV Neut % (Auto) Lymph % (Auto) [place] % (Auto) Eos % (Auto) Baso % (Auto) Absolute Neuts (auto) Absolute Lymphs (auto) Absolute Monos (auto) Absolute Eos (auto) Absolute Basos (auto) Absolute Nucleated RBC Nucleated RBC % APTT Sodium Potassium Chloride Carbon Dioxide Anion Gap BUN Creatinine Est GFR ( Amer) Est GFR (Non-Af Amer) BUN/Creatinine Ratio Glucose POC Glucose (mg/dL) 193 H 173 H Calcium Ionized Calcium 1.07 L Phosphorus Magnesium Erythropoietin Total Bilirubin AST ALT Alkaline Phosphatase B-Natriuretic Peptide Total Protein Albumin Globulin Albumin/Globulin Ratio Procalcitonin Influenza A (Rapid) Influenza B (Rapid) Miscellaneous Test Blood Type Antibody Screen Crossmatch 02/25/19 02/25/19 02/25/19 04:40 04:40 04:49 WBC 4.1 RBC 2.47 L Hgb 7.0 L Hct 21 L MCV 87 MCH 28 MCHC 33 RDW 19 H Plt Count 59 L D MPV 10.0 Neut % (Auto) 87.9 Lymph % (Auto) 6.5 [place] % (Auto) 4.9 Eos % (Auto) 0.7 Baso % (Auto) 0.0 Absolute Neuts (auto) 3.6 Absolute Lymphs (auto) 0.3 L Absolute Monos (auto) 0.2 Absolute Eos (auto) 0.0 Absolute Basos (auto) 0.0 Absolute Nucleated RBC 0.0 Nucleated RBC % 0.2 APTT Sodium 144 Potassium 4.7 Chloride 114 H Carbon Dioxide 19 L Anion Gap 11 BUN 86 H Creatinine 2.39 H Est GFR ( Amer) 32.2 Est GFR (Non-Af Amer) 26.6 BUN/Creatinine Ratio 36.0 H Glucose 136 H POC Glucose (mg/dL) 141 H Calcium 7.7 L Ionized Calcium Phosphorus 7.4 H Magnesium 2.8 H Erythropoietin Total Bilirubin 1.10 H AST 22 ALT 27 Alkaline Phosphatase 76 B-Natriuretic Peptide Total Protein 5.8 L Albumin 3.8 Globulin 2.0 Albumin/Globulin Ratio 1.9 Procalcitonin Influenza A (Rapid) Influenza B (Rapid) Miscellaneous Test Blood Type Antibody Screen Crossmatch 02/25/19 02/25/19 02/25/19 05:17 05:17 06:32 WBC RBC Hgb Hct MCV MCH MCHC RDW Plt Count MPV Neut % (Auto) Lymph % (Auto) [place] % (Auto) Eos % (Auto) Baso % (Auto) Absolute Neuts (auto) Absolute Lymphs (auto) Absolute Monos (auto) Absolute Eos (auto) Absolute Basos (auto) Absolute Nucleated RBC Nucleated RBC % APTT 60.9 H Sodium Potassium Chloride Carbon Dioxide Anion Gap BUN Creatinine Est GFR ( Amer) Est GFR (Non-Af Amer) BUN/Creatinine Ratio Glucose POC Glucose (mg/dL) Calcium Ionized Calcium Phosphorus Magnesium Erythropoietin Total Bilirubin AST ALT Alkaline Phosphatase B-Natriuretic Peptide 288 H Total Protein Albumin Globulin Albumin/Globulin Ratio Procalcitonin Influenza A (Rapid) Influenza B (Rapid) Miscellaneous Test Blood Type A Positive Antibody Screen Negative Crossmatch See Detail Studies: 02/24 CXR - patchy alveolar and interstitial opacities are unchanged to slightly increased in left midlung zone 02/23 CXR - persistent mixed interstitial and airspace disease, with improved aeration compared to earlier 02/22 CTA chest - no PE. unable to determine if pulmonary hemorrhage present. 02/22 CXR - Progression of diffuse interstitial and airspace disease 02/21 CXR - Diffuse interstitial opacification with superimposed consolidation of right upper lung and left mid lung 02/21 Duplex BLE - DVT in RIGHT posterior tibial and peroneal veins and LEFT posterior tibial vein 02/21 CXR - persistent patchy densities overlying the bilateral lungs most consistent with pulmonary edema. 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 He remained febrile and weak throughout the week despite broadspectrum abx. Cultures demonstrate Enterococcus UTI. CT abdomen with staghorn calculi. Developed respiratory failure requiring intubation on 02/20 secondary to progressive bilateral pulmonary infiltrates. Has required vasopressors for shock, though now weaned off. Developed acute kidney injury with oliguria and bump in creatinine to mid 2s. Plan: Cardiovascular: (1) Atrial fibrillation with RVR, resolved;(2) Septic shock, resolving; (3) CAD with hx of LAD stenting 2008; (4) HTN; (5) HLD; (6) NSTEMI, type 2 02/12/2019 -- HR 62-99 -- SBP 101-138 -- Telemetry -- BNP 288 from 179 -- TTE,02/22: LVEF 60-65% with hyperdynamic wall motion. -- Vasopressors Levophed weaned off -- Metoprolol with hold parameters -- Atorvastatin -- Lasix Home meds: Atorvastatin, Nitro, Coumadin, Losartan, HCTZ, Metoprolol Pulmonary: (1) Acute on chronic hypoxic respiratory failure; (2) Bilateral pneumonia; (3) Pulmonary edema; (4) Chronic idiopathic inflammatory lung disease ; (5) hx of sleep apnea -- RR 8-14 -- sats 93-100 -- vent: APRV -- PRN Albuterol -- Home Prednisone -- daily SBT once Phigh weaned to 20 Home meds: Azothioprine, prednisone Gastrointestinal: (1) Ileus, improving;(2) minimal elevation in AST, resolved ; (3) Hyperbilirubinemia, follow trend; (4) Chronic GERD; (5) hx of hiatal hernia -- LFTs Tbili 1.1 from 0.7, follow trend ALK 76 AST 22 ALT 40 -- diet: start trickle TF -- bowel regimen: Relistor to minimize narcotic contribution to ileus. Mag citrate x 1 -- ulcer prophylaxis: Protonix Home meds: Protonix Endocrine: (1) Type 2 diabetes mellitus -- monitor BGs -- Lantus and SSI -- Prednisone Home meds: prednisone, insulin NPH, insulin regular, Metformin Renal: (1) JUAN; (2) BPH; (3) hx of kidney stones; (4) right renal exophytic cysts; (5) Hypocalcemia; (6) Hypermagnsemia; (7) Hyperphosphatemia -- UOP: 51 ml/hr -- 20L positive from admission -- Cr 2.39 from 2.36 (1.66 on admission) [baseline Creatinine 1.0] -- Lytes Na 144 from 142 K 4.7 Ca 7.7, ionized 1.07, replace Mag 2.3 from 2.8, follow trend Phos 7.4 from 7.4, follow trend -- IVF: 50 ml/hr; HL as receiving 1.5L per day via meds -- Lasix - Exophytic renal cysts need outpatient follow imaging and workup Home meds: None Infectious disease: (1) Sepsis with neutropenic fever; (2) Enterococcus UTI, resolved: (3) 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; (4) Resolving shingles infection; (5) Staghorn calculi -- Tmax 98.3 -- WBC 4.1 from 10.1 from 13.7 -- Micro 02/24 Aspergillus in process CMV in process Haem infl in process Pneumocystits in process 02/23 Legionella negative histoplasma in process UA negative 02/22 BAL Negative 02/21 Hepatitis negative HIV negative 02/19 blood Negative lung viral pending lung fungal in process mycobacterium in process AFB negative Pleural Staph Epidermidis and Strep Parasanguinis MRSA screen negative VZV negative 02/18 BAL normal julia blood Negative 02/17 blood parasite negative Cryptococcus negative 02/16 AnaplasmaDNA negative Babesia negative Borellia negative Ehrlicia negative 02/14 blood negative. 02/13 parvovirus past infection 02/12 blood fungal in process 02/11 urine Enterococcus faecalis blood negative -- ABX Vancomycin Azithromycin -- Received Neupogen 02/21 -- ID following Home meds: Azothioprine, Dapsone, Doxycycline, Valtrex Neurologic: (1) Acute delirium; (2) Chronic low back pain; (3) Spinal stenosis ; (4) Diabetic neuropathy; (5) chronic anxiety and depression -- PRN Tylenol -- Propofol gtt for sedation -- PRN Morphine for pain control -- Gabapentin Home meds: Trazodone, Gabapentin, T#3 Hematological: (1) Acute bilateral DVTs in posterior tibial veins; (2) Pancytopenia; (3) hx of prior DVT -- Hgb 7.0 from 8.1, 1U PRBC ordered. No active bleeding identified -- Plt 59 from 109, follow trend -- Coags PTT 60.9 -- HIT PF4 Ab ordered (low concern) -- DVT prophylaxis: therapeutic heparin -- bone marrow bx done - FISH normal for all loci, flow cytometry without immunophenotypic abnormality. UPDATE, 02/24: significantly decreased total lympocyte count which is mainly due to a decrease in DC3+ cells. total NK cells are quantitatively normal, however, there is a significant decrease in the major NK cell subsets, I.E. cytotoxic NK cells (CD16++CD56++) and cytokine-producing NK cells (CD56+++). This is beacuse the majority of the patient's NK cells are CKD 16-CD56+ (98.3%; 152 cellus/uL) and normal adult rage is 2.4-24.2%. NKT cells (CD3+CD56+) are within normal limits for age. -- lead levels negative -- hematology following; will discuss updated bone marrow results Home meds: Coumadin Metabolic: No acute issues Home meds: None Other: (1) Cataracts -- Betaxolol eye gtt -- Latanoprost eye gtt Home meds: Betaxolol eye gtt, Latanoprost eye gtt Deep vein thrombosis prophylaxis:therapeutic heparin Dietary: Protonix Condition: Critical Prognosis:Guarded Code status: Full Disposition: continue ICU care Family () updated at bedside regarding interval events and plan of care Cumulative time spent in the care of this patient (excluding any procedure time) : at least 55 minutes. Patient care included clinical interview (with patient and/or family), bedside exam of the patient, review of labs, x-rays, and other ancillary data, coordination of (respiratory, nursing care, review of patient's records, discussion regarding patients management with involved consultants, primary physician, pharmacists, and other healthcare personnel (dietary, case management , physical/occupational therapy etc.) Critical Care Time: 55 min
[2019-02-25] MEDS: Norepinephrine VIAL* 8 MG in NS 0.9% 500 ML* 492 ML IV SCH ×3 (08:47→20:31)
[2019-02-25] MEDS ORDERED: Calcium Gluconate INJ* 1 GM in NS 0.9% 50 ML* 50 ML IVPB ONE (08:52)
[2019-02-25] MEDS ORDERED: Magnesium CITRATE* 300 ML BTL PO ONE (09:00)
[2019-02-25] MEDS: Furosemide IV* 10 MG/ML VIAL (40 MG) IV SCH ×2 (09:04→18:01)
[2019-02-25] MEDS: Pantoprazole IV* 40 MG IV SCH ×2 (09:06→20:49)
[2019-02-25] MEDS: Insulin GLARGINE(*) 1 UNITS UNIT SUBCUT SCH ×2 (09:12→20:47)
[2019-02-25] MEDS: CMCS:Methylnaltrexone SQ (NF) 12 MG/0.6 ML VIAL SUBCUT SCH (09:15)
[2019-02-25] MEDS: Betaxolol 0.5 %* OPHTH.SOLN 5 ML BOTH EYES SCH ×2 (09:17→20:49)
[2019-02-25] MEDS: Gabapentin CAP(*) 100 MG PO SCH ×3 (09:20→20:50)
[2019-02-25] MEDS: predniSONE TAB* 50 MG PO SCH (09:20)
--- NOTE | 2019-02-25 13:13 | PN ---
Progress Note - Progress Note Date of Service: 02/25/19 - update Note: Bone marrow biopsy update reviewed with Heme/Onc. Results do NOT show clonal population. No further interventions needed at this time
[2019-02-25] MEDS: Vancomycin(*) 750 MG in NS 0.9% 250 ML* 250 ML IVPB SCH (16:09)
[2019-02-25] MEDS ORDERED: Albumin Human 25%* 25 GM/100 ML BTL IV SCH (18:00)
[2019-02-25] MEDS ORDERED: NS 0.9% 1000 ML/HR X 1 BAG (TOTAL 1000 ML) IV ONE (18:20)
[2019-02-25] MEDS ORDERED: Norepinephrine VIAL* 8 MG in NS 0.9% 500 ML* 492 ML IV SCH (19:00)
--- NOTE | 2019-02-25 20:29 | OP ---
Operative Report - Blank - Operative Report Date of Operation: 02/25/19 - BRONCHOSCOPY with BAL Note: Procedure: Bronchoscopy with BAL Consent obtained: Verbal, from Time out performed: Yes Indications: Respiratory acidosis on ABG, concern for mucus plugging Anesthesia: on Propofol gtt, continued at current rate Findings: several thick mucus plugs identified and suctioned from right lower lobe bronchus, right upper lobe and trachea Specimen: BAL Complications: None Description of procedure: The patient was positioned supine. He was already intubated and sedated secondary to his acute respiratory failure. The AMBU bronchoscope was advanced via the ETT and a bronchoscopy was performed with the following findings: Trachea: thick mucus plug present. No inflammation or other lesion identified Right main bronchus:no secretions, no inflammation or other lesion identified Right upper lobe bronchus:Mucus plug with old blood suctioned, no inflammation or other lesion identified Right middle lobe bronchus:no secretions, no inflammation or other lesion identified Right lower lobe bronchus: Numerous long thick mucus plugs suctioned out, plugs with blood component and some bloody staining of bronchial wall. Left main bronchus:no secretions, no inflammation or other lesion identified Left upper lobe bronchus:no secretions, no inflammation or other lesion identified Left lower lobe bronchus: thick mucus plug suctioned. some bloody staining of bronchial wall. After secrections were suctioned a BAL was performed with 50 ml of sterile saline from [facility]. Returned fluid send for culture The patient tolerated the procedure well. About 20 min after procedure completed he developed hypotension requiring restarting of levophed. STAT CXR shows atelectasis but no pneumothorax
[2019-02-25] MEDS: Atorvastatin* 40 MG TAB PO SCH (20:48)
[2019-02-25] MEDS: Latanoprost 0.005%* 2.5 ml BTL BOTH EYES SCH (22:02)
[2019-02-26] MEDS: Metoclopramide IV* 5 MG/ML 2 ML VIAL IV SCH ×3 (00:13→16:52)
[2019-02-26] MEDS: Chlorhexidine MOUTHWASH 0.12%* 15 ML UDC SWISH SPIT SCH ×6 (00:13→19:50)
[2019-02-26] MEDS: Insulin REGULAR(*) 1 UNITS UNIT SUBCUT SCH ×6 (00:13→19:50)
[2019-02-26] MEDS: Metoprolol Tartrate IV* 1 MG/ML 5 ML VIAL IV SCH ×3 (01:41→16:52)
[2019-02-26] MEDS: Albumin Human 25%* 25 GM/100 ML BTL IV SCH ×2 (01:58→08:36)
[2019-02-26] MEDS: Norepinephrine VIAL* 8 MG in NS 0.9% 500 ML* 492 ML IV SCH ×3 (01:58→19:51)
[2019-02-26] MEDS: Propofol* 100 ML IV SCH ×2 (04:36→18:03)
[2019-02-26 04:40] LABS: Hematocrit 23 % (42-52); Hemoglobin 7.5 g/dL (14.0-18.0); Mean Corpuscular HGB Conc 32 g/dL (31-36); Mean Corpuscular Hemoglobin 29 pg (27-31); Mean Corpuscular Volume 88 fL (80-94); Mean Platelet Volume 9.4 fL (7.4-10.4); Platelet Count 54 10^3/uL (150-450); Red Blood Count 2.64 10^6 /uL (4.18-5.48); Red Cell Distribution Width 19 % (10-15); White Blood Count 4.8 10^3/uL (3.5-10.8)
[2019-02-26 04:45] LABS: Albumin 3.9 g/dL (3.2-5.2); Albumin/Globulin Ratio 2.1 (1-3); Calcium 8.1 mg/dL (8.6-10.3); EGFR Non-African American 20.7 (>60); Globulin 1.9 g/dL (2-4); Magnesium 3.5 mg/dL (1.9-2.7); Total Bilirubin 1.9 mg/dL (0.2-1.0); Total Protein 5.8 g/dL (6.4-8.9)
[2019-02-26 04:48] LABS: Potassium 5.4 mmol/L (3.5-5.0)
[2019-02-26] MEDS ORDERED: Alteplase (CATHFLO)* 2 MG VIAL IV ONE (04:59)
[2019-02-26 05:30] LABS: ABS Eosinophils 0.1 10^3/ul (0-0.6); ABS Lymphocytes 0.3 10^3/ul (1.0-4.8); ABS Monocytes 0.3 10^3/ul (0-0.8); ABS Neutrophils 4.1 10^3/ul (1.5-7.7); Eosinophil % 1.3 %; Lymphocyte % 6.4 %; Nucleated Red Blood Cells % 0.7
[2019-02-26] MEDS: Pantoprazole IV* 40 MG IV SCH ×2 (08:35→20:05)
[2019-02-26] MEDS: Furosemide IV* 10 MG/ML VIAL (40 MG) IV SCH ×2 (08:35→16:52)
[2019-02-26] MEDS: Insulin GLARGINE(*) 1 UNITS UNIT SUBCUT SCH ×2 (08:35→20:06)
[2019-02-26] MEDS: Gabapentin CAP(*) 100 MG PO SCH ×3 (08:35→20:04)
[2019-02-26] MEDS: predniSONE TAB* 50 MG PO SCH (08:39)
[2019-02-26] MEDS: Betaxolol 0.5 %* OPHTH.SOLN 5 ML BOTH EYES SCH ×2 (08:40→20:05)
[2019-02-26] MEDS: CMCS:Methylnaltrexone SQ (NF) 12 MG/0.6 ML VIAL SUBCUT SCH (08:40)
[2019-02-26] MEDS ORDERED: predniSONE TAB* 50 MG PO SCH (09:00)
[2019-02-26] MEDS: Azithromycin SUSP* ORALSYR 20 MG/ML (100 MG/5 ML) PO SCH (09:06)
--- NOTE | 2019-02-26 11:11 | PN ---
Date of Service: 02/26/19 - 16 Critical Care Services: 78 yo M with PMH including pancytopenia, immune suppression from drug therapy, DM presented to the ED on 02/11 with fevers, lethargy and disorientation x 3 days. He had recently developed shingles and was treated outpatient with Valtrex. Also reports headaches in AM, abdominal pain, dysuria, and shingles pain in left leg. On evaluation he was noted to have shingles lesions across lower back, left buttock and leg. Otherwise exam unremarkable. Labs notable for WBC 1.9, Hgb 8.4 and Plt 72. Creatinine mildly eelvateda t 1.66. CXR shows patchy areas of atelectasis in the right lung, no focal consolidation. Started on IVF, Vancomycin and ZOsyn for presumed infectious etiology. Admitted to hospitalist service. 02/12: Bone marrow bx completed by hematology group. ANC 1000. IV acyclovir added to cover for possible viremia 02/13: continues to be very weak. unable to transfer. Switched fro Solumedrol to home Prednisone dose. UA positive; continued on Zosyn. 02/14: ANC improved. ct abd pelvis showed Staghorn calculus no obstruction. Follows with urology as outpatient. 02/15: febrile, tachycardic and confused. Bolused IVF and recultured. HR, temp (103) and confusion improved after. CXR subsequently developed pulmonary edema. Started on Guaifenesin for mucus plugging. Pulm consulted. ID consulted 02/17: Continuing to spike fevers (102.3). Desaturated to high 80s requiring 5L NC. Dry cough with no sputum. CT chest shows ground glass opacification. d/w ID - recommended adding Azithromycin, Fluconazole, and check fungal cultures on the Bone marrow 02/19: He underwent and bronchoscopy on 02/19 with findings of copious secretions. Afib with HR 120s. Transferred to ICU after bronchoscopy for tenuous respiratory status (desats to low 80s under 8L oxymask). Febrile to 101.7 overnight. Now with thick pink tinged sputum. Started on Meropenem 02/20: On vapotherm. On azithromycin, meropenem (started 02/19/19), fluconazole. Stress dose IV hydrocortisone started 02/20/19. Developed worsened respiratory function and emergently intubated for respiratory distress. Patient become hypotensive post-procedure likely due to propofol responsive to IVF bolus. Started on TF 02/21: Patient remains intubated and mechanically ventilated. He is receiving blood for drop in Hgb overnight. No active bleed identified. Bronch/BAL cultures normal julia. Pleural fluid Staphy and strep. Completed 8 days of Zosyn, 3 days of Meropenem. Stopping Meropenem and Fluconazole. Attempted Precedex however developed hemodynamic instability and switched back to Propofol. Failed SBT due to tachypnea. Seen by GI for anemia. Tentative plans for EGD 02/22. 02/22: Seen by ID, recommending continuing Vancomycin x 7 days. Seen by GI, EGD pushed back to Friday with plans to include colonoscopy. Seen by hematology ; bone marrow bx negative for marrow dysfunction. Recommending starting heparin gtt. IVC filter placed. CTA chest negative for PE, unable to rule out pulmonary hemorrhage. Bronch with scant blood staining of bilateral lower lobes and large plug in right lower lobe. 02/23: CXR mildly improved 02/25: Weaned off vasopressors overnight. UOP picked up to 50 ml/hr. Hgb drifted to 7.0, 1U PRBC ordered. Developed elevated end tidal CO2 and low tidal volumes in afternoon. Bronched and fount to have copious mucus plugging of lower lobes, mostly right side. After bronch developed hypotension requiring restarting of Levophed. Head CT done for decreased level of consiousness, negative. Likely elevated CO2 as cause of somnolence. 02/26: No overnight events. Family requesting hospice consult; placed. Vital Signs: Temp Pulse Resp BP SpO2 FiO2 97.6 F 82 20 130/60 98 45 02/26/19 07:58 02/26/19 08:15 02/26/19 07:58 02/26/19 08:15 02/26/19 08:15 02/26 07:58 Physical Exam: Gen:resting comfortably. sedated HEENT: ETT in place Lungs: CTAB bilaterally. good air movement Cardiac: RRR Abdomen: soft, NTND Extremities: warm, dry, edematous Neuro: sedated Fluid Balance (Past 24 Hours): I= O= Net Intake & Output 02/24/19 02/25/19 02/26/19 02/27/19 06:59 06:59 06:59 06:59 Intake Total 4577.8 3280.5 2926 160 Output Total 1003 1221 631 275 Balance 3574.8 2059.5 2295 -115 Weight 252 lb 3.341 oz 255 lb 15.307 oz 259 lb 7.861 oz Intake: IV Fluids 2639.3 1860.5 1185 Albumin 25% 276.5 Calcium Gluconate 74 0 185 NS (0.9%) 2565.3 1584.0 1000 Vancomycin 0 IVPB 390 60 Albumin 25% 116 Calcium Gluconate 60 Vancomycin 274 Medicated IV 1888.5 920.0 728 CC - Propofol/Diprivan 356.5 352 171 Heparin 203 93.0 96 Levophed 1329 475 461 Oral 0 0 Tube Feeding Flush Amount 60 60 Packed Cells 293 Albumin 50 50 300 100 NG Tube Irrigate Amount 360 0 Output: NG Tube Drainage Amount 200 200 Mclain 1003 1221 401 45 Irrigation 30 30 Other: Date of Last Bowel 02/25/19 02/25/19 02/25/19 Movement # Bowel Movements 1 1 1 Estimated Stool Amount Small Medium Medium Labs: Laboratory Results - last 24 hr 02/22/19 02/23/19 02/25/19 17:55 15:52 08:08 WBC RBC Hgb Hct MCV MCH MCHC RDW Plt Count MPV Neut % (Auto) Lymph % (Auto) Towner % (Auto) Eos % (Auto) Baso % (Auto) Absolute Neuts (auto) Absolute Lymphs (auto) Absolute Monos (auto) Absolute Eos (auto) Absolute Basos (auto) Absolute Nucleated RBC Nucleated RBC % APTT Patient Temperature ABG pH ABG pH (Temp Correct) ABG pCO2 ABG pCO2 (Temp Corrct ABG pO2 ABG pO2 (Temp Correct ABG HCO3 ABG O2 Saturation ABG Base Excess Respiration Rate O2 Delivery Device Ventilator Type Vent Mode FiO2 Inspiratory Time PEEP Pressure Support Pressure Control EPAP IPAP BiPAP Sodium Potassium Chloride Carbon Dioxide Anion Gap BUN Creatinine Est GFR ( Amer) Est GFR (Non-Af Amer) BUN/Creatinine Ratio Glucose POC Glucose (mg/dL) 183 H Calcium Ionized Calcium Phosphorus Magnesium Total Bilirubin AST ALT Alkaline Phosphatase B-Natriuretic Peptide Total Protein Albumin Globulin Albumin/Globulin Ratio Urine Histoplasma Ag Negative U Histoplasma Ag Index 0.00 Pneumocystis Source Sputum Pneumocystis DNA (PCR) Negative 02/25/19 02/25/19 02/25/19 11:59 15:36 15:55 WBC RBC Hgb Hct MCV MCH MCHC RDW Plt Count MPV Neut % (Auto) Lymph % (Auto) Towner % (Auto) Eos % (Auto) Baso % (Auto) Absolute Neuts (auto) Absolute Lymphs (auto) Absolute Monos (auto) Absolute Eos (auto) Absolute Basos (auto) Absolute Nucleated RBC Nucleated RBC % APTT Patient Temperature Not Reportable ABG pH Not Reportable ABG pH (Temp Correct) < 7.00 L* ABG pCO2 108 H* ABG pCO2 (Temp Corrct Not Reportable ABG pO2 106 H ABG pO2 (Temp Correct Not Reportable ABG HCO3 TNP ABG O2 Saturation 98.7 H ABG Base Excess TNP Respiration Rate Not Reportable O2 Delivery Device Vent Ventilator Type Not Reportable Vent Mode Aprv FiO2 50 Inspiratory Time Not Reportable PEEP Not Reportable Pressure Support Not Reportable Pressure Control Not Reportable EPAP Not Reportable IPAP Not Reportable BiPAP Not Reportable Sodium Potassium Chloride Carbon Dioxide Anion Gap BUN Creatinine Est GFR ( Amer) Est GFR (Non-Af Amer) BUN/Creatinine Ratio Glucose POC Glucose (mg/dL) 178 H 242 H Calcium Ionized Calcium Phosphorus Magnesium Total Bilirubin AST ALT Alkaline Phosphatase B-Natriuretic Peptide Total Protein Albumin Globulin Albumin/Globulin Ratio Urine Histoplasma Ag U Histoplasma Ag Index Pneumocystis Source Pneumocystis DNA (PCR) 02/25/19 02/25/19 02/25/19 16:00 20:37 21:13 WBC RBC Hgb Hct MCV MCH MCHC RDW Plt Count MPV Neut % (Auto) Lymph % (Auto) Towner % (Auto) Eos % (Auto) Baso % (Auto) Absolute Neuts (auto) Absolute Lymphs (auto) Absolute Monos (auto) Absolute Eos (auto) Absolute Basos (auto) Absolute Nucleated RBC Nucleated RBC % APTT Patient Temperature Not Reportable Not Reportable ABG pH Not Reportable 7.07 L* ABG pH (Temp Correct) < 7.00 L* Not Reportable ABG pCO2 111 H* 58 H ABG pCO2 (Temp Corrct Not Reportable Not Reportable ABG pO2 113 H 88 ABG pO2 (Temp Correct Not Reportable Not Reportable ABG HCO3 TNP 14.2 L ABG O2 Saturation 98.5 H 97.7 ABG Base Excess TNP -13.7 L Respiration Rate Not Reportable Not Reportable O2 Delivery Device Vent vent Ventilator Type Not Reportable aprv Vent Mode Aprv 45 FiO2 50 Not Reportable Inspiratory Time Not Reportable Not Reportable PEEP Not Reportable Not Reportable Pressure Support Not Reportable Not Reportable Pressure Control Not Reportable Not Reportable EPAP Not Reportable Not Reportable IPAP Not Reportable Not Reportable BiPAP Not Reportable Not Reportable Sodium Potassium Chloride Carbon Dioxide Anion Gap BUN Creatinine Est GFR ( Amer) Est GFR (Non-Af Amer) BUN/Creatinine Ratio Glucose POC Glucose (mg/dL) 268 H Calcium Ionized Calcium Phosphorus Magnesium Total Bilirubin AST ALT Alkaline Phosphatase B-Natriuretic Peptide Total Protein Albumin Globulin Albumin/Globulin Ratio Urine Histoplasma Ag U Histoplasma Ag Index Pneumocystis Source Pneumocystis DNA (PCR) 02/26/19 02/26/19 02/26/19 00:07 04:18 04:18 WBC RBC Hgb Hct MCV MCH MCHC RDW Plt Count MPV Neut % (Auto) Lymph % (Auto) Towner % (Auto) Eos % (Auto) Baso % (Auto) Absolute Neuts (auto) Absolute Lymphs (auto) Absolute Monos (auto) Absolute Eos (auto) Absolute Basos (auto) Absolute Nucleated RBC Nucleated RBC % APTT 63.0 H Patient Temperature ABG pH ABG pH (Temp Correct) ABG pCO2 ABG pCO2 (Temp Corrct ABG pO2 ABG pO2 (Temp Correct ABG HCO3 ABG O2 Saturation ABG Base Excess Respiration Rate O2 Delivery Device Ventilator Type Vent Mode FiO2 Inspiratory Time PEEP Pressure Support Pressure Control EPAP IPAP BiPAP Sodium Potassium Chloride Carbon Dioxide Anion Gap BUN Creatinine Est GFR ( Amer) Est GFR (Non-Af Amer) BUN/Creatinine Ratio Glucose POC Glucose (mg/dL) 196 H Calcium Ionized Calcium Phosphorus Magnesium Total Bilirubin AST ALT Alkaline Phosphatase B-Natriuretic Peptide 507 H Total Protein Albumin Globulin Albumin/Globulin Ratio Urine Histoplasma Ag U Histoplasma Ag Index Pneumocystis Source Pneumocystis DNA (PCR) 02/26/19 02/26/19 02/26/19 04:18 04:18 04:18 WBC 4.8 RBC 2.64 L Hgb 7.5 L Hct 23 L MCV 88 MCH 29 MCHC 32 RDW 19 H Plt Count 54 L MPV 9.4 Neut % (Auto) 85.6 Lymph % (Auto) 6.4 Towner % (Auto) 6.6 Eos % (Auto) 1.3 Baso % (Auto) 0.1 Absolute Neuts (auto) 4.1 Absolute Lymphs (auto) 0.3 L Absolute Monos (auto) 0.3 Absolute Eos (auto) 0.1 Absolute Basos (auto) 0.0 Absolute Nucleated RBC 0.0 Nucleated RBC % 0.7 APTT Patient Temperature ABG pH ABG pH (Temp Correct) ABG pCO2 ABG pCO2 (Temp Corrct ABG pO2 ABG pO2 (Temp Correct ABG HCO3 ABG O2 Saturation ABG Base Excess Respiration Rate O2 Delivery Device Ventilator Type Vent Mode FiO2 Inspiratory Time PEEP Pressure Support Pressure Control EPAP IPAP BiPAP Sodium 144 Potassium 5.4 H Chloride 115 H Carbon Dioxide 20 L Anion Gap 9 BUN 95 H Creatinine 2.97 H Est GFR ( Amer) 25.0 Est GFR (Non-Af Amer) 20.7 BUN/Creatinine Ratio 32.0 H Glucose 177 H POC Glucose (mg/dL) Calcium 8.1 L Ionized Calcium 1.13 L Phosphorus 9.0 H Magnesium 3.5 H Total Bilirubin 1.90 H AST 41 H ALT 36 Alkaline Phosphatase 109 H B-Natriuretic Peptide Total Protein 5.8 L Albumin 3.9 Globulin 1.9 L Albumin/Globulin Ratio 2.1 Urine Histoplasma Ag U Histoplasma Ag Index Pneumocystis Source Pneumocystis DNA (PCR) Studies: 02/26 CXR - mixed interstitial and airspace disease throughout both lungs 02/25 CT brain - no acute pathology. age related changes present 02/25 CXR postbronch - grossly unchnaged patchy airspace opacification bilaterally. small bilateral pleural effusions. 02/25 CXR AM - persistent mixed interstitial and airspace disease with improved aeration compared to 02/24 02/24 CXR - patchy alveolar and interstitial opacities are unchanged to slightly increased in left midlung zone 02/23 CXR - persistent mixed interstitial and airspace disease, with improved aeration compared to earlier 02/22 CTA chest - no PE. unable to determine if pulmonary hemorrhage present. 02/22 CXR - Progression of diffuse interstitial and airspace disease 02/21 CXR - Diffuse interstitial opacification with superimposed consolidation of right upper lung and left mid lung 02/21 Duplex BLE - DVT in RIGHT posterior tibial and peroneal veins and LEFT posterior tibial vein 02/21 CXR - persistent patchy densities overlying the bilateral lungs most consistent with pulmonary edema. 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 He remained febrile and weak throughout the week despite broadspectrum abx. Cultures demonstrate Enterococcus UTI. CT abdomen with staghorn calculi. Developed respiratory failure requiring intubation on 02/20 secondary to progressive bilateral pulmonary infiltrates. Has required vasopressors for shock, off and on. Developed acute kidney injury with oliguria and bump in creatinine to mid 2s. Repeat urine analysis negative for infection. All other cultures negative to date. Plan: Cardiovascular: (1) Atrial fibrillation with RVR, resolved;(2) Shock, presumed septic; (3) CAD with hx of LAD stenting 2008; (4) HTN; (5) HLD; (6) NSTEMI, type 2 02/12/2019 -- HR 50-98 -- SBP 75-135 -- Telemetry -- BNP 507 from 288 from 179 -- TTE,02/22: LVEF 60-65% with hyperdynamic wall motion. -- Vasopressors Levophed @ 2 mcg/hr, titrating to MAP > 65 -- Metoprolol with hold parameters -- Atorvastatin -- Lasix Home meds: Atorvastatin, Nitro, Coumadin, Losartan, HCTZ, Metoprolol Pulmonary: (1) Acute on chronic hypoxic respiratory failure; (2) Bilateral pneumonia; (3) Pulmonary edema; (4) Chronic idiopathic inflammatory lung disease ; (5) hx of sleep apnea -- RR 5-26 -- sats 95-100 -- vent: APRV -- PRN Albuterol -- Home Prednisone -- daily SBT once Phigh weaned to 20 Home meds: Azothioprine, prednisone Gastrointestinal: (1) Ileus, improving;(2) elevated LFTs, concern for shock liver; (3) Chronic GERD; (4) hx of hiatal hernia -- LFTs Tbili 1.9 from 1.1 from 0.7, follow trend ALK 109 from 76 AST 41 from 22 ALT 36 -- diet: start trickle TF -- bowel regimen: Relistor to minimize narcotic contribution to ileus. -- ulcer prophylaxis: Protonix Home meds: Protonix Endocrine: (1) Type 2 diabetes mellitus -- monitor BGs -- Lantus and SSI -- Prednisone Home meds: prednisone, insulin NPH, insulin regular, Metformin Renal: (1) JUAN; (2) BPH; (3) hx of kidney stones; (4) right renal exophytic cysts; (5) Hypocalcemia; (6) Hypermagnsemia; (7) Hyperphosphatemia -- UOP: 26 ml/hr -- 20+L positive from admission (not accounting for insensible losses) -- Cr 2.97 from 2.39 (1.66 on admission) [baseline Creatinine 1.0] -- Lytes Na 144 from 144 K 5.4 Ca 8.1, ionized 1.13, replace Mag 3.5 from 2.3, follow trend Phos 9.0 from 7.4, follow trend -- IVF: 50 ml/hr; HL as receiving 1.5L per day via meds -- Lasix -- Exophytic renal cysts need outpatient follow imaging and workup -- consult nephrology Home meds: None Infectious disease: (1) Sepsis with neutropenic fever; (2) Enterococcus UTI, resolved: (3) 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; (4) Resolving shingles infection; (5) Staghorn calculi -- Tmax 97.8 -- WBC 4.8 from 4.1 -- Micro 02/25 BAL no growth to date 02/24 Aspergillus in process CMV in process Haem infl in process Pneumocystits negative 02/23 Legionella negative histoplasma negative UA negative 02/22 BAL Negative 02/21 Hepatitis negative HIV negative 02/19 blood Negative lung viral pending lung fungal in process mycobacterium in process AFB negative Pleural Staph Epidermidis and Strep Parasanguinis MRSA screen negative VZV negative 02/18 BAL normal julia blood Negative 02/17 blood parasite negative Cryptococcus negative 02/16 AnaplasmaDNA negative Babesia negative Borellia negative Ehrlicia negative 02/14 blood negative. 02/13 parvovirus past infection 02/12 blood fungal in process 02/11 urine Enterococcus faecalis blood negative -- ABX, course ends today Vancomycin Azithromycin -- Received Neupogen 02/21 -- ID following Home meds: Azothioprine, Dapsone, Doxycycline, Valtrex Neurologic: (1) Acute encephalopathy secondary to elevated CO2; (2) Chronic low back pain; (3) Spinal stenosis; (4) Diabetic neuropathy; (5) chronic anxiety and depression -- PRN Tylenol -- Propofol gtt for sedation -- PRN Morphine for pain control -- Gabapentin Home meds: Trazodone, Gabapentin, T#3 Hematological: (1) Acute bilateral DVTs in posterior tibial veins; (2) Pancytopenia; (3) hx of prior DVT -- Hgb 7.5 from 7.0, received 1U PRBC on 02/25. -- Plt 54 from 59 from 109, follow trend -- Coags PTT 63 -- HIT PF4 Ab ordered (low concern) -- DVT prophylaxis: therapeutic heparin -- bone marrow bx done - FISH normal for all loci, flow cytometry without immunophenotypic abnormality. UPDATE, 02/24: significantly decreased total lympocyte count which is mainly due to a decrease in DC3+ cells. total NK cells are quantitatively normal, however, there is a significant decrease in the major NK cell subsets, I.E. cytotoxic NK cells (CD16++CD56++) and cytokine-producing NK cells (CD56+++). This is beacuse the majority of the patient's NK cells are CKD 16-CD56+ (98.3%; 152 cellus/uL) and normal adult rage is 2.4-24.2%. NKT cells (CD3+CD56+) are within normal limits for age. -- lead levels negative -- hematology following Home meds: Coumadin Metabolic: No acute issues Home meds: None Other: (1) Cataracts -- Betaxolol eye gtt -- Latanoprost eye gtt Home meds: Betaxolol eye gtt, Latanoprost eye gtt Deep vein thrombosis prophylaxis:therapeutic heparin Dietary: Protonix Condition: Critical Prognosis:Guarded Code status: Full Disposition: continue ICU care Family () updated at bedside and on rounds regarding interval events and plan of care Cumulative time spent in the care of this patient (excluding any procedure time) : at least 50 minutes. Patient care included clinical interview (with patient and/or family), bedside exam of the patient, review of labs, x-rays, and other ancillary data, coordination of (respiratory, nursing care, review of patient's records, discussion regarding patients management with involved consultants, primary physician, pharmacists, and other healthcare personnel (dietary, case management , physical/occupational therapy etc.) Critical Care Time: 50 min
[2019-02-26] MEDS: Heparin DRIP 25,000 UNITS(*) 25,000 UNITS/500 ML BAG IV SCH (13:30)
[2019-02-26] MEDS ORDERED: Calcium Gluconate INJ* 1 GM in NS 0.9% 50 ML* 50 ML IVPB ONE (14:00)
[2019-02-26] MEDS ORDERED: Vancomycin Trough Check NOTE FOLLOW UP ONE (16:00)
[2019-02-26] MEDS: Vancomycin(*) 750 MG in NS 0.9% 250 ML* 250 ML IVPB SCH (16:52)
[2019-02-26] MEDS: Atorvastatin* 40 MG TAB PO SCH (19:50)
[2019-02-26] MEDS: Latanoprost 0.005%* 2.5 ml BTL BOTH EYES SCH (20:05)
[2019-02-26 20:09] LABS: HIT ELISA 0.083 OD (<0.400)
--- NOTE | 2019-02-26 20:17 | PN ---
Progress Note - Progress Note Date of Service: 02/26/19 - Pulm f/u note Note: patient seen and examined at bedside. Interim events noted. patient had worsening hypercapnic respiratory failure yesterday, improved after bronchoscopy. Patient had significant hypotension requiring vasopressor support. Renal failure has been worsening. He has developed anasarca. Currently requiring 45% FiO2. Hypercapnia is improving. Chest x-ray suggestive of diffuse airspace opacities. Active Medications Generic Name Dose Route Start Last Admin Trade Name Freq PRN Reason Stop Dose Admin Acetaminophen 650 mg 02/24/19 12:29 Tylenol Tab* PO Q4H PRN FEVER Albuterol 2.5 mg 02/17/19 07:05 02/18/19 14:28 Ventolin 2.5 Mg/3 Ml Neb.Marlen* INH 2.5 mg [id number] AWAKE PRN Administration SOB/WHEEZING Atorvastatin Calcium 40 mg 02/12/19 21:00 02/26/19 19:50 Lipitor* PO 40 mg 2100 FAYE Administration Azithromycin 250 mg 02/22/19 09:00 02/26/19 09:06 Zithromax Susp* PO 250 mg [id number] FYAE Administration Betaxolol HCl 1 drop 02/12/19 09:00 02/26/19 20:05 Betoptic 0.05%* BOTH EYES 1 drop BID FAYE Administration Chlorhexidine Gluconate 15 ml 02/23/19 04:00 02/26/19 19:50 Peridex Mouth Wash 0.12%* SWISH SPIT 15 ml Q4H FAYE Administration Dextrose 12.5 gm 02/12/19 01:07 D50w Syringe 50 Ml* IV PUSH .FOR FS < 60 - SS PRN FS < 60 Furosemide 40 mg 02/22/19 17:00 02/26/19 16:52 Lasix Iv* IV 40 mg 0800,1700 FAYE Administration Gabapentin 100 mg 02/19/19 21:00 02/26/19 20:04 Neurontin Cap(*) PO 100 mg TID FAYE Administration Heparin Sodium (Porcine) 0 units 02/22/19 16:00 02/22/19 19:46 Heparin Vial(*) IV 6,600 units .PER PROTOCOL FAYE Administration Heparin Sodium/Dextrose 25,000 units in 500 mls @ 0 mls/hr 02/22/19 15:30 08/05 13:30 Heparin Drip 25,000 Units(*) IV 4 mls/hr PER RATE FAYE Administration Protocol Per Protocol Propofol 100 mls @ 3.204 mls/hr 02/23/19 15:15 02/26/19 18:03 Diprivan* IV 3.204 mls/hr .(Initial Rate) FAYE Administration Protocol 5 MCG/KG/MIN Norepinephrine Bitartrate 8 mg 500 mls @ 75 mls/hr 02/25/19 20:00 02/26/19 19 :51 / Sodium Chloride IV Not Given Q6H FAYE Protocol 20 MCG/MIN Insulin Glargine 30 units 02/26/19 21:00 02/26/19 20:06 Lantus(*) SUBCUT 30 units Q12HR FAYE Administration Insulin Human Regular 0 units 02/22/19 12:00 02/26/19 19:50 Insulin Regular(*) SUBCUT 3 unit FS Q4 ICU FAYE Administration Protocol Latanoprost 1 drop 02/12/19 21:00 02/26/19 20:05 Xalatan 0.005%* BOTH EYES 1 drop BEDTIME FAYE Administration Protocol Methylnaltrexone Tavares 3 mg 02/22/19 17:00 02/26/19 08:40 Relistor Sq (Nf) SUBCUT 3 mg DAILY FAYE Administration Metoclopramide HCl 10 mg 02/24/19 17:00 02/26/19 16:52 Reglan Iv* IV 02/27/19 09:01 10 mg Q8H FAYE Administration Metoprolol Tartrate 5 mg 02/25/19 09:04 02/26/19 16:52 Lopressor Iv* IV 5 mg Q8H FAYE Administration Morphine Sulfate 4 mg 02/12/19 05:14 02/23/19 00:52 Morphine 4 Mg/Ml Vial (1 Ml) IV 4 mg Q3H PRN Administration PAIN - MODERATE TO SEVERE Pantoprazole Sodium 40 mg 02/21/19 23:10 02/26/19 20:05 Protonix Iv* IV 40 mg BID FAYE Administration Prednisone 100 mg 02/23/19 09:00 02/26/19 08:39 Deltasone Tab* PO 03/01/19 09:01 100 mg DAILY FAYE Administration Vital Signs Temp Pulse Resp BP Pulse Ox 98.5 F 77 28 134/64 96 02/26/19 19:14 02/26/19 19:30 02/26/19 18:54 02/26/19 19:30 02/26/19 19:30 Laboratory Results - last 24 hr 02/22/19 02/23/19 02/24/19 17:55 15:52 15:46 WBC RBC Hgb Hct MCV MCH MCHC RDW Plt Count MPV Neut % (Auto) Lymph % (Auto) [place] % (Auto) Eos % (Auto) Baso % (Auto) Absolute Neuts (auto) Absolute Lymphs (auto) Absolute Monos (auto) Absolute Eos (auto) Absolute Basos (auto) Absolute Nucleated RBC Nucleated RBC % APTT HIT Functional 0.083 Patient Temperature ABG pH ABG pH (Temp Correct) ABG pCO2 ABG pCO2 (Temp Corrct ABG pO2 ABG pO2 (Temp Correct ABG HCO3 ABG O2 Saturation ABG Base Excess Respiration Rate O2 Delivery Device Ventilator Type Vent Mode FiO2 Inspiratory Time PEEP Pressure Support Pressure Control EPAP IPAP BiPAP Sodium Potassium Chloride Carbon Dioxide Anion Gap BUN Creatinine Est GFR ( Amer) Est GFR (Non-Af Amer) BUN/Creatinine Ratio Glucose POC Glucose (mg/dL) Calcium Ionized Calcium Phosphorus Magnesium Total Bilirubin AST ALT Alkaline Phosphatase B-Natriuretic Peptide Total Protein Albumin Globulin Albumin/Globulin Ratio Heparin-PF4 Ab Interp Negative Heparin-PF4 Ab Comment See comment Histoplasma Ab Imm Diff Negative Histoplasma Mycel Ab CF Negative Histoplasma Yeast Ab CF Negative Pneumocystis Source Sputum Pneumocystis DNA (PCR) Negative 02/25/19 02/25/19 02/26/19 20:37 21:13 00:07 WBC RBC Hgb Hct MCV MCH MCHC RDW Plt Count MPV Neut % (Auto) Lymph % (Auto) [place] % (Auto) Eos % (Auto) Baso % (Auto) Absolute Neuts (auto) Absolute Lymphs (auto) Absolute Monos (auto) Absolute Eos (auto) Absolute Basos (auto) Absolute Nucleated RBC Nucleated RBC % APTT HIT Functional Patient Temperature Not Reportable ABG pH 7.07 L* ABG pH (Temp Correct) Not Reportable ABG pCO2 58 H ABG pCO2 (Temp Corrct Not Reportable ABG pO2 88 ABG pO2 (Temp Correct Not Reportable ABG HCO3 14.2 L ABG O2 Saturation 97.7 ABG Base Excess -13.7 L Respiration Rate Not Reportable O2 Delivery Device vent Ventilator Type aprv Vent Mode 45 FiO2 Not Reportable Inspiratory Time Not Reportable PEEP Not Reportable Pressure Support Not Reportable Pressure Control Not Reportable EPAP Not Reportable IPAP Not Reportable BiPAP Not Reportable Sodium Potassium Chloride Carbon Dioxide Anion Gap BUN Creatinine Est GFR ( Amer) Est GFR (Non-Af Amer) BUN/Creatinine Ratio Glucose POC Glucose (mg/dL) 268 H 196 H Calcium Ionized Calcium Phosphorus Magnesium Total Bilirubin AST ALT Alkaline Phosphatase B-Natriuretic Peptide Total Protein Albumin Globulin Albumin/Globulin Ratio Heparin-PF4 Ab Interp Heparin-PF4 Ab Comment Histoplasma Ab Imm Diff Histoplasma Mycel Ab CF Histoplasma Yeast Ab CF Pneumocystis Source Pneumocystis DNA (PCR) 02/26/19 02/26/19 02/26/19 04:17 04:18 04:18 WBC RBC Hgb Hct MCV MCH MCHC RDW Plt Count MPV Neut % (Auto) Lymph % (Auto) [place] % (Auto) Eos % (Auto) Baso % (Auto) Absolute Neuts (auto) Absolute Lymphs (auto) Absolute Monos (auto) Absolute Eos (auto) Absolute Basos (auto) Absolute Nucleated RBC Nucleated RBC % APTT 63.0 H HIT Functional Patient Temperature ABG pH ABG pH (Temp Correct) ABG pCO2 ABG pCO2 (Temp Corrct ABG pO2 ABG pO2 (Temp Correct ABG HCO3 ABG O2 Saturation ABG Base Excess Respiration Rate O2 Delivery Device Ventilator Type Vent Mode FiO2 Inspiratory Time PEEP Pressure Support Pressure Control EPAP IPAP BiPAP Sodium Potassium Chloride Carbon Dioxide Anion Gap BUN Creatinine Est GFR ( Amer) Est GFR (Non-Af Amer) BUN/Creatinine Ratio Glucose POC Glucose (mg/dL) 181 H Calcium Ionized Calcium Phosphorus Magnesium Total Bilirubin AST ALT Alkaline Phosphatase B-Natriuretic Peptide 507 H Total Protein Albumin Globulin Albumin/Globulin Ratio Heparin-PF4 Ab Interp Heparin-PF4 Ab Comment Histoplasma Ab Imm Diff Histoplasma Mycel Ab CF Histoplasma Yeast Ab CF Pneumocystis Source Pneumocystis DNA (PCR) 02/26/19 02/26/19 02/26/19 04:18 04:18 04:18 WBC 4.8 RBC 2.64 L Hgb 7.5 L Hct 23 L MCV 88 MCH 29 MCHC 32 RDW 19 H Plt Count 54 L MPV 9.4 Neut % (Auto) 85.6 Lymph % (Auto) 6.4 [place] % (Auto) 6.6 Eos % (Auto) 1.3 Baso % (Auto) 0.1 Absolute Neuts (auto) 4.1 Absolute Lymphs (auto) 0.3 L Absolute Monos (auto) 0.3 Absolute Eos (auto) 0.1 Absolute Basos (auto) 0.0 Absolute Nucleated RBC 0.0 Nucleated RBC % 0.7 APTT HIT Functional Patient Temperature ABG pH ABG pH (Temp Correct) ABG pCO2 ABG pCO2 (Temp Corrct ABG pO2 ABG pO2 (Temp Correct ABG HCO3 ABG O2 Saturation ABG Base Excess Respiration Rate O2 Delivery Device Ventilator Type Vent Mode FiO2 Inspiratory Time PEEP Pressure Support Pressure Control EPAP IPAP BiPAP Sodium 144 Potassium 5.4 H Chloride 115 H Carbon Dioxide 20 L Anion Gap 9 BUN 95 H Creatinine 2.97 H Est GFR ( Amer) 25.0 Est GFR (Non-Af Amer) 20.7 BUN/Creatinine Ratio 32.0 H Glucose 177 H POC Glucose (mg/dL) Calcium 8.1 L Ionized Calcium 1.13 L Phosphorus 9.0 H Magnesium 3.5 H Total Bilirubin 1.90 H AST 41 H ALT 36 Alkaline Phosphatase 109 H B-Natriuretic Peptide Total Protein 5.8 L Albumin 3.9 Globulin 1.9 L Albumin/Globulin Ratio 2.1 Heparin-PF4 Ab Interp Heparin-PF4 Ab Comment Histoplasma Ab Imm Diff Histoplasma Mycel Ab CF Histoplasma Yeast Ab CF Pneumocystis Source Pneumocystis DNA (PCR) 02/26/19 02/26/19 08:16 11:34 WBC RBC Hgb Hct MCV MCH MCHC RDW Plt Count MPV Neut % (Auto) Lymph % (Auto) [place] % (Auto) Eos % (Auto) Baso % (Auto) Absolute Neuts (auto) Absolute Lymphs (auto) Absolute Monos (auto) Absolute Eos (auto) Absolute Basos (auto) Absolute Nucleated RBC Nucleated RBC % APTT HIT Functional Patient Temperature ABG pH ABG pH (Temp Correct) ABG pCO2 ABG pCO2 (Temp Corrct ABG pO2 ABG pO2 (Temp Correct ABG HCO3 ABG O2 Saturation ABG Base Excess Respiration Rate O2 Delivery Device Ventilator Type Vent Mode FiO2 Inspiratory Time PEEP Pressure Support Pressure Control EPAP IPAP BiPAP Sodium Potassium Chloride Carbon Dioxide Anion Gap BUN Creatinine Est GFR ( Amer) Est GFR (Non-Af Amer) BUN/Creatinine Ratio Glucose POC Glucose (mg/dL) 204 H 175 H Calcium Ionized Calcium Phosphorus Magnesium Total Bilirubin AST ALT Alkaline Phosphatase B-Natriuretic Peptide Total Protein Albumin Globulin Albumin/Globulin Ratio Heparin-PF4 Ab Interp Heparin-PF4 Ab Comment Histoplasma Ab Imm Diff Histoplasma Mycel Ab CF Histoplasma Yeast Ab CF Pneumocystis Source Pneumocystis DNA (PCR) O/E ;Pt is sedated, withdraws to pain HEENT: ETT+ Lungs: Dimnished air entry, crackles+ CVS: S1, S2+ Abd: Obese, BS+ Ext: Edema+ Neuro: Sedated, unable to assess I/R: 78 yo M with 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 Patient continued to deteriorate during hospitalization. He has developed hypoxemic and hypercapnic respiratory failure requiring intubation 02/20 . He had worsening hypercapnia yesterday. He had bronchoscopy 02/19 with evidence of thick mucous plugs and mucous membranes that are bleeding easily to suctioning. BAL was negative for PCP. Bronchial cultures showed strep and staph.Cultures demonstrate Enterococcus UTI. CT abdomen with staghorn calculi. Has required vasopressors for shock, off and on. Developed acute kidney injury with oliguria and bump in creatinine to mid 2s. Has been requiring ventilatory support. Chest x-ray with diffuse infiltrates Has required bronchoscopy 3 times so far, noted to have thick mucous plugs Improved FiO2 requirement after bronchoscopy, PCO2 trending down Also has been having low hemoglobin without any active bleeding has been on high-dose steroids Infectious disease has been following BAL did not demonstrate alveolar hemorrhage Still remains critical To continue with critical care support If no improvement by next week, family to decide regarding comfort care
[2019-02-27] MEDS: Insulin REGULAR(*) 1 UNITS UNIT SUBCUT SCH ×6 (00:38→21:08)
[2019-02-27] MEDS: Chlorhexidine MOUTHWASH 0.12%* 15 ML UDC SWISH SPIT SCH ×6 (00:42→21:08)
[2019-02-27] MEDS: Metoclopramide IV* 5 MG/ML 2 ML VIAL IV SCH ×2 (00:42→09:01)
[2019-02-27] MEDS: Metoprolol Tartrate IV* 1 MG/ML 5 ML VIAL IV SCH ×3 (00:42→16:19)
[2019-02-27] MEDS: Norepinephrine VIAL* 8 MG in NS 0.9% 500 ML* 492 ML IV SCH ×4 (00:43→21:08)
[2019-02-27 05:19] LABS: Hematocrit 23 % (42-52); Hemoglobin 7.5 g/dL (14.0-18.0); Mean Corpuscular HGB Conc 33 g/dL (31-36); Mean Corpuscular Hemoglobin 29 pg (27-31); Mean Corpuscular Volume 87 fL (80-94); Mean Platelet Volume 10.1 fL (7.4-10.4); Platelet Count 56 10^3/uL (150-450); Red Cell Distribution Width 18 % (10-15); White Blood Count 6.6 10^3/uL (3.5-10.8)
[2019-02-27] MEDS: Dextrose 50% VIAL 50 ml IV PUSH PRN ×2 (05:28→12:00)
[2019-02-27 05:31] LABS: Albumin 3.6 g/dL (3.2-5.2); Albumin/Globulin Ratio 1.9 (1-3); BUN/Creatinine Ratio 34.6 (8-20); Calcium 8.5 mg/dL (8.6-10.3); EGFR African American 23.1 (>60); EGFR Non-African American 19.1 (>60); Globulin 1.9 g/dL (2-4); Magnesium 3.7 mg/dL (1.9-2.7); Phosphorus 8.7 mg/dL (2.5-5.0); Total Bilirubin 1.7 mg/dL (0.2-1.0); Total Protein 5.5 g/dL (6.4-8.9)
[2019-02-27 05:39] LABS: Potassium 5.2 mmol/L (3.5-5.0)
[2019-02-27] MEDS: Propofol* 100 ML IV SCH ×2 (05:40→14:29)
[2019-02-27 06:03] LABS: ABS Eosinophils 0.1 10^3/ul (0-0.6); ABS Lymphocytes 0.4 10^3/ul (1.0-4.8); ABS Monocytes 0.3 10^3/ul (0-0.8); ABS Neutrophils 5.7 10^3/ul (1.5-7.7); ABS Nucleated RBC 0.1 10^3/ul; Lymphocyte % 6.3 %; Nucleated Red Blood Cells % 0.7
--- NOTE | 2019-02-27 08:54 | PN ---
Date of Service: 02/27/19 Critical Care Services: HD 17 Acute hypoxic respiratory failure with background ILD on immunosuppression. GPC from BAL, treated. Now with persistent respiratory failure. CXR with airspace disease. On APRV 40% poorly compliant. Edema to exam. No events overnight Vital Signs: Temp Pulse Resp BP SpO2 FiO2 37.3 C 91 30 139/66 95 40 02/27/19 08:00 02/27/19 08:00 02/27/19 06:00 02/27/19 08:00 02/27/19 08:00 02/27 07:54 Physical Exam: Gen: Sedated but rousable on vent, no overnight events HEENT: Intubated. PERRL. Lungs: coarse entry bilaterally Cardiac: S1S2 regular Abdomen: soft, obese, NT, ND, +BS Extremities: +2 edema globally Neuro: moves spont, multipodus boots in place Fluid Balance (Past 24 Hours): I= O= Net Intake & Output 02/25/19 02/26/19 02/27/19 02/28/19 06:59 06:59 06:59 06:59 Intake Total 3280.5 2926 555.3 Output Total 8803 178 3082 120 Balance 2059.5 2295 -537.7 -120 Weight 116.1 kg 117.703 kg 119.3 kg Intake: IV Fluids 1860.5 1185 60 Albumin 25% 276.5 Calcium Gluconate 0 185 60 NS (0.9%) 1584.0 1000 Vancomycin 0 IVPB 390 60 Albumin 25% 116 Calcium Gluconate 60 Vancomycin 274 Medicated IV 920.0 728 175.3 CC - Propofol/Diprivan 352 171 80 Heparin 93.0 96 95.3 Levophed 475 461 Oral 0 0 Tube Feeding Flush Amount 60 120 Packed Cells 293 Albumin 50 300 100 NG Tube Irrigate Amount 360 100 Output: NG Tube Drainage Amount 200 225 Mclain 1221 401 538 120 Liquid Stool 300 Irrigation 30 30 Other: Date of Last Bowel 02/25/19 02/25/1902/26 Movement # Bowel Movements 1 1 1 Estimated Stool Amount Small Medium Large Labs: Laboratory Results - last 24 hr 02/23/19 02/24/19 02/26/19 15:52 15:46 04:17 WBC RBC Hgb Hct MCV MCH MCHC RDW Plt Count MPV Neut % (Auto) Lymph % (Auto) [place] % (Auto) Eos % (Auto) Baso % (Auto) Absolute Neuts (auto) Absolute Lymphs (auto) Absolute Monos (auto) Absolute Eos (auto) Absolute Basos (auto) Absolute Nucleated RBC Nucleated RBC % APTT HIT Functional 0.083 Sodium Potassium Chloride Carbon Dioxide Anion Gap BUN Creatinine Est GFR ( Amer) Est GFR (Non-Af Amer) BUN/Creatinine Ratio Glucose POC Glucose (mg/dL) 181 H Calcium Ionized Calcium Phosphorus Magnesium Total Bilirubin AST ALT Alkaline Phosphatase B-Natriuretic Peptide Total Protein Albumin Globulin Albumin/Globulin Ratio Heparin-PF4 Ab Interp Negative Heparin-PF4 Ab Comment See comment Histoplasma Ab Imm Diff Negative Histoplasma Mycel Ab CF Negative Histoplasma Yeast Ab CF Negative A. galactomannan Ag <0.500 02/26/19 02/26/19 02/26/19 08:16 11:34 16:35 WBC RBC Hgb Hct MCV MCH MCHC RDW Plt Count MPV Neut % (Auto) Lymph % (Auto) [place] % (Auto) Eos % (Auto) Baso % (Auto) Absolute Neuts (auto) Absolute Lymphs (auto) Absolute Monos (auto) Absolute Eos (auto) Absolute Basos (auto) Absolute Nucleated RBC Nucleated RBC % APTT HIT Functional Sodium Potassium Chloride Carbon Dioxide Anion Gap BUN Creatinine Est GFR ( Amer) Est GFR (Non-Af Amer) BUN/Creatinine Ratio Glucose POC Glucose (mg/dL) 204 H 175 H 180 H Calcium Ionized Calcium Phosphorus Magnesium Total Bilirubin AST ALT Alkaline Phosphatase B-Natriuretic Peptide Total Protein Albumin Globulin Albumin/Globulin Ratio Heparin-PF4 Ab Interp Heparin-PF4 Ab Comment Histoplasma Ab Imm Diff Histoplasma Mycel Ab CF Histoplasma Yeast Ab CF A. galactomannan Ag 02/26/19 02/27/19 02/27/19 19:35 00:36 05:00 WBC RBC Hgb Hct MCV MCH MCHC RDW Plt Count MPV Neut % (Auto) Lymph % (Auto) [place] % (Auto) Eos % (Auto) Baso % (Auto) Absolute Neuts (auto) Absolute Lymphs (auto) Absolute Monos (auto) Absolute Eos (auto) Absolute Basos (auto) Absolute Nucleated RBC Nucleated RBC % APTT HIT Functional Sodium Potassium Chloride Carbon Dioxide Anion Gap BUN Creatinine Est GFR ( Amer) Est GFR (Non-Af Amer) BUN/Creatinine Ratio Glucose POC Glucose (mg/dL) 161 H 90 Calcium Ionized Calcium Phosphorus Magnesium Total Bilirubin AST ALT Alkaline Phosphatase B-Natriuretic Peptide 609 H Total Protein Albumin Globulin Albumin/Globulin Ratio Heparin-PF4 Ab Interp Heparin-PF4 Ab Comment Histoplasma Ab Imm Diff Histoplasma Mycel Ab CF Histoplasma Yeast Ab CF A. galactomannan Ag 02/27/19 02/27/19 02/27/19 05:00 05:00 05:00 WBC 6.6 RBC 2.60 L Hgb 7.5 L Hct 23 L MCV 87 MCH 29 MCHC 33 RDW 18 H Plt Count 56 L MPV 10.1 Neut % (Auto) 87.4 Lymph % (Auto) 6.3 [place] % (Auto) 5.2 Eos % (Auto) 1.0 Baso % (Auto) 0.1 Absolute Neuts (auto) 5.7 Absolute Lymphs (auto) 0.4 L Absolute Monos (auto) 0.3 Absolute Eos (auto) 0.1 Absolute Basos (auto) 0.0 Absolute Nucleated RBC 0.1 Nucleated RBC % 0.7 APTT HIT Functional Sodium 145 Potassium 5.2 H Chloride 116 H Carbon Dioxide 20 L Anion Gap 9 BUN 110 H Creatinine 3.18 H Est GFR ( Amer) 23.1 Est GFR (Non-Af Amer) 19.1 BUN/Creatinine Ratio 34.6 H Glucose 59 L POC Glucose (mg/dL) Calcium 8.5 L Ionized Calcium 1.19 Phosphorus 8.7 H Magnesium 3.7 H Total Bilirubin 1.70 H AST 33 ALT 30 Alkaline Phosphatase 121 H B-Natriuretic Peptide Total Protein 5.5 L Albumin 3.6 Globulin 1.9 L Albumin/Globulin Ratio 1.9 Heparin-PF4 Ab Interp Heparin-PF4 Ab Comment Histoplasma Ab Imm Diff Histoplasma Mycel Ab CF Histoplasma Yeast Ab CF A. galactomannan Ag 02/27/19 02/27/19 02/27/19 05:00 05:02 05:53 WBC RBC Hgb Hct MCV MCH MCHC RDW Plt Count MPV Neut % (Auto) Lymph % (Auto) [place] % (Auto) Eos % (Auto) Baso % (Auto) Absolute Neuts (auto) Absolute Lymphs (auto) Absolute Monos (auto) Absolute Eos (auto) Absolute Basos (auto) Absolute Nucleated RBC Nucleated RBC % APTT 65.5 H HIT Functional Sodium Potassium Chloride Carbon Dioxide Anion Gap BUN Creatinine Est GFR ( Amer) Est GFR (Non-Af Amer) BUN/Creatinine Ratio Glucose POC Glucose (mg/dL) 62 L 78 Calcium Ionized Calcium Phosphorus Magnesium Total Bilirubin AST ALT Alkaline Phosphatase B-Natriuretic Peptide Total Protein Albumin Globulin Albumin/Globulin Ratio Heparin-PF4 Ab Interp Heparin-PF4 Ab Comment Histoplasma Ab Imm Diff Histoplasma Mycel Ab CF Histoplasma Yeast Ab CF A. galactomannan Ag 02/27/19 07:06 WBC RBC Hgb Hct MCV MCH MCHC RDW Plt Count MPV Neut % (Auto) Lymph % (Auto) [place] % (Auto) Eos % (Auto) Baso % (Auto) Absolute Neuts (auto) Absolute Lymphs (auto) Absolute Monos (auto) Absolute Eos (auto) Absolute Basos (auto) Absolute Nucleated RBC Nucleated RBC % APTT HIT Functional Sodium Potassium Chloride Carbon Dioxide Anion Gap BUN Creatinine Est GFR ( Amer) Est GFR (Non-Af Amer) BUN/Creatinine Ratio Glucose POC Glucose (mg/dL) 103 H Calcium Ionized Calcium Phosphorus Magnesium Total Bilirubin AST ALT Alkaline Phosphatase B-Natriuretic Peptide Total Protein Albumin Globulin Albumin/Globulin Ratio Heparin-PF4 Ab Interp Heparin-PF4 Ab Comment Histoplasma Ab Imm Diff Histoplasma Mycel Ab CF Histoplasma Yeast Ab CF A. galactomannan Ag Studies: 02/26 CXR reviewed Nutrition: Will restart TF, Nepro at 30cc/hr will give close to 1400kcal. Impression: Acute hypoxic respiratory failure with serial bronchoscopy over baseline ILD on immunosuppression now with volume overload and JUAN. Plan: The JUAN is most certainly multifactorial ( Vanco, Acyclovir, Hypoperfusion and CTA to name a few) The overall flavor of the care is directed toward attempts at return to home on Hospice for his progressive ILD. We will not be performing CPR or dialysis as discussed with today. We are planning to discuss a DNI order prior to any extubation. With respect to extubation the edema is his primary obstacle at the moment. CXR, exam, vent requirement all point to water at this point. Currently receiving lasix but net positive almost 9 liters last 4 days. Will lower the prednisone to 60mg/day and increase lasix and add metolazone. Fundamentally he will diurese or not and I am happy to add levophed to support diuresis if BP falls as the water comes off. Extubated with a little levo a far better situation than intubated without it. Continue APRV at current settings for now until compliance improves. Will also work to narrow his med list as much as possible. Adjust Lantus as well. D/W in detail at bedside. Critical Care Time: 45 minutes
[2019-02-27] MEDS: Pantoprazole IV* 40 MG IV SCH ×2 (09:01→21:09)
[2019-02-27] MEDS: Furosemide IV* 10 MG/ML VIAL (40 MG) IV SCH ×3 (09:01→21:27)
[2019-02-27] MEDS: Gabapentin CAP(*) 100 MG PO SCH ×3 (09:01→21:08)
[2019-02-27] MEDS: Insulin GLARGINE(*) 1 UNITS UNIT SUBCUT SCH ×2 (09:47→21:08)
[2019-02-27] MEDS ORDERED: Insulin GLARGINE(*) 1 UNITS UNIT SUBCUT SCH (10:00)
[2019-02-27] MEDS: predniSONE TAB* 50 MG PO SCH (10:11)
[2019-02-27] MEDS: CMCS:Methylnaltrexone SQ (NF) 12 MG/0.6 ML VIAL SUBCUT SCH (10:11)
[2019-02-27] MEDS: Betaxolol 0.5 %* OPHTH.SOLN 5 ML BOTH EYES SCH ×2 (10:20→21:08)
[2019-02-27] MEDS ORDERED: Dextrose 50% VIAL 50 ml ONE (11:55)
[2019-02-27] MEDS: Albumin Human 25%* 25 GM/100 ML BTL IV SCH (19:40)
[2019-02-27] MEDS: Atorvastatin* 40 MG TAB PO SCH (21:08)
[2019-02-27] MEDS: Latanoprost 0.005%* 2.5 ml BTL BOTH EYES SCH (21:09)
[2019-02-28] MEDS: Metoprolol Tartrate IV* 1 MG/ML 5 ML VIAL IV SCH ×3 (00:13→17:25)
[2019-02-28] MEDS: Insulin REGULAR(*) 1 UNITS UNIT SUBCUT SCH ×6 (00:13→20:28)
[2019-02-28] MEDS: Chlorhexidine MOUTHWASH 0.12%* 15 ML UDC SWISH SPIT SCH ×6 (00:13→20:36)
[2019-02-28] MEDS: Norepinephrine VIAL* 8 MG in NS 0.9% 500 ML* 492 ML IV SCH ×5 (02:31→19:46)
[2019-02-28] MEDS: Furosemide IV* 10 MG/ML VIAL (40 MG) IV SCH ×4 (03:29→22:10)
[2019-02-28] MEDS: Propofol* 100 ML IV SCH (03:30)
[2019-02-28 05:53] LABS: Albumin/Globulin Ratio 1.6 (1-3); EGFR Non-African American 16.5 (>60); Globulin 1.9 g/dL (2-4); Magnesium 3.6 mg/dL (1.9-2.7); Phosphorus 8.6 mg/dL (2.5-5.0); Total Bilirubin 1.8 mg/dL (0.2-1.0); Total Protein 4.9 g/dL (6.4-8.9)
[2019-02-28 05:57] LABS: Potassium 5.7 mmol/L (3.5-5.0)
[2019-02-28] MEDS: Gabapentin CAP(*) 100 MG PO SCH ×3 (08:34→20:33)
[2019-02-28] MEDS: Metolazone TAB* 5 MG PO SCH (08:34)
[2019-02-28] MEDS: Betaxolol 0.5 %* OPHTH.SOLN 5 ML BOTH EYES SCH ×2 (08:34→20:27)
[2019-02-28] MEDS: Pantoprazole IV* 40 MG IV SCH ×2 (08:34→20:31)
[2019-02-28] MEDS: predniSONE TAB* 20 MG PO SCH (08:34)
[2019-02-28] MEDS: Heparin DRIP 25,000 UNITS(*) 25,000 UNITS/500 ML BAG IV SCH (09:13)
--- NOTE | 2019-02-28 09:41 | PN ---
Date of Service: 02/28/19 Critical Care Services: Looks slightly less edematous, rousable. Vital Signs: Temp Pulse Resp BP SpO2 FiO2 36.5 C 82 10 98/43 92 40 02/28/19 08:00 02/28/19 09:00 02/28/19 07:00 02/28/19 09:00 02/28/19 09:00 02/28 05:52 Physical Exam: Gen: rousable on vent through light sedation HEENT: NCAT, PERRL, intubated Lungs: scant rhonchi, crackles Cardiac: S1S2 regular Abdomen: soft, NT, ND, +BS Extremities: +2 LE edema, +1 UE edema Neuro: rouses. moves ext weakly Fluid Balance (Past 24 Hours): I= O= Net Intake & Output 02/26/19 02/27/19 02/28/19 03/01/19 06:59 06:59 06:59 06:59 Intake Total 2926 555.3 568.2 Output Total 631 1093 932 20 Balance 2295 -537.7 -363.8 -20 Weight 117.703 kg 119.3 kg 119 kg Intake: IV Fluids 1185 60 Calcium Gluconate 185 60 NS (0.9%) 1000 IVPB 60 Calcium Gluconate 60 Medicated IV 728 175.3 117.6 CC - Propofol/Diprivan 171 80 76.6 Heparin 96 95.3 41 Levophed 461 Heparin 59.6 Oral 0 Tube Feeding 291 Tube Feeding Flush Amount 120 100 Packed Cells 293 Albumin 300 100 NG Tube Irrigate Amount 360 100 Output: NG Tube Drainage Amount 200 225 Mclain 401 538 932 20 Liquid Stool 300 Irrigation 30 30 Other: Date of Last Bowel 02/25/19 7 Movement # Bowel Movements 1 1 Estimated Stool Amount Medium Large Other Amount Description had about 3 chux pads soaked w/ serous fluid from left femoral central line Labs: Laboratory Results - last 24 hr 02/23/19 02/24/19 02/27/19 04:12 15:46 11:49 APTT Sodium Potassium Chloride Carbon Dioxide Anion Gap BUN Creatinine Est GFR ( Amer) Est GFR (Non-Af Amer) BUN/Creatinine Ratio Glucose POC Glucose (mg/dL) 58 L Calcium Ionized Calcium Phosphorus Magnesium Total Bilirubin AST ALT Alkaline Phosphatase B-Natriuretic Peptide Total Protein Albumin Globulin Albumin/Globulin Ratio CMV Qnt PCR IU/mL <35 A Miscellaneous Test See comment 02/27/19 02/27/19 02/27/19 13:02 16:15 20:34 APTT Sodium Potassium Chloride Carbon Dioxide Anion Gap BUN Creatinine Est GFR ( Amer) Est GFR (Non-Af Amer) BUN/Creatinine Ratio Glucose POC Glucose (mg/dL) 103 H 100 131 H Calcium Ionized Calcium Phosphorus Magnesium Total Bilirubin AST ALT Alkaline Phosphatase B-Natriuretic Peptide Total Protein Albumin Globulin Albumin/Globulin Ratio CMV Qnt PCR IU/mL Miscellaneous Test 02/27/19 02/28/19 02/28/19 23:12 03:15 05:08 APTT 55.5 H Sodium Potassium Chloride Carbon Dioxide Anion Gap BUN Creatinine Est GFR ( Amer) Est GFR (Non-Af Amer) BUN/Creatinine Ratio Glucose POC Glucose (mg/dL) 152 H 172 H Calcium Ionized Calcium Phosphorus Magnesium Total Bilirubin AST ALT Alkaline Phosphatase B-Natriuretic Peptide Total Protein Albumin Globulin Albumin/Globulin Ratio CMV Qnt PCR IU/mL Miscellaneous Test 02/28/19 02/28/19 02/28/19 05:08 05:08 05:08 APTT Sodium 143 Potassium 5.7 H Chloride 116 H Carbon Dioxide 19 L Anion Gap 8 BUN 130 H Creatinine 3.61 H Est GFR ( Amer) 20.0 Est GFR (Non-Af Amer) 16.5 BUN/Creatinine Ratio 36.0 H Glucose 158 H POC Glucose (mg/dL) Calcium 8.0 L Ionized Calcium 1.18 Phosphorus 8.6 H Magnesium 3.6 H Total Bilirubin 1.80 H AST 80 H ALT 55 H Alkaline Phosphatase 327 H B-Natriuretic Peptide 698 H Total Protein 4.9 L Albumin 3.0 L Globulin 1.9 L Albumin/Globulin Ratio 1.6 CMV Qnt PCR IU/mL Miscellaneous Test 02/28/19 08:22 APTT Sodium Potassium Chloride Carbon Dioxide Anion Gap BUN Creatinine Est GFR ( Amer) Est GFR (Non-Af Amer) BUN/Creatinine Ratio Glucose POC Glucose (mg/dL) 189 H Calcium Ionized Calcium Phosphorus Magnesium Total Bilirubin AST ALT Alkaline Phosphatase B-Natriuretic Peptide Total Protein Albumin Globulin Albumin/Globulin Ratio CMV Qnt PCR IU/mL Miscellaneous Test Studies: CXR 02/28 with improved left aeration, right with small increase in effusion to my eye Nutrition: Tolerating Nepro at 30 and hypoglycemia resolved Impression: Acute hypoxic respiratory failure. Background ILD with superimposed pulmonary edema and acute renal failure worsening. Plan: Acute hypoxic respiratory failure - multifactorial - acute pulmonary edema over baseline ILD. Bronch x 2 with only staph/strep identified. Well-treated by this point if they were ever even pathogenic. Focus at removal of excess body water and negative balance last 24 hrs but at expense of further renal insult. Will back off on the diuretic dose to q12 from q6h and will add levophed for supranormal SBP goal at 140 if it is attainable at 10 of levo or less, otherwise will accept SBP 120 as a target. Continue steroids at 60mg/day. He may show us that his best chance for survival is an aggressive trial of extubation. His airway clearance will likely be better than ours as long as he coughs. If no cough then no success but i am working towards that goal, conversation and DNI over the next 24-48 hrs. Sangita TF at goal and hypoglycemia resolved. Neurologically he rouses and seems grossly intact. Critical Care Time: 45 minutes
[2019-02-28] MEDS: Insulin GLARGINE(*) 1 UNITS UNIT SUBCUT SCH (20:28)
[2019-02-28] MEDS: Atorvastatin* 40 MG TAB PO SCH (20:31)
[2019-02-28] MEDS: Latanoprost 0.005%* 2.5 ml BTL BOTH EYES SCH (20:36)
[2019-03-01] MEDS: Insulin REGULAR(*) 1 UNITS UNIT SUBCUT SCH ×5 (00:05→16:24)
[2019-03-01] MEDS: Chlorhexidine MOUTHWASH 0.12%* 15 ML UDC SWISH SPIT SCH ×5 (00:05→16:24)
[2019-03-01] MEDS: Metoprolol Tartrate IV* 1 MG/ML 5 ML VIAL IV SCH ×3 (01:06→16:24)
[2019-03-01] MEDS: Norepinephrine VIAL* 8 MG in NS 0.9% 500 ML* 492 ML IV SCH ×4 (01:49→14:23)
--- NOTE | 2019-03-01 03:41 | CONS ---
NEPHROLOGY CONSULTATION: DATE OF CONSULT: 02/28/19 HISTORY OF PRESENT ILLNESS: Mr. Richey is a 78-year-old gentleman whom I had previously consulted on because of nephrolithiasis. He has a history of chronic interstitial lung disease and has been maintained on immuno-suppression for a number of years. He has a history of morbid obesity. He has a recent history of herpes zoster infection, for which he received acyclovir. He was admitted because of respiratory failure requiring intubation and ventilation. He has been accumulating fluid and is quite edematous and his pulmonary ventilatory pressures have been rising. In addition, his renal function has been deteriorating as well and the question comes whether it is reasonable to go ahead and attempt to diurese him. PAST MEDICAL HISTORY: Significant for nephrolithiasis. He has a history of coronary artery disease and has a stent to his LAD. He has chronic back pain secondary to spinal stenosis. He has benign prostatic hypertrophy. PHYSICAL EXAMINATION: He is afebrile, his blood pressure is 123/65 with a pulse of 93. He has some chemosis. He is anicteric. His mucous membranes are moist. He has tubes in place. The chest revealed some scattered rhonchi and upper airway noise. The heart revealed a regular rhythm. I could not hear any murmurs. The abdomen is soft. There was no wincing on palpation, but he is sedated. I could not feel any organomegaly. Bones, joints, extremities revealed 1 to 2+ edema. DIAGNOSTIC STUDIES/LAB DATA: A review of his laboratory studies reveals a white count of 6.6, hemoglobin of 7.5, hematocrit of 23, platelet count of 56, 000 and he has had thrombocytopenia dating back to 2017 probably on the basis of his azathioprine. Sodium 145, potassium 5.2, total CO2 of 20, chloride of 116, BUN of 110, creatinine of 3.18, glucose of 59. Albumin 3.6. His urinalysis on 02/23/19 revealed 1+ blood and some uric acid crystals in the past. IMPRESSION: 1. [id number] renal insufficiency. 2. Respiratory failure. 3. Pulmonary fibrosis from chronic interstitial lung disease. 4. Nephrolithiasis. 5. At the present time, I agree with going ahead to try to diurese him. Ordinarily, I would avoid that in acute renal insufficiency; however, the respiratory dynamics predominate in this situation. I have discussed the case at length with Dr. Archer. [id number]/[facility] #: [id number] [facility] HOSPITALGlenny
[2019-03-01] MEDS: Furosemide IV* 10 MG/ML VIAL (40 MG) IV SCH ×3 (04:07→16:24)
[2019-03-01 06:54] LABS: Albumin/Globulin Ratio 1.4 (1-3); Calcium 8.9 mg/dL (8.6-10.3); EGFR African American 20.2 (>60); EGFR Non-African American 16.7 (>60); Globulin 2.2 g/dL (2-4); Magnesium 3.7 mg/dL (1.9-2.7); Phosphorus 8.4 mg/dL (2.5-5.0); Total Bilirubin 1.4 mg/dL (0.2-1.0); Total Protein 5.2 g/dL (6.4-8.9)
[2019-03-01 06:55] LABS: Potassium 5.4 mmol/L (3.5-5.0)
[2019-03-01 07:12] LABS: BUN/Creatinine Ratio 41.5 (8-20)
[2019-03-01] MEDS: Betaxolol 0.5 %* OPHTH.SOLN 5 ML BOTH EYES SCH (08:05)
[2019-03-01] MEDS: predniSONE TAB* 20 MG PO SCH (08:27)
[2019-03-01] MEDS: Azithromycin SUSP* ORALSYR 20 MG/ML (100 MG/5 ML) PO SCH (08:27)
[2019-03-01] MEDS: Pantoprazole IV* 40 MG IV SCH (08:27)
[2019-03-01] MEDS: Gabapentin CAP(*) 100 MG PO SCH ×2 (08:27→13:19)
[2019-03-01] MEDS: Metolazone TAB* 5 MG PO SCH (08:27)
--- NOTE | 2019-03-01 09:49 | PN ---
Date of Service: 03/01/19 Critical Care Services: UO dramatically increased last 24 hrs Vital Signs: Temp Pulse Resp BP SpO2 FiO2 36.9 C 101 10 120/57 95 40 03/01/19 07:51 03/01/19 09:30 03/01/19 09:00 03/01/19 09:30 03/01/19 09:30 03/01 07:37 Physical Exam: Gen: Lethargic but rouses HEENT: NCAT, PERRL, intubated Lungs: coarse entry bilat Cardiac: S1S2 regular Abdomen: soft, obese, NT, ND, +BS Extremities: +3 edema LE, +2 UE edema Neuro: rouses, withdraws to pain Fluid Balance (Past 24 Hours): I= O= Net Intake & Output 02/27/19 02/28/19 03/01/19 03/02/19 06:59 06:59 06:59 06:59 Intake Total 555.3 838.2 1541 90 Output Total 1936 089 2042 450 Balance -537.7 -93.8 -2031 -360 Weight 119.3 kg 119 kg 116.4 kg Intake: IV Fluids 60 Calcium Gluconate 60 Medicated IV 175.3 117.6 715 CC - Propofol/Diprivan 80 76.6 22 Heparin 95.3 41 91 Levophed 602 Heparin 59.6 Oral 0 Tube Feeding 561 766 Tube Feeding Flush Amount 120 100 60 90 Albumin 100 NG Tube Irrigate Amount 100 Output: NG Tube Drainage Amount 225 Mclain 380 947 5009 450 Liquid Stool 300 Irrigation 30 Other: Date of Last Bowel 02/26 Movement # Bowel Movements 1 Estimated Stool Amount Large Other Amount Description had about 3 chux pads soaked w/ serous fluid from left femoral central line Labs: Laboratory Results - last 24 hr 02/28/19 02/28/19 02/28/19 13:12 18:07 20:10 APTT Sodium Potassium Chloride Carbon Dioxide Anion Gap BUN Creatinine Est GFR ( Amer) Est GFR (Non-Af Amer) BUN/Creatinine Ratio Glucose POC Glucose (mg/dL) 215 H 265 H 254 H Calcium Ionized Calcium Phosphorus Magnesium Total Bilirubin AST ALT Alkaline Phosphatase B-Natriuretic Peptide Total Protein Albumin Globulin Albumin/Globulin Ratio 02/28/19 03/01/19 03/01/19 23:58 04:02 05:55 APTT >240.0 H* Sodium Potassium Chloride Carbon Dioxide Anion Gap BUN Creatinine Est GFR ( Amer) Est GFR (Non-Af Amer) BUN/Creatinine Ratio Glucose POC Glucose (mg/dL) 251 H 239 H Calcium Ionized Calcium Phosphorus Magnesium Total Bilirubin AST ALT Alkaline Phosphatase B-Natriuretic Peptide Total Protein Albumin Globulin Albumin/Globulin Ratio 03/01/19 03/01/19 03/01/19 05:55 05:55 05:55 APTT Sodium 145 Potassium 5.4 H Chloride 114 H Carbon Dioxide 23 Anion Gap 8 BUN 148 H Creatinine 3.57 H Est GFR ( Amer) 20.2 Est GFR (Non-Af Amer) 16.7 BUN/Creatinine Ratio 41.5 H Glucose 207 H POC Glucose (mg/dL) Calcium 8.9 Ionized Calcium 1.21 Phosphorus 8.4 H Magnesium 3.7 H Total Bilirubin 1.40 H AST 58 H ALT 50 Alkaline Phosphatase 328 H B-Natriuretic Peptide 540 H Total Protein 5.2 L Albumin 3.0 L Globulin 2.2 Albumin/Globulin Ratio 1.4 03/01/19 03/01/19 07:25 07:52 APTT 61.9 H Sodium Potassium Chloride Carbon Dioxide Anion Gap BUN Creatinine Est GFR ( Amer) Est GFR (Non-Af Amer) BUN/Creatinine Ratio Glucose POC Glucose (mg/dL) 240 H Calcium Ionized Calcium Phosphorus Magnesium Total Bilirubin AST ALT Alkaline Phosphatase B-Natriuretic Peptide Total Protein Albumin Globulin Albumin/Globulin Ratio Nutrition: Sangita Nepro at 30cc/hr, no more hypoglycemia Impression: Acute hypoxic respiratory failure. Background ILD with superimposed pulmonary edema and acute renal failure worsening. Plan: Acute hypoxic respiratory failure - multifactorial - acute pulmonary edema over baseline ILD. Bronch x 2 with only staph/strep identified. Well-treated by this point if they were ever even pathogenic. Focus at removal of excess body water and negative balance last 48. Renal indices have continued to rise but that may be true true and not related. Ultimately I kept the Q6H lasix yesterday and added levophed for supranormal SBP goal at 140 which was attained. We immediately saw increased urine output and he is negative balance 2 liters the last 24 hours. Continue steroids at 60mg/day. He may show us that his best chance for survival is an aggressive trial of extubation. His airway clearance will likely be better than ours as long as he coughs. If no cough then no success but I am working towards that goal, conversation and potential DNI over the next 24hrs. Sangita TF at goal and hypoglycemia resolved. Neurologically he rouses and seems grossly intact. Critical Care Time: 40 minutes
[2019-03-01] MEDS ORDERED: Insulin GLARGINE(*) 1 UNITS UNIT SUBCUT SCH (10:00)
--- NOTE | 2019-03-01 12:06 | CONSULT ---
Palliative / Hospice Consult Ordering Provider: Destiny Owens - PCP-[facility] Referal Reason: Goals of care - Subjective Code Status: DNR Advance Directives Location: No Advance Directives MOLST Part A Completed: Yes - on chart MOLST Part E Completed:: Yes - on chart - History or Present Illness History or Present Illness: 78yo male with idiopathic inflammatory lung disease on steriods, azathioprine and 3 liter O2 c/o increased weakness and fever. PMH is significant for spinal stenosis, CAD LAD stent, HTN, hyperlipidemia, nephrolithiasis, DM type 2 and h/ o DVT. 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 Pt was admitted with sepsis, pancytopenia & shingles, was transferred to ICU 02/20 and intubated for respiratory failure. Developed bilat tibial vein dvts had IVC insertion, renal failure, underwent bronchoscopy 3x for mucus plugging. All history is from the and medical records. Lab Values: Abnormal Lab Results 02/28/19 02/28/19 02/28/19 13:12 18:07 20:10 APTT Sodium Potassium Chloride Carbon Dioxide Anion Gap BUN Creatinine Est GFR ( Amer) Est GFR (Non-Af Amer) BUN/Creatinine Ratio Glucose POC Glucose (mg/dL) 215 H 265 H 254 H Calcium Ionized Calcium Phosphorus Magnesium Total Bilirubin AST ALT Alkaline Phosphatase B-Natriuretic Peptide Total Protein Albumin Globulin Albumin/Globulin Ratio 02/28/19 03/01/19 03/01/19 23:58 04:02 05:55 APTT >240.0 H* Sodium Potassium Chloride Carbon Dioxide Anion Gap BUN Creatinine Est GFR ( Amer) Est GFR (Non-Af Amer) BUN/Creatinine Ratio Glucose POC Glucose (mg/dL) 251 H 239 H Calcium Ionized Calcium Phosphorus Magnesium Total Bilirubin AST ALT Alkaline Phosphatase B-Natriuretic Peptide Total Protein Albumin Globulin Albumin/Globulin Ratio 03/01/19 03/01/19 03/01/19 05:55 05:55 05:55 APTT Sodium 145 Potassium 5.4 H Chloride 114 H Carbon Dioxide 23 Anion Gap 8 BUN 148 H Creatinine 3.57 H Est GFR ( Amer) 20.2 Est GFR (Non-Af Amer) 16.7 BUN/Creatinine Ratio 41.5 H Glucose 207 H POC Glucose (mg/dL) Calcium 8.9 Ionized Calcium 1.21 Phosphorus 8.4 H Magnesium 3.7 H Total Bilirubin 1.40 H AST 58 H ALT 50 Alkaline Phosphatase 328 H B-Natriuretic Peptide 540 H Total Protein 5.2 L Albumin 3.0 L Globulin 2.2 Albumin/Globulin Ratio 1.4 03/01/19 03/01/19 07:25 07:52 APTT 61.9 H Sodium Potassium Chloride Carbon Dioxide Anion Gap BUN Creatinine Est GFR ( Amer) Est GFR (Non-Af Amer) BUN/Creatinine Ratio Glucose POC Glucose (mg/dL) 240 H Calcium Ionized Calcium Phosphorus Magnesium Total Bilirubin AST ALT Alkaline Phosphatase B-Natriuretic Peptide Total Protein Albumin Globulin Albumin/Globulin Ratio Laboratory Last Values WBC 6.6 10^3/uL (3.5-10.8) 02/27/19 05:00 RBC 2.60 10^6 /uL (4.18-5.48) L 02/27/19 05:00 RBC (Retic) 2.97 10^6/uL (4.18-5.48) L 02/23/19 04:12 Hgb 7.5 g/dL (14.0-18.0) L 02/27/19 05:00 Hct 23 % (42-52) L 02/27/19 05:00 HCT (Retic) 26 % (42-52) L 02/23/19 04:12 MCV 87 fL (80-94) 02/27/19 05:00 MCH 29 pg (27-31) 02/27/19 05:00 MCHC 33 g/dL (31-36) 02/27/19 05:00 RDW 18 % (10-15) H 02/27/19 05:00 Plt Count 56 10^3/uL (150-450) L 02/27/19 05:00 MPV 10.1 fL (7.4-10.4) 02/27/19 05:00 Neut % (Auto) 87.4 % 02/27/19 05:00 Lymph % (Auto) 6.3 % 02/27/19 05:00 [place] % (Auto) 5.2 % 02/27/19 05:00 Eos % (Auto) 1.0 % 02/27/19 05:00 Baso % (Auto) 0.1 % 02/27/19 05:00 Absolute Neuts (auto) 5.7 10^3/ul (1.5-7.7) 02/27/19 05:00 Absolute Lymphs (auto) 0.4 10^3/ul (1.0-4.8) L 02/27/19 05:00 Absolute Monos (auto) 0.3 10^3/ul (0-0.8) 02/27/19 05:00 Absolute Eos (auto) 0.1 10^3/ul (0-0.6) 02/27/19 05:00 Absolute Basos (auto) 0.0 10^3/ul (0-0.2) 02/27/19 05:00 Absolute Nucleated RBC 0.1 10^3/ul 02/27/19 05:00 Immature Gran % 2.0 % (0-9) 02/12/19 06:46 Neutrophils % 50.0 % 02/18/19 06:25 Band Neutrophils % 1.0 % (0-8) 02/12/19 06:46 Lymphocytes % 41.0 % 02/18/19 06:25 Reactive Lymphs % 1.0 % (0-6) 02/17/19 05:31 Monocytes % 6.0 % 02/18/19 06:25 Eosinophils % 3.0 % 02/18/19 06:25 Metamyelocytes % 1.0 % (0-2) 02/12/19 06:46 Nucleated RBC % 0.7 02/27/19 05:00 Large Platelets Present 02/12/19 06:46 Normal RBC Morphology Normal (Normal) 02/18/19 06:25 Polychromasia 1+ 02/11/19 21:31 Hypochromasia 2+ 02/18/19 06:25 Basophilic Stippling 1+ 02/11/19 21:31 Anisocytosis 2+ 02/11/19 21:31 Smear Path Review 02/17/19 15:41 Retic Count, Calc 2.4 % (0.5-1.5) H 02/23/19 04:12 Corrected Retic Count 1.4 % (0.5-1.5) 02/23/19 04:12 Retic Shift Factor 2.0 02/23/19 04:12 Retic Production Index 0.70 02/23/19 04:12 Immature Retic Fraction 0.32 02/23/19 04:12 Mean Retic Volume 110.1 02/23/19 04:12 Hem Pathologist Commnt 02/18/19 06:25 INR (Anticoag Therapy) 1.41 (0.82-1.09) H 02/21/19 05:15 APTT 61.9 seconds (26.0-38.0) H 03/01/19 07:25 Fibrinogen 336.0 mg/dL (110.8-404.3) 02/19/19 16:35 HIT Functional 0.083 OD (<0.400) 02/24/19 15:46 Patient Temperature Not Reportable 02/25/19 21:13 ABG pH 7.07 (7.35-7.45) L* 02/25/19 21:13 ABG pH (Temp Correct) Not Reportable 02/25/19 21:13 ABG pCO2 58 mmHg (35-45) H 02/25/19 21:13 ABG pCO2 (Temp Corrct Not Reportable 02/25/19 21:13 ABG pO2 88 mmHg (80-100) 02/25/19 21:13 ABG pO2 (Temp Correct Not Reportable 02/25/19 21:13 ABG HCO3 14.2 mmol/L (19-31) L 02/25/19 21:13 ABG O2 Saturation 97.7 % (94.0-98.0) 02/25/19 21:13 ABG Base Excess -13.7 mmol/L (-2.0-2.0) L 02/25/19 21:13 Respiration Rate Not Reportable 02/25/19 21:13 O2 Delivery Device vent 02/25/19 21:13 Ventilator Type aprv 02/25/19 21:13 Vent Mode 45 02/25/19 21:13 FiO2 Not Reportable 02/25/19 21:13 Inspiratory Time Not Reportable 02/25/19 21:13 PEEP Not Reportable 02/25/19 21:13 Pressure Support Not Reportable 02/25/19 21:13 Pressure Control Not Reportable 02/25/19 21:13 EPAP Not Reportable 02/25/19 21:13 IPAP Not Reportable 02/25/19 21:13 BiPAP Not Reportable 02/25/19 21:13 Sodium 145 mmol/L (135-145) 03/01/19 05:55 Potassium 5.4 mmol/L (3.5-5.0) H 03/01/19 05:55 Chloride 114 mmol/L (101-111) H 03/01/19 05:55 Carbon Dioxide 23 mmol/L (22-32) 03/01/19 05:55 Anion Gap 8 mmol/L (2-11) 03/01/19 05:55 BUN 148 mg/dL (6-24) H 03/01/19 05:55 Creatinine 3.57 mg/dL (0.67-1.17) H 03/01/19 05:55 Est GFR ( Amer) 20.2 (>60) 03/01/19 05:55 Est GFR (Non-Af Amer) 16.7 (>60) 03/01/19 05:55 BUN/Creatinine Ratio 41.5 (8-20) H 03/01/19 05:55 Glucose 207 mg/dL (70-100) H 03/01/19 05:55 POC Glucose (mg/dL) 240 mg/dL (70-100) H 03/01/19 07:52 Lactic Acid 0.8 mmol/L (0.5-2.0) 02/20/19 16:16 Uric Acid 6.7 mg/dL (4.4-7.6) 02/13/19 14:52 Calcium 8.9 mg/dL (8.6-10.3) 03/01/19 05:55 Ionized Calcium 1.21 mmol/L (1.16-1.32) 03/01/19 05:55 Phosphorus 8.4 mg/dL (2.5-5.0) H 03/01/19 05:55 Magnesium 3.7 mg/dL (1.9-2.7) H 03/01/19 05:55 Iron 71 ug/dL (50-212) 02/13/19 14:52 TIBC 181 mcg/dL (250-450) L 02/13/19 14:52 % Saturation 39 % (15-55) 02/13/19 14:52 Unsat Iron Binding < 166 ug/dL 02/13/19 14:52 Transferrin 129 mg/dL (203-362) L 02/13/19 14:52 Erythropoietin 39.3 mIU/mL (2.6 - 18.5) H 02/23/19 04:12 Ferritin 1332.6 ng/mL (24-336) H 02/13/19 14:52 Total Bilirubin 1.40 mg/dL (0.2-1.0) H 03/01/19 05:55 AST 58 U/L (13-39) H 03/01/19 05:55 ALT 50 U/L (7-52) 03/01/19 05:55 Alkaline Phosphatase 328 U/L (34-104) H 03/01/19 05:55 Lactate Dehydrogenase 476 U/L (140-271) H 02/13/19 14:52 Total Creatine Kinase 18 U/L (10-223) 02/22/19 13:45 CK-MB (CK-2) 2.1 ng/mL (0.6-6.3) 02/22/19 13:45 Troponin I 0.07 ng/mL (<0.04) H* 02/23/19 04:12 C-Reactive Protein 210.42 mg/L (<8.01) H 02/18/19 06:25 B-Natriuretic Peptide 540 pg/mL (<=100) H 03/01/19 05:55 Total Protein 5.2 g/dL (6.4-8.9) L 03/01/19 05:55 Albumin 3.0 g/dL (3.2-5.2) L 03/01/19 05:55 Globulin 2.2 g/dL (2-4) 03/01/19 05:55 Albumin/Globulin Ratio 1.4 (1-3) 03/01/19 05:55 Lipase 23 U/L (11.0-82.0) 02/19/19 16:35 Vitamin B12 679 pg/mL (180-914) 02/13/19 14:52 Folate 13.18 ng/mL (>3.99) 02/13/19 14:52 Procalcitonin 2.5 ng/mL (<=0.15) H 02/23/19 10:34 Urine Color Yellow 02/23/19 13:00 Urine Appearance Cloudy 02/23/19 13:00 Urine pH 5.0 (5-9) 02/23/19 13:00 Ur Specific [place] 1.025 (1.010-1.030) 02/23/19 13:00 Urine Protein Negative (Negative) 02/23/19 13:00 Urine Ketones Negative (Negative) 02/23/19 13:00 Urine Blood 1+ (Negative) A 02/23/19 13:00 Urine Nitrate Negative (Negative) 02/23/19 13:00 Urine Bilirubin Negative (Negative) 02/23/19 13:00 Urine Urobilinogen Negative (Negative) 02/23/19 13:00 Ur Leukocyte Esterase Negative (Negative) 02/23/19 13:00 Urine WBC (Auto) Absent (Absent) 02/23/19 13:00 Urine RBC (Auto) Absent (Absent) 02/23/19 13:00 Uric Acid Crystals Present (Absent) A 02/12/19 11:10 Urine Bacteria Absent (Absent) 02/23/19 13:00 Urine Collection Time 24 hr 02/15/19 19:00 Urine Total Volume 1500 mL 02/15/19 19:00 Ur Creatinine 24 Hour 1525.20 mg/24Hr (600-1800) 02/15/19 19:00 Ur Creatinine Concen 101.68 mg/dL 02/15/19 19:00 Ur Total Protein Conc 117 mg/dL 02/14/19 22:05 Urine Glucose Negative (Negative) 02/23/19 13:00 Vancomycin Trough 23.5 mcg/mL 02/22/19 10:38 Random Vancomycin 15.3 mcg/mL 02/24/19 04:50 Venous Lead (ICP-MS) < 1.0 mcg/dL (0.0-4.9) 02/13/19 14:52 Anti-Platelet Antibody TNP 02/22/19 05:00 Anti-Plt HLA Class I Ab TNP 02/22/19 05:00 Anti-Plt GP Ia/IIa Cell1 TNP 02/22/19 05:00 Anti-Plt GP Ia/IIa Cell2 TNP 02/22/19 05:00 Anti-Plt GP Ib/IX TNP 02/22/19 05:00 Anti-Plt GP IIb/IIIa Cell1 TNP 02/22/19 05:00 Anti-Plt GP IIb/IIIa Cell2 TNP 02/22/19 05:00 Anti-Plt GP IV TNP 02/22/19 05:00 Anti-Plt Prov Pt Diag TNP 02/22/19 05:00 Anti-Platelet IVIg TNP 02/22/19 05:00 Anti-Plt Plt Tx 72hrs TNP 02/22/19 05:00 Anti-Plt Plt x10(9)/L TNP 02/22/19 05:00 Platelet Ab Comment TNP 02/22/19 05:00 Heparin-PF4 Ab Interp Negative (Negative) 02/24/19 15:46 Heparin-PF4 Ab Comment See comment 02/24/19 15:46 Anaplasma DNA (PCR) Negative (Negative) 02/16/19 18:04 B. divergens/MO-1 PCR Negative (Negative) 02/16/19 18:04 Babesia duncani DNA PCR Negative (Negative) 02/16/19 18:04 Babesia microti DNA PCR Negative (Negative) 02/16/19 18:04 Borrelia miyamotoi (PCR) Negative (Negative) 02/16/19 18:04 Cryptococcus Ag Negative (Negative) 02/17/19 05:27 CMV Qnt PCR IU/mL <35 IU/mL (Undetected) A 02/24/19 15:46 E.chaffeensis DNA (PCR) Negative (Negative) 02/16/19 18:04 E. ewingii/canis (PCR) Negative (Negative) 02/16/19 18:04 E. muris-like DNA (PCR) Negative (Negative) 02/16/19 18:04 Hepatitis A IgM Ab Negative (Negative) 02/21/19 23:10 Hepatitis B Antibody Not immune (Immune) A 02/21/19 23:10 Hep Bs Antigen Negative (Negative) 02/21/19 23:10 Hep B Core IgM Ab Nonreactive (Nonreactive) 02/21/19 23:10 Hepatitis Be Antibody Negative (Negative) 02/21/19 23:10 Hepatitis Be Antigen Negative (Negative) 02/21/19 23:10 Hepatitis C Antibody Negative (Negative) 02/21/19 23:10 Hepatitis C Ab Index 0.04 s/c 02/21/19 23:10 Hepatitis C RNA Quant Undetected IU/mL (Undetected) 02/21/19 23:10 Histoplasma Ab Imm Diff Negative (Negative) 02/23/19 15:52 Histoplasma Mycel Ab CF Negative (Negative) 02/23/19 15:52 Histoplasma Yeast Ab CF Negative (Negative) 02/23/19 15:52 Urine Histoplasma Ag Negative (Negative) 02/23/19 15:52 U Histoplasma Ag Index 0.00 ng/mL 02/23/19 15:52 HIV 1&2 Ab/P24 Ag 4thGn Negative (Negative) 02/21/19 23:10 Influenza A (Rapid) Negative (Negative) 02/24/19 15:46 Influenza B (Rapid) Negative (Negative) 02/24/19 15:46 Parvovirus B19 IgG Ab Positive (Negative) A 02/13/19 14:52 Parvovirus B19 IgM Ab Negative (Negative) 02/13/19 14:52 Parvovirus Interpret See comment 02/13/19 14:52 Pneumocystis Source Sputum 02/22/19 17:55 Pneumocystis DNA (PCR) Negative 02/22/19 17:55 A. galactomannan Ag <0.500 index (<0.5) 02/24/19 15:46 VZV DNA (PCR) Negative (Negative) 02/19/19 15:30 Blood Parasite Screen No parasites seen (No Parasite) 02/17/19 15:41 MDS Specimen Bone marrow 02/12/19 12:15 MDS Source Left pic 02/12/19 12:15 MDS Refer Reason See comment 02/12/19 12:15 MDS (FISH) Method See comment 02/12/19 12:15 MDS Result Table See comment 02/12/19 12:15 MDS Result Summary Normal 02/12/19 12:15 MDS (FISH) Interpret See comment 02/12/19 12:15 MDS Add Info Not Reportable 02/12/19 12:15 MDS Disclaimer See comment 02/12/19 12:15 MDS Released By See comment 02/12/19 12:15 MDS (FISH) See comment 02/12/19 12:15 Flow Intrp 2-8 Markers Not Reportable 02/12/19 12:15 Flow Intrp 9-15 Marker Not Reportable 02/12/19 12:15 Flow Intrp 16+ Markers 02/12/19 12:15 Miscellaneous Test See comment 02/23/19 04:12 Blood Type A Positive 02/25/19 06:32 Antibody Screen Negative 02/25/19 06:32 Direct Antiglob Test Negative 02/23/19 04:12 Crossmatch See Detail 02/25/19 06:32 Transfusion React Rpt 02/21/19 14:36 Donor Unit # [id number] 02/21/19 14:36 Post-Trans Blood Type A Positive 02/21/19 14:36 Post-Trans CAROL Negative 02/21/19 14:36 Reaction Interpretation 02/21/19 14:36 - Objective Active Medications: Acetaminophen (Tylenol Tab*) 650 mg PO Q4H PRN PRN Reason: FEVER Albuterol (Ventolin 2.5 Mg/3 Ml Neb.Marlen*) 2.5 mg INH [id number] AWAKE PRN PRN Reason: SOB/WHEEZING Last Admin: 02/18/19 14:28 Dose: 2.5 mg Atorvastatin Calcium (Lipitor*) 40 mg PO 2100 [facility] Last Admin: 02/28/19 20:31 Dose: 40 mg Azithromycin (Zithromax Susp*) 250 mg PO MoWeFr@0900 [facility] Last Admin: 03/01/19 08:27 Dose: 250 mg Betaxolol HCl (Betoptic 0.05%*) 1 drop BOTH EYES BID [facility] Last Admin: 03/01/19 08:05 Dose: 1 drop Chlorhexidine Gluconate (Peridex Mouth Wash 0.12%*) 15 ml SWISH SPIT Q4H [facility] Last Admin: 03/01/19 08:26 Dose: 15 ml Dextrose (Dextrose 50% Vial 50 Ml*) 25 ml IV PUSH .FOR FS < 60 - SS PRN PRN Reason: FS < 60 Last Admin: 02/27/19 12:00 Dose: 25 ml Furosemide (Lasix Iv*) 60 mg IV 1000,1600,2200,0400 [facility] Last Admin: 03/01/19 09:22 Dose: 60 mg Gabapentin (Neurontin Cap(*)) 100 mg PO TID [facility] Last Admin: 03/01/19 08:27 Dose: 100 mg Heparin Sodium (Porcine) (Heparin Vial(*)) 0 units IV .PER PROTOCOL [facility] Last Admin: 02/22/19 19:46 Dose: 6,600 units Heparin Sodium/Dextrose (Heparin Drip 25,000 Units(*)) 25,000 units in 500 mls @ 0 mls/hr IV PER RATE [facility]; Protocol Last Admin: 02/28/19 09:13 Dose: 4 mls/hr Propofol (Diprivan*) 100 mls @ 3.204 mls/hr IV .(Initial Rate) [facility]; Protocol Last Admin: 02/28/19 03:30 Dose: 3.2 mls/hr Norepinephrine Bitartrate 8 mg (/ Sodium Chloride) 500 mls @ 75 mls/hr IV Q6H [facility]; Protocol Last Admin: 03/01/19 08:27 Dose: Not Given Insulin Glargine (Lantus(*)) 30 units SUBCUT Q24H [facility] Insulin Human Regular (Insulin Regular(*)) 0 units SUBCUT FS Q4 ICU [facility]; Protocol Last Admin: 03/01/19 08:26 Dose: 6 unit Latanoprost (Xalatan 0.005%*) 1 drop BOTH EYES BEDTIME [facility]; Protocol Last Admin: 02/28/19 20:36 Dose: 1 drop Metolazone (Zaroxolyn Tab*) 5 mg PO DAILY@0830 [facility] Last Admin: 03/01/19 08:27 Dose: 5 mg Metoprolol Tartrate (Lopressor Iv*) 5 mg IV Q8H [facility] Last Admin: 03/01/19 08:28 Dose: 5 mg Pantoprazole Sodium (Protonix Iv*) 40 mg IV BID [facility] Last Admin: 03/01/19 08:27 Dose: 40 mg Prednisone (Deltasone Tab*) 60 mg PO DAILY [facility] Stop: 03/02/19 09:01 Last Admin: 03/01/19 08:27 Dose: 60 mg Vital Signs: Vital Signs: Temp Pulse Resp BP Pulse Ox 99.8 F 103 10 142/67 96 03/01/19 11:55 03/01/19 11:00 03/01/19 11:00 03/01/19 11:00 03/01/19 11:00 Patient Weight: Weight 116.4 kg Intake and Output: Intake & Output 02/27/19 02/28/19 03/01/19 03/02/19 06:59 06:59 06:59 06:59 Intake Total 555.3 838.2 1541 90 Output Total 6403 900 7386 490 Balance -537.7 -93.8 -2031 -400 Weight 119.3 kg 119 kg 116.4 kg Intake: IV Fluids 60 Calcium Gluconate 60 Medicated IV 175.3 117.6 715 CC - Propofol/Diprivan 80 76.6 22 Heparin 95.3 41 91 Levophed 602 Heparin 59.6 Oral 0 Tube Feeding 561 766 Tube Feeding Flush Amount 120 100 60 90 Albumin 100 NG Tube Irrigate Amount 100 Output: NG Tube Drainage Amount 225 [place] 023 001 9179 490 Liquid Stool 300 Irrigation 30 Other: Date of Last Bowel 02/26 Movement # Bowel Movements 1 Estimated Stool Amount Large Other Amount Description had about 3 chux pads soaked w/ serous fluid from left femoral central line ADLs: Meal Record Start: 02/12/19 01: 45 Freq: DAILY@0900,1400,1800 Status: Complete Protocol: Created 02/12/19 01:45 System (Rec: 02/12/19 01:45 System TELE-C07) Document 02/12/19 09:00 [id number] (Rec: 02/12/19 13:33 [id number] TELE-C10) Document 02/12/19 14:00 [id number] (Rec: 02/12/19 15:08 [id number] TELE-C10) Document 02/13/19 09:00 [id number] (Rec: 02/13/19 14:22 [id number] TELE-C10) Document 02/13/19 14:00 [id number] (Rec: 02/13/19 14:21 [id number] TELE-C10) Document 02/13/19 18:00 [id number] (Rec: 02/13/19 18:48 [id number] TELE-C10) Document 02/14/19 14:00 [id number] (Rec: 02/14/19 14:53 [id number] TELE-C11) Document 02/15/19 09:00 [id number] (Rec: 02/15/19 13:11 ESG9101 TELE-C11) Document 02/15/19 13:55 [id number] (Rec: 02/15/19 13:58 [id number] TELE-C11) Document 02/15/19 18:00 [id number] (Rec: 02/15/19 18:16 [id number] TELE-C01) Document 02/16/19 09:00 [id number] (Rec: 02/16/19 14:05 [id number] TELE-C11) Document 02/16/19 14:00 [id number] (Rec: 02/16/19 14:31 PFZ4410 TELE-C11) Document 02/16/19 18:00 VMY4112 (Rec: 02/16/19 18:44 [id number] TELE-C11) Document 02/17/19 09:00 [id number] (Rec: 02/17/19 14:27 [id number] TELE-C11) Document 02/17/19 14:00 [id number] (Rec: 02/17/19 14:27 RBN1433 TELE-C11) Document 02/17/19 18:00 SPC3268 (Rec: 02/17/19 22:29 AMT1416 TELE-C07) Document 02/18/19 09:00 [id number] (Rec: 02/18/19 14:13 [id number] TELE-C11) Document 02/18/19 14:00 KJA1266 (Rec: 02/18/19 14:14 [id number] TELE-C11) Document 02/18/19 18:00 [id number] (Rec: 02/18/19 18:39 WOI9135 TELE-C05) Document 02/19/19 09:00 QZK4258 (Rec: 02/19/19 10:54 [id number] MED-M28) Document 02/19/19 13:00 WHT4807 (Rec: 02/19/19 13:00 GWC2621 MED-M28) ADLs: Meal Record Start: 02/19/19 18: 19 Freq: 09,13,18 Status: Hold Protocol: Created 02/19/19 18:19 [id number] (Rec: 02/19/19 18:19 [id number] ICU-C10) Document 02/20/19 13:00 [id number] (Rec: 02/20/19 15:59 QIG2008 ICU-C10) Document 02/20/19 17:53 [id number] (Rec: 02/20/19 17:53 TVO1202 ICU-C10) Document 02/21/19 09:00 TEE2774 (Rec: 02/21/19 09:46 HDN5275 ICU-L03) Document 02/21/19 13:00 [id number] (Rec: 02/21/19 13:42 [id number] ICU-C15) Document 02/21/19 18:00 VWL7569 (Rec: 02/21/19 19:06 SLA6982 ICU-C15) Intake and Output Start: 02/11/19 21: 07 Freq: Status: Active Protocol: Created 02/11/19 21:07 System (Rec: 02/11/19 21:07 System ED-C22) Intake and Output Start: 02/12/19 01: 45 Freq: DAILY@0600,1400,2200 Status: Complete Protocol: Created 02/12/19 01:45 System (Rec: 02/12/19 01:45 System TELE-C07) Document 02/12/19 06:00 [id number] (Rec: 02/12/19 06:14 GAR8624 TELE-C01) Document 02/12/19 14:00 GTR5022 (Rec: 02/12/19 15:08 [id number] TELE-C10) Document 02/12/19 22:00 VOU7425 (Rec: 02/13/19 00:32 TYH2195 TELE-C03) Document 02/13/19 06:00 IGT6579 (Rec: 02/13/19 06:50 IDQ4851 TELE-C03) Document 02/13/19 14:00 REI0645 (Rec: 02/13/19 14:23 SEH9375 TELE-C10) Document 02/13/19 22:00 [id number] (Rec: 02/13/19 22:07 GIV5901 TELE-C10) Document 02/14/19 00:47 IYM0192 (Rec: 02/14/19 00:48 BQZ5076 TELE-M20) Document 02/14/19 06:00 SWT3581 (Rec: 02/14/19 06:33 RUH6589 TELE-C11) Document 02/14/19 14:00 HSW8103 (Rec: 02/14/19 14:59 HJA1063 TELE-C11) Document 02/14/19 22:00 [id number] (Rec: 02/15/19 00:53 [id number] TELE-C01) Document 02/15/19 05:37 [id number] (Rec: 02/15/19 05:39 KRP6379 TELE-C01) Document 02/15/19 13:59 [id number] (Rec: 02/15/19 14:01 VUR9817 TELE-C11) Document 02/15/19 22:00 KXW3689 (Rec: 02/15/19 22:02 WDH6454 TELE-C03) Document 02/16/19 04:54 [id number] (Rec: 02/16/19 05:00 RPQ2274 TELE-C13) Document 02/16/19 06:00 NKS5495 (Rec: 02/16/19 06:29 VHR4737 TELE-C13) Document 02/16/19 14:00 [id number] (Rec: 02/16/19 14:31 UAX9156 TELE-C11) Document 02/16/19 21:12 OTR6394 (Rec: 02/16/19 21:12 EFY5227 TELE-C11) Document 02/17/19 06:00 UIQ0922 (Rec: 02/17/19 06:52 YLD3910 HOSP-C11) Document 02/17/19 14:00 GLD4727 (Rec: 02/17/19 14:35 DMX0718 TELE-C11) Document 02/17/19 16:12 PFX9610 (Rec: 02/17/19 16:13 SYQ0040 TELE-C11) Document 02/17/19 22:00 MVP0202 (Rec: 02/17/19 22:31 PLS1090 TELE-C07) Document 02/18/19 06:00 KXG4578 (Rec: 02/18/19 06:50 IEC4752 TELE-C08) Document 02/18/19 14:00 HAM6193 (Rec: 02/18/19 14:17 GYT8573 TELE-C11) Document 02/18/19 22:00 WLZ8662 (Rec: 02/18/19 22:22 DNE9615 TELE-C08) Document 02/19/19 06:00 ENL3515 (Rec: 02/19/19 06:39 HNW2825 TELE-C08) Document 02/19/19 08:34 EKI9804 (Rec: 02/19/19 08:34 RGR6851 [facility]-M20) Intake and Output Start: 02/19/19 18: 19 Freq: Q1HR Status: Active Protocol: Created 02/19/19 18:19 DOW6997 (Rec: 02/19/19 18:19 WNK1127 ICU-C10) Document 02/19/19 18:33 CUT8921 (Rec: 02/19/19 18:33 DBW8699 ICU-C25) Document 02/19/19 20:00 DIF6653 (Rec: 02/19/19 20:25 BZL8875 ICU-M31) Document 02/19/19 22:00 DUA6564 (Rec: 02/19/19 22:08 WTU9104 ICU-C10) Document 02/19/19 22:56 GYI5182 (Rec: 02/19/19 22:56 HAI6965 ICU-C10) Document 02/20/19 00:00 KYD0157 (Rec: 02/20/19 00:15 DRR9267 ICU-C10) Document 02/20/19 01:00 HEW6271 (Rec: 02/20/19 01:41 EAS5135 ICU-C10) Document 02/20/19 03:00 NTP5196 (Rec: 02/20/19 03:04 RUF5444 ICU-C10) Document 02/20/19 04:00 EZX0312 (Rec: 02/20/19 04:03 OYR2447 ICU-C10) Document 02/20/19 05:00 CZD2902 (Rec: 02/20/19 05:06 AGK2285 ICU-M31) Document 02/20/19 05:48 KEK3087 (Rec: 02/20/19 05:48 IZP8645 ICU-M31) Document 02/20/19 05:48 CPF0209 (Rec: 02/20/19 05:49 DXA0870 ICU-M31) Document 02/20/19 06:10 CGV7535 (Rec: 02/20/19 06:10 YJK0646 ICU-C10) Document 02/20/19 06:30 XBZ4258 (Rec: 02/20/19 07:10 XCG3035 ICU-C10) Document 02/20/19 07:59 VHR0321 (Rec: 02/20/19 07:59 AVE5877 ICU-C10) Document 02/20/19 08:31 GSU8340 (Rec: 02/20/19 08:31 QGW0810 ICU-M31) Document 02/20/19 09:00 VCK1475 (Rec: 02/20/19 09:09 URB5663 ICU-C10) Document 02/20/19 10:00 IXX5590 (Rec: 02/20/19 10:23 QMQ7183 ICU-M31) Document 02/20/19 11:00 IOM7618 (Rec: 02/20/19 11:58 SYJ0704 ICU-M31) Document 02/20/19 12:00 PCU9271 (Rec: 02/20/19 15:11 NIC8706 ICU-M31) Document 02/20/19 13:00 QRC7636 (Rec: 02/20/19 15:11 GKM1339 ICU-M31) Document 02/20/19 14:00 CQH5446 (Rec: 02/20/19 15:11 EIV6969 ICU-M31) Document 02/20/19 15:00 CBO9564 (Rec: 02/20/19 15:11 XRR3217 ICU-M31) Document 02/20/19 16:00 BHA6337 (Rec: 02/20/19 17:05 NXG3511 ICU-C10) Document 02/20/19 17:00 VQP3420 (Rec: 02/20/19 17:05 WGA4296 ICU-C10) Document 02/20/19 18:00 WYW5520 (Rec: 02/20/19 18:15 OOS3989 ICU-C10) Document 02/20/19 19:00 FEU7612 (Rec: 02/20/19 19:06 TVY0764 ICU-C10) Document 02/20/19 20:00 KVV7694 (Rec: 02/20/19 20:45 MSX3363 ICU-M31) Document 02/20/19 20:47 YWY3350 (Rec: 02/20/19 20:48 FLD4330 ICU-M31) Document 02/20/19 22:00 QTR9195 (Rec: 02/20/19 22:11 WVW9952 ICU-M31) Document 02/20/19 23:00 DWV3362 (Rec: 02/21/19 01:11 NMW5930 ICU-M31) Document 02/21/19 00:00 GOU9190 (Rec: 02/21/19 01:11 FHG5212 ICU-M31) Document 02/21/19 01:00 UEV1017 (Rec: 02/21/19 01:11 IRR2064 ICU-M31) Document 02/21/19 01:58 PPG3862 (Rec: 02/21/19 01:58 UDG0029 ICU-C16) Document 02/21/19 03:00 SJM2402 (Rec: 02/21/19 03:24 TLK6385 ICU-C16) Document 02/21/19 04:00 AFV3467 (Rec: 02/21/19 04:08 LMD6683 ICU-C16) Document 02/21/19 05:00 NON3472 (Rec: 02/21/19 05:04 FIP9728 ICU-C16) Document 02/21/19 05:56 BVC9407 (Rec: 02/21/19 06:00 FDF5284 ICU-C16) Document 02/21/19 08:00 MJH9512 (Rec: 02/21/19 10:45 IBT8322 ICU-C15) Document 02/21/19 09:00 BGT6987 (Rec: 02/21/19 10:45 YWZ5994 ICU-C15) Document 02/21/19 10:00 QAK8426 (Rec: 02/21/19 10:45 QCQ4125 ICU-C15) Document 02/21/19 11:00 BYP1619 (Rec: 02/21/19 11:07 LBF4082 ICU-C15) Document 02/21/19 12:00 HVI4124 (Rec: 02/21/19 13:05 MXN4639 ICU-M31) Document 02/21/19 13:00 VQE3873 (Rec: 02/21/19 13:05 RLF0614 ICU-M31) Document 02/21/19 14:00 SDO8584 (Rec: 02/21/19 15:46 OOI4101 ICU-M31) Document 02/21/19 15:00 MQY1542 (Rec: 02/21/19 15:46 WVC8399 ICU-M31) Document 02/21/19 16:00 YFB3410 (Rec: 02/21/19 18:12 QTX8516 ICU-C15) Document 02/21/19 17:00 [id number] (Rec: 02/21/19 18:12 ECY8768 ICU-C15) Document 02/21/19 18:00 OAY0221 (Rec: 02/21/19 18:13 KUP2934 ICU-C15) Document 02/21/19 19:00 OLD0175 (Rec: 02/21/19 23:21 GRE3271 ICU-M31) Document 02/21/19 20:00 RPO0710 (Rec: 02/22/19 01:28 UWP5799 ICU-C16) Document 02/21/19 21:00 QJT5460 (Rec: 02/22/19 01:28 BCA8172 ICU-C16) Document 02/21/19 22:00 SMG1346 (Rec: 02/22/19 01:28 QLF6670 ICU-C16) Document 02/21/19 23:00 ONR0079 (Rec: 02/22/19 01:29 BSQ7237 ICU-C16) Document 02/22/19 00:00 RBA5228 (Rec: 02/22/19 01:29 MSS2787 ICU-C16) Document 02/22/19 01:00 JES3036 (Rec: 02/22/19 01:29 SYI9526 ICU-C16) Document 02/22/19 02:00 IBL7786 (Rec: 02/22/19 02:26 UQD6695 ICU-C16) Document 02/22/19 03:00 ZBO4374 (Rec: 02/22/19 03:06 KBZ5278 ICU-M31) Document 02/22/19 04:00 TJH6328 (Rec: 02/22/19 04:23 NGC3042 ICU-C16) Document 02/22/19 05:00 DPK2660 (Rec: 02/22/19 05:08 ILF4026 ICU-M31) Document 02/22/19 06:00 JJH5416 (Rec: 02/22/19 06:40 STF2963 ICU-C16) Document 02/22/19 07:00 RLG9789 (Rec: 02/22/19 07:45 ULG6141 ICU-C10) Document 02/22/19 08:00 MVR5391 (Rec: 02/22/19 08:52 KBB2299 ICU-C10) Document 02/22/19 09:00 KVL5633 (Rec: 02/22/19 09:52 DVU3146 ICU-C10) Document 02/22/19 10:00 DDH9184 (Rec: 02/22/19 10:41 XCK0441 ICU-M31) Document 02/22/19 11:00 DVY4971 (Rec: 02/22/19 11:33 MOR3986 ICU-M31) Document 02/22/19 12:00 ACX2563 (Rec: 02/22/19 17:54 NKG0270 ICU-C10) Document 02/22/19 13:00 JNR2402 (Rec: 02/22/19 17:54 WYS8074 ICU-C10) Document 02/22/19 17:00 ZRH6058 (Rec: 02/22/19 18:14 SBS0632 ICU-M31) Document 02/22/19 18:00 UHQ8710 (Rec: 02/22/19 18:14 XWW3064 ICU-M31) Document 02/22/19 20:00 VZD2137 (Rec: 02/22/19 20:28 EEV1490 ICU-C15) Document 02/22/19 22:00 VDY3055 (Rec: 02/22/19 22:13 JKQ8252 ICU-C15) Document 02/22/19 23:00 HRF1426 (Rec: 02/22/19 23:11 TWS4230 ICU-C15) Document 02/23/19 00:00 FVX5474 (Rec: 02/23/19 00:59 JOZ3280 ICU-M31) Document 02/23/19 00:59 VTZ5069 (Rec: 02/23/19 00:59 XIA3317 ICU-M31) Document 02/23/19 02:00 DML3791 (Rec: 02/23/19 02:48 ZNH8713 ICU-M31) Document 02/23/19 03:00 QMJ3337 (Rec: 02/23/19 04:49 RCV7620 ICU-C15) Document 02/23/19 05:00 NAW2889 (Rec: 02/23/19 05:26 GNQ1544 ICU-C15) Document 02/23/19 06:00 LYN8424 (Rec: 02/23/19 06:28 ATB0132 ICU-M31) Document 02/23/19 07:00 OGA1515 (Rec: 02/23/19 08:03 MSK4902 ICU-M31) Document 02/23/19 08:00 ZNL4507 (Rec: 02/23/19 08:03 LHY1757 ICU-M31) Document 02/23/19 09:00 WPL1484 (Rec: 02/23/19 09:13 AUH6733 ICU-M31) Document 02/23/19 10:00 EVH9341 (Rec: 02/23/19 10:45 JHN9731 ICU-C10) Document 02/23/19 11:00 NWH5009 (Rec: 02/23/19 11:59 BZC1829 ICU-C16) Document 02/23/19 12:00 YSG6490 (Rec: 02/23/19 12:25 HLC7960 ICU-M31) Document 02/23/19 13:00 GGM5275 (Rec: 02/23/19 13:10 YPG5215 ICU-M31) Document 02/23/19 14:00 KYI9685 (Rec: 02/23/19 14:19 MMM2461 ICU-C10) Document 02/23/19 15:00 UZS4675 (Rec: 02/23/19 15:33 BNF3081 ICU-M31) Document 02/23/19 16:00 LVQ0089 (Rec: 02/23/19 16:07 EZD7906 ICU-M31) Document 02/23/19 17:00 PRW3729 (Rec: 02/23/19 18:24 BCP4801 ICU-M31) Document 02/23/19 18:00 ACU4814 (Rec: 02/23/19 18:24 TVR7826 ICU-M31) Document 02/23/19 20:00 QKO3047 (Rec: 02/23/19 20:23 RVU7592 ICU-C15) Document 02/23/19 21:00 KIT6988 (Rec: 02/23/19 22:26 BDV9818 ICU-C15) Document 02/23/19 22:00 CXP3389 (Rec: 02/23/19 22:26 DCU1420 ICU-C15) Document 02/24/19 00:00 RBT3127 (Rec: 02/24/19 01:13 NUA6270 ICU-C15) Document 02/24/19 01:00 RJS9087 (Rec: 02/24/19 01:21 ISY6466 ICU-C15) Document 02/24/19 03:00 UDD0022 (Rec: 02/24/19 03:05 YRF6315 ICU-M31) Document 02/24/19 03:07 AEV2011 (Rec: 02/24/19 03:07 SWF0269 ICU-M31) Document 02/24/19 04:00 UIZ4963 (Rec: 02/24/19 04:13 KQV2408 ICU-C15) Document 02/24/19 05:00 ZQZ6022 (Rec: 02/24/19 05:11 AAP5981 ICU-C15) Document 02/24/19 06:00 UOR8323 (Rec: 02/24/19 06:36 KWP6109 ICU-C15) Document 02/24/19 07:00 KDY3812 (Rec: 02/24/19 08:06 SZL4559 ICU-M31) Document 02/24/19 08:00 LUJ4991 (Rec: 02/24/19 08:06 NIE3886 ICU-M31) Document 02/24/19 08:54 LDR8023 (Rec: 02/24/19 08:54 WXQ2382 ICU-M31) Document 02/24/19 09:00 JYO6041 (Rec: 02/24/19 10:45 RLO5121 ICU-C10) Document 02/24/19 10:00 QIS9915 (Rec: 02/24/19 10:47 RAX5960 ICU-C10) Document 02/24/19 11:00 RUD0975 (Rec: 02/24/19 11:20 RMU6370 ICU-M31) Document 02/24/19 12:50 TCM1274 (Rec: 02/24/19 12:50 HLI3145 ICU-M31) Document 02/24/19 14:00 NDE3595 (Rec: 02/24/19 15:10 XDA2744 ICU-C16) Document 02/24/19 15:00 UHL7328 (Rec: 02/24/19 15:10 UGA8534 ICU-C16) Document 02/24/19 15:43 WAO6512 (Rec: 02/24/19 15:43 SLL1862 ICU-M31) Document 02/24/19 16:00 HCL0874 (Rec: 02/24/19 16:27 JAM9605 ICU-M31) Document 02/24/19 17:00 GBP7391 (Rec: 02/24/19 18:23 QWX9482 ICU-C10) Document 02/24/19 18:00 BQJ7370 (Rec: 02/24/19 18:23 DAW6874 ICU-C10) Document 02/24/19 19:00 IFE2435 (Rec: 02/24/19 19:05 MBQ8262 ICU-M31) Document 02/24/19 20:00 QQA0374 (Rec: 02/24/19 23:35 LRD2166 ICU-C16) Document 02/24/19 21:00 RAO0413 (Rec: 02/24/19 23:39 VIF9659 ICU-C16) Document 02/24/19 22:00 SBA9083 (Rec: 02/24/19 23:41 POY1280 ICU-C16) Document 02/24/19 23:00 TMY2701 (Rec: 02/24/19 23:41 DTZ5083 ICU-C16) Document 02/25/19 01:00 TWX5655 (Rec: 02/25/19 01:46 QYX6424 ICU-C16) Document 02/25/19 02:00 PPT4488 (Rec: 02/25/19 02:47 OKE8737 ICU-C16) Document 02/25/19 03:00 PGJ4258 (Rec: 02/25/19 03:56 BWW9737 ICU-M31) Document 02/25/19 05:00 VBC9997 (Rec: 02/25/19 05:05 BOY6831 ICU-C16) Document 02/25/19 06:00 OVE1841 (Rec: 02/25/19 06:24 SUB7220 ICU-C16) Document 02/25/19 07:00 OBF6073 (Rec: 02/25/19 08:13 MDV2581 ICU-M31) Document 02/25/19 08:00 EMO9521 (Rec: 02/25/19 08:13 RID1036 ICU-M31) Document 02/25/19 09:00 OFM8858 (Rec: 02/25/19 09:38 XJL2807 ICU-C10) Document 02/25/19 10:00 GFS0895 (Rec: 02/25/19 11:59 QHC7627 ICU-M31) Document 02/25/19 11:00 DFM7878 (Rec: 02/25/19 11:59 WMU1690 ICU-M31) Document 02/25/19 11:59 PVM8662 (Rec: 02/25/19 11:59 BPU4794 ICU-M31) Document 02/25/19 12:46 HEV7899 (Rec: 02/25/19 12:46 CCS7358 ICU-C10) Document 02/25/19 14:00 WDC5779 (Rec: 02/25/19 14:01 ZKY0935 ICU-M31) Document 02/25/19 15:57 HNS3477 (Rec: 02/25/19 15:57 YNL0751 ICU-C10) Document 02/25/19 17:00 CTM0269 (Rec: 02/25/19 18:14 XXS6778 ICU-C10) Document 02/25/19 18:00 MDA2206 (Rec: 02/25/19 18:15 CBH3017 ICU-C10) Document 02/25/19 22:00 ZQT4478 (Rec: 02/25/19 22:25 BGF6475 ICU-C16) Document 02/25/19 23:00 CCO3462 (Rec: 02/25/19 23:32 OIW5455 ICU-C16) Document 02/26/19 00:00 OWE7243 (Rec: 02/26/19 00:37 ABO6100 ICU-C16) Document 02/26/19 01:00 ACH9118 (Rec: 02/26/19 01:02 FTL3330 ICU-C16) Document 02/26/19 02:00 OZV2415 (Rec: 02/26/19 02:03 VDP3375 ICU-M31) Document 02/26/19 03:00 VLI5686 (Rec: 02/26/19 03:07 BNE3422 ICU-C16) Document 02/26/19 04:00 PKE4603 (Rec: 02/26/19 04:39 YLT2485 ICU-M31) Document 02/26/19 05:00 SZU7031 (Rec: 02/26/19 06:23 IIC0117 ICU-C16) Document 02/26/19 06:00 BIF6974 (Rec: 02/26/19 06:23 POR9392 ICU-C16) Document 02/26/19 07:00 JAN1672 (Rec: 02/26/19 07:02 NMA9814 ICU-M31) Document 02/26/19 07:58 SBO8126 (Rec: 02/26/19 08:08 KVZ7776 ICU-C10) Document 02/26/19 11:00 KJR7399 (Rec: 02/26/19 11:04 SVU6779 ICU-C10) Document 02/26/19 11:39 SRG1145 (Rec: 02/26/19 11:45 ROG9472 ICU-C10) Document 02/26/19 13:00 ZGX5669 (Rec: 02/26/19 13:45 LAP4579 ICU-C10) Document 02/26/19 14:00 GBF7322 (Rec: 02/26/19 14:06 DPI4031 ICU-C10) Document 02/26/19 15:00 IWB9879 (Rec: 02/26/19 15:46 BGM8144 ICU-C10) Document 02/26/19 15:19 SXE4154 (Rec: 02/26/19 15:35 KXS6607 ICU-C10) Document 02/26/19 17:00 BIA5488 (Rec: 02/26/19 17:15 GVF3510 ICU-M31) Document 02/26/19 18:00 SYM2266 (Rec: 02/26/19 18:11 USD8226 ICU-C10) Document 02/26/19 18:53 BTS4481 (Rec: 02/26/19 18:53 WWK4193 ICU-M31) Document 02/26/19 20:00 ZEF3182 (Rec: 02/26/19 20:20 HIM5812 ICU-M31) Document 02/26/19 21:00 WBO0329 (Rec: 02/26/19 21:19 MTN8171 ICU-C16) Document 02/26/19 22:00 QVM8395 (Rec: 02/26/19 22:14 XCO2286 ICU-C16) Document 02/26/19 22:56 NTW4409 (Rec: 02/26/19 22:56 IXG8656 ICU-C16) Document 02/27/19 00:00 HSI8707 (Rec: 02/27/19 01:00 FFM4041 ICU-C16) Document 02/27/19 01:00 EFO0533 (Rec: 02/27/19 01:00 EZS4369 ICU-C16) Document 02/27/19 02:00 NKU5014 (Rec: 02/27/19 02:04 GRQ6098 ICU-C16) Document 02/27/19 03:00 RFZ3599 (Rec: 02/27/19 03:37 LWP6615 ICU-C16) Document 02/27/19 04:00 MEP3151 (Rec: 02/27/19 05:56 DIL1768 ICU-M31) Document 02/27/19 05:00 MFG3077 (Rec: 02/27/19 05:58 XYN8186 ICU-M31) Document 02/27/19 05:56 DKF6116 (Rec: 02/27/19 05:58 HSF9738 ICU-M31) Document 02/27/19 07:00 KZU4556 (Rec: 02/27/19 07:09 LEK0599 ICU-M31) Document 02/27/19 08:00 WIU8596 (Rec: 02/27/19 08:12 AEL2509 ICU-M33) Document 02/27/19 09:00 TDL8036 (Rec: 02/27/19 09:17 AMH6556 ICU-M31) Document 02/27/19 10:00 DAP7941 (Rec: 02/27/19 10:34 TML4802 ICU-C25) Document 02/27/19 11:00 COU3135 (Rec: 02/27/19 11:04 ORY0200 ICU-M31) Document 02/27/19 12:00 VNK9930 (Rec: 02/27/19 12:02 ZPC6662 ICU-M31) Document 02/27/19 13:00 NOD9580 (Rec: 02/27/19 14:23 RVT2920 ICU-M31) Document 02/27/19 14:00 RUD9574 (Rec: 02/27/19 14:23 URH6024 ICU-M31) Document 02/27/19 15:00 QNR4951 (Rec: 02/27/19 16:05 DRK2689 ICU-M31) Document 02/27/19 16:00 QCB2486 (Rec: 02/27/19 16:05 LTS9724 ICU-M31) Document 02/27/19 17:00 COD7125 (Rec: 02/27/19 18:36 DCO0337 ICU-C25) Document 02/27/19 18:00 LPT8946 (Rec: 02/27/19 18:36 SXH5144 ICU-C25) Document 02/27/19 19:00 MRZ9752 (Rec: 02/27/19 19:04 URH7044 ICU-C25) Document 02/27/19 20:00 GKW9592 (Rec: 02/27/19 20:57 ROK1835 ICU-M31) Document 02/27/19 21:00 CZL8849 (Rec: 02/27/19 21:34 MTT2057 ICU-M31) Document 02/27/19 22:00 UOK1052 (Rec: 02/27/19 22:08 KWG2304 ICU-M31) Document 02/27/19 23:00 KGF5632 (Rec: 02/27/19 23:14 NEC0209 ICU-M31) Document 02/28/19 00:00 QDL1814 (Rec: 02/28/19 00:23 LKO4378 ICU-M31) Document 02/28/19 01:00 MGY6995 (Rec: 02/28/19 01:15 ZYF7156 ICU-M31) Document 02/28/19 02:00 AUR1402 (Rec: 02/28/19 02:19 CCR1784 ICU-C15) Document 02/28/19 03:00 TUM2418 (Rec: 02/28/19 03:06 NFA6919 ICU-M31) Document 02/28/19 04:00 UTB5940 (Rec: 02/28/19 04:17 CDG2660 ICU-C15) Document 02/28/19 05:00 TCQ2282 (Rec: 02/28/19 05:19 NTC3840 ICU-M31) Document 02/28/19 06:00 WFB3622 (Rec: 02/28/19 06:07 BJE6829 ICU-C15) Document 02/28/19 07:00 PCR0015 (Rec: 02/28/19 07:12 OJV0344 ICU-M31) Document 02/28/19 08:00 JPP6434 (Rec: 02/28/19 08:20 JFY1188 ICU-M31) Document 02/28/19 09:00 VUV1815 (Rec: 02/28/19 09:13 KTP0910 ICU-M31) Document 02/28/19 10:00 AZX5058 (Rec: 02/28/19 10:12 ZRO0755 ICU-M31) Document 02/28/19 11:00 SJR0371 (Rec: 02/28/19 12:13 KRE7592 ICU-M31) Document 02/28/19 12:00 GUK5649 (Rec: 02/28/19 12:13 KVW7111 ICU-M31) Document 02/28/19 13:00 YUJ3383 (Rec: 02/28/19 13:16 CNG5838 ICU-M31) Document 02/28/19 14:00 WPM8920 (Rec: 02/28/19 14:28 LFF6990 ICU-C25) Document 02/28/19 15:00 JDE2222 (Rec: 02/28/19 17:56 OHF5194 ICU-M31) Document 02/28/19 16:00 UZE2670 (Rec: 02/28/19 17:56 KIP9896 ICU-M31) Document 02/28/19 17:00 UCN3302 (Rec: 02/28/19 17:56 XPM4660 ICU-M31) Document 02/28/19 17:00 ZZC3329 (Rec: 02/28/19 17:56 GHG7722 ICU-M31) Document 02/28/19 18:00 WHP4204 (Rec: 02/28/19 18:06 DPK8148 ICU-M31) Document 02/28/19 19:00 DXP5620 (Rec: 02/28/19 19:39 AJS3423 ICU-C12) Document 02/28/19 20:00 OCY8376 (Rec: 02/28/19 21:11 ATT8418 ICU-C12) Document 02/28/19 21:00 QLN9377 (Rec: 02/28/19 21:11 DHV6108 ICU-C12) Document 02/28/19 22:00 LII6004 (Rec: 02/28/19 22:13 ZDI8072 ICU-C12) Document 02/28/19 23:00 OYZ8745 (Rec: 02/28/19 23:04 RQL4405 ICU-C12) Document 03/01/19 00:00 DEC2152 (Rec: 03/01/19 00:43 LPC4591 ICU-C12) Document 03/01/19 01:00 IWK6800 (Rec: 03/01/19 01:10 QPM2503 ICU-C12) Document 03/01/19 02:00 OPN3191 (Rec: 03/01/19 02:21 REE3230 ICU-C12) Document 03/01/19 03:00 BDJ6734 (Rec: 03/01/19 04:11 QSO0867 ICU-C12) Document 03/01/19 04:00 TKU5834 (Rec: 03/01/19 04:11 GXM9668 ICU-C12) Document 03/01/19 05:00 SKL1826 (Rec: 03/01/19 05:01 IQN1821 ICU-C12) Document 03/01/19 06:00 QKX6276 (Rec: 03/01/19 06:04 IRD8994 ICU-C12) Document 03/01/19 07:00 XOT6514 (Rec: 03/01/19 08:04 GPZ4486 ICU-M31) Document 03/01/19 09:00 OWU3820 (Rec: 03/01/19 09:40 VSJ3311 ICU-C15) Document 03/01/19 11:00 JIM0885 (Rec: 03/01/19 11:54 RMD5305 ICU-C15) Eyes: No Scleral Icterus Ears/Nose/Mouth/Throat: Mucous Membranes Moist Neck: NL Appearance and Movements; NL JVP, Trachea Midline Cardiovascular: NL Sounds; No Murmurs; No JVD, No Edema, - - irreg, rapid Abdominal: - - distention, mildely tender to palpation in lower band. no rebound or guarding. Extremities: No Edema, No Clubbing, Cyanosis, - Neurological: - - Sedated - Assessment Assessment: 78 yo male with endstage idiopathic inflammatory lung disease admitted with sepsis eligible for hospice - Plan Consult Plan (MU): Hospice Plan: Long discussion with , pt is unable to contribute. She understands he is going to . She would like to take him home on hospice but not sure he will survive the trip. She is okay with him dying at the hospital. His sons just visited over the weekend and pt code status was changed from full code to DNR. felt pt wouldn't want dialysis. Information and brochure about hospice given to . Emotional support given. She was worried about what happens after he dies( arrangements) and wishes he could have squeezed her hand one more time. had noted that he had been declining unable to play fantasy football league, watching more TV and staying home instead of going out. Pt is eligible for hospice with renal failure and endstage lung disease. KPS 20%, PPS10% - Time On Unit Date of Evaluation: 03/01/19 Hospice Consult Time in: 10:00 Hospice Consult Time Out: 11:30 Hospice Consult Time Total: 90 > 50% of Time Spend In Counseling or Coordinating Care: Yes
[2019-03-01] MEDS ORDERED: Insulin REGULAR(*) 1 UNITS UNIT SUBCUT SCH (18:30)
[2019-03-01 19:41] VITALS: BP 77/36
[2019-03-01] MEDS ORDERED: Morphine 4 MG/ML VIAL (1 ml) 4 MG/ML VIAL ONE (19:51)
[2019-03-01] MEDS ORDERED: Morphine 4 MG/ML VIAL (1 ml) 4 MG/ML VIAL IV PRN (19:59)
--- NOTE | 2019-03-02 00:23 | DS ---
CC: Dr. Delmar Boston; Dr. Echeverria; Dr. Evangelista; Dr. Davison; Dr. Marie; Dr. Abdalla; Dr. Chavez * DISCHARGE SUMMARY: DATE OF ADMISSION: 02/12/19 DATE OF EXPIRATION: 03/01/19 PRIMARY CARE PHYSICIAN: Dr. Delmar Boston. PRIMARY DIAGNOSES: 1. Acute hypoxic respiratory failure with acute pulmonary edema, history of interstitial lung disease and possible pneumonia. 2. Acute on chronic renal insufficiency. CONSULTS: Nephrology, Dr. Echeverria; Pulmonology, Dr. Evangelista; Palliative Care, Dr. Davison; Infectious Disease, Dr. Marie; GI, Dr. Abdalla; Hematology, Dr. Chavez. PROCEDURES: 1. Bone marrow biopsy on 02/12/19. 2. Bronchoscopy with BAL on 02/22/19. HISTORY OF PRESENT ILLNESS: Mr. Richey is a 78-year-old man with a history of interstitial lung disease, on home O2; coronary artery disease; hypertension; CKD; chronic lower back pain; diabetes; spinal stenosis, who presented to the ER with increasing overall weakness associated with the temperature. He was so weak, he can barely go to the bathroom and his had difficulty supporting him. He denied focal infectious symptoms such as dysuria, sore throat, nausea, diarrhea, cough, or dyspnea. His was most concerned with his home blood pressure reading, was 88/42, so she convinced him to come to the emergency room. Of note, he recently had a urology visit for urinary retention, BPH and UA at that time was negative for infection. He also recently had pancytopenia and was scheduled to follow up in hematology clinic. Also 12 days prior to presentation, he was diagnosed with shingles and had been on 1 week of Valtrex. He is chronically immunosuppressed, on azathioprine and prednisone for idiopathic inflammatory lung disease through Dr. Cueto, Pulmonology at [facility]. HOSPITAL COURSE: The patient was admitted to Medicine for possible sepsis of unknown etiology. Eventually, his urine resulted with E. faecalis and he continued on treatment for UTI with radiographic evidence for staghorn calculi. His course was complicated by increasing oxygen requirement, so transferred to ICU for progressive respiratory distress. He underwent bronchoscopy with findings of copious secretions and his chest CT compared to prior showed increased ground-glass opacities. He continued to have increased work of breathing and altered mental status and he was eventually intubated on . While intubated, his course continued to deteriorate. His kidney function continued to worsen and he was not able to come off the ventilator. The etiology of his respiratory failure was thought to be multifactorial and he was not responding to antibiotics or diuresis. Eventually, his agreed to no longer pursue aggressive interventions and patient was extubated on 03/01/19 and quickly passed after that time. He was evaluated by RN and MD team, and pronounced at 8:03 p.m. [id number]/[facility] #: [id number] [facility]
[2019-03-02 15:42] LABS: Haemophilus influenzae B IgG <0.11 mg/L (>=0.15)
[2019-03-03] MEDS ORDERED: predniSONE TAB* 20 MG PO SCH (09:00)
[2019-03-08] MEDS ORDERED: predniSONE TAB* 10 MG PO SCH (09:00)
[2019-03-13] MEDS ORDERED: predniSONE TAB* 20 MG PO SCH (09:00)
[2019-03-18] MEDS ORDERED: predniSONE TAB* 10 MG PO SCH (09:00)
== END 2019-03-01 20:03 | disposition expired | DRG 853 ==
LOC: ED 20:49 → MEDTELE 02-12 01:04 → ICU 02-19 17:21
PROVIDERS: ADMIT Internal Medicine; ATTEND Internal Medicine
PROC: 07DR3ZX Extraction of Iliac Bone Marrow, Percutaneous Approach, Diagnostic (ICD-10-PCS; 2019-02-12)
PROC: 0B9F8ZX Drainage of Right Lower Lung Lobe, Via Natural or Artificial Opening Endoscopic, Diagnostic (ICD-10-PCS; 2019-02-19)
PROC: 5A1955Z Respiratory Ventilation, Greater than 96 Consecutive Hours (ICD-10-PCS; principal; 2019-02-20)
PROC: 0BH17EZ Insertion of Endotracheal Airway into Trachea, Via Natural or Artificial Opening (ICD-10-PCS; 2019-02-20)
PROC: 06HM33Z Insertion of Infusion Device into Right Femoral Vein, Percutaneous Approach (ICD-10-PCS; 2019-02-21)
PROC: B54BZZA Ultrasonography of Right Lower Extremity Veins, Guidance (ICD-10-PCS; 2019-02-21)
PROC: 30233N1 Transfusion of Nonautologous Red Blood Cells into Peripheral Vein, Percutaneous Approach (ICD-10-PCS; 2019-02-21)
PROC: 3E043XZ Introduction of Vasopressor into Central Vein, Percutaneous Approach (ICD-10-PCS; 2019-02-21)
PROC: 06H03DZ Insertion of Intraluminal Device into Inferior Vena Cava, Percutaneous Approach (ICD-10-PCS; 2019-02-22)
PROC: 0B9J8ZX Drainage of Left Lower Lung Lobe, Via Natural or Artificial Opening Endoscopic, Diagnostic (ICD-10-PCS; 2019-02-22)
PROC: 0B9J8ZX Drainage of Left Lower Lung Lobe, Via Natural or Artificial Opening Endoscopic, Diagnostic (ICD-10-PCS; 2019-02-25)
DX: A41.9 Sepsis, unspecified organism (principal); J81.0 Acute pulmonary edema; J18.9 Pneumonia, unspecified organism; J96.21 Acute and chronic respiratory failure with hypoxia; N17.9 Acute kidney failure, unspecified; J84.9 Interstitial pulmonary disease, unspecified; J98.11 Atelectasis; D61.818 Other pancytopenia; N39.0 Urinary tract infection, site not specified; T17.590A Other foreign object in bronchus causing asphyxiation, initial encounter; N18.9 Chronic kidney disease, unspecified; I25.10 Atherosclerotic heart disease of native coronary artery without angina pectoris; I12.9 Hypertensive chronic kidney disease with stage 1 through stage 4 chronic kidney disease, or unspecified chronic kidney disease; E78.5 Hyperlipidemia, unspecified; G89.29 Other chronic pain; M54.5 Low back pain; N40.0 Benign prostatic hyperplasia without lower urinary tract symptoms; E11.22 Type 2 diabetes mellitus with diabetic chronic kidney disease; M48.00 Spinal stenosis, site unspecified; I95.81 Postprocedural hypotension; N20.0 Calculus of kidney; J84.10 Pulmonary fibrosis, unspecified; K59.00 Constipation, unspecified; R13.10 Dysphagia, unspecified; Z66 Do not resuscitate; R50.81 Fever presenting with conditions classified elsewhere; B95.2 Enterococcus as the cause of diseases classified elsewhere; B02.9 Zoster without complications; X58.XXXA Exposure to other specified factors, initial encounter; Y92.239 Unspecified place in hospital as the place of occurrence of the external cause; I48.91 Unspecified atrial fibrillation; F41.9 Anxiety disorder, unspecified; F32.9 Major depressive disorder, single episode, unspecified; R41.0 Disorientation, unspecified; E11.36 Type 2 diabetes mellitus with diabetic cataract; I27.20 Pulmonary hypertension, unspecified; G47.30 Sleep apnea, unspecified; M19.90 Unspecified osteoarthritis, unspecified site; Z72.89 Other problems related to lifestyle; Z95.5 Presence of coronary angioplasty implant and graft; Z82.49 Family history of ischemic heart disease and other diseases of the circulatory system; Z87.891 Personal history of nicotine dependence; Z88.8 Allergy status to other drugs, medicaments and biological substances; Z86.718 Personal history of other venous thrombosis and embolism; Z83.3 Family history of diabetes mellitus
CPT/HCPCS: 31622; 36415; 36600; 37191; 38222; 70450; 71045; 71046; 71250; 71275; 74018; 74176; 80048; 80053; 80074; 80202; 81003; 81015; 82272; 82330; 82550; 82553; 82565; 82570; 82607; 82668; 82728; 82746; 82803; 83540; 83550; 83605; 83615; 83655; 83690; 83735; 83880; 84100; 84145; 84156; 84238; 84466; 84484; 84520; 84550; 85014; 85018; 85025; 85045; 85060; 85097; 85384; 85610; 85730; 86022; 86078; 86140; 86356; 86357; 86359; 86684; 86698; 86706; 86707; 86747; 86803; 86850; 86880; 86900; 86901; 86922; 87015; 87040; 87070; 87077; 87086; 87102; 87116; 87176; 87186; 87205; 87206; 87207; 87252; 87254; 87305; 87340; 87350; 87385; 87389; 87497; 87522; 87640; 87641; 87798; 87899; 88112; 88184; 88185; 88187; 88188; 88189; 88271; 88275; 88305; 88311; 88312; 88313; 88341; 88342; 88360; 88364; 88365; 93005; 93306; 93970; 94002; 94003; 94640; 94667; 94668; 99233; 99284; A9270-GY; C1769; C8929; G8978-GP-CK; G8979-GP-CI; G8987-GO-CL; G8988-GO-CI; J0133; J0171; J0282; J0456; J0461; J0610; J1170; J1442; J1644; J1720; J1815; J1940; J2185; J2250; J2270; J2543; J2704; J2765; J2920; J2930; J2997; J3010; J3370; J3475; J3480; J3490; J7512; P9040; P9047; Q9967